=== PATIENT | male | born 1955 | race Caucasian/White ===

== ENCOUNTER 2016-10-29 11:12 | Inpatient (IN) | payer OTHER ==
[2016-10-29] VITALS (13 sets, daily range): BP systolic 104–179; BP diastolic 45–89; PULSE 49–63; RESP 16–25; O2SAT 95–99
[~2016-10-29] VITALS: Ht 172.7 cm; Wt 100.0 kg
--- NOTE | 2016-10-29 11:24 | ED.REPORT ---
HPI-Rash / Abscess Date of Service Oct 29, 2016 ED Provider: Antonio Parks MD 61 year old male with a history of diabetes who is an everyday smoker presents to the ER accompanied by his complaining of right foot pain secondary to a sore on his right great toe that has been present for 3-4 months. He states that symptoms initially presented as "a large callous" on his great toe that ruptured while showering one day. Since then, he has developed worsening pain in his foot that radiates up his calf, with associated redness of the foot and lower leg. Associated symptoms include fever, chills, and diaphoresis. Patient was seen by his primary care provider several days ago at which time he was prescribed a course of clindamycin, started 48 hours ago, and referred to the wound care center. He presents after being seen at the wound clinic just prior to arrival where he had his wound evaluated and dressed. Nursing Notes Stated Complaint: RIGHT FOOT ABSCESS,RIGHT CALF PAIN Chief Complaint: General Complaint Nursing Notes Reviewed: Yes Allergies: Coded Allergies: No Known Allergies (Unverified , 10/29/16) General Time Seen by MD: 11:22 Chief Complaint Sore (Right Great Toe) Hx Obtained From: Patient, Spouse Arrived By: Walk-in Onset Occurred: More than a week ago... (4 months) Symptom Duration: Since onset Location: : Foot (Right) Quality: Painful Severity: Current: Moderate Severity: Maximum: Moderate Associated with: Reports Fever, Reports Shaking chills Recent Healthcare: Recent doctor visit Similar Sx Previous: No Past Medical History Past Medical History Reports: Diabetes mellitus, Denies: COPD, Congestive heart failure, Coronary artery disease Denies: Atrial fibrillation Past Surgical History Open heart surgery Right femoral bypass surgery Carotid endarterectomy Lower extremity stent placement Smoking History Current Every Day Smoker Social History Other Social History: Good social support, Review of Systems Constitutional: Reports: Chills, Fever Respiratory: Denies: Non-productive cough, Shortness of breath Cardiovascular: Denies: Chest pain Musculoskeletal: Reports: Extremity pain (Right Lower, Right Foot), Denies: Back pain, Lumbar pain, Neck pain Skin: Reports Diaphoresis, Reports Rash Complete sys rev & neg: except as marked. Physical Exam Initial Vital Signs Vital Signs (First) Date Time Temp Pulse Resp B/P Pulse Ox O2 Delivery O2 Flow Rate FiO2 10/29/16 11:16 37.8 60 18 126/63 99 Initial VS: Reviewed Head / Eyes: Atraumatic, Normocephalic Neck: Supple, Non-tender, Full range of motion Neurologic: Alert, Oriented, Nonfocal Psychiatric: Mood/affect normal, Behavior normal, Normal thought content General/Constitutional: Awake, Alert, Well developed, Well nourished Skin: Warm, Dry, Intact Respiratory / Chest: Breath sounds NL, Breath sounds = bilat, No respiratory distress, No rales, No rhonchi, No wheezing Cardiovascular: Heart rate NL, Regular rhythm Heart Sounds / Murmur: Positive: Systolic murmur present.. (III/) Lower Extremity / Pelvis / MS: Full range of motion, Neurologic intact, Vascular intact Right Leg / Calf: Positive: Erythema present (extending midway up anterior blas.), Tenderness present... Ankle / Foot: Full range of motion, No deformity, Neurologic intact, Vascular intact Right Foot: Positive: Erythema present, Tenderness present... (Moderate) Right foot wound freshly evaluated and dressed at wound care center just prior to arrival in the department. Interpretation & Diagnostics Lab Results Interpretation Result Diagram: 10/29/16 1143 10/29/16 1130 Test 10/29/16 11:30 10/29/16 11:43 10/29/16 12:26 10/29/16 12:30 Sodium Level 128mEq/L (134-144) Potassium Level 4.2mEq/L (3.5-5.2) Chloride Level 93mEq/L (97-108) Carbon Dioxide Level 20mmol/L (18-29) Blood Urea Nitrogen 31mg/dL (8-27) Creatinine 1.48mg/dL (0.76-1.27) Estimat Glomerular Filtration Rate 51mL/min (>59) Glucose Level 133mg/dL (60-99) Calcium Level 8.9mg/dL (8.5-10.1) Total Bilirubin 0.7mg/dL (0.0-1.2) Aspartate Amino Transf (AST/SGOT) 19U/L (0-50) Alanine Aminotransferase (ALT/SGPT) 9U/L (0-44) Alkaline Phosphatase 76U/L (25-160) Total Protein 7.0g/dL (6.4-8.4) Albumin 3.0g/dL (3.4-5.0) White Blood Count 19.9th/mm3 (3.8-10.1) Red Blood Count 4.11mil/mm3 (4.40-5.80) Hemoglobin 12.8g/dL (13.8-17.2) Hematocrit 36.9% (41.0-50.0) Mean Corpuscular Volume 89.8fL (81-100) Mean Corpuscular Hemoglobin 31.1pg (27.0-35.0) Mean Corpuscular Hemoglobin Concent 34.7% (32.0-37.0) Red Cell Distribution Width 13.0% (12.3-15.4) Platelet Count 326bil/L (150-400) Neutrophils (%) (Auto) 84.6% (40-74) Lymphocytes (%) (Auto) 7.5% (14-46) Monocytes (%) (Auto) 7.3% (4-12) Eosinophils (%) (Auto) 0.1% (0-5) Basophils (%) (Auto) 0.2% (0-3) Lactic Acid Level 1.1mmol/L (0.4-2.0) Urine Color Yellow (YELLOW) Urine Appearance Clear (CLEAR,HAZY) Urine pH 5.5 (5.0-8.0) Urine Specific [place] 1.025 (1.003-1.035) Urine Protein 100mg/dL (NEG,TRACE) Urine Glucose (UA) Negativemg/dL (NEGATIVE) Urine Ketones Negativemg/dL (NEGATIVE) Urine Occult Blood Small (NEGATIVE) Urine Nitrite Negative (NEGATIVE) Urine Bilirubin Negative (NEGATIVE) Urine Urobilinogen Normalmg/dL (NORMAL) Urine Leukocyte Esterase Negative (NEGATIVE) Urine RBC 0-2/hpf (0-2) Urine WBC 0-5/hpf (0-5) Urine Epithelial Cells Occasional/hpf (NONE-MOD) Urine Crystals None seen (NONE SEEN) Urine Bacteria None/hpf (NONE-FEW) Urine Hyaline Casts Occasional/lpf (NONE) Urine Granular Casts None seen (NONE SEEN) Urine Waxy Casts None seen (NONE SEEN) Urine Red Blood Cell Casts None seen (NONE SEEN) Urine White Blood Cell Casts None seen (NONE SEEN) Urine Mucus None seen (None Seen) Urine Trichomonas None seen (NONE SEEN) Urine Yeast None (NONE SEEN) Urinalysis Comment None Urine Culture Reflexed Not indicated ECG Interpretation ECG Interpretation: Sinus rhythm, rate 60 Abnormal T, consider ischemia, lateral leads Time: 12:10 Interpreted by: ED physician Re-Eval/Medical Decision Source of Hx: Old records Re-Evaluation/Progress : Time of Eval: 11:35 Re-Evaluation/Progress Note: Discussed physical examination findings and need for admission. Patient is amenable to the plan. All other questions addressed. Consultation #1: Referral / Consult Name: Beto Jensen DPM Call Returned at: 11:37 Note: Agrees to consult. 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 I, Dr. Parks, personally performed the history, physical exam and medical decision-making; I reviewed and confirmed the accuracy of the information in the transcribed note. Signed by: Roger Patton, 10/29/2016 and 12:32 copies to: Haley Swift PA-C, Kirk H MD Oct 29, 2016 11:24 NICO GUO Oct 29, 2016 11:31 Antonio Parks MD Oct 29, 2016 11:24 NICO GUO Oct 29, 2016 11:31
[2016-10-29] MEDS ORDERED: 0.9% Sodium Chloride 1,000 ML IV ONE (11:43)
[2016-10-29] MEDS ORDERED: Vancomycin Dose per Pharmacist XX ONE (11:45)
[2016-10-29] MEDS ORDERED: Clindamycin Inj 900 MG in IV Premix 1 EACH IV ONE (11:45)
[2016-10-29] MEDS ORDERED: Meropenem Inj 1,000 MG in 0.9% Sodium Chloride 100 ML IV ONE (11:45)
[2016-10-29] MEDS ORDERED: Vancomycin Inj 2,000 MG in 0.9% Sodium Chloride 500 ML IV ONE (12:05)
[2016-10-29] MEDS: HYDROmorphone 1 mg/mL Inj IVPUSH PRN (12:14)
[2016-10-29 12:29] LABS: BASOPHILS % (AUTO) 0.2 % (0-3); EOSINOPHILS % (AUTO) 0.1 % (0-5); MONOCYTES % (AUTO) 7.3 % (4-12); Mean Corpuscular Hemoglobin 31.1 pg (27.0-35.0); Mean Corpuscular Volume 89.8 fL (81-100); NEUTROPHILS % (AUTO) 84.6 % (40-74); Platelet Count 326 bil/L (150-400)
[2016-10-29] MEDS ORDERED: Buprenorphine 2 mg SL Tablet SL ONE (12:30)
--- NOTE | 2016-10-29 12:41 | PCM.CONPHA ---
Subjective Date of Service: Oct 29, 2016 Requesting Provider: Antonio Parks MD Reason for Pharmacy Consult: Vancomycin Dosing Objective Vital Signs Date Time Temp Pulse Resp B/P Pulse Ox O2 Delivery O2 Flow Rate FiO2 10/29/16 11:16 37.8 60 18 126/63 99 Weight (Kilograms): 101.36 Height (Feet): 5 Height (Inches): 8 Test 10/29/16 12:26 Assessment/Plan Assessment/Plan A/P: * Pharmacy asked to dose vancomycin for a 61 y/o diabetic man with cellulitis * He weighs 101 kg per the EMR, estimated vancomycin Vd is 71 liters * No recent serum creatinine lab * Clindamycin and meropenem were also ordered * Giving a one time dose of vancomycin 2000 mg IV (about 20 mg/kg) * Please re-order pharmacy consult if the patient is to be continued on vancomycin Thank you. Shyla Meneses, PharmD Shyla Meneses Oct 29, 2016 12:41
[2016-10-29 12:43] LABS: APPEARANCE,URINE CLEAR (CLEAR,HAZY); COLOR,URINE YELLOW (YELLOW); OCCULT BLOOD,URINE SMALL (NEGATIVE); PH,URINE 5.5 (5.0-8.0); UROBILINOGEN,URINE NORMAL (NORMAL)
[2016-10-29] MEDS ORDERED: Ondansetron 2 mg/mL 2 mL Inj IVPUSH PRN ×3 (13:00→17:15)
[2016-10-29] MEDS ORDERED: Alum-Mag Hydrox-Simeth 30 mL Suspension PO PRN ×2 (13:00→13:05)
[2016-10-29] MEDS ORDERED: Polyethylene Glycol (PEG) 17 Gm Powder PO PRN (13:05)
--- NOTE | 2016-10-29 13:16 | DRSVH ---
PROCEDURE: X-RAY RIGHT FOOT COMPLETE, MINIMUM THREE VIEWS ([id number]) INDICATIONS: poor wound healing TECHNIQUE: 3 views of the foot were acquired. COMPARISON: None. FINDINGS: Bones: No fractures or dislocations. No suspicious bony lesions. Plantar calcaneal enthesophyte. Soft tissues: No tibiotalar joint effusion. Achilles tendon appears normal. There is swelling abou t the level of the first MTP joint along the medial and plantar surface of the soft tissues which con tains internal which may be related to overlying gauze or ointment. IMPRESSION: 1. Although no bony erosions are identified, plain film radiography is relatively insensitive in the acute phases of osteomyelitis and may not demonstrate radiographic changes for 15 days. If acute ost eomyelitis is of clinical concern, nuclear medicine regional bone scan or MRI is recommended. 2. Soft tissue ulceration. Dictated by: Guillermo CUELLAR Interpreted: Bryanna Millan MD on 10/29/2016 at 13:15 Transcribed by: GEORGE on 10/29/2016 at 13:16 Approved by: Bryanna Millan MD, PhD on 10/29/2016 at 16:57
--- NOTE | 2016-10-29 13:21 | NUR ---
ADMIT TO [facility] Patient arrived to RM 1012 on ER [facility]. Was able to stand and transfer to hospital bed in room. Alert and oriented, accompanied by . On RA. 2 IV antibiotics running through 20G AC in R arm. R foot wrapped with kerlix from previous wound care appointment, earlier in the day. Redness and swelling noted to R ankle and blas. Continue to monitor.
[2016-10-29] MEDS ORDERED: FUR20 PO (13:51)
[2016-10-29] MEDS ORDERED: GABA-502 PO (13:51)
[2016-10-29] MEDS ORDERED: HYDR25TA4 PO (13:51)
[2016-10-29] MEDS ORDERED: METF500T4 PO (13:51)
[2016-10-29] MEDS ORDERED: DULO30CA50 PO (13:51)
[2016-10-29] MEDS ORDERED: CLOP75TA28 PO (13:51)
[2016-10-29] MEDS ORDERED: PRAV20TA2 PO (13:51)
[2016-10-29] MEDS ORDERED: INSU100I13 SUBQ (13:51)
--- NOTE | 2016-10-29 15:48 | DRSVH ---
PROCEDURE: MRI FOREFOOT RIGHT WITH AND WITHOUT CONTRAST ([id number]) INDICATIONS: 61-year-old diabetic male with chronic right foot wound. TECHNIQUE: Noncontrast sagittal T1 spin echo and T2 fast spin echo with fat saturation, long-axis T1 spin echo a nd T2 fast spin echo with fat saturation; short-axis T1 spin echo, proton density fast spin echo, and T2 fast spin echo with fat saturation through the forefoot. Post-contrast short axis, long axis, an d sagittal T1 spin echo with fat saturation through the forefoot. COMPARISON: [facility], CR, XR FOOT 3VW RT, 10/29/2016, 12:12. FINDINGS: Skin marker denotes the site skin wound near the first metatarsophalangeal joint. Image quality: Excellent. Bones and joints: No suspicious osseous enhancement or edema. No bone marrow contusions or metatars al stress fractures. The sesamoid bones appear in expected positions, with localized degenerative cadena bchondral marrow edema involving the medial sesamoid. No metatarsophalangeal joint degeneration. Th ere is small first metatarsophalangeal joint degeneration. No intraosseous lesions. Soft tissues: There is confluent dorsal forefoot subcutaneous edema. No suspicious soft tissue enhan cement. On series 11 images 25 and 26, oblong soft tissue sinus tract is noted superficial to the me dial sesamoid, not extending to the osseous surface. The visualized plantar foot muscles demonstrate normal signal and bulk. Visualized flexor and extensor tendons appear intact, without tenosynovitis. No soft tissue ganglion cysts or bursal fluid collections. IMPRESSION: 1. No imaging evidence for osteomyelitis. Soft tissue sinus tract near the medial sesamoid, not exten ding to the bony surface. No soft tissue abscesses. 2. Localized degenerative changes involve the medial sesamoid. Nonspecific first metatarsophalangeal joint effusion. 3. Nonspecific confluent dorsal forefoot subcutaneous edema may reflect congestive heart failure, jacque lulitis, among other possibilities. Dictated by: Quique Mix M.D. on 10/29/2016 at 15:38 Approved by: Quique Mix M.D. on 10/29/2016 at 15:47
--- NOTE | 2016-10-29 16:03 | DRSVH ---
PROCEDURE: US VEINOUS LEG DUPLEX UNILATERAL, RIGHT INDICATIONS: leg swelling TECHNIQUE: Real-time imaging, as well as color and pulse Doppler interrogation, were performed of the lower extr emity deep veins from the inguinal ligament to the popliteal fossa. COMPARISON: None. FINDINGS: The deep veins are normally compressible, and free of intraluminal thrombus. Color and pu lse Doppler demonstrate normal phasic intraluminal flow. There is normal augmentation response to di stal compression maneuver. Edema and multiple groin lymph nodes. IMPRESSION: 1. No deep venous thrombosis identified within the right lower extremity. 2. Edema and multiple nodes visualized largest measuring 1.0 cm. Recommend clinical correlation and management. Dictated by: Guillermo CUELLAR Interpreted: Bryanna Millan MD on 10/29/2016 at 16:02 Transcribed by: GEORGE on 10/29/2016 at 16:03 Approved by: Bryanna Millan MD, PhD on 10/29/2016 at 16:57
[2016-10-29] MEDS ORDERED: CLIN-78 PO (16:24)
[2016-10-29] MEDS ORDERED: LOSA1TAB35 PO (16:24)
--- NOTE | 2016-10-29 16:53 | NUR ---
MED REC Completed with patient information, med list and external pharmacy information. Notified admitting MD.
--- NOTE | 2016-10-29 16:55 | PCM.HPMED ---
Subjective Date of Service Oct 29, 2016 Primary Provider: Admitting Physician: Danitza Mendez DO Primary Care Physician: Haley Swift PA-C Attending Physician: Danitza Mendez DO Chief Complaint: Right foot cellulitis failed outpatient treatment Allergies Coded Allergies: No Known Allergies (Unverified , 10/29/16) PMH Social History Hx Alcohol Use: No Hx Substance Use: No Smoking Status: Current Every Day Smoker Exam Vital Signs Vital Sign - Last Date Time Temp Pulse Resp B/P Pulse Ox O2 Delivery O2 Flow Rate FiO2 10/29/16 11:16 37.8 60 18 126/63 99 Lab and Diagnostics Result Diagram: 10/29/16 1143 10/29/16 1130 Assessment & Plan HPI: 61 yo male presents with the complaint of R foot pain 2/2 cellulits with failed out patient therapy with clindamycin. The patient states that he has been dealing with a blister/callous for the last 4 months and has been having it cared for by the wound care clinic. The patient state that he went to the doctor on Tuesday and was placed on Clindamycin 300mg QID. The patient stated today that he was not able to walk today while at work and had to leave early. The patient went to the doctors who evaluated his foot and stated that he needed to come to the ER for IV antibiotics as his r foot infection started to spread and is now going up the leg. Patient denies any SOB, chest pain, n/v/d. Reports constipation, sweating, chills, right foot pain and headache. 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 Please see HPI for perninent positives, all other systems are negatives. Physical Exam: GEN: Patient was awake, alert, responding appropriately to questions HEENT: PERRLA, EOMI, Neck soft supple, trachea midline, nomocephalic/atraumatic CV: +S1/S2, RRR, no murmurs auscultated Respiratory: CTAB, no wheezes, rales, rhonchi GI: +bowel sounds x4, soft, compressible, non TTP EXT: Right lower extremity redness, edema, right foot currently bandaged dressing is clean dry and intact Neuro: CN II-XII grossly intact Psych: mood and affect were appropriate Assessment and Plan 61-year-old male presents with right lower extremity pain secondary to cellulitis with failed outpatient antibiotics Right lower extremity cellulitis -Continue IV antibiotics -Podiatry consulted and taking patient to surgery this afternoon -Right lower extremity Doppler rule out DVT -MRI of the right foot rule out osteo-myelitis -Cultures of the right foot to be taken by podiatry Hypertension -Blood pressure is currently 104/51 -We will hold all patient's home medications at this time and restart as clinically indicated Vascular insufficiency -Continue Plavix 75 mg daily -Continue gabapentin 600 mg daily at bedtime Diabetes -Hemoglobin A1c pending -Restart Lantus 50 units every morning -Accu-Cheks before meals and at bedtime -Metformin 500 mg twice a day Nicotine dependence -Nicotine patch -Smoking cessation/counseling was given to the patient CODE STATUS patient is full code DVT prophylaxis heparin Disposition: Patient will most likely stay greater than 2 mid nights Time spent One hour Danitza Mendez DO Oct 29, 2016 13:08
--- NOTE | 2016-10-29 17:01 | NUR ---
TRANSFER TO OR Report given to Myriam in OR. Patient's IV was SL, voided and then transferred onto OR gurney. Taken upstairs, accompanied by .
[2016-10-29] MEDS ORDERED: HYDROmorphone 1 mg/mL Inj IVPUSH PRN (17:15)
[2016-10-29] MEDS ORDERED: fentaNYL-PF 50 mCg/mL 2 mL Inj IVPUSH PRN (17:15)
[2016-10-29] MEDS ORDERED: MetoCLOpramide 5 mg/mL 2 mL Inj IVPUSH PRN (17:15)
[2016-10-29] MEDS ORDERED: Phenylephrine 10,000 mCg/mL Inj IVPUSH PRN (17:15)
[2016-10-29] MEDS ORDERED: Lactated Ringer's 500 ML IV PRN (17:15)
[2016-10-29] MEDS ORDERED: Lactated Ringer's 1,000 ML IV SCH (17:15)
[2016-10-29] MEDS ORDERED: EPHEDrine Sulfate 50 mg/mL Inj IVPUSH PRN (17:15)
[2016-10-29] MEDS ORDERED: Dexamethasone 4 mg/mL Inj IVPUSH PRN (17:15)
--- NOTE | 2016-10-29 17:15 | PCM.HPANE ---
Patient Data Surgeon Admitting Provider:Danitza Mendez DO Attending Provider:Danitza Mendez DO Primary Care Physician:Haley Swift PA-C Other Provider: Reason for Visit Cellulitis Ht/WT & BMI Height (Feet): 5 Height (Inches): 8.00 Weight (Kilograms): 100.000 Body Mass Index 33.41 Allergies Coded Allergies: No Known Allergies (Unverified , 10/29/16) Past Anesthesia History Anesthesia History: Denies:: Anesthesia Reactions Diabetes History Hx Diabetes?: Yes Current Bedside Blood Glucose: 79 MRSA MRSA: No Medications Reported Medications Clindamycin 300 Mg [id number] Mg PO QID #40 10/29/16 Losartan/HCTZ 100-12.5 mg 1 Each Tablet1 Tablet PO DAILY Ref 0 10/29/16 Duloxetine 30 Mg Capsule.dr30 Mg PO DAILY #90 10/29/16 Insulin Glargine (Lantus U100 Solostar Insulin Pen)100 Unit/1 Ml Insuln.pen50 Units [id number] DAILY #45 10/29/16 Clopidogrel 75 Mg Fljloz95 Mg PO DAILY #90 10/29/16 Pravastatin 20 Mg Wwlykb96 Mg PO HS #90 10/29/16 Furosemide 20 Mg Tab20 Mg PO DAILY #90 10/29/16 Gabapentin 300 Mg [id number] Mg PO HS #180 10/29/16 Metformin 500 Mg Yjkvyi315 Mg PO BID #90 10/29/16 Discontinued Reported Medications Hydrochlorothiazide 25 Mg Ahgyer64 Mg PO DAILY #90 10/29/16 History History of ENT Problems?: No Hx of Heart Problems?: Yes Cardiovascular History: Positive for:: Cardiac Surgery (previous open heart surgery) Edema (R leg swelling after r femoral surgery) Heart Murmur Denies:: Chest Pain Congestive Heart Failure Hypertension Irregular Heartbeat Pacemaker Thrombophlebitis Hx of Respiratory Problem?: No Respiratory History: Denies:: Tuberculosis Hx Neurologic Problems?: No Neurological History: Denies:: Alzheimer's Disease CVA Dementia Dizziness Headaches Parkinson's Disease Seizures Hx of GI Problems?: No Gastrointestinal History: Denies:: Diverticulitis Gastroesphageal Reflux Gastrointestinal Bleeding Heartburn Hepatitis Hiatal Hernia Rectal Bleeding Hx of Problems?: No Genitourinary History: Denies:: HX of Hemodialysis Kidney Stones Urinary Tract Infection HX of Peritoneal Dialysis: No Male Hx: Denies:: Prostate Problems Scrotal Mass Testicular Surgery Hx Musculoskeletal Problems?: No Musculoskeletal History: Denies:: Joint Replacement Musculoskeletal Trauma Hx of Psycho/Social Problems?: No Psycho Social History: Denies:: Anxiety Bipolar Disorder Hx Depression Suicide Attempt Hx Surgeries?: Yes (r femoral byoass, open heart procedure, L carotid) Hx Any Other Health Problems?: Yes Other History: Denies:: Cancer Hospitalization Thyroid Disease History Blood Transfusions: Positive for:: Accept Blood Products? Denies:: Blood Transfuse Reaction Blood Transfusions Hx Diabetes: YesBedside Blood Glucose: 79 Hx Alcohol Use: NoHx Substance Use: No Smoking Status: Current Every Day Smoker Have You Smoked inLast 12 mo: YesApprox How Many Cigarettes/day: 20 ciagrettes Stop/Bang Treated for Sleep Apnea?: No Do You Have a CPAP Machine?: No S-Snoring: Do You Snore Loudly: Yes T-Tired: feel tired, fatigued: Yes O-Obsered: Observed not breath: No P-Blood Pressure: treated: No B- Body Mass Index > 35 kg/m2: No A- Age over 50: Yes N- Neck Large Circumference: No G- Gender Male: Yes JAGRUTI Total Score: 3 JAGRUTI Risk Assessment: Low Risk, <3 Yes Risk Assessment Category Category 1A: Patient has history of documented sleep apnea, and HAS NOT received any narcotic, sedative or anesthesia administration during this stay. Category 1B: Patient has history of documented sleep apnea, and HAS received any narcotic , sedative or anesthesia administration during this stay Category 2: Patient has SUSPECTED Obstructive Sleep Apnea, and HAS received any narcotic , sedative or anesthesia administration during this stay. Category 3: Patient has SUSPECTED Obstructive Sleep Apnea and HAS NOT received narcotic, sedative or anesthesia administration during this stay. Category 4: Outpatient in Procedural Areas with known sleep apnea or who screen positive for High Risk via the STOP/BANG questionnaire. Exam Exam Vital Signs Vital Signs Date Time Temp Pulse Resp B/P Pulse Ox O2 Delivery O2 Flow Rate FiO2 10/29/16 13:43 36.8 49 16 104/51 95 Room Air 10/29/16 13:06 37.7 60 18 132/89 99 10/29/16 11:16 37.8 60 18 126/63 99 General Appearance: Oriented X3 HEENT/AIRWAY: MP 2 Lungs: Normal Air Movement Heart: Regular Rate/Rhythm Meds/Labs/Diagnostics Admission Meds Current Medications Sodium Chloride (Normal Saline) 1,000 ml @ 0 mls/hr Q0M ONCE IV Last administered on 10/29/16 12:00; Start 10/29/16 at 11:43; Stop 10/29/16 at 11:56 ; Status DC Pharmacy Consult 1 ea 1 ea ONCE ONCE XX Last administered on 10/29/16 12:16; Start 10/29/16 at 11:45; Stop 10/29/16 at 12:00; Status DC Clindamycin Phosphate/ Dextrose 900 mg/ Premix 50 ml @ 100 mls/hr ONCE ONCE IV Last administered on 10/29/16 12:03; Start 10/29/16 at 11:45; Stop at 12:14; Status DC Meropenem/Sodium Chloride (Merrem Inj/ Normal Saline) 100 ml @ 200 mls/hr ONCE ONCE IV Last administered on 10/29/16 12:48; Start 10/29/16 at 11:45; Stop 10/29/16 at 12:14; Status DC Acetaminophen 975 mg 975 mg ONCE ONCE PO Last administered on 10/29/16 12:14 ; Start 10/29/16 at 11:45; Stop 10/29/16 at 11:56; Status DC Vancomycin HCl/ Sodium Chloride (Vancocin Inj/ Normal Saline) 500 ml @ 250 mls/ hr OT ONCE IV Last administered on 10/29/16 12:32; Start 10/29/16 at 12:05; Stop 10/29/16 at 14:04; Status DC Bedside Blood Glucose: 79 Labs Test 10/29/16 11:30 10/29/16 11:43 10/29/16 12:26 10/29/16 12:30 Sodium Level 128mEq/L (134-144) Potassium Level 4.2mEq/L (3.5-5.2) Chloride Level 93mEq/L (97-108) Carbon Dioxide Level 20mmol/L (18-29) Blood Urea Nitrogen 31mg/dL (8-27) Creatinine 1.48mg/dL (0.76-1.27) Estimat Glomerular Filtration Rate 51mL/min (>59) Glucose Level 133mg/dL (60-99) Calcium Level 8.9mg/dL (8.5-10.1) Total Bilirubin 0.7mg/dL (0.0-1.2) Aspartate Amino Transf (AST/SGOT) 19U/L (0-50) Alanine Aminotransferase (ALT/SGPT) 9U/L (0-44) Alkaline Phosphatase 76U/L (25-160) Total Protein 7.0g/dL (6.4-8.4) Albumin 3.0g/dL (3.4-5.0) White Blood Count 19.9th/mm3 (3.8-10.1) Red Blood Count 4.11mil/mm3 (4.40-5.80) Hemoglobin 12.8g/dL (13.8-17.2) Hematocrit 36.9% (41.0-50.0) Mean Corpuscular Volume 89.8fL (81-100) Mean Corpuscular Hemoglobin 31.1pg (27.0-35.0) Mean Corpuscular Hemoglobin Concent 34.7% (32.0-37.0) Red Cell Distribution Width 13.0% (12.3-15.4) Platelet Count 326bil/L (150-400) Neutrophils (%) (Auto) 84.6% (40-74) Lymphocytes (%) (Auto) 7.5% (14-46) Monocytes (%) (Auto) 7.3% (4-12) Eosinophils (%) (Auto) 0.1% (0-5) Basophils (%) (Auto) 0.2% (0-3) Lactic Acid Level 1.1mmol/L (0.4-2.0) Urine Color Yellow (YELLOW) Urine Appearance Clear (CLEAR,HAZY) Urine pH 5.5 (5.0-8.0) Urine Specific [place] 1.025 (1.003-1.035) Urine Protein 100mg/dL (NEG,TRACE) Urine Glucose (UA) Negativemg/dL (NEGATIVE) Urine Ketones Negativemg/dL (NEGATIVE) Urine Occult Blood Small (NEGATIVE) Urine Nitrite Negative (NEGATIVE) Urine Bilirubin Negative (NEGATIVE) Urine Urobilinogen Normalmg/dL (NORMAL) Urine Leukocyte Esterase Negative (NEGATIVE) Urine RBC 0-2/hpf (0-2) Urine WBC 0-5/hpf (0-5) Urine Epithelial Cells Occasional/hpf (NONE-MOD) Urine Crystals None seen (NONE SEEN) Urine Bacteria None/hpf (NONE-FEW) Urine Hyaline Casts Occasional/lpf (NONE) Urine Granular Casts None seen (NONE SEEN) Urine Waxy Casts None seen (NONE SEEN) Urine Red Blood Cell Casts None seen (NONE SEEN) Urine White Blood Cell Casts None seen (NONE SEEN) Urine Mucus None seen (None Seen) Urine Trichomonas None seen (NONE SEEN) Urine Yeast None (NONE SEEN) Urinalysis Comment None Urine Culture Reflexed Not indicated Plan Impression Patient chart reviewed, patient interviewed and anesthestic plan with risks, benefits, and alternatives discussed, and informed consent obtained. ASA Physical Status: ASA4 Life Threatening Anesthetic Plan: MAC Bene/Risks/Altern/Consents: Yes HP Complete Prior to Induction: Yes Aurelio Epstein MD Oct 29, 2016 17:15
[2016-10-29] MEDS ORDERED: Lactated Ringer's 1,000 ML IV ONE (17:30)
--- NOTE | 2016-10-29 17:38 | PCM.CHPPOD ---
Subjective Date of service Oct 29, 2016 History of Present Illness 61-year-old male is admitted through the ED with rapid onset right foot infection swelling and redness in the right leg. Patient is a long-standing diabetic, has had a callus sub-first met head on the right for many months, and has noted drainage at this site for a month or 2. Yesterday he noted increased pain, swelling and developed some chills. He presented to the wound care center , was seen by Dr. Diaz who recommended he present to the ED. Patient denies history of prior foot infections nonhealing wounds or ulcerations. Dr. Diaz felt patient needed urgent incision and drainage and is scheduled this evening for IND. Patient is seen accompanied by his . Past medical history is significant for CAD, PAD with history of CABG and lower extremity bypass on the right. He was last seen by his vascular surgeon in July and told that the graft was patent Allergy Allergies: Coded Allergies: No Known Allergies (Unverified , 10/29/16) Medications Clindamycin (Clindamycin) 300 Mg Capsule 300 MG PO QID Clopidogrel (Clopidogrel) 75 Mg Tablet 75 MG PO DAILY Duloxetine (Duloxetine) 30 Mg Capsule.dr 30 MG PO DAILY Furosemide (Furosemide) 20 Mg Tab 20 MG PO DAILY Gabapentin (Gabapentin) 300 Mg Capsule 600 MG PO HS Insulin Glargine (Lantus U100 Solostar Insulin Pen) 100 Unit/1 Ml Insuln.pen 50 UNITS [id number] DAILY Losartan/HCTZ 100-12.5 mg (Losartan/HCTZ 100-12.5 mg) 1 Each Tablet 1 TABLET PO DAILY Metformin (Metformin) 500 Mg Tablet 500 MG PO BID Pravastatin (Pravastatin) 20 Mg Tablet 20 MG PO HS Past Medical History Surgeries: Yes (r femoral byoass, open heart procedure, L carotid) Medical History: Surgical History: Social History Hx Alcohol Use: No Hx Substance Use: No Smoking Status: Current Every Day Smoker Podiatry Consult Exam Vital Signs Vital Sign - Last Date Time Temp Pulse Resp B/P Pulse Ox O2 Delivery O2 Flow Rate FiO2 10/29/16 13:43 36.8 49 16 104/51 95 Room Air Result Diagram: 10/29/16 1143 10/29/16 1130 Lab Test 10/29/16 11:30 10/29/16 11:43 10/29/16 12:10/29/16 12:30 Sodium Level 128mEq/L (134-144) Potassium Level 4.2mEq/L (3.5-5.2) Chloride Level 93mEq/L (97-108) Carbon Dioxide Level 20mmol/L (18-29) Blood Urea Nitrogen 31mg/dL (8-27) Creatinine 1.48mg/dL (0.76-1.27) Estimat Glomerular Filtration Rate 51mL/min (>59) Glucose Level 133mg/dL (60-99) Calcium Level 8.9mg/dL (8.5-10.1) Total Bilirubin 0.7mg/dL (0.0-1.2) Aspartate Amino Transf (AST/SGOT) 19U/L (0-50) Alanine Aminotransferase (ALT/SGPT) 9U/L (0-44) Alkaline Phosphatase 76U/L (25-160) Total Protein 7.0g/dL (6.4-8.4) Albumin 3.0g/dL (3.4-5.0) White Blood Count 19.9th/mm3 (3.8-10.1) Red Blood Count 4.11mil/mm3 (4.40-5.80) Hemoglobin 12.8g/dL (13.8-17.2) Hematocrit 36.9% (41.0-50.0) Mean Corpuscular Volume 89.8fL (81-100) Mean Corpuscular Hemoglobin 31.1pg (27.0-35.0) Mean Corpuscular Hemoglobin Concent 34.7% (32.0-37.0) Red Cell Distribution Width 13.0% (12.3-15.4) Platelet Count 326bil/L (150-400) Neutrophils (%) (Auto) 84.6% (40-74) Lymphocytes (%) (Auto) 7.5% (14-46) Monocytes (%) (Auto) 7.3% (4-12) Eosinophils (%) (Auto) 0.1% (0-5) Basophils (%) (Auto) 0.2% (0-3) Lactic Acid Level 1.1mmol/L (0.4-2.0) Urine Color Yellow (YELLOW) Urine Appearance Clear (CLEAR,HAZY) Urine pH 5.5 (5.0-8.0) Urine Specific [place] 1.025 (1.003-1.035) Urine Protein 100mg/dL (NEG,TRACE) Urine Glucose (UA) Negativemg/dL (NEGATIVE) Urine Ketones Negativemg/dL (NEGATIVE) Urine Occult Blood Small (NEGATIVE) Urine Nitrite Negative (NEGATIVE) Urine Bilirubin Negative (NEGATIVE) Urine Urobilinogen Normalmg/dL (NORMAL) Urine Leukocyte Esterase Negative (NEGATIVE) Urine RBC 0-2/hpf (0-2) Urine WBC 0-5/hpf (0-5) Urine Epithelial Cells Occasional/hpf (NONE-MOD) Urine Crystals None seen (NONE SEEN) Urine Bacteria None/hpf (NONE-FEW) Urine Hyaline Casts Occasional/lpf (NONE) Urine Granular Casts None seen (NONE SEEN) Urine Waxy Casts None seen (NONE SEEN) Urine Red Blood Cell Casts None seen (NONE SEEN) Urine White Blood Cell Casts None seen (NONE SEEN) Urine Mucus None seen (None Seen) Urine Trichomonas None seen (NONE SEEN) Urine Yeast None (NONE SEEN) Urinalysis Comment None Urine Culture Reflexed Not indicated Diagnostics X-ray shows cavus foot structure, soft tissue swelling sub-first metatarsal head , no osseous lytic or erosive changes suggestive of osteomyelitis. MRI shows a ulceration sub-first met head with sinus tract into the first webspace and dorsal edema without significant abscess or evidence of osteomyelitis Exam Lungs: Normal Air Movement Cardiac: Regular Rate/Rhythm Lower Extremities: Right: Edema Generalized Edema localized Extremity warm Other Lower Extremity Pulses: Absent: Left Dorsalis Pedis Left Posterior Tibal Right Dorsalis Pedis Right Posterior Tibal Additional Information: Patient is a pleasant male in no acute distress. Lower extremity exam shows absent DP and PT pulses. Lower extremities are devoid of hair growth. Right lower family is diffusely edematous with erythema the anteromedial calf and first metatarsal phalangeal joint. There is a hyperkeratotic lesion sub-first metatarsal head which does probe deeply. The dorsal forefoot is nonfluctuant. Epicritic sensations are absent plantarly. Patient has a cavus foot structure with extensor substitution contractures of the digits causing retrograde plantarflexion of the metatarsal heads and subsequent attenuation of the plantar fat pad, contributing to callus development. Assessment & Plan Assessment Neuropathic ulcer sub-first metatarsal head right foot with penetration to the first intermetatarsal space, cellulitis of the right lower extremity PAD, diabetic neuropathy Problems: Plan Findings reviewed with patient and he is consented for incision and drainage sub -first metatarsal head and first intermetatarsal space of the right foot under MAC. I discussed details of the procedure, the uncertain postoperative course, potential for further surgery. I also strongly recommended smoking cessation and regular podiatric care upon discharge. Beto Jensen DPM Oct 29, 2016 17:38
[2016-10-29] MEDS ORDERED: Bupivacaine-MPF 0.5% 30 mL Inj INJ ONE (17:54)
[2016-10-29] MEDS ORDERED: Lidocaine PF 1% 30 mL Inj INJ ONE (17:54)
[2016-10-29] MEDS ORDERED: Gentamicin 40 mg/mL 2 mL Inj IRRIGATION ONE (17:55)
[2016-10-29] MEDS ORDERED: Propofol 10,000 mCg/mL 20 mL Inj ONE (18:04)
[2016-10-29] MEDS ORDERED: MetoCLOpramide 5 mg/mL 2 mL Inj ONE (18:04)
--- NOTE | 2016-10-29 18:42 | PCM.PODPO ---
Podiatry Operative Report Date of Service: Oct 29, 2016 Date of Service Oct 29, 2016 Pre Operative Diagnosis Neuropathic ulceration sub-first metatarsal head right foot, cellulitis right foot, PAD, diabetic neuropathy Post Operative Diagnosis Same Procedure Incision, debridement, irrigation, wound packing with partial closure of ulceration sub-first metatarsal head right foot Surgeon Surgeon: Danitza Mendez DO Assistants: None Indication for Procedure Same Findings Full-thickness ulceration which tracked lateral to the first metatarsal phalangeal joint to the dorsal webspace, scant purulence or omi soft tissue necrosis right foot Details of Procedure Patient was brought to the operating suite and placed on the table in the supine position surgical timeout was observed. Upon initiation of monitored anesthesia care by the anesthesiologist the proximal first metatarsal phalangeal joint was anesthetized utilizing approximately 10 cc 1% lidocaine plain with 0.5% Marcaine plain in a one-to-one mix. Right lower extremity was prepped and draped in the usual aseptic manner. Attention was directed to the plantar sub-first metatarsal head where there was a large ulcerated hyperkeratotic lesion. The hyperkeratotic tissue is tangentially debrided and a 7 x 8 mm circumscribed ulceration, which was excised via 2 converging semi- elliptical incisions and which was noted which extend to the sesamoid and flexor tendon, probing into the first intermetatarsal space lateral to the joint and distally into the lateral hallux was performed.. There was only a scant amount of purulent exudate. A necrotic fibrous plug was debrided from the depths of the wound, and sent for culture and sensitivity. A small stab incision was made on the dorsal lateral aspect of the hallux and through and through probing performed to ensure there were no abscesses or loculations. The sesamoid was visible in the plantar wound, but the periosteum looked intact. The flexor hallucis longus was visualized and after debridement still appeared appeared healthy.. After probing for any additional loculations, the site was copiously irrigated with gentamicin solution. A Betadine soaked Nu Gauze packing was applied from dorsal to plantar, noncompressive gauze bandage was applied and the patient left the operating suite and apparent satisfactory condition, there were no complications. Grafts, Implants: None Complications There were no periprocedural complications identified. Condition Stable Anesthetic Administered: MAC Drains: None Catheters: None Output, Estimated Blood Loss: 10 Blood Admin during surgery: No Surgical Cast or Splint: Other Addtional Information Wound was packed with Betadine soaked Nu Gauze Surgical Specimen Removed: No Specimen sent to Pathology: No Post Operative Plan Patient will remain admitted to assess his progress post debridement, and receive parenteral antibiotics which will be modified appropriately pending results of intraoperative wound culture he will require delayed primary closure once infection has resolved. Beto Jensen DPM Oct 29, 2016 18:42
--- NOTE | 2016-10-29 18:46 | PCM.ANEP2 ---
Post Anesthesia Evaluation ASA/CMS Post Anesthesia VS in Patient's Normal Range?: Yes Resp Stable; Airway Patent?: Yes CV Function & Hydration Stable: Yes Mental Status Recovered?: Yes Pain control Satisfactory?: Yes N/V Control Satisfactory?: Yes Aurelio Epstein MD Oct 29, 2016 18:46
--- NOTE | 2016-10-29 18:46 | PCM.ANEP1 ---
Post Anesthesia Phase 1 PACU Phase 1 Assessment Date of Service: Oct 29, 2016 Vital Signs Vital Signs Date Time Temp Pulse Resp B/P Pulse Ox O2 Delivery O2 Flow Rate FiO2 10/29/16 18:40 58 21 172/57 97 Room Air 10/29/16 18:35 59 22 172/60 96 Room Air 10/29/16 18:30 59 22 140/45 98 Room Air 10/29/16 18:25 36.7 62 20 147/73 98 Simple Mask 6 10/29/16 13:43 36.8 49 16 104/51 95 Room Air 10/29/16 13:06 37.7 60 18 132/89 99 10/29/16 11:16 37.8 60 18 126/63 99 Anesthetic Administered: GA Level of Alertness: Awake, talking Pain: No Pain Scale Score: 8 Nausea or Vomiting: No Oxygen Delivery: Room Air Lungs: Normal Air Movement Aurelio Epstein MD Oct 29, 2016 18:46
[2016-10-30] MEDS: HYDROmorphone 1 mg/mL Inj IVPUSH PRN ×4 (01:00→15:48)
[2016-10-30 01:01] VITALS: BP 139/53; PULSE 60; RESP 18; O2SAT 95
--- NOTE | 2016-10-30 05:15 | NUR ---
Pain Patient states hx of neuropathy limits feeling to left foot. Denies CP, SOB or abdominal discomfort. No noted ASE to procedure, patient resting comfortably through out shift.
[2016-10-30 05:20] VITALS: BP 145/69; PULSE 56; RESP 20; O2SAT 92
[2016-10-30 05:49] LABS: BASOPHILS % (AUTO) 0.3 % (0-3); EOSINOPHILS % (AUTO) 0.1 % (0-5); MONOCYTES % (AUTO) 7.6 % (4-12); Mean Corpuscular Hemoglobin 31.2 pg (27.0-35.0); Mean Corpuscular Volume 91.3 fL (81-100); NEUTROPHILS % (AUTO) 80.9 % (40-74); Platelet Count 279 bil/L (150-400)
[2016-10-30] MEDS: Meropenem Inj 500 MG in 0.9% Sodium Chloride 50 ML IV SCH ×2 (09:15→16:27)
--- NOTE | 2016-10-30 09:22 | NUR ---
Social Work- Brief Note Data: EMR reviewed. Pt is a 61 year old male admitted 10/29/16 for cellulitis per H&P. Pt's insurance is [employer] and PCP is Myriam Swift PA-C. SW met with pt regarding discharge plan, SW role explained. Pt alert and oriented x3. Pt resides in [place] with his where he remains independent with his ADLs. 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 Pt is independent at base. SW spoke with pt regarding DPOA, pt declined DPOA paperwork at this time. Pt to discharge home with to transport via POV. No anticipated discharge needs. SW will continue to follow if needs arise. Assessment: Pt who [place] independent [place] base. Plan: Pt to discharge home with to transport via POV. No anticipated discharge needs. SW will continue to follow. DIAMANTE Harmon
[2016-10-30] MEDS: DULoxetine 30 mg DR Capsule PO SCH (10:15)
[2016-10-30] MEDS: Insulin GLARgine 100 Unit/mL Syringe SUBQ SCH (10:17)
--- NOTE | 2016-10-30 10:26 | PCM.PHAPRO ---
Progress Date of Service: Oct 30, 2016 Requesting Provider: Danitza Mendez DO Right foot cellulitis failed outpatient treatment Vancomycin per pharmacy Dose: 2grams vancomycin 10/29 x1 and 10/30 x1 this am Vanco 1500mg IVq24h starting 10/31 SCr 1.6 trough 10/31 before am dose dose 1500mg iv q24 starting 10/31... vanco trough at 0800 10/31 Pascual Michelle [facility] Oct 30, 2016 10:26
[2016-10-30 10:54] VITALS: BP 159/70; PULSE 48; RESP 20; O2SAT 95
--- NOTE | 2016-10-30 11:12 | NUR ---
Evaluation completed. Please go to "Notes" then click on "Assessments and Notes" (bottom left corner of screen). Then select appropriate discipline tab on top of screen.
--- NOTE | 2016-10-30 13:02 | PCM.PNPOD ---
Subjective Date of Service: Oct 30, 2016 Date of Service: Oct 30, 2016 Visit Information: Reason for Visit Cellulitis Surgery/Surgery Date Post-Op Day # Date of Admission: Oct 29, 2016 at 12:37 Hospital Day # Subjective: 61-year-old male is seen 17 hours status post IND first webspace right foot. He states he has noted less swelling, denies fever chills or malaise currently although did have a transient episode of queasiness and diaphoresis when he stood up earlier this morning. He also complains of minimal appetite. Objective Vital Sign - Last Date Time Temp Pulse Resp B/P Pulse Ox O2 Delivery O2 Flow Rate FiO2 10/30/16 10:54 36.9 48 20 159/70 95 Room Air 10/29/16 18:25 6 Intake and Output 10/29/16 10/29/16 10/30/16 Cumulative From/Thru 15:00 23:00 07:00 10/29/16 11:16 - 10/30/16 03:19 Intake Total 999 ml 787 ml 1786 ml Output Total 10 ml 10 ml Balance 999 ml 777 ml 1776 ml IV Total 999 ml 787 ml 1786 ml Estimated Blood Loss 10 ml 10 ml Result Diagram: 10/30/16 0535 10/30/16 0535 Lab Test 10/29/16 11:43 10/29/16 12:30 10/30/16 05:35 Hemoglobin A1c 9.8% (4.8-5.6) Urine Color Yellow (YELLOW) Urine Appearance Clear (CLEAR,HAZY) Urine pH 5.5 (5.0-8.0) Urine Specific [place] 1.025 (1.003-1.035) Urine Protein 100mg/dL (NEG,TRACE) Urine Glucose (UA) Negativemg/dL (NEGATIVE) Urine Ketones Negativemg/dL (NEGATIVE) Urine Occult Blood Small (NEGATIVE) Urine Nitrite Negative (NEGATIVE) Urine Bilirubin Negative (NEGATIVE) Urine Urobilinogen Normalmg/dL (NORMAL) Urine Leukocyte Esterase Negative (NEGATIVE) Urine RBC 0-2/hpf (0-2) Urine WBC 0-5/hpf (0-5) Urine Epithelial Cells Occasional/hpf (NONE-MOD) Urine Crystals None seen (NONE SEEN) Urine Bacteria None/hpf (NONE-FEW) Urine Hyaline Casts Occasional/lpf (NONE) Urine Granular Casts None seen (NONE SEEN) Urine Waxy Casts None seen (NONE SEEN) Urine Red Blood Cell Casts None seen (NONE SEEN) Urine White Blood Cell Casts None seen (NONE SEEN) Urine Mucus None seen (None Seen) Urine Trichomonas None seen (NONE SEEN) Urine Yeast None (NONE SEEN) Urinalysis Comment None Urine Culture Reflexed Not indicated White Blood Count 17.1th/mm3 (3.8-10.1) Red Blood Count 3.56mil/mm3 (4.40-5.80) Hemoglobin 11.1g/dL (13.8-17.2) Hematocrit 32.5% (41.0-50.0) Mean Corpuscular Volume 91.3fL (81-100) Mean Corpuscular Hemoglobin 31.2pg (27.0-35.0) Mean Corpuscular Hemoglobin Concent 34.2% (32.0-37.0) Red Cell Distribution Width 13.0% (12.3-15.4) Platelet Count 279bil/L (150-400) Neutrophils (%) (Auto) 80.9% (40-74) Lymphocytes (%) (Auto) 10.9% (14-46) Monocytes (%) (Auto) 7.6% (4-12) Eosinophils (%) (Auto) 0.1% (0-5) Basophils (%) (Auto) 0.3% (0-3) Sodium Level 134mEq/L (134-144) Potassium Level 4.4mEq/L (3.5-5.2) Chloride Level 101mEq/L (97-108) Carbon Dioxide Level 20mmol/L (18-29) Blood Urea Nitrogen 31mg/dL (8-27) Creatinine 1.59mg/dL (0.76-1.27) Estimat Glomerular Filtration Rate 47mL/min (>59) Glucose Level 178mg/dL (60-99) Lactic Acid Level 0.7mmol/L (0.4-2.0) Calcium Level 7.8mg/dL (8.5-10.1) Total Bilirubin 0.3mg/dL (0.0-1.2) Aspartate Amino Transf (AST/SGOT) 15U/L (0-50) Alanine Aminotransferase (ALT/SGPT) 8U/L (0-44) Alkaline Phosphatase 72U/L (25-160) Total Protein 4.9g/dL (6.4-8.4) Albumin 2.3g/dL (3.4-5.0) Procalcitonin 0.29ng/mL (0.00-0.08) Exam Physical Exam Reexam shows patient to be resting comfortably in bed, right foot elevated on a pillow, dressing with scant amount of sanguinous drainage and apparently it has been changed 1 since it slipped off this morning. There is noted to be reduced edema and erythema of the distal calf and forefoot, the small incisional closure sites appear to be healing primarily. There is no purulence malodor fluctuance or evidence of residual abscess or deep space infection. Lungs: Normal Air Movement Lower Extremities: Right: Edema Generalized Edema localized Extremity warm Other Lower Extremity Pulses: Absent: Left Dorsalis Pedis Left Posterior Tibal Right Dorsalis Pedis Right Posterior Tibal Surgical Cast or Splint: Other Assessment & Plan Impression Right foot improved clinically, leukocytosis modestly improved, mild renal insufficiency. Problems: Plan At this visit the wound packing is changed and foot redressed. I discussed patient's condition with the hospitalist Dr. Mendez who is monitoring his renal function and will consider discontinuance of vancomycin pending intraoperative tissue culture which show sensitivities mixture gram positive cocci and gram- negative rods with sensitivities pending and which should be available later today or in the morning. I did discuss with patient the importance of working toward improvement of hemoglobin A1c and smoking discontinuance in the long- term. Beto Jensen DPM Oct 30, 2016 13:02
[2016-10-30] MEDS ORDERED: Glucose 40% Oral Gel 15 Gm Tube PO PRN (13:35)
[2016-10-30] MEDS: 0.9% Sodium Chloride 1,000 ML IV SCH (13:35)
--- NOTE | 2016-10-30 13:43 | PCM.PNMED ---
Subjective Date of Service Oct 30, 2016 Subjective Patient was seen and examined at bedside today. Patient denies any chest pain, shortness of breath, nausea, vomiting, diarrhea. Patient only complains of right lower extremity pain at this time. Exam Vital Signs Vital Sign - Last Date Time Temp Pulse Resp B/P Pulse Ox O2 Delivery O2 Flow Rate FiO2 10/30/16 10:54 36.9 48 20 159/70 95 Room Air 10/29/16 18:25 6 Intake and Output 10/29/16 10/29/16 10/30/16 Cumulative From/Thru 15:00 23:00 07:00 10/29/16 11:16 - 10/30/16 03:19 Intake Total 999 ml 787 ml 1786 ml Output Total 10 ml 10 ml Balance 999 ml 777 ml 1776 ml IV Total 999 ml 787 ml 1786 ml Estimated Blood Loss 10 ml 10 ml Exam Physical Exam: GEN: Patient was awake, alert, responding appropriately to questions HEENT: PERRLA, EOMI, Neck soft supple, trachea midline, nomocephalic/atraumatic CV: +S1/S2, RRR, systolic murmur auscultated Respiratory: CTAB, no wheezes, rales, rhonchi GI: +bowel sounds x4, soft, compressible, non TTP EXT: Right lower extremity erythema receding, dressing over the surgical area was blood-tinged with serosanguineous fluid Neuro: CN II-XII grossly intact Psych: mood and affect were appropriate IVs and Medications Medications Reviewed: Medications were reviewed in detail Lab and Diagnostics Result Diagram: 10/30/16 0535 10/30/16 0535 Assessment & Plan 61-year-old male presents with right lower extremity pain secondary to cellulitis with failed outpatient antibiotics Right lower extremity cellulitis (status post I&D in the OR on 10/29/2016) -Continue IV antibiotics vancomycin and meropenem -White blood cell count mildly improved 19.9 yesterday today 17.1 -Podiatry following -Right lower extremity Doppler negative for DVT on 10/29/2016 -MRI of the right foot negative for osteomyelitis -Cultures of the right foot done intraoperatively shows positive for gram negative rods and gram-positive cocci and sensitivities pending Hypertension -Blood pressure is currently 159/70 -We will hold patient's home medications of losartan and hydrochlorothiazide as the patient does have some acute kidney injury -Start metoprolol 25 mg twice a day Acute kidney injury -Creatinine 1.48 on admission today 1.59 -Continue IV fluids -Renally dosed vancomycin Hyponatremia (resolving) -Sodium on admission 128 currently 134 -Continue IV fluids -We will continue to monitor Vascular insufficiency -Continue Plavix 75 mg daily -Continue gabapentin 600 mg daily at bedtime Diabetes -Hemoglobin A1c 9.8 -Restart Lantus 50 units every morning -Insulin sliding scale -Accu-Cheks before meals and at bedtime -Metformin 500 mg twice a day Obesity -BMI 33.5 -Diabetic and heart healthy diet Nicotine dependence -Nicotine patch -Smoking cessation/counseling was given to the patient CODE STATUS patient is full code DVT prophylaxis heparin Disposition: The patient does seem to be progressing at this time we will continue to adjust the patient's diabetic medication to help with improved blood glucose control and healing. I discussed the case today with the patient' s pig sticker Dr. Jensen and he agrees that we should continue to monitor patient' s kidney function and renally dose his medications. Culture are currently positive and sensitivities are pending. Will adjust medications as sensitivities are reported. VTE Mechanical Devices: Intermittant Pneumatic CD Time spent Greater than 35 minutes Danitza Mendez DO Oct 30, 2016 13:43
[2016-10-30 14:24] VITALS: BP 161/68; PULSE 46; RESP 20; O2SAT 96
[2016-10-30] MEDS: Insulin LISPRO 300 Unit/3 mL Inj SUBQ SCH ×2 (17:46→21:33)
[2016-10-30 17:49] VITALS: BP 128/44; PULSE 42; RESP 20; O2SAT 92
--- NOTE | 2016-10-30 18:24 | NUR ---
Pain/dressing Patient medicated for foot pain with Dilaudid ivp pain varies from 5-7/10. Patient very tired today has been sleeping off and on. Patient eating poorly today . blood sugars > 200 today. Patient given sliding scale lispro at dinner.
[2016-10-30 21:35] VITALS: BP 144/73; PULSE 52; RESP 20; O2SAT 96
[2016-10-31] MEDS: Meropenem Inj 500 MG in 0.9% Sodium Chloride 50 ML IV SCH ×3 (00:18→17:17)
[2016-10-31] MEDS: HYDROmorphone 1 mg/mL Inj IVPUSH PRN ×5 (00:22→22:49)
[2016-10-31] MEDS: 0.9% Sodium Chloride 1,000 ML IV SCH ×2 (02:55→13:23)
[2016-10-31 05:55] VITALS: BP 130/70; PULSE 52; RESP 20; O2SAT 99
--- NOTE | 2016-10-31 06:09 | NUR ---
Pain Pt reports pain increasing in R foot, PRN dilauded for management. Pt reports that he dislikes being stuck in bed, does not want to ambulate due to pain, and wants to go home [facility]. Pt informed of WBC count and need for IV abx. Further cultures pending. CS 164 at HS and no coverage needed. IV running NS at 75 this shift, pt reports reduced appetite. Care continues
[2016-10-31] MEDS: Insulin LISPRO 300 Unit/3 mL Inj SUBQ SCH ×4 (08:00→22:00)
[2016-10-31] MEDS ORDERED: Vancomycin Serum Trough XX ONE (08:00)
[2016-10-31 08:12] LABS: Mean Corpuscular Hemoglobin 30.6 pg (27.0-35.0); Mean Corpuscular Volume 90.5 fL (81-100)
[2016-10-31] MEDS: DULoxetine 30 mg DR Capsule PO SCH (08:22)
[2016-10-31] MEDS: Insulin GLARgine 100 Unit/mL Syringe SUBQ SCH (08:23)
[2016-10-31] MEDS: Vancomycin Dose per Pharmacist XX SCH (08:30)
[2016-10-31 10:30] VITALS: BP 145/70; PULSE 61; RESP 16; O2SAT 96
--- NOTE | 2016-10-31 11:27 | PCM.PNPOD ---
Subjective Date of Service: Oct 31, 2016 Date of Service: Oct 31, 2016 Visit Information: Reason for Visit Cellulitis Surgery/Surgery Date Post-Op Day # Date of Admission: Oct 29, 2016 at 12:37 Hospital Day # Subjective: Pt seen for f/u right foot cellulitis and I and D on10/29. Pt notes persistent right foot edema, ,mild/mod pain Denies chills,malaise, SOB. Objective Vital Sign - Last Date Time Temp Pulse Resp B/P Pulse Ox O2 Delivery O2 Flow Rate FiO2 10/31/16 05:55 36.4 52 20 130/70 99 Room Air 10/29/16 18:25 6 Intake and Output 10/30/16 10/30/16 10/31/16 Cumulative From/Thru 14:59 22:59 06:59 10/29/16 11:16 - 10/31/16 00:25 Intake Total 800 ml 200 ml 2786 ml Output Total 625 ml 425 ml 1060 ml Balance 175 ml -225 ml 1726 ml Intake Oral 800 ml 200 ml 1000 ml IV Total 1786 ml Output Urine Total 625 ml 425 ml 1050 ml Estimated Blood Loss 10 ml # Bowel Movements 0 0 0 Result Diagram: 10/31/16 0800 10/31/16 0800 Lab Test 10/29/16 11:43 10/29/16 12:30 10/30/16 05:35 10/31/16 08:00 Hemoglobin A1c 9.8% (4.8-5.6) Urine Color Yellow (YELLOW) Urine Appearance Clear (CLEAR,HAZY) Urine pH 5.5 (5.0-8.0) Urine Specific [place] 1.025 (1.003-1.035) Urine Protein 100mg/dL (NEG,TRACE) Urine Glucose (UA) Negativemg/dL (NEGATIVE) Urine Ketones Negativemg/dL (NEGATIVE) Urine Occult Blood Small (NEGATIVE) Urine Nitrite Negative (NEGATIVE) Urine Bilirubin Negative (NEGATIVE) Urine Urobilinogen Normalmg/dL (NORMAL) Urine Leukocyte Esterase Negative (NEGATIVE) Urine RBC 0-2/hpf (0-2) Urine WBC 0-5/hpf (0-5) Urine Epithelial Cells Occasional/hpf (NONE-MOD) Urine Crystals None seen (NONE SEEN) Urine Bacteria None/hpf (NONE-FEW) Urine Hyaline Casts Occasional/lpf (NONE) Urine Granular Casts None seen (NONE SEEN) Urine Waxy Casts None seen (NONE SEEN) Urine Red Blood Cell Casts None seen (NONE SEEN) Urine White Blood Cell Casts None seen (NONE SEEN) Urine Mucus None seen (None Seen) Urine Trichomonas None seen (NONE SEEN) Urine Yeast None (NONE SEEN) Urinalysis Comment None Urine Culture Reflexed Not indicated Neutrophils (%) (Auto) 80.9% (40-74) Lymphocytes (%) (Auto) 10.9% (14-46) Monocytes (%) (Auto) 7.6% (4-12) Eosinophils (%) (Auto) 0.1% (0-5) Basophils (%) (Auto) 0.3% (0-3) Lactic Acid Level 0.7mmol/L (0.4-2.0) Procalcitonin 0.29ng/mL (0.00-0.08) White Blood Count 16.5th/mm3 (3.8-10.1) Red Blood Count 3.69mil/mm3 (4.40-5.80) Hemoglobin 11.3g/dL (13.8-17.2) Hematocrit 33.4% (41.0-50.0) Mean Corpuscular Volume 90.5fL (81-100) Mean Corpuscular Hemoglobin 30.6pg (27.0-35.0) Mean Corpuscular Hemoglobin Concent 33.8% (32.0-37.0) Red Cell Distribution Width 12.9% (12.3-15.4) Platelet Count 302bil/L (150-400) Sodium Level 133mEq/L (134-144) Potassium Level 4.3mEq/L (3.5-5.2) Chloride Level 99mEq/L (97-108) Carbon Dioxide Level 18mmol/L (18-29) Blood Urea Nitrogen 33mg/dL (8-27) Creatinine 1.42mg/dL (0.76-1.27) Estimat Glomerular Filtration Rate 54mL/min (>59) Glucose Level 137mg/dL (60-99) Calcium Level 7.8mg/dL (8.5-10.1) Total Bilirubin 0.3mg/dL (0.0-1.2) Aspartate Amino Transf (AST/SGOT) 14U/L (0-50) Alanine Aminotransferase (ALT/SGPT) 8U/L (0-44) Alkaline Phosphatase 77U/L (25-160) Total Protein 5.3g/dL (6.4-8.4) Albumin 2.6g/dL (3.4-5.0) Vancomycin Level Trough 13.6mcg/mL Diagnostics WBC 16.5, Intra-op sensitivities still pending Exam Physical Exam Pt resting comfortably in chair. Scant serosanguinous drainage. RLE w little change clinically in past 24 hrs., still erythematous,edematous and warm. No fluctuance or apparent residual deep space infection/abscess. Lungs: Normal Air Movement Lower Extremities: Right: Edema Generalized Edema localized Extremity warm Other Lower Extremity Pulses: Absent: Left Dorsalis Pedis Left Posterior Tibal Right Dorsalis Pedis Right Posterior Tibal Surgical Cast or Splint: Other Assessment & Plan Impression Persistent cellulitis of RLE, responding more slowly than anticipated. Problems: Plan Wound repacked today. ID consult w Dr Watters requested. Arterial Ultrasound of RLE ESR w am labs Beto Jensen DPM Oct 31, 2016 11:27
--- NOTE | 2016-10-31 12:27 | PCM.PNMED ---
Subjective Date of Service Oct 31, 2016 Subjective Patient was seen and examined at bedside today. Patient denies any chest pain, shortness of breath, nausea, vomiting, diarrhea. Patient states that his right foot pain has improved. Exam Vital Signs Vital Sign - Last Date Time Temp Pulse Resp B/P Pulse Ox O2 Delivery O2 Flow Rate FiO2 10/31/16 05:55 36.4 52 20 130/70 99 Room Air 10/29/16 18:25 6 Intake and Output 10/30/16 10/30/16 10/31/16 Cumulative From/Thru 15:00 23:00 07:00 10/29/16 11:16 - 10/31/16 00:25 Intake Total 800 ml 200 ml 2786 ml Output Total 625 ml 425 ml 1060 ml Balance 175 ml -225 ml 1726 ml Intake Oral 800 ml 200 ml 1000 ml IV Total 1786 ml Output Urine Total 625 ml 425 ml 1050 ml Estimated Blood Loss 10 ml # Bowel Movements 0 0 0 Exam Physical Exam: GEN: Patient was awake, alert, responding appropriately to questions HEENT: PERRLA, EOMI, Neck soft supple, trachea midline, nomocephalic/atraumatic CV: +S1/S2, RRR, systolic murmur auscultated Respiratory: CTAB, no wheezes, rales, rhonchi GI: +bowel sounds x4, soft, compressible, non TTP EXT: no c/c, right foot cellulitis erythema receding from current markings, dressing in place clean dry and intact Neuro: CN II-XII grossly intact Psych: mood and affect were appropriate IVs and Medications Medications Reviewed: Medications were reviewed in detail Lab and Diagnostics Result Diagram: 10/31/16 0800 10/31/16 0800 Assessment & Plan 61-year-old male presents with right lower extremity pain secondary to cellulitis with failed outpatient antibiotics Right lower extremity cellulitis (status post I&D in the OR on 10/29/2016) -Continue IV antibiotics vancomycin and meropenem -White blood cell count mildly improved 19.9 yesterday today 16.5 -Podiatry following -Right lower extremity Doppler negative for DVT on 10/29/2016 -MRI of the right foot negative for osteomyelitis -Cultures of the right foot done intraoperatively shows positive for gram negative rods and gram-positive cocci consistent with Staphylococcus aureus and sensitivities pending Hypertension -Blood pressure is currently 159/70 -We will hold patient's home medications of losartan and hydrochlorothiazide as the patient does have some acute kidney injury -Start metoprolol 25 mg twice a day Acute kidney injury -Creatinine 1.48 on admission on10/30/16: 1.59, today creatinine is trending down creatinine is 1.4 to -Continue IV fluids -Renally dosed vancomycin may be able to discontinue this if MRSA does not come back positive Hyponatremia (resolving) -Sodium on admission 128 yesterday 134 -Continue IV fluids -We will continue to monitor Vascular insufficiency -Continue Plavix 75 mg daily -Continue gabapentin 600 mg daily at bedtime Diabetes -Hemoglobin A1c 9.8 -Continue Lantus 50 units every morning blood glucose has been well controlled -Insulin sliding scale -Accu-Cheks before meals and at bedtime -Metformin 500 mg twice a day Obesity -BMI 33.5 -Diabetic and heart healthy diet Nicotine dependence -Nicotine patch -Smoking cessation/counseling was given to the patient CODE STATUS patient is full code DVT prophylaxis heparin Disposition: The patient is currently progressing well and his white blood cell count is trending down. The patient's acute kidney injury is also resolving. Once cultures and sensitivities come back the patient can be switched to possibly oral medications. We will continue to monitor the patient and medically manage as necessary. VTE Mechanical Devices: Intermittant Pneumatic CD Time spent Greater than 35 minutes Danitza Mendez DO Oct 31, 2016 12:27
--- NOTE | 2016-10-31 13:16 | NUR ---
Pt has now met his PT goals and is discharged to [facility] for ambulation
[2016-10-31] MEDS: Vancomycin Inj 1,500 MG in 0.9% Sodium Chloride 500 ML IV SCH (13:23)
--- NOTE | 2016-10-31 13:26 | DRSVH ---
PROCEDURE: US DUPLEX DOPPLER UNILATERAL LEG ARTERIES, RIGHT INDICATIONS: KNOWN PAD, BIPASS GRAFT, INFECTION TECHNIQUE: Color and pulse Doppler interrogation was performed of the right lower extremity arterial system, wit h image documentation. COMPARISON: None. FINDINGS: Vascular Ultrasound Procedure Report Findings(Artery of Lower Extremity)(Right) Common Femoral Artery(Distal) Velocity: 85.10 cm/s Profunda Femoris Artery(Proximal) Velocity: Not visualized Superficial Femoral Artery bypass graft (Proximal) Velocity: 134.70 cm/s Superficial Femoral Artery bypass graft (Mid-longitudinal) Velocity: 102.80 cm/s Superficial Femoral Artery bypass graft (Distal) Velocity: 104.80 cm/s, 77.80 cm/s Popliteal Artery(Mid-longitudinal) Velocity: 162 cm/s, 140.70 cm/s, 127.70 cm/s Posterior Tibial Artery(Distal) Velocity: 143 cm/s Dorsalis Pedis Artery(Distal) Velocity: Not visualized Greyscale findings: There is a superficial femoral artery bypass graft which appears patent with mono phasic waveform. Monophasic waveform throughout the right lower extremity arteries. There is a 9.3 mm right inguinal lymph node. IMPRESSION: 1. Patent superficial femoral artery bypass graft with monophasic waveform. 2. Prominent left inguinal lymph node, most likely reactive. 3. Profunda femoral artery and anterior tibial artery not visualized. * Dictated by: Joe Clemens M.D. on 10/31/2016 at 13:18 Approved by: Joe Clemens M.D. on 10/31/2016 at 13:24
[2016-10-31 17:59] VITALS: BP 171/72; PULSE 47; RESP 18; O2SAT 97
--- NOTE | 2016-10-31 19:37 | NUR ---
Activity Pt able to dangle at bedside and sit in chair today. Mood improved and understands that he needs to be here for more IV antibiotics before he can go home. Pain well controlled with IV pain meds PRN, tried to give close to q4 hours, time written on board for pt. Pt still having decreased appetite, but able to eat dinner. Declined nicotine patch.
[2016-10-31 20:23] VITALS: BP 162/71; PULSE 50; RESP 18; O2SAT 94
[2016-11-01] MEDS: Meropenem Inj 500 MG in 0.9% Sodium Chloride 50 ML IV SCH ×2 (00:31→11:18)
[2016-11-01] MEDS: HYDROmorphone 1 mg/mL Inj IVPUSH PRN ×2 (04:43→11:19)
--- NOTE | 2016-11-01 04:57 | NUR ---
Pain Pt dangles at bedside, this does increase pain and he is given dilauded IV prn. Iv infusing NS at 75 ml/h, w/ ABX. No cough or chest pain. Monitor BP and WBC. Wound culture complete, insignificant organism findings. Care continues
--- NOTE | 2016-11-01 05:27 | PCM.PNMED ---
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 On Vanc and meropenem awaiting culture results. Exam Vital Signs Vital Sign - Last Date Time Temp Pulse Resp B/P Pulse Ox O2 Delivery O2 Flow Rate FiO2 10/31/16 20:23 36.9 50 18 162/71 94 Room Air 10/29/16 18:25 6 Intake and Output 10/31/16 10/31/16 11/01/16 Cumulative From/Thru 15:00 23:00 07:00 10/29/16 11:16 - 11/01/16 03:10 Intake Total 2718 ml 1685 ml 7189 ml Output Total 400 ml 700 ml 2160 ml Balance 2318 ml 985 ml 5029 ml Intake Oral 1000 ml 340 ml 2340 ml IV Total 1718 ml 1345 ml 4849 ml Output Urine Total 400 ml 700 ml 2150 ml Estimated Blood Loss 10 ml # Voids 1 1 2 # Bowel Movements 0 0 0 Exam Eyes: [place] conjunctivae. No ptosis, PERRL NEck: No masses, trachea midline. No thyromegaly Neck: No masses, trachea midline, no thyromegaly Lungs: CTA with normal respiratory effort CV: RRR, no murmurs/rubs/gallops, normal PMI GI: Soft, non-tender with no hepatosplenomegaly MSK: Normal gait and station, no digital cyanosis Skin: Warm and dry. No rash, lesions or ulcers Psych: A&O X3, with approprate affect Lab and Diagnostics Result Diagram: 10/31/16 0800 10/31/16 0800 Assessment & Plan 61-year-old male presents with right lower extremity pain secondary to cellulitis with failed outpatient antibiotics Right lower extremity cellulitis (status post I&D in the OR on 10/29/2016) -Continue IV antibiotics vancomycin and meropenem -White blood cell count mildly improved 19.9 yesterday today 16.5 -Podiatry following -Right lower extremity Doppler negative for DVT on 10/29/2016 -MRI of the right foot negative for osteomyelitis -Cultures of the right foot done intraoperatively shows positive for gram negative rods and gram-positive cocci consistent with Staphylococcus aureus and sensitivities pending Hypertension -Blood pressure is currently 159/70 -We will hold patient's home medications of losartan and hydrochlorothiazide as the patient does have some acute kidney injury -Start metoprolol 25 mg twice a day Acute kidney injury -Creatinine 1.48 on admission on10/30/16: 1.59, today creatinine is trending down creatinine is 1.4 to -Continue IV fluids -Renally dosed vancomycin may be able to discontinue this if MRSA does not come back positive Hyponatremia (resolving) -Sodium on admission 128 yesterday 134 [id number] -Continue IV fluids -We will continue to monitor Vascular insufficiency -Continue Plavix 75 mg daily -Continue gabapentin 600 mg daily at bedtime Diabetes -Hemoglobin A1c 9.8 -Continue Lantus 50 units every morning blood glucose has been well controlled -Insulin sliding scale -Accu-Cheks before meals and at bedtime -Metformin 500 mg twice a day Obesity -BMI 33.5 -Diabetic and heart healthy diet Nicotine dependence -Nicotine patch -Smoking cessation/counseling was given to the patient CODE STATUS patient is full code DVT prophylaxis heparin Disposition: The patient is currently progressing well and his white blood cell count is trending down. The patient's acute kidney injury is also resolving. Once cultures and sensitivities come back the patient can be switched to possibly oral medications. We will continue to monitor the patient and medically manage as necessary. VTE Mechanical Devices: Intermittant Pneumatic CD Belle Baig DO Nov 01, 2016 05:27
[2016-11-01 05:46] LABS: Mean Corpuscular Hemoglobin 30.2 pg (27.0-35.0); Mean Corpuscular Volume 90.3 fL (81-100); Platelet Count 309 bil/L (150-400)
[2016-11-01 05:51] VITALS: BP 152/72; PULSE 50; RESP 16; O2SAT 94
[2016-11-01 06:01] LABS: ERYTHROCYTE SEDIMENTATION RATE > 140 mm/hr (0-30)
[2016-11-01] MEDS: 0.9% Sodium Chloride 1,000 ML IV SCH (07:57)
[2016-11-01] MEDS: DULoxetine 30 mg DR Capsule PO SCH (07:58)
[2016-11-01] MEDS: Insulin LISPRO 300 Unit/3 mL Inj SUBQ SCH ×3 (07:58→17:30)
[2016-11-01] MEDS ORDERED: Vancomycin Serum Trough XX ONE (08:00)
[2016-11-01] MEDS: Vancomycin Dose per Pharmacist XX SCH (08:00)
[2016-11-01] MEDS: Insulin GLARgine 100 Unit/mL Syringe SUBQ SCH (08:01)
[2016-11-01] MEDS: Vancomycin Inj 1,500 MG in 0.9% Sodium Chloride 500 ML IV SCH (08:07)
--- NOTE | 2016-11-01 10:51 | PCM.PHAPRO ---
Progress Date of Service: Nov 01, 2016 Right foot cellulitis failed outpatient treatment Vancomycin dose per pharmacy Indication: right foot cellulitis -- osteomyelitis has been ruled out. Goal trough: 10-15 Labs SCr: 1.28 (trending down). WBC: 12.7 (trending down). Random trough: 15.4 MRSA + (susceptible to vancomycin) Trough appears to have not been ordered for today so reordered for tomorrow. However, a random level result returned that was apparently drawn at 0545 with a note "found in rack". Called lab to confirm it was drawn at 0545. As osteomyelitis is noted to have been ruled out, random level appears appropriate. Vanco dose was given late yesterday and lab was drawn early, will keep the reordered trough level scheduled for tomorrow. Continue vancomcyin 1500 mg IV Q24H and recheck trough 11/02/16 @0800. Pharmacy to continue to monitor and dose vancomycin. Thank you, Kody Tillman Nov 01, 2016 10:51
--- NOTE | 2016-11-01 12:09 | PCM.PNPOD ---
Subjective Date of Service: Nov 01, 2016 Date of Service: Nov 01, 2016 Visit Information: Reason for Visit Cellulitis Surgery/Surgery Date Post-Op Day # Date of Admission: Oct 29, 2016 at 12:37 Hospital Day # Subjective: 61-year-old male is seen in the company of his for follow-up of diabetic foot infection on the right. Patient denies somatic complaint however is concerned about his job and anxious for discharge. Objective Vital Sign - Last Date Time Temp Pulse Resp B/P Pulse Ox O2 Delivery O2 Flow Rate FiO2 11/01/16 05:51 36.6 50 16 152/72 94 Room Air 10/29/16 18:25 6 Intake and Output 10/31/16 10/31/16 11/01/16 Cumulative From/Thru 14:59 22:59 06:59 10/29/16 11:16 - 11/01/16 03:10 Intake Total 2718 ml 1685 ml 7189 ml Output Total 400 ml 700 ml 2160 ml Balance 2318 ml 985 ml 5029 ml Intake Oral 1000 ml 340 ml 2340 ml IV Total 1718 ml 1345 ml 4849 ml Output Urine Total 400 ml 700 ml 2150 ml Estimated Blood Loss 10 ml # Voids 1 1 2 # Bowel Movements 0 0 0 Result Diagram: 11/01/16 0535 11/01/16 0535 Lab Test 10/29/16 11:43 10/29/16 12:30 10/30/16 05:35 10/31/16 08:00 Hemoglobin A1c 9.8% (4.8-5.6) Urine Color Yellow (YELLOW) Urine Appearance Clear (CLEAR,HAZY) Urine pH 5.5 (5.0-8.0) Urine Specific [place] 1.025 (1.003-1.035) Urine Protein 100mg/dL (NEG,TRACE) Urine Glucose (UA) Negativemg/dL (NEGATIVE) Urine Ketones Negativemg/dL (NEGATIVE) Urine Occult Blood Small (NEGATIVE) Urine Nitrite Negative (NEGATIVE) Urine Bilirubin Negative (NEGATIVE) Urine Urobilinogen Normalmg/dL (NORMAL) Urine Leukocyte Esterase Negative (NEGATIVE) Urine RBC 0-2/hpf (0-2) Urine WBC 0-5/hpf (0-5) Urine Epithelial Cells Occasional/hpf (NONE-MOD) Urine Crystals None seen (NONE SEEN) Urine Bacteria None/hpf (NONE-FEW) Urine Hyaline Casts Occasional/lpf (NONE) Urine Granular Casts None seen (NONE SEEN) Urine Waxy Casts None seen (NONE SEEN) Urine Red Blood Cell Casts None seen (NONE SEEN) Urine White Blood Cell Casts None seen (NONE SEEN) Urine Mucus None seen (None Seen) Urine Trichomonas None seen (NONE SEEN) Urine Yeast None (NONE SEEN) Urinalysis Comment None Urine Culture Reflexed Not indicated Neutrophils (%) (Auto) 80.9% (40-74) Lymphocytes (%) (Auto) 10.9% (14-46) Monocytes (%) (Auto) 7.6% (4-12) Eosinophils (%) (Auto) 0.1% (0-5) Basophils (%) (Auto) 0.3% (0-3) Lactic Acid Level 0.7mmol/L (0.4-2.0) Vancomycin Level Trough 13.6mcg/mL Test 11/01/16 05:35 White Blood Count 12.7th/mm3 (3.8-10.1) Red Blood Count 3.31mil/mm3 (4.40-5.80) Hemoglobin 10.0g/dL (13.8-17.2) Hematocrit 29.9% (41.0-50.0) Mean Corpuscular Volume 90.3fL (81-100) Mean Corpuscular Hemoglobin 30.2pg (27.0-35.0) Mean Corpuscular Hemoglobin Concent 33.4% (32.0-37.0) Red Cell Distribution Width 12.6% (12.3-15.4) Platelet Count 309bil/L (150-400) Erythrocyte Sedimentation Rate > 140mm/hr (0-30) Sodium Level 132mEq/L (134-144) Potassium Level 4.8mEq/L (3.5-5.2) Chloride Level 101mEq/L (97-108) Carbon Dioxide Level 16mmol/L (18-29) Blood Urea Nitrogen 30mg/dL (8-27) Creatinine 1.28mg/dL (0.76-1.27) Estimat Glomerular Filtration Rate 61mL/min (>59) Glucose Level 79mg/dL (60-99) Calcium Level 7.4mg/dL (8.5-10.1) Total Bilirubin 0.2mg/dL (0.0-1.2) Aspartate Amino Transf (AST/SGOT) 28U/L (0-50) Alanine Aminotransferase (ALT/SGPT) 8U/L (0-44) Alkaline Phosphatase 73U/L (25-160) Total Protein 4.9g/dL (6.4-8.4) Albumin 2.1g/dL (3.4-5.0) Procalcitonin 0.17ng/mL (0.00-0.08) Random Vancomycin Level 15.4ug/mL Rx Diagnostics Arterial Doppler shows monophasic flow of graft with absent profundus and superficial femoral arterial signal, white count down to 12.7, sedimentation rate 140. Patient's MRI is reviewed for any subtle evidence of sesamoidal osteomyelitis, none of which is noted. Exam Lungs: Normal Air Movement Lower Extremities: Right: Edema Generalized Edema localized Extremity warm Other Lower Extremity Pulses: Absent: Left Dorsalis Pedis Left Posterior Tibal Right Dorsalis Pedis Right Posterior Tibal Surgical Cast or Splint: Other Additional Information: Right foot shows reduced edema and progressing cellulitis of the mid calf and distal dorsal forefoot. Scant drainage on the Nu Gauze dressing. No fluctuance or clinical evidence of abscess. Assessment & Plan Impression Improving cellulitis right foot. Problems: Plan Wounds are repacked today, I have spoken with Dr. Watters who will see the patient later today regarding narrowing antibiotic spectrum and outpatient antibiotic therapy. Patient is anxious for discharge and from a wound care standpoint he could be followed as an outpatient. Podiatry will continue to follow and patient may follow with with me in the clinic upon discharge. Beto Jensen DPM Nov 01, 2016 12:09
[2016-11-01] MEDS: Heparin 5,000 Unit/mL Inj SUBQ SCH ×2 (12:57→16:30)
[2016-11-01 13:07] VITALS: BP 148/74; PULSE 48; RESP 18; O2SAT 93
[2016-11-01] MEDS ORDERED: Dalbavancin Inj 1,500 MG in Dextrose 5% 500 ML IV ONE (15:00)
--- NOTE | 2016-11-01 15:00 | NUR ---
PAIN/R FOOT Patient's R foot dressing was changed by Dr. Jensen today in room. Redness and swelling is decreased from days previous. Still very painful for patient, complaining of burning, numbness and tingling. Some of which is baseline due to neuropathy. Medicated with dilaudid 1mg IV. Patient states effective but wears off quickly. Asked Med for change to possibly oral medications for longer acting and in preparation for discharge. Care continues.
[2016-11-01] MEDS ORDERED: HYDROcodone-APAP 7.5-325 mg Tablet PO PRN (16:05)
--- NOTE | 2016-11-01 16:33 | PCM.DIMED ---
Discharge Instructions Date of Service Nov 01, 2016 Dates of Hospitalization Oct 29, 2016 at 12:37 Discharge Diagnosis Discharge Diagnosis R LE Cellulitis, Vascular insufficiency, DM II, HTN Diet Heart Healthy, Diabetic Activity Limited until seen by PCP, Other (Use axillary crutches for ambulation) Call your provider Fever or Chills, Shortness of breath, Chest pain, Vomitting, Excessive diarrhea , Weakness (unilateral), Other Patient Instructions Follow-up plan Please see Dr. Watters on 11/10/16 in his office for a follow up. Please f/u with your network development coordinator Dr. Jensen and wound care in one week. Belle Baig DO Nov 01, 2016 16:33
[2016-11-01] MEDS ORDERED: Hydrocodone/Acetaminophen PO (16:41)
--- NOTE | 2016-11-01 16:42 | PCM.DC.MED ---
Discharge Summary Date of Service Nov 01, 2016 Dates of Hospitalization Date of Hospital Admission Oct 29, 2016 at 12:37 Date of Discharge: Nov 01, 2016 Providers: Admitting Physician: Danitza Mendez DO Primary Care Physician: Haley Swift PA-C Attending Physician: Danitza Mendez DO Diagnosis at Time of Discharge Diagnosis at Time of Discharge R LE Cellulitis, Vascular insufficiency, DM II, HTN Consultations ID, Podiatry Procedures XRay, CTs & MRIs [facility] Diagnostic [place] [address] Patient Name: NIKOLAY ROYAL MR#: [id number] [place] [facility] [place] Phys: Nikolay Jensen [facility] Date of Service: 10/31/16 1101 PROCEDURE: US DUPLEX DOPPLER UNILATERAL LEG ARTERIES, RIGHT INDICATIONS: KNOWN PAD, BIPASS GRAFT, INFECTION TECHNIQUE: Color and pulse Doppler interrogation was performed of the right lower extremity arterial system, with image documentation. COMPARISON: None. FINDINGS: Vascular Ultrasound Procedure Report Findings(Artery of Lower Extremity)(Right) Common Femoral Artery(Distal) Velocity: 85.10 cm/s Profunda Femoris Artery(Proximal) Velocity: Not visualized Superficial Femoral Artery bypass graft (Proximal) Velocity: 134.70 cm/s Superficial Femoral Artery bypass graft (Mid-longitudinal) Velocity: 102.80 cm/s Superficial Femoral Artery bypass graft (Distal) Velocity: 104.80 cm/s, 77.80 cm/s Popliteal Artery(Mid-longitudinal) Velocity: 162 cm/s, 140.70 cm/s, 127.70 cm/s Posterior Tibial Artery(Distal) Velocity: 143 cm/s Dorsalis Pedis Artery(Distal) Velocity: Not visualized Greyscale findings: There is a superficial femoral artery bypass graft which appears patent with monophasic waveform. Monophasic waveform throughout the right lower extremity arteries. There is a 9.3 mm right inguinal lymph node. IMPRESSION: 1. Patent superficial femoral artery bypass graft with monophasic waveform. 2. Prominent left inguinal lymph node, most likely reactive. 3. Profunda femoral artery and anterior tibial artery not visualized. * Dictated by: Joe Clemens M.D. on 10/31/2016 at 13:18 Approved by: Joe Clemens M.D. on 10/31/2016 at 13:24 [facility] Diagnostic Imaging Department [place], [place] [id number] Patient Name: NIKOLAY ROYAL MR#: [id number] Location: [facility] Ordering Phys: Danitza Mendez DO Date of Service: 10/29/16 1336 PROCEDURE: US VEINOUS LEG DUPLEX UNILATERAL, RIGHT INDICATIONS: leg swelling TECHNIQUE: Real-time imaging, as well as color and pulse Doppler interrogation, were performed of the lower extremity deep veins from the inguinal ligament to the popliteal fossa. COMPARISON: None. FINDINGS: The deep veins are normally compressible, and free of intraluminal thrombus. Color and pulse Doppler demonstrate normal phasic intraluminal flow. There is normal augmentation response to distal compression maneuver. Edema and multiple groin lymph nodes. IMPRESSION: 1. No deep venous thrombosis identified within the right lower extremity. 2. Edema and multiple nodes visualized largest measuring 1.0 cm. Recommend clinical correlation and management. Dictated by: Guillermo Finnegan [facility] Interpreted: Bryanna Millan MD on 10/29/2016 at 16:02 Transcribed by: GEORGE on 10/29/2016 at 16:03 Approved by: Bryanna Millan MD, PhD on 10/29/2016 at 16:57 [facility] Diagnostic Imaging Department [place], [place] [id number] Patient Name: NIKOLAY ROYAL MR#: [id number] Location: [facility] Ordering Phys: Antonio Parks MD Date of Service: 10/29/16 1143 PROCEDURE: MRI FOREFOOT RIGHT WITH AND WITHOUT CONTRAST ([id number]) INDICATIONS: 61-year-old diabetic male with chronic right foot wound. TECHNIQUE: Noncontrast sagittal T1 spin echo and T2 fast spin echo with fat saturation, long-axis T1 spin echo and T2 fast spin echo with fat saturation; short-axis T1 spin echo, proton density fast spin echo, and T2 fast spin echo with fat saturation through the forefoot. Post-contrast short axis, long axis, and sagittal T1 spin echo with fat saturation through the forefoot. COMPARISON: [facility], CR, XR FOOT 3VW RT, 10/29/2016, 12:12. FINDINGS: Skin marker denotes the site skin wound near the first metatarsophalangeal joint. Image quality: Excellent. Bones and joints: No suspicious osseous enhancement or edema. No bone marrow contusions or metatarsal stress fractures. The sesamoid bones appear in expected positions, with localized degenerative subchondral marrow edema involving the medial sesamoid. No metatarsophalangeal joint degeneration. There is small first metatarsophalangeal joint degeneration. No intraosseous lesions. Soft tissues: There is confluent dorsal forefoot subcutaneous edema. No suspicious soft tissue enhancement. On series 11 images 25 and 26, oblong soft tissue sinus tract is noted superficial to the medial sesamoid, not extending to the osseous surface. The visualized plantar foot muscles demonstrate normal signal and bulk. Visualized flexor and extensor tendons appear intact, without tenosynovitis. No soft tissue ganglion cysts or bursal fluid collections. IMPRESSION: 1. No imaging evidence for osteomyelitis. Soft tissue sinus tract near the medial sesamoid, not extending to the bony surface. No soft tissue abscesses. 2. Localized degenerative changes involve the medial sesamoid. Nonspecific first metatarsophalangeal joint effusion. 3. Nonspecific confluent dorsal forefoot subcutaneous edema may reflect congestive heart failure, cellulitis, among other possibilities. Dictated by: Quique Mix M.D. on 10/29/2016 at 15:38 Approved by: Quique Mix M.D. on 10/29/2016 at 15:47 [facility] Diagnostic [place] [address] Patient Name: NIKOLAY ROYAL MR#: [id number] [place] [facility] [place]ing Phys: Antonio Parks MD Date of Service: 10/29/16 1143 PROCEDURE: X-RAY RIGHT FOOT COMPLETE, MINIMUM THREE VIEWS ([id number]) INDICATIONS: poor wound healing TECHNIQUE: 3 views of the foot were acquired. COMPARISON: None. FINDINGS: Bones: No fractures or dislocations. No suspicious bony lesions. Plantar calcaneal enthesophyte. Soft tissues: No tibiotalar joint effusion. Achilles tendon appears normal. There is swelling about the level of the first MTP joint along the medial and plantar surface of the soft tissues which contains internal which may be related to overlying gauze or ointment. IMPRESSION: 1. Although no bony erosions are identified, plain film radiography is relatively insensitive in the acute phases of osteomyelitis and may not demonstrate radiographic changes for 15 days. If acute osteomyelitis is of clinical concern, nuclear medicine regional bone scan or MRI is recommended. 2. Soft tissue ulceration. Dictated by: Guillermo Finnegan [facility] Interpreted: Bryanna Millan MD on 10/29/2016 at 13:15 Transcribed by: GEORGE on 10/29/2016 at 13:16 Approved by: Bryanna Millan MD, PhD on 10/29/2016 at 16:57 Invasive Procedures 10/29/16 I&D of R foot first sub metatarsal head Hospital Course 61-year-old male presents with right lower extremity pain secondary to cellulitis with failed outpatient antibiotics Right lower extremity cellulitis (status post I&D in the OR on 10/29/2016) -IV antibiotics vancomycin and meropenem then was switched to dalbivancin IV one time dose prior to d/c -White blood cell count is improving -Podiatry was following -Right lower extremity Doppler negative for DVT on 10/29/2016 -MRI of the right foot negative for osteomyelitis -Cultures of the right foot done intraoperatively shows positive for gram negative rods and gram-positive cocci consistent with Staphylococcus aureus and sensitivities pending: He is given one dose of dalbivancin prior to d/c and was asked to follow up with ID in a week. Hypertension -Blood pressure is currently 159/70 -Patient's home medications of losartan and hydrochlorothiazide were held during this hospitalization as the patient had some acute kidney injury -Gave metoprolol 25 mg twice a day in stead. He may start home meds upon d/c as his kidney function is back to baseline Acute kidney injury -Creatinine 1.48 on admission on10/30/16: 1.59, today creatinine is trending down creatinine is 1.4 to -Continue IV fluids -Given Vanc initially but then switched to dalbivancin by ID Hyponatremia (resolving) -Continue IV fluids -We will continue to monitor Vascular insufficiency -Continue Plavix 75 mg daily -Continue gabapentin 600 mg daily at bedtime Diabetes -Hemoglobin A1c 9.8 -Continue Lantus 50 units every morning blood glucose has been well controlled -Insulin sliding scale -Accu-Cheks before meals and at bedtime -Metformin 500 mg twice a day Obesity -BMI 33.5 -Diabetic and heart healthy diet Nicotine dependence -Nicotine patch -Smoking cessation/counseling was given to the patient Exam Vital Signs (Last) Date Time Temp Pulse Resp B/P Pulse Ox O2 Delivery O2 Flow Rate FiO2 3/20/17 13:07 36.7 48 18 148/74 93 Room Air 10/29/16 18:25 6 Exam Heart: A grade 1+ systolic ejection murmur. Regular rate and rhythm. Abdomen soft, nontender. No organomegaly. D Ext: R foot is wrapped in a large dressing that was applied by Podiatry earlier this morning. clean-appearing dressings over sutured wound over the 1st metatarsal head. Vasc: feet is diminished pulses MSK: Patient's motor functions are intact. Neuro: No focal deficits Test 10/29/16 11:43 10/29/16 12:30 10/30/16 05:35 10/31/16 08:00 Hemoglobin A1c 9.8% (4.8-5.6) Urine Color Yellow (YELLOW) Urine Appearance Clear (CLEAR,HAZY) Urine pH 5.5 (5.0-8.0) Urine Specific [place] 1.025 (1.003-1.035) Urine Protein 100mg/dL (NEG,TRACE) Urine Glucose (UA) Negativemg/dL (NEGATIVE) Urine Ketones Negativemg/dL (NEGATIVE) Urine Occult Blood Small (NEGATIVE) Urine Nitrite Negative (NEGATIVE) Urine Bilirubin Negative (NEGATIVE) Urine Urobilinogen Normalmg/dL (NORMAL) Urine Leukocyte Esterase Negative (NEGATIVE) Urine RBC 0-2/hpf (0-2) Urine WBC 0-5/hpf (0-5) Urine Epithelial Cells Occasional/hpf (NONE-MOD) Urine Crystals None seen (NONE SEEN) Urine Bacteria None/hpf (NONE-FEW) Urine Hyaline Casts Occasional/lpf (NONE) Urine Granular Casts None seen (NONE SEEN) Urine Waxy Casts None seen (NONE SEEN) Urine Red Blood Cell Casts None seen (NONE SEEN) Urine White Blood Cell Casts None seen (NONE SEEN) Urine Mucus None seen (None Seen) Urine Trichomonas None seen (NONE SEEN) Urine Yeast None (NONE SEEN) Urinalysis Comment None Urine Culture Reflexed Not indicated Neutrophils (%) (Auto) 80.9% (40-74) Lymphocytes (%) (Auto) 10.9% (14-46) Monocytes (%) (Auto) 7.6% (4-12) Eosinophils (%) (Auto) 0.1% (0-5) Basophils (%) (Auto) 0.3% (0-3) Lactic Acid Level 0.7mmol/L (0.4-2.0) Vancomycin Level Trough 13.6mcg/mL Test 11/01/16 05:35 White Blood Count 12.7th/mm3 (3.8-10.1) Red Blood Count 3.31mil/mm3 (4.40-5.80) Hemoglobin 10.0g/dL (13.8-17.2) Hematocrit 29.9% (41.0-50.0) Mean Corpuscular Volume 90.3fL (81-100) Mean Corpuscular Hemoglobin 30.2pg (27.0-35.0) Mean Corpuscular Hemoglobin Concent 33.4% (32.0-37.0) Red Cell Distribution Width 12.6% (12.3-15.4) Platelet Count 309bil/L (150-400) Erythrocyte Sedimentation Rate > 140mm/hr (0-30) Sodium Level 132mEq/L (134-144) Potassium Level 4.8mEq/L (3.5-5.2) Chloride Level 101mEq/L (97-108) Carbon Dioxide Level 16mmol/L (18-29) Blood Urea Nitrogen 30mg/dL (8-27) Creatinine 1.28mg/dL (0.76-1.27) Estimat Glomerular Filtration Rate 61mL/min (>59) Glucose Level 79mg/dL (60-99) Calcium Level 7.4mg/dL (8.5-10.1) Total Bilirubin 0.2mg/dL (0.0-1.2) Aspartate Amino Transf (AST/SGOT) 28U/L (0-50) Alanine Aminotransferase (ALT/SGPT) 8U/L (0-44) Alkaline Phosphatase 73U/L (25-160) C-Reactive Protein 17.9mg/dL (0.0-0.5) Total Protein 4.9g/dL (6.4-8.4) Albumin 2.1g/dL (3.4-5.0) Procalcitonin 0.17ng/mL (0.00-0.08) Random Vancomycin Level 15.4ug/mL Rx Discharge Medications Discharge Medications Clopidogrel (Clopidogrel) 75 Mg Tablet 75 MG PO DAILY (Reported) Duloxetine (Duloxetine) 30 Mg Capsule.dr 30 MG PO DAILY (Reported) Furosemide (Furosemide) 20 Mg Tab 20 MG PO DAILY (Reported) Gabapentin (Gabapentin) 300 Mg Capsule 600 MG PO HS (Reported) Insulin Glargine (Lantus U100 Solostar Insulin Pen) 100 Unit/1 Ml Insuln.pen 50 UNITS [id number] DAILY (Reported) Losartan/HCTZ 100-12.5 mg (Losartan/HCTZ 100-12.5 mg) 1 Each Tablet 1 TABLET PO DAILY (Reported) Metformin (Metformin) 500 Mg Tablet 500 MG PO BID (Reported) Pravastatin (Pravastatin) 20 Mg Tablet 20 MG PO HS (Reported) As needed ([Hydrocodone/Acetaminophen]) 1 TABLET TABLET 1 TABLET PO Q4H PRN PRN For Moderate Pain Prescribed by: BLELE RUVALCABA DO Followup Plan Follow-up plan Please see Dr. Watters on 11/10/16 in his office for a follow up. Please f/u with your encoding machine operator Dr. Jensen and wound care in one week. Discharge Diet: Heart Healthy, Diabetic Discharge Activity: Limited until seen by PCP, Other (Use axillary crutches for ambulation) Belle Ruvalcaba DO Nov 01, 2016 16:42
--- NOTE | 2016-11-01 18:00 | NUR ---
DISCHARGE Patient's dalbavancin finished infusing. Patient's IV was taken out with catheter intact. Reviewed all discharge paperwork, including following up with Dr. Watters and Dr. Jensen and at wound care clinic for dressing changes. Patient and verbalized understanding. Hard copy Rx was given for pain medications. Patient was instructed to remain NWB on R foot and to use crutches for ambulation. Patient stated he has a pair of crutches in the care. Patient got dressed with help of . Transferred into wheelchair and was taken outside to personal vehicle with all of personal belongings.
--- NOTE | 2016-11-01 20:27 | CONS ---
[address] [address] CONSULTATION REPORT PATIENT: NIKOLAY ROYAL : 1955 MR#: [id number] ADMIT: 10/29/2016 JOB ID: [id number] DATE OF SERVICE: 11/01/2016 REASON FOR CONSULTATION: Right diabetic foot infection with cellulitis and deep space infection, but no evidence of osteo. HISTORY OF PRESENT ILLNESS: The patient is a 61-year-old gentleman with at least 20 years of underlying diabetes as well as heavy and continuing cigarette smoking. He has known peripheral vascular disease and has already undergone one extensive right femoral artery revascularization procedure, which was done two years ago. He has had previous soft tissue infections. The current history of present illness begins about four months ago when he developed a callus on the underside of his right great toe. This would periodically worsen and drain some purulent material and then improve. This situation continued until October 27, when he started to develop actual pain. Note this was quite significant as he has some underlying diabetic neuropathy. Subsequent to the development of the pain on October, he began to develop other symptoms including fevers, chills, sweats, headache, and generalized malaise which forced him to, among other things, stop work and seek medical evaluation. He was subsequently admitted to this facility on October 29. Note that before his admission he had received some oral clindamycin, which he started about the October 27 and took for a couple days prior to his arrival and admission on October 29, but his foot continued to worsen with pain underneath and around the right great toe and he had erythema which was actually starting to spread up his right lower extremity. Despite these ominous symptoms involving his right foot, he did not have significant pulmonary or gastrointestinal complaints and had no chest pain. He continued to smoke cigarettes, however, right up until the time of admission. Since admission, the patient has undergone an MRI scan which did not show evidence of osteo, and surgery by Dr. Jensen. I discussed the surgery with Dr. Jensen today and reviewed his op note. There was no clearcut evidence of osteomyelitis at the time of the surgical debridement. The patient reports he has improved considerably after debridement and the institution of antibiotics, including vancomycin and meropenem. He is now very anxious to go home as he does not like the hospital environment and would really like to convalesce at home. PAST MEDICAL HISTORY: 1. Diabetes mellitus with severe neuropathy. 2. Peripheral vascular disease. 3. Hyperlipidemia. 4. Hypertension. 5. 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 Details unknown. 6. Status post carotid endarterectomy. SOCIAL HISTORY: The patient works in the [employer] industry. He has been smoking a pack a day or more for the past almost half century. He is a nonalcohol user, nondrug user. FAMILY HISTORY: Positive for diabetes and coronary disease. There is no family history in first-degree relatives of tuberculosis. ALLERGIES: The patient himself has no known allergies, but it is worth noting that his 4-year-old daughter in 1979 of Jesus-Marty syndrome after she received Septra suspension for a respiratory infection. REVIEW OF SYSTEMS: Was done. The patient has no significant headache. No visual complaint, no sore throat. No cough, shortness of breath, chest pain. No nausea, vomiting, or diarrhea. He has numbness in both feet but can appreciate some pain, and in fact, had pain in his right great toe area prior to this admission. The remainder of the review of systems is negative. PHYSICAL EXAMINATION: Reveals an afebrile gentleman. Note that he was febrile to 37.8 when he came in, which would be a borderline fever. He is now down to 37.6, pulse 50, respiratory rate 18, blood pressure 148/74, saturating well on room air. Examination of the mental status reveals it to be normal. His head is without trauma. His eyes without conjunctivitis or scleral icterus. Oral cavity without thrush or hairy leukoplakia. Neck is supple without adenopathy or JVD. Lungs clear. Cardiac tones: A 2/6 systolic ejection murmur. Regular rate and rhythm. Abdomen soft, nontender. No organomegaly. Does not have a Murillo catheter. He does have a considerable scar in his right groin where he had a long wound VAC after he developed an infection following his arterial surgery back in 2013. Patient's lower extremities are notable for the fact the right foot is wrapped in a large dressing that was applied by Podiatry earlier this morning. By manipulating this, we were able to see that he has a clean-appearing sutured wound over the 1st metatarsal head. There is a smaller wound at the medial base of the right first toe. Both of these wounds appear clean. Notable on both feet is diminished pulses, slow capillary refill, and clear-cut evidence of neuropathy. Patient's motor functions are intact. He has no evidence of synovitis. Remainder of the physical is normal. LABORATORY DATA: Include white count 20,000 when he came in, now 12,700. Sed rate greater than 140. CRP was ordered by our team and is pending. Creatinine was 1.5 when he came in. It is now 1.28. LFTs are normal. Albumin 2.1. Procalcitonin 0.17. Urinalysis negative. Vancomycin levels have been good at about 15. Blood cultures negative. Wound culture grew only MRSA and that MRSA is clindamycin resistant ,which explains why the clindamycin did not help him. It is susceptible to linezolid but it is worth noting the patient is on Cymbalta, so we cannot use that. He is also susceptible to tetracycline, rifampin, Bactrim and vancomycin. The MRI scan of the patient's foot showed no evidence of osteo, though there is some soft tissue inflammation around the medial sesamoid. The venous Doppler showed no DVT in the right lower extremity, and the plain x-ray of the foot showed no bony erosions. 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 He now presents with a slowly worsening aiyv-nmdtb-zso lesion near his right great toe which is much worse in the three or four days prior to admission with more drainage, fevers, chills, and sweats. He had failed outpatient clindamycin because the organism is methicillin-resistant Staphylococcus aureus, resistant to clindamycin and we are now treating with vancomycin and meropenem. I see no indication for the meropenem at this point, and there is good data, including a classic article by Goyo Thompson, which shows that when the Staph aureus is the only pathogen found in a diabetic foot ulcer, that that is really the only pathogen that must be addressed with the antibiotics. Treating this patient as an outpatient might prove to be a little difficult as he and his are resistant to the idea of IV antibiotics, which could include ceftaroline or vancomycin. They are also understandably nervous about the prospect of a long course of high-dose Bactrim as their daughter from a reaction to that antibiotic. Given these options, I think the simplest and safest way to go would be with dalbavancin. I recognize this is expensive but it will spare the patient the expense and potential risk of a peripherally-inserted central catheter line and will also provide supertherapy for the methicillin-resistant Staphylococcus aureus, which has been isolated. RECOMMENDATIONS: 1. Dalbavancin 1.5 g x1. 2. Will go ahead and check a CRP today. 3. The patient should follow up with me in clinic on November 10. 4. These findings communicated to the hospitalist and the appropriate orders have been written.
[2016-11-02] MEDS ORDERED: Vancomycin Serum Trough XX ONE (08:00)
[2016-11-10] MEDS ORDERED: OXYC-388 PO (18:35)
[2016-11-10] MEDS ORDERED: HYDR25TA4 PO (18:35)
[2016-11-10] MEDS ORDERED: POTA20TA16 PO (18:35)
[2016-11-17] MEDS ORDERED: CLIN-78 PO (13:22)
[2016-11-17] MEDS ORDERED: PRAV20TA2 PO (13:22)
== END 2016-11-01 18:05 | disposition home or self-care (01) | DRG 603 ==
LOC: SED 11:12 → OSC 12:37
PROVIDERS: ADMIT Neuromusculoskeletal Medicine & OMM; ATTEND Neuromusculoskeletal Medicine & OMM
PROC: 0JBQ0ZX Excision of Right Foot Subcutaneous Tissue and Fascia, Open Approach, Diagnostic (ICD-10-PCS; principal; 2016-10-29 17:00)
DX: L03.115 Cellulitis of right lower limb (principal); N17.9 Acute kidney failure, unspecified; E87.1 Hypo-osmolality and hyponatremia; F17.210 Nicotine dependence, cigarettes, uncomplicated; Z79.4 Long term (current) use of insulin; Z79.84 Long term (current) use of oral hypoglycemic drugs; Z79.02 Long term (current) use of antithrombotics/antiplatelets; I99.8 Other disorder of circulatory system; E11.9 Type 2 diabetes mellitus without complications; I10 Essential (primary) hypertension; B95.62 Methicillin resistant Staphylococcus aureus infection as the cause of diseases classified elsewhere

== ENCOUNTER 2016-12-10 16:41 | Inpatient (IN) | payer OTHER ==
[~2016-12-10] VITALS: Ht 172.7 cm; Wt 95.2 kg
[~2016-12-10 16:41] MED LIST: CLIN-78 PO; CLOP75TA28 PO; DULO30CA50 PO; FUR20 PO; GABA-502 PO; INSU100I13 SUBQ; LOSA1TAB35 PO; METF500T4 PO; OXYC-388 PO; POTA20TA16 PO; PRAV20TA2 PO
[2016-12-10 16:46] VITALS: BP 107/64; PULSE 60; RESP 16; O2SAT 99
--- NOTE | 2016-12-10 18:45 | ED.REPORT ---
HPI-Rash / Abscess Date of Service Dec 10, 2016 ED Provider: Dean Mcdaniel DO The patient is a 61 year old male w/ a hx of DM, right femoral bypass surgery, HTN, LE stent placement, and who presents to the ED sent [facility] due to an elevated WBC count and potential right foot infection. The pt's right blas and calf is red, warm, and inflamed. 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 He was seen in the hospital on or about November 01 and at that time, was treated for a MRSA foot infection which was resistant to outpatient clindamycin. He was put on two more weeks of oral antibiotics, linezolid 600 mg p.o. b.i.d. and Augmentin 875 p.o. b.i.d. Pt is cold in the room. His right leg is pink, swollen, and warm. Nursing Notes Stated Complaint: HIGH WHITE BLOOD COUNT Chief Complaint: Skin Rash/Abscess Nursing Notes Reviewed: Yes Allergies: Coded Allergies: duloxetine (Verified Adverse Reaction, Severe, NAUSEA,DIZZINESS, 12/10/16) lisinopril (Verified Adverse Reaction, Severe, COUGH, 12/10/16) simvastatin (Verified Adverse Reaction, Severe, MYALGIAS, 12/10/16) Scheduled Amlodipine (Amlodipine) 10 Mg Tablet 10 MG PO QAM Clopidogrel (Clopidogrel) 75 Mg Tablet 75 MG PO QAM Duloxetine (Duloxetine) 30 Mg Capsule.dr 30 MG PO QAM Furosemide (Furosemide) 20 Mg Tab 20 MG PO QAM Gabapentin (Gabapentin) 300 Mg Capsule 600 MG PO HS Hydrochlorothiazide (Hydrochlorothiazide) 25 Mg Tablet 25 MG PO QAM Insulin Glargine (Lantus U100 Solostar Insulin Pen) 100 Unit/1 Ml Insuln.pen 50 UNITS SUBQ QAM Linezolid (Linezolid) 600 Mg Tablet 600 MG PO BID Losartan Potassium (Losartan Potassium) 100 Mg Tablet 100 MG PO QAM Metformin (Metformin) 500 Mg Tablet 500 MG PO BIDWM Pravastatin (Pravastatin) 20 Mg Tablet 20 MG PO QAM Scheduled PRN oxyCODONE-Aspirin 5-325 mg (oxyCODONE-Aspirin 5-325 mg) 1 Each Tablet 1 TABLET PO Q6H PRN PRN For Pain General Time Seen by MD: 18:11 Chief Complaint Tender/swollen area (right lower leg) Hx Obtained From: Patient Arrived By: Walk-in Onset Occurred: 2 days ago Symptom Duration: Since onset Location: : Lower extremity Associated with: Reports Leg swelling Recent Healthcare: Recent doctor visit, Recent hospitalization Similar Sx Previous: Yes Past Medical History Past Medical History Reports: Diabetes mellitus Past Surgical History Open heart surgery Right femoral bypass surgery Carotid endarterectomy Lower extremity stent placement Smoking History Current Every Day Smoker Social History Other Social History: Good social support, Review of Systems Musculoskeletal: Reports: Extremity swelling (right blas and calf ), Joint swelling (right ankle) Skin: Reports Swelling Complete sys rev & neg: except as marked. Physical Exam Initial Vital Signs Vital Signs (First) Date Time Temp Pulse Resp B/P Pulse Ox O2 Delivery O2 Flow Rate FiO2 12/10/16 16:46 36.6 60 16 107/64 99 Room Air Initial VS: Reviewed Head / Eyes: Atraumatic, Normocephalic, PERRL ENT: Mucous membranes moist Respiratory: Breath sounds normal, Clear to auscultation, No respiratory distress Cardiovascular: Regular rate & rhythm, Heart sounds normal, Intact distal pulses Abdomen / GI: Soft, Non-tender Neurologic: Alert, Oriented Psychiatric: Mood/affect normal, Behavior normal General/Constitutional: Awake, Alert, Cooperative Color / Condition: Positive: Erythema localized (right blas and calf ) Right Leg / Calf: Positive: Erythema present, R calf > L calf, Swelling present..., Tenderness present..., Warmth present hot, pink, warm, right blas and calf good pulses Interpretation & Diagnostics Interpretation & Diagnostics: VENOUS DUPLEX IMPRESSION: 1. No deep venous thrombosis identified within the right lower extremity. 2. Several enlarged right groin lymph nodes present largest measuring up 1.0 cm redemonstrated similar to prior examination. Underlying neoplastic process cannot be excluded and decision to biopsy should be based on clinical assessment. Dictated by: Guillermo REYNAGAA Interpreted: Bryanna Millan MD on 12/10/2016 at 16:42 Transcribed by: GEORGE on 12/10/2016 at 16:45 Approved by: Bryanna Millan MD, PhD on 12/10/2016 at 16:53 Lab Results Interpretation Result Diagram: 12/10/16 1900 12/10/16 1900 Test 12/10/16 19:00 White Blood Count 21.2th/mm3 (3.8-10.1) Red Blood Count 3.71mil/mm3 (4.40-5.80) Hemoglobin 11.2g/dL (13.8-17.2) Hematocrit 33.1% (41.0-50.0) Mean Corpuscular Volume 89.2fL (81-100) Mean Corpuscular Hemoglobin 30.2pg (27.0-35.0) Mean Corpuscular Hemoglobin Concent 33.8% (32.0-37.0) Red Cell Distribution Width 14.5% (12.3-15.4) Platelet Count 197bil/L (150-400) Neutrophils (%) (Auto) 87.9% (40-74) Lymphocytes (%) (Auto) 5.5% (14-46) Monocytes (%) (Auto) 6.1% (4-12) Eosinophils (%) (Auto) 0% (0-5) Basophils (%) (Auto) 0.1% (0-3) Sodium Level 130mEq/L (134-144) Potassium Level 4.1mEq/L (3.5-5.2) Chloride Level 94mEq/L (97-108) Carbon Dioxide Level 21mmol/L (18-29) Blood Urea Nitrogen 40mg/dL (8-27) Creatinine 1.88mg/dL (0.76-1.27) Estimat Glomerular Filtration Rate 39mL/min (>59) Glucose Level 182mg/dL (60-99) Lactic Acid Level 1.6mmol/L (0.4-2.0) Calcium Level 9.3mg/dL (8.5-10.1) Total Bilirubin 0.3mg/dL (0.0-1.2) Aspartate Amino Transf (AST/SGOT) 13U/L (0-50) Alanine Aminotransferase (ALT/SGPT) 9U/L (0-44) Alkaline Phosphatase 59U/L (25-160) Total Protein 7.3g/dL (6.4-8.4) Albumin 3.0g/dL (3.4-5.0) Re-Eval/Medical Decision Med Decision/Clinical Course Mr. Manrique has the cardinal signs of infection. He has a leukocytosis, chills erythema, warmth and tenderness. The wound care center thought the wound looked worse and infected and I concur. He has been on various antibiotics. I tried to reach Dr. Wattres was unavailable. We will treat him with Zosyn and vancomycin for skin and soft tissue infection coverage. Blood cultures have been drawn. X-ray was reassuring. I would consider an MRI as an next step because he seems to be failing appropriate antibiotics and be concerned about osteo or a deep space abscess. Either way hospital admission and podiatry and infectious disease consultation recommended. Re-Evaluation/Progress : Time of Eval: 07:05 Re-Evaluation/Progress Note: Pt rechecked. Leg is red and swollen. Informed pt of need for antibiotics and admission. Pt understands and agrees with plan. Consultation : Referral / Consult Name: Chen Fortune DO Consulted With: Hospitalist Call Returned at: 19:23 Floor [place]er: Agrees with eval, Agrees with plan Note: Case discussed. Dr. Fortune agrees with admit. Counseled Regarding: Diagnosis, Lab results, Need for admission Discharge & Departure Impression: Primary Impression: Cellulitis Site of cellulitis: extremity Site of cellulitis of extremity: lower extremity Laterality: right Qualified Code: L03.115 - Cellulitis of right lower limb Additional Impression: Diabetic foot infection Disposition: ADMITTED TO HOSPITAL Discharge Condition All VS Reviewed: Yes Condition: Stable Referrals: Haley Swift PA-C (PCP) copies to: Haley Swift PA-C, Todd P DO Dec 10, 2016 18:45 F[place] Mast Dec 10, 2016 18:53
[2016-12-10] MEDS ORDERED: Vancomycin Inj 2,000 MG in 0.9% Sodium Chloride 500 ML IV ONE (18:57)
[2016-12-10 19:07] LABS: BASOPHILS % (AUTO) 0.1 % (0-3); EOSINOPHILS % (AUTO) 0 % (0-5); MONOCYTES % (AUTO) 6.1 % (4-12); Mean Corpuscular Hemoglobin 30.2 pg (27.0-35.0); Mean Corpuscular Volume 89.2 fL (81-100); NEUTROPHILS % (AUTO) 87.9 % (40-74); Platelet Count 197 bil/L (150-400)
--- NOTE | 2016-12-10 19:47 | DRSVH ---
PROCEDURE: X-RAY RIGHT FOOT COMPLETE, MINIMUM THREE VIEWS ([id number]) INDICATIONS: foot infection TECHNIQUE: 3 views of the foot were acquired. COMPARISON: [facility], CR, XR FOOT 3VW RT, 11/15/2016, 12:09. FINDINGS: Bones: No fractures or dislocations. No suspicious bony lesions. Metatarsus primas varus is present . Periarticular osteophyte formation at the first metatarsophalangeal joint is present. Soft tissues: No tibiotalar joint effusion. Achilles tendon appears normal. IMPRESSION: No acute fracture. No osseous lesion. If clinical suspicion and/or symptoms persist, fur ther assessment with repeat plainfilms, or advanced imaging (e.g., MRI, or bone scan) may be helpful for further assessment. Dictated by: Rosa Gustafson M.D. on 12/10/2016 at 19:45 Approved by: Rosa Gustafson M.D. on 12/10/2016 at 19:46
[2016-12-10] MEDS ORDERED: oxyCODONE-Acetamin 5-325 mg Tablet PO ONE (20:00)
[2016-12-10] MEDS ORDERED: LINE600T7 PO (20:08)
[2016-12-10] MEDS ORDERED: LOSA100T29 PO (20:09)
[2016-12-10] MEDS ORDERED: HYDR25TA4 PO (20:09)
[2016-12-10] MEDS ORDERED: AMLO10TA3 PO (20:12)
--- NOTE | 2016-12-10 20:39 | NUR ---
Admit Pt arrived on floor at 2034. Ambulatory, transferred self to bed. Report received from Erma Mackay in ED. Continuing care.
[2016-12-10 20:52] VITALS: BP 128/72; PULSE 61; RESP 20; O2SAT 98
[2016-12-10] MEDS ORDERED: Alum-Mag Hydrox-Simeth 30 mL Suspension PO PRN (22:25)
[2016-12-10] MEDS ORDERED: Polyethylene Glycol (PEG) 17 Gm Powder PO PRN (22:25)
--- NOTE | 2016-12-10 23:00 | NUR ---
Assumed care Admit RN pulled assumed care , pt c/o nausea text paged MD orders entered had crackers w/relief IVF hung and abx
[2016-12-10] MEDS ORDERED: oxyCODONE-Acetamin 5-325 mg Tablet PO PRN (23:10)
[2016-12-10] MEDS ORDERED: Piperacillin-Tazo 3.375 Gm Inj 3.375 GM in Dextrose 5% Minibag Plus 50 ML IV ONE (23:20)
[2016-12-10] MEDS: 0.9% Sodium Chloride 1,000 ML IV SCH (23:26)
--- NOTE | 2016-12-10 23:55 | PCM.HPMED ---
Subjective Date of Service Dec 10, 2016 Primary Provider: Admitting Physician: Chen Fortune DO Primary Care Physician: Haley Swift PA-C Attending Physician: Chen Fortune DO Admit Status: From the Emergency Department Chief Complaint: Leukocytosis History of Present Illness: Very pleasant 61yo diabetic male with history of a diabetic foot wound first noticed 4 months ago and tried to treat at home, but developed cellulitis and despite treatment from Podiatry, Wound Care, Dr Watters, and two hospitalizations it is worse again and now is accompanied by a white count of 21.2. This white count was discovered at wound care today and he was sent to the ER. The parade of antibiotics starting October 27: clindamycin, Vanco and Meropenem, Dalbivancin outpatient, Ertapenem, Daptomycin, and most recently Linezolid and Augmentin PO outpatient. He stopped the Augmentin on 12/[address] Watters's approval because of GI side effects and finished the Linezolid today. The wound was perceived to be improving. On 12/06 Dr Jensen removed sutures, there was wound dehiscence and serous drainage. On 12/08 his foot began to hurt and he developed nausea both of which he decided to try to ignore, but earlier today he went to wound care and with his pain they did labs and found the leukocytosis. He has not eaten much and has had decreased fluid intake for two days. Review of Systems: Patient has bilateral numbness and tingling in his toes. Complete ROS is otherwise negative except as noted above in the HPI>. Allergies Coded Allergies: duloxetine (Verified Adverse Reaction, Severe, NAUSEA,DIZZINESS, 12/10/16) lisinopril (Verified Adverse Reaction, Severe, COUGH, 12/10/16) simvastatin (Verified Adverse Reaction, Severe, MYALGIAS, 12/10/16) Home Medications Amlodipine (Amlodipine) 10 Mg Tablet 10 MG PO QAM Clopidogrel (Clopidogrel) 75 Mg Tablet 75 MG PO QAM Duloxetine (Duloxetine) 30 Mg Capsule.dr 30 MG PO QAM Furosemide (Furosemide) 20 Mg Tab 20 MG PO QAM Gabapentin (Gabapentin) 300 Mg Capsule 600 MG PO HS Hydrochlorothiazide (Hydrochlorothiazide) 25 Mg Tablet 25 MG PO QAM Insulin Glargine (Lantus U100 Solostar Insulin Pen) 100 Unit/1 Ml Insuln.pen 50 UNITS SUBQ QAM Linezolid (Linezolid) 600 Mg Tablet 600 MG PO BID Losartan Potassium (Losartan Potassium) 100 Mg Tablet 100 MG PO QAM Metformin (Metformin) 500 Mg Tablet 500 MG PO BIDWM Pravastatin (Pravastatin) 20 Mg Tablet 20 MG PO QAM PMH DM2 CAD HLD PAD HTN Surgical History Open heart surgery Right femoral bypass surgery Carotid endarterectomy Lower extremity stent placement Family History Father at age 86, health history unknown to patient Mother at age 76 from complications of diabetes Brother at age 62 from complications of diabetes Social History Occupation: [employer] Hx Alcohol Use: No Hx Substance Use: No Hx Tobacco Use: Yes Smoking Status: Current Every Day Smoker Living Arrangement: with Family Exam Vital Signs Vital Sign - Last Date Time Temp Pulse Resp B/P Pulse Ox O2 Delivery O2 Flow Rate FiO2 12/10/16 20:52 36.7 61 20 128/72 98 Room Air Exam General: Alert, Oriented X3, Cooperative, No Acute Distress Head: Normocephalic, atraumatic. External ears normal. Eyes: PERRLA, EOMI. Anicteric sclerae. Mouth: Mouth Normal, Mucous Membranes Moist/Silo Neck: Neck supple with full range of motion. Chest & Lungs: Clear to auscultation bilaterally with no crackles, wheezes, or rhonchi. Cardiovascular: Regular Rate/Rhythm, Normal S1, Normal S2, No Murmurs/Rubs/ Gallops Abdomen: Non-tender, Non-distended, No masses, Normoactive bowel tones, Soft Musculoskeletal: Normal Range of Motion Extremities: Right lower leg has 2+ edema tapering to the knee, open wound at the base of the right great toe best described as a crack between the 1st and 2nd toe extending into the ball of the 1st MTP, bilateral brawny skin changes, no edema in the left leg or foot Neurological: Grossly Neurologically Intact, Cranial Nerves 2-12 Intact, Normal Speech, Strength Normal 11/16 ext Lab and Diagnostics Labs Laboratory Tests Test 12/10/16 19:00 White Blood Count 21.2th/mm3 (3.8-10.1) Red Blood Count 3.71mil/mm3 (4.40-5.80) Hemoglobin 11.2g/dL (13.8-17.2) Hematocrit 33.1% (41.0-50.0) Mean Corpuscular Volume 89.2fL (81-100) Mean Corpuscular Hemoglobin 30.2pg (27.0-35.0) Mean Corpuscular Hemoglobin Concent 33.8% (32.0-37.0) Red Cell Distribution Width 14.5% (12.3-15.4) Platelet Count 197bil/L (150-400) Neutrophils (%) (Auto) 87.9% (40-74) Lymphocytes (%) (Auto) 5.5% (14-46) Monocytes (%) (Auto) 6.1% (4-12) Eosinophils (%) (Auto) 0% (0-5) Basophils (%) (Auto) 0.1% (0-3) Sodium Level 130mEq/L (134-144) Potassium Level 4.1mEq/L (3.5-5.2) Chloride Level 94mEq/L (97-108) Carbon Dioxide Level 21mmol/L (18-29) Blood Urea Nitrogen 40mg/dL (8-27) Creatinine 1.88mg/dL (0.76-1.27) Estimat Glomerular Filtration Rate 39mL/min (>59) Glucose Level 182mg/dL (60-99) Lactic Acid Level 1.6mmol/L (0.4-2.0) Calcium Level 9.3mg/dL (8.5-10.1) Total Bilirubin 0.3mg/dL (0.0-1.2) Aspartate Amino Transf (AST/SGOT) 13U/L (0-50) Alanine Aminotransferase (ALT/SGPT) 9U/L (0-44) Alkaline Phosphatase 59U/L (25-160) Total Protein 7.3g/dL (6.4-8.4) Albumin 3.0g/dL (3.4-5.0) Procalcitonin 3.32ng/mL (0.00-0.08) Microbiology 12/10/16 Blood Culture, Received Pending Result Diagram: 12/10/16189912/10/16 190 Microbiology Blood Cx x2 pending X-Rays, CTs and MRIs Xray right foot, 3 views: IMPRESSION: No acute fracture. No osseous lesion. If clinical suspicion and/or symptoms persist, further assessment with repeat plainfilms, or advanced imaging (e.g., MRI, or bone scan) may be helpful for further assessment. Assessment & Plan 55yo male with uncontrolled DM2 with HA1c on 10/29/16 of 9.8 presents with leukocytosis and non-healing foot wound despite close follow up with Podiatry, Wound Care, ID, two hospitalizations, and repeated courses of antibiotics: clindamycin, Vanco and Meropenem, Dalbivancin outpatient, Ertapenem, Daptomycin , and most recently Linezolid and Augmentin PO outpatient. He stopped the Augmentin on 12/[address] Watters's approval because of GI side effects and finished the Linezolid today. The wound was perceived to be improving. On 12/06 Dr Jensen removed sutures, there was wound dehiscence and serous drainage. On his foot began to hurt and he developed nausea both of which he decided to try to ignore, but earlier today he went to wound care and with his pain they did labs and found the leukocytosis. He has not eaten much and has had decreased fluid intake for two days. 1. Non-healing foot wound with cellulitis, possible osteomyelitis, POA, worsening. No fracture or osseus lesion on foot xray today. -Diagnosis of osteomyelitis is not established, will likely need advanced imaging and bone biopsy to rule out or in. -Consult Podiatry -Linezolid and Zosyn IV started 2. ZACH, POA, worsened from previous hospitalizations this spring, Cr 1.88 now, around 1.5 before. Likely pre-renal with BUN/Cr > 20, secondary to dehydration from recent persistent nausea vs possible renal injury from antibiotics. -NS 100mls/hr IV -stop home Furosemide 3. DM2 uncontrolled, POA. HA1c last month was 9.8. -Cut Lantus by 50% to 25units qhs -medium dose correctional scale insulin 4. CAD, PAD, POA. Hx of HLD -Continue Pravastatin 20mg PO qhs 5. HTN, POA -Continue amlodipine 10mg daily, hold Losartan 100mg daily d/t ZACH, HCTZ 25mg daily 6. Hyponatremia, POA, secondary most likely to poor volume status -hydration as above 7. Diabetic Neuropathy, POA. -continue Gabapentin 600mg qhs PRN medications available for nausea, heartburn, constipation: Ondansetron, Maalox, Senna, Miralax Patient is admitted under inpatient status with expected length of stay greater than 2 midnights due to severity of presenting symptoms, risk of adverse event, and complexity of treatment plan. Pain Evaluation: Adequate Pain Control VTE Prophylaxis: Sub-Q Heparin (Unfractionated) Resuscitation Status: CPR: Attempt Resuscitation Attending Statement The patient was seen and examined together with house staff on 12/10/2016 and I agree with the history, exam and plan as outlined in the note above. Agustin Silver DO Dec 10, 2016 23:55 Chen Fortune DO Dec 11, 2016 04:24
[2016-12-10] MEDS: Linezolid Inj 600 MG in IV Premix 1 EACH IV SCH (23:56)
[2016-12-11] MEDS ORDERED: Piperacillin-Tazo 3.375 Gm Inj 3.375 GM in Dextrose 5% Minibag Plus 50 ML IV SCH (00:30)
[2016-12-11] MEDS: Heparin 5,000 Unit/mL Inj SUBQ SCH ×3 (01:08→16:50)
[2016-12-11 06:08] VITALS: BP 145/76; PULSE 44; RESP 16; O2SAT 96
[2016-12-11 06:49] LABS: BASOPHILS % (AUTO) 0.2 % (0-3); EOSINOPHILS % (AUTO) 0.7 % (0-5); MONOCYTES % (AUTO) 6.6 % (4-12); Mean Corpuscular Hemoglobin 30.6 pg (27.0-35.0); Mean Corpuscular Volume 90.5 fL (81-100); Platelet Count 167 bil/L (150-400)
[2016-12-11] MEDS ORDERED: DULoxetine 30 mg DR Capsule PO SCH (08:30)
[2016-12-11 08:36] VITALS: BP 120/54; PULSE 57; RESP 16; O2SAT 96
[2016-12-11 08:39] LABS: ERYTHROCYTE SEDIMENTATION RATE 131 mm/hr (0-30)
[2016-12-11] MEDS: Linezolid Inj 600 MG in IV Premix 1 EACH IV SCH ×2 (08:44→21:06)
--- NOTE | 2016-12-11 09:47 | NUR ---
SW - Brief Note Data: EMR reviewed. Pt is a 61 y/o male admitted on 12/10/16 for cellulitis, diabetic foot ulcer infection per H&P. Pt has [employer] insurance coverage and sees Haley Swift for primary care. Pt lives in [facility] with family and is independent at baseline. SW met with pt at bedside to discuss discharge planning. Pt has not completed DPOA/Advanced Care directive paperwork and is not interested in doing so. No discharge needs identified at this time. SW to continue to follow if any needs arise. Assessment: Pt who is independent at baseline. Plan: Anticipated discharge home via POV when medically ready. No discharge needs identified at this time. SW to continue to follow if any needs arise.
[2016-12-11] MEDS: 0.9% Sodium Chloride 1,000 ML IV SCH (10:28)
[2016-12-11] MEDS: Piperacillin-Tazo 3.375 Gm Inj 3.375 GM in Dextrose 5% Minibag Plus 50 ML IV SCH ×2 (10:29→16:49)
[2016-12-11] MEDS: oxyCODONE-Acetamin 5-325 mg Tablet PO PRN (13:51)
[2016-12-11 13:52] VITALS: BP 146/68; PULSE 55; O2SAT 95
--- NOTE | 2016-12-11 14:55 | NUR ---
Pain Pt c/o continual right calf pain. Pt says that the pain decreased with Percocet, however pt was rating pain at 7/10 four hours after Percocet was given. Hospitalist notified and frequency of Percocet increased. Will continue to monitor.
[2016-12-11] MEDS ORDERED: oxyCODONE-Acetamin 5-325 mg Tablet PO PRN (16:30)
[2016-12-11] MEDS: Ondansetron 2 mg/mL 2 mL Inj IVPUSH PRN (16:46)
--- NOTE | 2016-12-11 17:50 | PCM.PNMED ---
Subjective Date of Service Dec 11, 2016 Subjective Still with some right foot and lower leg pain, doesn't feel the swelling in the lower leg has changed Exam Vital Signs Vital Sign - Last Date Time Temp Pulse Resp B/P Pulse Ox O2 Delivery O2 Flow Rate FiO2 12/11/16 13:52 36.4 55 146/68 95 Room Air 12/11/16 08:36 16 Intake and Output 12/10/16 12/10/16 12/11/16 Cumulative From/Thru 15:00 23:00 07:00 12/10/16 16:46 - 12/11/16 06:09 Intake Total 1505 ml 1505 ml Output Total 350 ml 350 ml Balance 1155 ml 1155 ml Intake Oral 120 ml 120 ml IV Total 1385 ml 1385 ml Output Urine Total 350 ml 350 ml Exam Gen: alert and oriented Heart: Reg Lungs: Clear Abd: Soft, NT Right LE: deep skin crack between 1st and 2nd toe, mild erythema (along with bronzing)of foot and lower leg, nearly to knee, also tr-1+ pitting ed IVs and Medications Medications Reviewed: Medications were reviewed in detail Lab and Diagnostics Result Diagram: 12/11/16 0635 12/11/16 0635 Microbiology Blood Cx x2 pending X-Rays, CTs and MRIs Xray right foot, 3 views: IMPRESSION: No acute fracture. No osseous lesion. If clinical suspicion and/or symptoms persist, further assessment with repeat plainfilms, or advanced imaging (e.g., MRI, or bone scan) may be helpful for further assessment. Assessment & Plan 55yo male with uncontrolled DM2 with HA1c on 10/29/16 of 9.8 presents with leukocytosis and non-healing foot wound despite close follow up with Podiatry, Wound Care, ID, two hospitalizations, and repeated courses of antibiotics: clindamycin, Vanco and Meropenem, Dalbivancin outpatient, Ertapenem, Daptomycin , and most recently Linezolid and Augmentin PO outpatient. He stopped the Augmentin on 12/[address] Watters's approval because of GI side effects and finished the Linezolid today. The wound was perceived to be improving. On 12/06 Dr Jensen removed sutures, there was wound dehiscence and serous drainage. On his foot began to hurt and he developed nausea both of which he decided to try to ignore, but earlier today he went to wound care and with his pain they did labs and found the leukocytosis. He has not eaten much and has had decreased fluid intake for two days. 1. Non-healing foot wound with cellulitis, possible osteomyelitis, POA, worsening. No fracture or osseus lesion on foot xray today. -Diagnosis of osteomyelitis is not established, per admit doc "will likely need advanced imaging and bone biopsy to rule out or in", discussed with Dr Albrecht who doesn't want further imaging prior to seeing the patient -Consult Podiatry, placed order this evening. Discussed with Dr Albrecht who will see patient in the morning. -Linezolid and Zosyn IV started - Venous u/s of right leg neg for DVT (just prior to admit) but did have right groin nodes 2. ZACH, POA, worsened from previous hospitalizations this spring, Cr 1.88 at admit, 1.6 today, around 1.5 before. Likely pre-renal with BUN/Cr > 20, secondary to dehydration from recent persistent nausea vs possible renal injury from antibiotics. -NS 100mls/hr IV -stop home Furosemide, Losartan held -recheck lab in am 3. DM2 uncontrolled, POA. HA1c last month was 9.8. -Cut Lantus by 50% to 25units qhs -medium dose correctional scale insulin - glu mostly 100's so far here 4. CAD, PAD, POA. Hx of HLD -Continue Pravastatin 20mg PO qhs 5. HTN, POA -Continue amlodipine 10mg daily, hold Losartan 100mg daily and HCTZ 25mg daily d /t ZACH 6. Hyponatremia, POA, secondary most likely to poor volume status, HCTZ could also be contributing -hydration as above -improved to 135 today 7. Diabetic Neuropathy, POA. -continue Gabapentin 600mg qhs PRN medications available for nausea, heartburn, constipation: Ondansetron, Maalox, Senna, Miralax Patient is admitted under inpatient status with expected length of stay greater than 2 midnights due to severity of presenting symptoms, risk of adverse event, and complexity of treatment plan. VTE Prophylaxis: Sub-Q Heparin (Unfractionated) Resuscitation Status: CPR: Attempt Resuscitation Kandice Ramirez MD Dec 11, 2016 17:50
[2016-12-11 18:03] VITALS: BP 118/50; PULSE 53; RESP 16; O2SAT 97
--- NOTE | 2016-12-11 19:30 | PCM.CHPPOD ---
Subjective Date of service Dec 11, 2016 History of Present Illness 61 year old male known to Dr. Beto Jensen with recent treatment of abscess of the right 1st webspace. patient was evaluated tuesday by Dr. Jerry at the wound care center and underwent suture removal. patient states that he began having severe pain in his right distal leg and calf yesterday and was directed to the ED. A venous duplex study was preformed and was found to be negative for DVT, xrays were taken which are also negative for acute OM. Patient denies any noted mal odor from his wound or drainage on his dressing. Allergy Allergies: Coded Allergies: duloxetine (Verified Adverse Reaction, Severe, NAUSEA,DIZZINESS, 12/10/16) lisinopril (Verified Adverse Reaction, Severe, COUGH, 12/10/16) simvastatin (Verified Adverse Reaction, Severe, MYALGIAS, 12/10/16) Medications Amlodipine (Amlodipine) 10 Mg Tablet 10 MG PO QAM Clopidogrel (Clopidogrel) 75 Mg Tablet 75 MG PO QAM Duloxetine (Duloxetine) 30 Mg Capsule.dr 30 MG PO QAM Furosemide (Furosemide) 20 Mg Tab 20 MG PO QAM Gabapentin (Gabapentin) 300 Mg Capsule 600 MG PO HS Hydrochlorothiazide (Hydrochlorothiazide) 25 Mg Tablet 25 MG PO QAM Insulin Glargine (Lantus U100 Solostar Insulin Pen) 100 Unit/1 Ml Insuln.pen 50 UNITS SUBQ QAM Linezolid (Linezolid) 600 Mg Tablet 600 MG PO BID Losartan Potassium (Losartan Potassium) 100 Mg Tablet 100 MG PO QAM Metformin (Metformin) 500 Mg Tablet 500 MG PO BIDWM Pravastatin (Pravastatin) 20 Mg Tablet 20 MG PO QAM oxyCODONE-Aspirin 5-325 mg (oxyCODONE-Aspirin 5-325 mg) 1 Each Tablet 1 TABLET PO Q6H PRN PRN For Pain Past Medical History Surgeries: Yes (LT CAROTID,MULT LE STENTS,HEART CATH/STENT,CABG,PILONIDAL CYST, GANGLION CYS) Medical History: Surgical History: Social History Occupation: [employer] Hx Alcohol Use: No Hx Substance Use: No Hx Tobacco Use: Yes Smoking Status: Current Every Day Smoker Podiatry Consult Exam Vital Signs Vital Sign - Last Date Time Temp Pulse Resp B/P Pulse Ox O2 Delivery O2 Flow Rate FiO2 12/11/16 18:03 36.3 53 16 118/50 97 Room Air Intake and Output 12/10/16 12/10/16 12/11/16 Cumulative From/Thru 15:00 23:00 07:00 12/10/16 16:46 - 12/11/16 06:09 Intake Total 1505 ml 1505 ml Output Total 350 ml 350 ml Balance 1155 ml 1155 ml Intake Oral 120 ml 120 ml IV Total 1385 ml 1385 ml Output Urine Total 350 ml 350 ml Result Diagram: 12/11/16 0635 12/11/16 0635 Lab Test 12/10/16 19:00 12/11/16 06:35 Lactic Acid Level 1.6mmol/L (0.4-2.0) White Blood Count 18.0th/mm3 (3.8-10.1) Red Blood Count 3.04mil/mm3 (4.40-5.80) Hemoglobin 9.3g/dL (13.8-17.2) Hematocrit 27.5% (41.0-50.0) Mean Corpuscular Volume 90.5fL (81-100) Mean Corpuscular Hemoglobin 30.6pg (27.0-35.0) Mean Corpuscular Hemoglobin Concent 33.8% (32.0-37.0) Red Cell Distribution Width 14.4% (12.3-15.4) Platelet Count 167bil/L (150-400) Neutrophils (%) (Auto) 83.0% (40-74) Lymphocytes (%) (Auto) 9.2% (14-46) Monocytes (%) (Auto) 6.6% (4-12) Eosinophils (%) (Auto) 0.7% (0-5) Basophils (%) (Auto) 0.2% (0-3) Erythrocyte Sedimentation Rate 131mm/hr (0-30) Sodium Level 135mEq/L (134-144) Potassium Level 3.7mEq/L (3.5-5.2) Chloride Level 101mEq/L (97-108) Carbon Dioxide Level 20mmol/L (18-29) Blood Urea Nitrogen 38mg/dL (8-27) Creatinine 1.62mg/dL (0.76-1.27) Estimat Glomerular Filtration Rate 46mL/min (>59) Glucose Level 139mg/dL (60-99) Calcium Level 8.1mg/dL (8.5-10.1) Total Bilirubin 0.3mg/dL (0.0-1.2) Aspartate Amino Transf (AST/SGOT) 11U/L (0-50) Alanine Aminotransferase (ALT/SGPT) 6U/L (0-44) Alkaline Phosphatase 52U/L (25-160) C-Reactive Protein 30.1mg/dL (0.0-0.5) Total Protein 5.1g/dL (6.4-8.4) Albumin 2.2g/dL (3.4-5.0) Procalcitonin 2.56ng/mL (0.00-0.08) Exam General: Alert, Oriented X3, Cooperative, No Acute Distress Lower Extremities: Right: Edema Generalized Extremity warm Lower Extremity Pulses: Doppler: Right Dorsalis Pedis Right Posterior Tibal Podiatry WOUND : Wound Location/Description curvilinear ulceration of the right 1st webspace full thickness to subcutaeous tissue without exposed bone or tendon. there is no local surrounding erythema. no mal odor. no noted drainage. the wound bed appears 80% granular with 10% fibrotic slough. this wound does not probe to bone or tendon. There is no clinical evidence of infection or abscess. no pain to palpation of the forefoot plantar left hallux ulceration 2mm x 2mm x 1mm without exposed bone or tendon. no mal odor. no signs of infection. no local erythema, minimal serous drainage. moderate edema of the distal right leg with severe pain to palpation of the calf , Skin is shiny in nature without open wound. No appreciable erythema Dressing & Drainage Status: Changed Additional Information: wound dressed with moist to dry sterile gauze and kerlix. Assessment & Plan Assessment Acute edema and pain of the right distal leg without associated abscess, ulcer of the right great toe and 1st webspace without clinical evidence of infection. Problems: (1) Lower extremity cellulitis Plan: Following clinical evaluation today it is highly unlikely that this patients leukocytosis is associated with his right foot diabetic ulceration. the 1st webspace ulcer and great toe ulcer show no signs of surrounding erythema , no fluctuance or signs of abscess formation. There is no exposed bone within these wounds therefore without clinical evidence of abscess or acute infection it is highly unlikely that any underlying acute osteomyelitis is present. A moist to dry sterile dressing was applied today which can be changed every 24- 48hrs. No further imaging of the right foot is needed at this time. This patient has severe Edema of his right distal leg with severe pain to palpation of his right calf. There is no appreciable significant erythema today which would point to obvious acute cellulitis of the leg however the patient has been on Antibiotics which may be clouding the clinical picture. It appears that this patient elevated WBC is most likely related to the cellulitis of his leg. I recommend continuing his current Antibiotic regiment. Ultrasound preformed on admission is negative for DVT however this patients clinical exam is highly suggestive of possible DVT, recommend further workup if the patient does not continue to improve on his Antibiotics. podiatry will continue to follow every 24-48hrs. Status: Acute ICD Code: L03.119 VTE Prophylaxis: Sub-Q Heparin (Unfractionated) Porfirio Albrecht DPM Dec 11, 2016 19:30
[2016-12-11 21:12] VITALS: BP 131/45; PULSE 45; RESP 20; O2SAT 97
[2016-12-12] MEDS: Piperacillin-Tazo 3.375 Gm Inj 3.375 GM in Dextrose 5% Minibag Plus 50 ML IV SCH ×3 (01:01→17:25)
[2016-12-12] MEDS: Heparin 5,000 Unit/mL Inj SUBQ SCH ×4 (01:01→23:40)
[2016-12-12 06:13] VITALS: BP 122/65; PULSE 52; RESP 20; O2SAT 92
[2016-12-12 07:10] LABS: BASOPHILS % (AUTO) 0.4 % (0-3); EOSINOPHILS % (AUTO) 1.2 % (0-5); MONOCYTES % (AUTO) 6.9 % (4-12); Mean Corpuscular Hemoglobin 30.2 pg (27.0-35.0); Mean Corpuscular Volume 87.8 fL (81-100); NEUTROPHILS % (AUTO) 77.4 % (40-74); Platelet Count 181 bil/L (150-400)
[2016-12-12 08:12] VITALS: BP 146/66; PULSE 57; RESP 16; O2SAT 96
[2016-12-12] MEDS: 0.9% Sodium Chloride 1,000 ML IV SCH ×2 (08:15→22:19)
[2016-12-12] MEDS: Linezolid Inj 600 MG in IV Premix 1 EACH IV SCH ×2 (08:15→22:20)
--- NOTE | 2016-12-12 10:46 | NUR ---
Blood sugar Blood sugar before breakfast 165. Dr. Mendez aware.
[2016-12-12 12:37] VITALS: BP 124/56; PULSE 58; O2SAT 96
--- NOTE | 2016-12-12 12:51 | NUR ---
Blood sugar Blood sugar before lunch 180. Ramana paged Hospitalist and called back. no new orders. patient refused to eat this morning and states," my will bring [employer] for lunch." will continue to monitor blood sugars and vital signs.
--- NOTE | 2016-12-12 14:02 | PCM.PNMED ---
Subjective Date of Service Dec 12, 2016 Subjective Patient was seen and examined at bedside today. Patient denies any chest pain, shortness of breath, nausea, vomiting, diarrhea. Patient stated that his right lower extremity is still extremely sensitive to touch and he is unable to walk on it. Overnight events: None Exam Vital Signs Vital Sign - Last Date Time Temp Pulse Resp B/P Pulse Ox O2 Delivery O2 Flow Rate FiO2 12/12/16 12:37 37.1 58 124/56 96 Room Air 12/12/16 08:12 16 Intake and Output 12/11/16 12/11/16 12/12/16 Cumulative From/Thru 15:00 23:00 07:00 12/10/16 16:46 - 12/12/16 06:13 Intake Total 1340 ml 1684 ml 4529 ml Output Total 800 ml 1150 ml Balance 540 ml 1684 ml 3379 ml Intake Oral 480 ml 480 ml 1080 ml IV Total 860 ml 1204 ml 3449 ml Output Urine Total 800 ml 1150 ml Exam Physical Exam: GEN: Patient was awake, alert, responding appropriately to questions HEENT: Pupils equal round and reactive to light, extraocular eye muscles intact , Neck soft supple, trachea midline, nomocephalic/atraumatic CV: +S1/S2, regular irregular rate and rhythm, no murmurs auscultated Respiratory: CTAB, no wheezes, rales, rhonchi GI: +bowel sounds x4, soft, compressible, nontender to palpation EXT: no clubbing, cyanosis, edema of the left lower extremity, right lower extremity tenderness to palpation with no erythema and positive +1 nonpitting edema Neuro: Cranial nerves II-XII grossly intact Psych: mood and affect were appropriate IVs and Medications Medications Reviewed: Medications were reviewed in detail Lab and Diagnostics Result Diagram: 12/12/1662212/12/16 06 Microbiology Blood Cx x2 pending X-Rays, CTs and MRIs Xray right foot, 3 views: IMPRESSION: No acute fracture. No osseous lesion. If clinical suspicion and/or symptoms persist, further assessment with repeat plainfilms, or advanced imaging (e.g., MRI, or bone scan) may be helpful for further assessment. Assessment & Plan 55yo male with uncontrolled DM2 with HA1c on 10/29/16 of 9.8 presents with leukocytosis and non-healing foot wound despite close follow up with Podiatry, Wound Care, ID, two hospitalizations, and repeated courses of antibiotics: clindamycin, Vanco and Meropenem, Dalbivancin outpatient, Ertapenem, Daptomycin , and most recently Linezolid and Augmentin PO outpatient. He stopped the Augmentin on 12/[address] Watters's approval because of GI side effects and finished the Linezolid today. The wound was perceived to be improving. On 12/06 Dr Jensen removed sutures, there was wound dehiscence and serous drainage. Leukocytosis secondary to non-healing foot wound with cellulitis, POA, worsening. -No fracture or osseus lesion on foot xray. At this point podiatry does not want any further imaging and does not suspect osteomyelitis -Continue IV Linezolid and Zosyn -Podiatry following - Venous u/s of right leg neg for DVT (just prior to admit) but did have right groin nodes -Consult infectious disease (Dr. Watters) ZACH, POA, worsened from previous hospitalizations this spring, Cr 1.88 at admit , baseline is 1.5 before. Likely pre-renal with BUN/Cr > 20, secondary to dehydration from recent persistent nausea vs possible renal injury from antibiotics. -Continue NS 100mls/hr IV -Stop home Furosemide, Losartan held -Follow up labs in the morning DM2 uncontrolled, POA. HA1c last month was 9.8. -Restart Lantus 50 units daily at bedtime -Restart metformin 500 mg twice a day -We will continue to monitor and add sliding scale if necessary CAD, PAD, POA. Hx of HLD -Continue Pravastatin 20mg PO qhs HTN, POA -Continue amlodipine 10mg daily -Hold Losartan 100mg daily and HCTZ 25mg daily d/t ZACH -Continue to monitor Hyponatremia, POA, secondary most likely to poor volume status -Sodium currently 133 -Continue IV hydration -Bolus 1 L normal saline -Continue to monitor Diabetic Neuropathy, POA. -Continue Gabapentin 600mg qhs PRN medications available for nausea, heartburn, constipation: Ondansetron, Maalox, Senna, Miralax Disposition: Patient's leukocytosis is improving. Dr. Watters has been consulted as he has been following this patient in the outpatient sector and he needs close antibiotic follow-up. We will continue to manage the patient's DKA and hyponatremia. VTE Prophylaxis: Sub-Q Heparin (Unfractionated) Resuscitation Status: CPR: Attempt Resuscitation Danitza Mendez DO Dec 12, 2016 14:02
[2016-12-12] MEDS ORDERED: 0.9% Sodium Chloride 1,000 ML IV ONE (14:10)
[2016-12-12] MEDS ORDERED: Glucose 40% Oral Gel 15 Gm Tube PO PRN (14:30)
[2016-12-12 15:49] VITALS: BP 129/55; PULSE 50; RESP 16; O2SAT 94
[2016-12-12] MEDS: oxyCODONE-Acetamin 5-325 mg Tablet PO PRN ×2 (15:53→23:40)
[2016-12-12] MEDS: Insulin LISPRO 300 Unit/3 mL Inj SUBQ SCH ×2 (17:26→23:45)
--- NOTE | 2016-12-12 17:52 | NUR ---
Blood sugar Before dinner BG 324. Insulin given as ordered. el paged hospitalist and orders to give 7 units per sliding scale plus 3 units for total of 10 units. 7 units given per sliding scale and will give another 3 units of insulin per hospitalist verbal orders. patient aware.
[2016-12-12] MEDS ORDERED: Insulin LISPRO 300 Unit/3 mL Inj SUBQ ONE (18:31)
[2016-12-12 21:00] VITALS: BP 148/71; PULSE 51; RESP 18; O2SAT 96
[2016-12-12] MEDS ORDERED: Insulin GLARgine 100 Unit/mL Syringe SUBQ SCH (21:00)
[2016-12-13 00:36] VITALS: BP 129/56; PULSE 55; RESP 18; O2SAT 93
[2016-12-13] MEDS: Piperacillin-Tazo 3.375 Gm Inj 3.375 GM in Dextrose 5% Minibag Plus 50 ML IV SCH ×3 (00:51→21:43)
[2016-12-13] MEDS: 0.9% Sodium Chloride 1,000 ML IV SCH ×4 (01:20→21:20)
[2016-12-13 05:48] VITALS: BP 135/56; PULSE 89; RESP 17; O2SAT 91
--- NOTE | 2016-12-13 05:49 | NUR ---
Shift Note Assumed pt 1900, pt a/o able to make needs known, HS BG checked, 209 at 2230, received scheduled lantus,rechecked 1hr after at293, pt refused Lispro coverage, no signs of hypo/hyperglycemia throughout night, Rfoot dressing c/d/i, pt continues with IV ABO, call light in reach, qhrly checks done throughout night.
[2016-12-13 06:32] LABS: Mean Corpuscular Hemoglobin 30.7 pg (27.0-35.0); Mean Corpuscular Volume 90.3 fL (81-100)
[2016-12-13] MEDS: Heparin 5,000 Unit/mL Inj SUBQ SCH ×2 (09:27→17:22)
[2016-12-13] MEDS: Insulin LISPRO 300 Unit/3 mL Inj SUBQ SCH ×4 (09:27→21:41)
[2016-12-13 09:35] VITALS: BP 163/70; PULSE 60; RESP 18; O2SAT 90
[2016-12-13] MEDS: Linezolid Inj 600 MG in IV Premix 1 EACH IV SCH ×2 (10:27→20:00)
[2016-12-13] MEDS ORDERED: 0.9% Sodium Chloride 1,000 ML IV ONE (11:30)
[2016-12-13] MEDS: oxyCODONE-Acetamin 5-325 mg Tablet PO PRN ×2 (12:12→21:48)
--- NOTE | 2016-12-13 14:04 | DRSVH ---
PROCEDURE: MRI TIBIA FIBULA RIGHT WITH AND WITHOUT CONTRAST ([id number]) INDICATIONS: possible severe R lower calf or hindfoot infection TECHNIQUE: Noncontrast coronal T1 spin echo and STIR, sagittal T1 spin echo with fat saturation and STIR, axial T1 spin echo and T2 fast spin echo with fat saturation. After the administration of contrast, axial/ sagittal/coronal T1 spin echo with fat saturation through the calf regions bilaterally, with sagittal and axial imaging optimize for unilateral right calf visualization. COMPARISON: [facility], CR, XR FOOT 3VW RT, 12/10/2016, 18:48. FINDINGS: Image quality: Excellent. Bones: The visualized bone marrow demonstrates normal signal on all sequences. The overlying cortex appears intact. No abnormal intraosseous enhancement. Soft tissues: No soft tissue masses are visualized. The scanned muscles demonstrate normal overall bulk and internal signal. Subcutaneous tissues appear abnormal with asymmetric right calf subcutaneo us edema, circumferential, without rim-enhancing fluid collection that would indicate presence of abs cess formation. No osteomyelitis is found. Cellulitis is the likely cause. No abnormal soft tissue enhancement. IMPRESSION: Right calf soft tissue edema and associated subcutaneous fat enhancement without abscess formation or evidence of underlying osteomyelitis. Overall, cellulitis appears to be the most likely cause for this constellation of findings. Dictated by: Luis Miguel Ochoa M.D. on 12/13/2016 at 13:59 Approved by: Luis Miguel Ochoa M.D. on 12/13/2016 at 14:02
--- NOTE | 2016-12-13 15:37 | PCM.PNMED ---
Subjective Date of Service December 13, 2016 Subjective Patient was seen and examined at bedside today. Patient denies any chest pain, shortness of breath, nausea, vomiting, diarrhea. Patient is currently anxious to go home however at this time his infection is still too critical for him to be discharged especially given his recent failed outpatient therapy. Overnight events: None Exam Vital Signs Vital Sign - Last Date Time Temp Pulse Resp B/P Pulse Ox O2 Delivery O2 Flow Rate FiO2 12/13/16 09:35 37.2 60 18 163/70 90 Room Air Intake and Output 12/12/16 12/12/16 12/13/16 Cumulative From/Thru 15:00 23:00 07:00 12/10/16 16:46 - 12/13/16 05:48 Intake Total 1200 ml 1510 ml 7239 ml Output Total 800 ml 750 ml 2700 ml Balance 400 ml 760 ml 4539 ml Intake Oral 850 ml 350 ml 2280 ml IV Total 350 ml 1160 ml 4959 ml Output Urine Total 800 ml 750 ml 2700 ml Exam Physical Exam: GEN: Patient was awake, alert, responding appropriately to questions HEENT: Pupils equal round and reactive to light, extraocular eye muscles intact , Neck soft supple, trachea midline, nomocephalic/atraumatic CV: +S1/S2, regular irregular rate and rhythm, no murmurs auscultated Respiratory: CTAB, no wheezes, rales, rhonchi GI: +bowel sounds x4, soft, compressible, nontender to palpation EXT: no clubbing, cyanosis, edema of the left lower extremity. Positive edema, tenderness to palpation, mild erythema, dressing in place clean dry and intact of the right lower extremity Neuro: Cranial nerves II-XII grossly intact Psych: mood and affect were appropriate IVs and Medications Medications Reviewed: Medications were reviewed in detail Lab and Diagnostics Result Diagram: 12/13/16 0553 12/13/16 0553 Microbiology Blood Cx x2 pending X-Rays, CTs and MRIs Xray right foot, 3 views: IMPRESSION: No acute fracture. No osseous lesion. If clinical suspicion and/or symptoms persist, further assessment with repeat plainfilms, or advanced imaging (e.g., MRI, or bone scan) may be helpful for further assessment. Assessment & Plan 55yo male with uncontrolled DM2 with HA1c on 10/29/16 of 9.8 presents with leukocytosis and non-healing foot wound despite close follow up with Podiatry, Wound Care, ID, two hospitalizations, and repeated courses of antibiotics: clindamycin, Vanco and Meropenem, Dalbivancin outpatient, Ertapenem, Daptomycin , and most recently Linezolid and Augmentin PO outpatient. He stopped the Augmentin on 12/[address] Watters's approval because of GI side effects and finished the Linezolid today. The wound was perceived to be improving. On 12/06 Dr Jensen removed sutures, there was wound dehiscence and serous drainage. Leukocytosis secondary to non-healing foot wound with cellulitis, POA, worsening. -White blood cell count 11.3 trending down -No fracture or osseus lesion on foot xray. -Continue IV Linezolid and Zosyn -Podiatry following -Follow-up ASO titer - Venous u/s of right leg neg for DVT (just prior to admit) but did have right groin nodes -Consult infectious disease (Dr. Watters) -Consult PT ZACH, POA, -Continue NS 100mls/hr IV -We will recalculate patient's Zosyn to every 12 to help account for possible nephrotoxicity secondary to Zosyn. -Stop home Furosemide, Losartan held -Follow up labs in the morning DM2 uncontrolled, POA. HA1c last month was 9.8. -Increase Lantus to 60 units daily at bedtime -Hold metformin 500 mg twice a day as patient's creatinine is increasing -Start 2 units of insulin lispro at mealtimes -We will continue to monitor and add sliding scale if necessary Hypocalcemia -Start calcium carbonate chews 3 times a day with meals -Continue to monitor CAD, PAD, POA. Hx of HLD -Continue Pravastatin 20mg PO qhs HTN, POA -Continue amlodipine 10mg daily -Hold Losartan 100mg daily and HCTZ 25mg daily d/t ZACH -Continue to monitor Hyponatremia, POA, secondary most likely to poor volume status (resolving) -Sodium currently 136 -Continue IV hydration -Continue to monitor Diabetic Neuropathy, POA. -Continue Gabapentin 600mg qhs PRN medications available for nausea, heartburn, constipation: Ondansetron, Maalox, Senna, Miralax Disposition: Patient's leukocytosis is improving. Dr. Watters has been consulted and is following the patient. At this time Dr. Watters is considering ordering an MRI for this patient for his right lower extremity. Will continue to medically manage the patient's diabetes as it is still uncontrolled. And also will continue to monitor the patient's hypocalcemia and hyponatremia. At this time the patient's infection is still pretty significant and is not clinically ready to be discharged. VTE Prophylaxis: Sub-Q Heparin (Unfractionated) Resuscitation Status: CPR: Attempt Resuscitation Danitza Mendez DO December 13, 2016 15:37
--- NOTE | 2016-12-13 16:12 | PCM.PNPOD ---
Subjective Date of Service: December 13, 2016 Date of Service: December 13, 2016 Visit Information: Reason for Visit Cellulitis, Diabetic Foot Ulcer Infection Surgery/Surgery Date Post-Op Day # Date of Admission: Dec 10, 2016 at 19:45 Hospital Day # Subjective: 61-year-old male evaluated resting comfortably in bed. Patient states that his leg is still significantly tender however he continues to state that he has no pain associated with his right foot. Patient denies any new issues or complaints he states that he was recently evaluated by Dr. Watters today and also that he just had an MRI completed on his leg. Results of the patient's MRI reveal no abscess formation and symptoms consistent with cellulitis of the right lower extremity. Postop General: No Complaints Gastrointestinal: Good Appetite Pain Management: PO Objective Vital Sign - Last Date Time Temp Pulse Resp B/P Pulse Ox O2 Delivery O2 Flow Rate FiO2 12/13/16 09:35 37.2 60 18 163/70 90 Room Air Intake and Output 12/12/16 12/12/16 12/13/16 Cumulative From/Thru 15:00 23:00 07:00 12/10/16 16:46 - 12/13/16 05:48 Intake Total 1200 ml 1510 ml 7239 ml Output Total 800 ml 750 ml 2700 ml Balance 400 ml 760 ml 4539 ml Intake Oral 850 ml 350 ml 2280 ml IV Total 350 ml 1160 ml 4959 ml Output Urine Total 800 ml 750 ml 2700 ml Result Diagram: 12/13/16 0553 12/13/16 0553 Lab Test 12/11/16 06:35 12/12/16 06:23 12/13/16 05:53 12/13/16 05:55 Erythrocyte Sedimentation Rate 131mm/hr (0-30) C-Reactive Protein 30.1mg/dL (0.0-0.5) Neutrophils (%) (Auto) 77.4% (40-74) Lymphocytes (%) (Auto) 13.6% (14-46) Monocytes (%) (Auto) 6.9% (4-12) Eosinophils (%) (Auto) 1.2% (0-5) Basophils (%) (Auto) 0.4% (0-3) White Blood Count 11.3th/mm3 (3.8-10.1) Red Blood Count 2.90mil/mm3 (4.40-5.80) Hemoglobin 8.9g/dL (13.8-17.2) Hematocrit 26.2% (41.0-50.0) Mean Corpuscular Volume 90.3fL (81-100) Mean Corpuscular Hemoglobin 30.7pg (27.0-35.0) Mean Corpuscular Hemoglobin Concent 34.0% (32.0-37.0) Red Cell Distribution Width 14.3% (12.3-15.4) Platelet Count 202bil/L (150-400) Sodium Level 136mEq/L (134-144) Potassium Level 4.0mEq/L (3.5-5.2) Chloride Level 101mEq/L (97-108) Carbon Dioxide Level 18mmol/L (18-29) Blood Urea Nitrogen 36mg/dL (8-27) Creatinine 1.83mg/dL (0.76-1.27) Estimat Glomerular Filtration Rate 40mL/min (>59) Glucose Level 264mg/dL (60-99) Lactic Acid Level 1.5mmol/L (0.4-2.0) Calcium Level 7.3mg/dL (8.5-10.1) Total Bilirubin < 0.2mg/dL (0.0-1.2) Aspartate Amino Transf (AST/SGOT) 9U/L (0-50) Alanine Aminotransferase (ALT/SGPT) 9U/L (0-44) Alkaline Phosphatase 78U/L (25-160) Total Protein 5.1g/dL (6.4-8.4) Albumin 2.4g/dL (3.4-5.0) Procalcitonin 0.88ng/mL (0.00-0.08) Exam General: Alert, Oriented X3, Cooperative, No Acute Distress Lower Extremities: Right: Edema Generalized Extremity warm Lower Extremity Pulses: Doppler: Right Dorsalis Pedis Right Posterior Tibal Postop Sensory Motor: Distal Motor Intact, Motor 5/5, Movement in Toes, Decreased Sensation Podiatry WOUND : Wound Location/Description Right first webspace ulceration full-thickness to subcutaneous tissue. No surrounding erythema. No exposed bone or tendon no malodor no signs of acute infection. Continued edema of the right lower extremity with local erythema which is of minimal intensity to the right lateral distal leg no fluctuance noted no signs of abscess formation. Severe pain to palpation of the right distal lateral leg and calf Dressing & Drainage Status: Changed Assessment & Plan Impression Stable right foot ulceration without signs of infection, cellulitis of the right leg Problems: (1) Lower extremity cellulitis Plan: Patient appears to be improving as his leukocytosis has continued to decrease. Follow-up Dr. Watters recommendations regarding long-term antibiotic therapy. The patient's right foot ulceration appears stable and from a podiatric standpoint this patient is stable for discharge with regards to his ulcer. He is to follow up with either myself or Dr. Jerry within 5 days of discharge. Dressing change today a Betadine moist to dry sterile gauze dressing was applied to the right foot. This dressing can be changed every 48-72 hours. This dressing will be left intact upon discharge until the time of his follow- up visit in the wound care center. This patient does not have any erythema of his right foot and there is also no notable edema of the right foot. It appears at this time that the cellulitis of his right distal leg is not directly related to his open ulceration of his right foot. MRI reviewed in detail and appears consistent with cellulitis of the right leg without deep abscess formation Podiatry will continue to follow her every 48-72 hours while admitted. Discussed smoking cessation with the patient today and how it relates directly to the likelihood of wound healing Status: Acute ICD Code: L03.119 VTE Prophylaxis: Sub-Q Heparin (Unfractionated) Porfirio Albrecht DPM December 13, 2016 16:12
--- NOTE | 2016-12-13 16:31 | CONS ---
[address] [address] CONSULTATION REPORT PATIENT: NIKOLAY ROYAL : 1955 MR#: [id number] ADMIT: 12/10/2016 JOB ID: [id number] DATE OF SERVICE: 12/13/2016 REASON FOR CONSULTATION: Severe right lower extremity pain and swelling in a patient with underlying peripheral vascular disease and diabetes. I thank Dr. Danitza Mendez for this timely consult. HISTORY OF THE PRESENT ILLNESS: The patient is a 61-year-old gentleman, well known to me from a series of issues that have occurred over the past six weeks or so. The patient has underlying diabetes, as well as cigarette smoking and peripheral vascular disease, and has had a variety of procedures to alleviate his severe peripheral vascular disease. He also has had a number of soft tissue infections. Back in late 2015, the patient developed a callus on the underside of his right great toe, which would occasionally drained some purulent material. This situation stayed stable until about October 27, when he developed a great deal of significant pain in that area despite his underlying neuropathy. He also developed, in October of this year, fevers, chills, sweats and malaise, which forced him to stop work. He was admitted in mid October, and at that time, after failing a trial of oral clindamycin for what appeared to be a complex infection around the base of the right great toe. He was admitted on October 29 because there was worsening erythema, pain and drainage from around the right great toe and there were concerns that it was starting to spread up his leg. I was asked to see the patient in consult and I saw him November 01. At that time, we had an MRI scan in hand which showed no evidence of osteo, but there was quite a bit of soft tissue inflammation. His culture eventually yielded only MRSA, and so we decided to treat him with dalbavancin, as the patient did not want to get long-term IV antibiotics and did not want to receive oral Bactrim, as he and his had a child who of Jesus-Marty syndrome due to Bactrim. Accordingly, we made a plan to send him after the dalbavancin with close followup in my clinic. Subsequently, the patient returned to clinic on November 10 with some worsening of his foot infection. Additional review showed that after his discharge, additional cultures in the foot had yielded Haemophilus parainfluenzae, as well as Prevotella. At that point, his antibiotics were switched to daptomycin and ertapenem, both [place] a once a day [place] [facility] [place]. By October 23, his foot had improved dramatically and there was still no evidence of osteo, so we transitioned the patient to oral Zyvox and Augmentin to be taken until December 07. This plan proceeded smoothly and there was good healing of the foot. Just after finishing his Zyvox and Augmentin, he went to the wound clinic where Podiatry removed the remaining sutures in his right foot and found that the wound seemed to be healing well and was very clean. Oddly, the very next day, on December 08, his foot began to become painful, but this was more around the hindfoot than the actual area where the sutures had been removed and his original ulcer had been present at the medial base of his right first toe. He also noted there was severe pain beginning in the calf at about the same time and he developed severe chills at home. All this led him back to the [facility] and then to readmission on the . Since his readmission now three days ago, Podiatry has seen the patient in the hospital and carefully examined the site of his prior debridement. They are of the firm conclusion that there is no significant infection in his forefoot and especially not around of the now healing debrided area at the base of the right great toe. They are unequivocal in their belief that there is no underlying osteo or additional infection. Attention was rightly directed towards the calf with concerns that he might have a DVT, but an ultrasound has not shown any clot. The patient was noted to have leukocytosis and a high procalcitonin at the time of his readmission on the , and so he has been started on broad-spectrum antibiotics, which now include linezolid and Zosyn. The patient reports there has been a bit of improvement in the pain in his right calf and right hindfoot but is still so severe he cannot stand up or get around. ID consultation is requested regarding this bizarre sequence. This morning, the patient tells me he feels reasonably well except for his right lower leg below the knee and the right hindfoot area. He has no problems with the right forefoot area where surgery and prior infection were noted. He states he has no fevers or chills today, and if anything, is getting a bit better but he still has a great deal of pain when ever he dangles his right lower extremity or even tries to stand. This pain is concentrated in the calf, as well as in the hindfoot. There is no associated cough, shortness of breath, chest pain, nausea, vomiting, diarrhea, or symptoms. PAST MEDICAL HISTORY: 1. Diabetes mellitus with severe neuropathy. 2. Peripheral vascular disease, status post revascularization surgery, right lower extremity. 3. Hyperlipidemia. 4. Hypertension. 5. 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 6. Status post carotid endarterectomy. SOCIAL HISTORY: The patient works in [employer]. He has been smoking a pack per day or more for over 50 years. He does not drink alcohol or use illicit drugs. FAMILY HISTORY: Positive for diabetes and coronary disease. No TB in first-degree relatives. ALLERGIES: The patient has no allergies, but his 4-year-old daughter of Jesus-Marty syndrome after Septra suspension and the patient has an understandable aversion to that drug. REVIEW OF SYSTEMS: Was done. The patient has no headache or mental status changes. No confusion, no change in vision. No sore throat or stiff neck. No cough, chest pain, or shortness of breath. No nausea, vomiting, diarrhea, dysuria, urgency, or frequency. He has no problems in his left leg at this point, and all his issues in the right leg are described in the HPI. Remainder of the review of systems is negative. PHYSICAL EXAMINATION: Reveals an afebrile gentleman, temp 37.2, pulse 60, respiratory rate 18, blood pressure 163/70. He is saturating 90% on room air. He is in no acute distress. Head without trauma. Eyes without conjunctivitis. Oral cavity without thrush or hairy leukoplakia. The neck is supple. Neck without any adenopathy. Lungs are reasonably clear. Cardiac tones: Regular rate and rhythm without notable murmur. Abdomen is soft and nontender without organomegaly or ascites. He does not have a Murillo catheter. He does not have suprapubic fullness. He does not have adenopathy in either the right or the left groin. His left lower extremity has reasonable capillary refill though poor distal pulses. There is no skin breakdown or injury there. The right foot was unbandaged and carefully examined. There is about a 5 cm long, 1 cm wide, and a 0.5 cm deep wound present between the 1st and 2nd toes. This wound has healed remarkably since I last saw it, and there is excellent granulation tissue with absolutely no evidence of infection. The patient's right forefoot is entirely nontender, though of course he has decreased sensation in both feet. The right hindfoot is mildly tender with palpation, especially around the heel, but the real tenderness is present in the right lower extremity below about the level of the mid calf. This area is warm, somewhat tender, and exquisitely painful with any kind of palpation. No purulence is noted and there are no bullae. Neurologically: As noted, the patient has good strength throughout but significant sensory neuropathy in his feet. No evidence of synovitis. No evidence of thyromegaly. LABORATORIES: Include white count 24,000 on readmission, now down to 11,000. Platelet count normal. His creatinine is 1.83. Liver function tests are normal. Procalcitonin was 3.3 when he came back in. It is now 0.88. Urinalysis without white cells. Blood cultures on December 10 are negative. IMAGING: From this admission, includes a negative x-ray of the right foot. There is no evidence of osteo. Venous ultrasound of the right lower extremity on December 10 also negative. No clot. IMPRESSION: This is a bizarre case. This gentleman has diabetes and severe peripheral vascular disease in the face of ongoing cigarette smoking. He was originally evaluated in October for a nonhealing ulcer around the base of the right great toe which had developed into quite a severe infection and was debrided on at least two occasions by Podiatry. Cultures yielded a mixture of organisms including methicillin-resistant Staphylococcus aureus, Haemophilus parainfluenzae and Prevotella. He was treated initially with dalbavancin and subsequently daptomycin/ertapenem for two weeks. That was followed by Zyvox and Augmentin for two weeks. All this was done despite the lack of any evidence he had osteo, so this was a very aggressive antibiotic regimen. He subsequently finished all antibiotics and had an uneventful removal of the sutures from the foot on December 06 or , only to suffer the almost immediate onset of severe right lower extremity pain which led to his readmission on December 10. The nature of this inflammatory condition is unclear, though it is worth noting that the patient did develop chills as well as an elevated procalcitonin at about the same time that he got worse on December 09 and . It seems more likely that the patient has cellulitis of his distal calf and hindfoot than any new process involving the previously debrided area at the base of the right great toe. It is odd though that the patient would develop a bacterial cellulitis of his right lower extremity almost immediately after stopping broad-spectrum antibiotics but perhaps it is due to the removal of his sutures and the exposure of the open wound, which could conceivably have led to bacterial infection, but it is odd that it skips the forefoot near the actual wound and only involves structures more proximally. The other possibility here is that he could have had a compartment syndrome, I suppose, due to overly tight dressing on his leg, which is what the patient thinks actually happened RECOMMENDATIONS: 1. An ASO titer will be ordered today. 2. Will continue with the current antibiotic, which include linezolid and Zosyn, though I hope we will be able to narrow those shortly. 3. MRSA screen should be done on this patient as he recently has had a very significant MRSA infection of his foot, and I would think it is likely he is continuing to be colonized. 4. An MRI scan of the right lower extremity will be ordered. This will be with and without contrast, in an effort to establish what is going on with the patient's distal right lower extremity. 5. I will continue to follow this complex patient with you.
--- NOTE | 2016-12-13 17:28 | NUR ---
NUTRITION ASSESSMENT: ASSESS: 61YO M with nonhealing ulcer on great toe with infection, seen by ID, on antibiotics. PMHX: DM,PVD,HTN DIET: Diabetic. PO 0-100%. Fair LABS: Alb 2.4, Glu 264, Cr 1.83, BUN 63 MEDS: Reviewed GI:No BM SKIN: WEIGHT:95.2kg, BMI 31.0=Obese EST.NEEDS: Obesity, skin (22-25kcal/kg;1.5-1.8g/kg IBW) Kcal: 5543-0424 Pro 103-123g NUTRITION DIAGNOSIS: (1) Increased energy/protein needs related to increased demand for nutrients as evidenced by skin concerns. INTERVENTION: (1) Glucerna diabetic supplement added BID. MONITOR/EVALUATE: Diet tolerance, po intake, labs, skin concerns. Follow-up per moderate risk.
[2016-12-13 18:27] VITALS: BP 139/86; PULSE 60; RESP 18; O2SAT 94
--- NOTE | 2016-12-13 18:50 | NUR ---
Pain Pain level of 9/10 this morning, patient given 2 tabs of Percocet, effective but made him so sleepy, requested to have only 1 tab later if needed. Able to stand up and ambulate to the bathroom with 1 person SBA for safety. Will continue to monitor.
[2016-12-13] MEDS ORDERED: Piperacillin-Tazo 3.375 Gm Inj 3.375 GM in Dextrose 5% Minibag Plus 50 ML IV SCH (20:30)
[2016-12-13 21:50] VITALS: BP 180/71; PULSE 61; RESP 17
[2016-12-13] MEDS: Insulin GLARgine 100 Unit/mL Syringe SUBQ SCH (22:23)
[2016-12-13 22:42] VITALS: BP 121/66; PULSE 63; RESP 16; O2SAT 97
[2016-12-14] MEDS: Heparin 5,000 Unit/mL Inj SUBQ SCH ×3 (01:17→16:06)
[2016-12-14 03:42] VITALS: BP 136/55; PULSE 50; RESP 16; O2SAT 91
[2016-12-14 06:45] LABS: Mean Corpuscular Hemoglobin 29.4 pg (27.0-35.0); Mean Corpuscular Volume 90.3 fL (81-100)
[2016-12-14 07:03] LABS: Magnesium 2.3 mg/dL (1.6-2.6)
[2016-12-14] MEDS: Linezolid Inj 600 MG in IV Premix 1 EACH IV SCH ×2 (07:34→20:38)
[2016-12-14] MEDS: oxyCODONE-Acetamin 5-325 mg Tablet PO PRN ×3 (07:46→22:01)
[2016-12-14] MEDS: Insulin LISPRO 300 Unit/3 mL Inj SUBQ SCH ×4 (07:47→22:00)
[2016-12-14 07:48] VITALS: BP 156/50; PULSE 56; RESP 15; O2SAT 94
[2016-12-14] MEDS: Piperacillin-Tazo 3.375 Gm Inj 3.375 GM in Dextrose 5% Minibag Plus 50 ML IV SCH ×2 (08:58→23:31)
[2016-12-14 12:31] VITALS: BP 163/73; PULSE 50; RESP 16; O2SAT 94
[2016-12-14] MEDS: 0.9% Sodium Chloride 1,000 ML IV SCH (13:42)
--- NOTE | 2016-12-14 16:11 | NUR ---
Social Work- Readiness for Discharge Data: EMR reviewed. Pt is on day 4 of hospitalization for cellulitis, diabetic foot ulcer infection per H&P. Pt is not medically stable for discharge, anticipate 1-2 more days. ID is following pt. PT is recommending D/C home with knee scooter and outpt PT. SW met with pt at bedside regarding discharge plan, SW role explained. SW spoke with pt regarding potential outpt wound care follow up and outpt PT recommendation. Pt identifies no barriers to obtaining necessary outpt follow up. Per pt report, pt's is familiar with wound care and is able to drive him to and from appointment. He states that he is very mobile with his knee scooter. Pt to discharge home with to transport via POV. No anticipated discharge needs, SW will continue to follow if needs arise. Assessment: Pt who is independent [place] base Plan: Pt to obtain necessary outpt follow up, to transport. Pt to discharge home with to transport via POV. No anticipated discharge needs, SW will continue to follow if needs arise. Conchita Madrid MSW
--- NOTE | 2016-12-14 16:42 | PROG NOTE ---
[address] [address] PROGRESS NOTE PATIENT: NIKOLAY ROYAL : 1955 MR#: [id number] ADMIT: 12/10/2016 JOB ID: [id number] DATE: 12/14/2016 INFECTIOUS DISEASE FOLLOW UP NOTE: REASON FOR FOLLOWUP: Severe right lower extremity pain following a prolonged course of intravenous and oral antibiotics for a right foot infection. INTERVAL HISTORY: Recall this is a bizarre case of a 61-year-old gentleman just finished a long course of broad-spectrum antibiotics for a polymicrobial wound infection at the base of his right great toe. Following successful completion of his antibiotics, the patient almost immediately developed severe right calf and ankle pain unrelated apparently to his prior foot infection. He was subsequently admitted and is now back on broad-spectrum antibiotics but without clear evidence of ongoing infection. Today, he tells me he has had no fevers, chills, sweats. No cough, shortness of breath, nausea, vomiting, diarrhea or dysuria. He continues to have extremely severe right lower extremity pain mainly in the lower calf area and the ankle. This pain is so bad he cannot stand or walk. PHYSICAL EXAMINATION: Reveals an afebrile gentleman, temperature 37 degrees, pulse 50, respiratory rate 16, blood pressure 163/73, saturating quite well on room air. Examination of the mental status reveals it to be clear. Lungs are clear. Abdomen soft and nontender. His right lower extremity is exquisitely tender and slightly warm from about the mid calf on down to and involving the ankle. His foot wound was carefully unpacked and examined yesterday during rounds and there is no purulence whatsoever in the very nicely healing wound we were originally treating around the base of the right great toe. LABORATORIES: Include a white count which is slowly dropping from the 28th now down to 12,000. Platelet count 244. Sed rate 131. Creatinine 1.68. LFTs normal. Procalcitonin is coming down. It was 3.32 on readmission. It is now down to 0.88, which is probably a significant drop. Streptozyme is negative. MRSA smear of the nares is negative and blood cultures negative. IMAGING: Includes a MRI we ordered yesterday of the lower leg which shows right calf soft tissue edema and subcutaneous fat enhancement consistent with cellulitis. No osteo is seen. IMPRESSION: This is a strange case of a gentleman with a right foot infection which is improved after several weeks of very aggressive antibiotics aimed at the isolated MRSA, Prevotella and Haemophilus species. Even as he finished up therapy and his right foot seemed to be quiet, he almost immediately developed what appears to be a severe cellulitis of the right lower extremity. This occurred literally within two or three days of stopping broad-spectrum antibiotics which included, at that point, oral Zyvox and Augmentin. It would seem that he does have cellulitis of his right lower extremity which may not be related to his nearby right foot infection, but I am also concerned about the remote possibilities of compartment syndrome or arterial ischemia. RECOMMENDATIONS: 1. Will continue with our current antibiotics which include IV Zyvox and Zosyn. 2. We await our final cultures. 3. I have requested an ultrasound duplex Doppler to again look at the vasculature of the right lower extremity. 4. I think it would also be reasonable to have Orthopedics come by and make sure they have nothing to add to the possibility of a compartment syndrome here. 5. If all of these evaluations could be done by tomorrow, perhaps we can discharge the patient with another long course of intravenous oral antibiotics aimed at cellulitis.
[2016-12-14 17:15] VITALS: BP 151/77; PULSE 48; O2SAT 93
--- NOTE | 2016-12-14 17:40 | PCM.PNMED ---
Subjective Date of Service December 14, 2016 Subjective Patient was seen and examined at bedside today. Patient denies any chest pain, shortness of breath, nausea, vomiting, diarrhea. Patient does state that he still has significant right lower extremity pain. Overnight events: None Exam Vital Signs Vital Sign - Last Date Time Temp Pulse Resp B/P Pulse Ox O2 Delivery O2 Flow Rate FiO2 12/14/16 17:15 36.8 48 151/77 93 Room Air 12/14/16 12:31 16 Intake and Output 12/13/16 12/13/16 12/14/16 Cumulative From/Thru 15:00 23:00 07:00 12/10/16 16:46 - 12/14/16 06:41 Intake Total 2525 ml 1449 ml 74000 ml Output Total 850 ml 500 ml 4050 ml Balance 1675 ml 949 ml 7163 ml Intake Oral 1500 ml 400 ml 4180 ml IV Total 1025 ml 1049 ml 7033 ml Output Urine Total 850 ml 500 ml 4050 ml Exam Physical Exam: GEN: Patient was awake, alert, responding appropriately to questions HEENT: Pupils equal round and reactive to light, extraocular eye muscles intact , Neck soft supple, trachea midline, nomocephalic/atraumatic CV: +S1/S2, regular rate and rhythm, no murmurs auscultated Respiratory: CTAB, no wheezes, rales, rhonchi GI: +bowel sounds x4, soft, compressible, nontender to palpation EXT: no clubbing, cyanosis, edema of the left lower extremity, right lower extremity significantly tender to palpation, positive erythema and significant edema Neuro: Cranial nerves II-XII grossly intact Psych: mood and affect were appropriate IVs and Medications Medications Reviewed: Medications were reviewed in detail Lab and Diagnostics Result Diagram: 12/14/16 0600 12/14/16 0600 Microbiology Blood Cx x2 pending X-Rays, CTs and MRIs Xray right foot, 3 views: IMPRESSION: No acute fracture. No osseous lesion. If clinical suspicion and/or symptoms persist, further assessment with repeat plainfilms, or advanced imaging (e.g., MRI, or bone scan) may be helpful for further assessment. PROCEDURE: MRI TIBIA FIBULA RIGHT WITH AND WITHOUT CONTRAST ([id number]) IMPRESSION: Right calf soft tissue edema and associated subcutaneous fat enhancement without abscess formation or evidence of underlying osteomyelitis. Overall, cellulitis appears to be the most likely cause for this constellation of findings. Dictated by: Luis Miguel Ochoa M.D. on 12/13/2016 at 13:59 Approved by: Luis Miguel Ochoa M.D. on 12/13/2016 at 14:02 Assessment & Plan 55yo male with uncontrolled DM2 with HA1c on 10/29/16 of 9.8 presents with leukocytosis and non-healing foot wound despite close follow up with Podiatry, Wound Care, ID, two hospitalizations, and repeated courses of antibiotics: clindamycin, Vanco and Meropenem, Dalbivancin outpatient, Ertapenem, Daptomycin , and most recently Linezolid and Augmentin PO outpatient. He stopped the Augmentin on 12/[address] Watters's approval because of GI side effects and finished the Linezolid. The wound was perceived to be improving. On 12/06 Dr Jensen removed sutures, there was wound dehiscence and serous drainage. Leukocytosis secondary to non-healing foot wound with cellulitis, POA, worsening. -White blood cell count trending up -No fracture or osseus lesion on foot xray. -Continue IV Linezolid and Zosyn -Podiatry following -Follow-up ASO titer - Venous u/s of right leg neg for DVT (just prior to admit) but did have right groin nodes -Infectious disease following (Dr. Watters) -Procalcitonin trending down -Consult PT Possible compartment syndrome -Orthopedics consulted (Dr. Villatoro case was discussed with him today) ZACH, POA, -Improving creatinine trending down -Continue NS 100mls/hr IV -We will recalculate patient's Zosyn to every 12 to help account for possible nephrotoxicity secondary to Zosyn. -Stop home Furosemide, Losartan held -Follow up labs in the morning DM2 uncontrolled, POA. HA1c last month was 9.8. -Continue Lantus to 60 units daily at bedtime -Hold metformin 500 mg twice a day as patient's creatinine is increasing -Continue 2 units of insulin lispro at mealtimes -We will continue to monitor and add sliding scale if necessary Hypocalcemia -Continue calcium carbonate chews 3 times a day with meals -Continue to monitor CAD, PAD, POA. Hx of HLD -Continue Pravastatin 20mg PO qhs HTN, POA -Continue amlodipine 10mg daily -Hold Losartan 100mg daily and HCTZ 25mg daily d/t ZACH -Continue to monitor Hyponatremia, POA, secondary most likely to poor volume status (resolving) -Sodium currently 136 -Continue IV hydration -Continue to monitor Diabetic Neuropathy, POA. -Continue Gabapentin 600mg qhs PRN medications available for nausea, heartburn, constipation: Ondansetron, Maalox, Senna, Miralax Disposition: The patient still remains to be a case. At this time we are ruling out possible compartment syndrome in orthopedics has been consulted in the case discussed with him. The patient's MRI shows no evidence for osteomyelitis. Once the patient is seen by orthopedics in a compartment syndrome is ruled out the patient may be able to be discharged home and resume daily IV infusions in the [facility] as an outpatient. We will follow-up with patient in the morning. VTE Prophylaxis: Sub-Q Heparin (Unfractionated) Resuscitation Status: CPR: Attempt Resuscitation Danitza Mendez DO December 14, 2016 17:40
--- NOTE | 2016-12-14 18:59 | NUR ---
Pain/mentation Patient is alert and oriented X3. Able to make needs known. C/o pain to right foot, PRN percocet given as ordered with effective results. Stable mood, calm and cooperative with all cares. Call light with in reach for safety. Uses call light appropriately. Physical therapy at bed side before lunch and recommending out patient PT. Patient refused lunch and breakfast this shift per preference and had snacks brought by family. Continue to monitor.
[2016-12-14 21:00] VITALS: BP 157/76; PULSE 89; RESP 19; O2SAT 92
[2016-12-14] MEDS: Insulin GLARgine 100 Unit/mL Syringe SUBQ SCH (21:00)
--- NOTE | 2016-12-14 22:45 | NUR ---
Glucose HS reading 100 declined HS Lantus Addendum: 12/15/16 at 0547 by YEE RESTREPO RN Medicated w/2 Percocet for pain became very diaphoretic around PA, claims this is his usual reaction too 2 was effective in pain relief and sweating resolved
--- NOTE | 2016-12-14 23:06 | CONS ---
[address] [address] CONSULTATION REPORT PATIENT: NIKOLAY ROYAL : 1955 MR#: [id number] ADMIT: 12/10/2016 JOB ID: [id number] DATE OF SERVICE: 12/14/2016 CHIEF COMPLAINT: Right leg pain. HISTORY OF PRESENT ILLNESS: This is a 61-year-old male that was admitted several days ago following undergoing an irrigation and debridement for a right diabetic foot wound. The patient states that he has had this wound to his right foot for about five months, but did not seek any treatment until he saw Dr. Jensen a month ago. After he underwent treatment, he had two weeks of IV antibiotics, followed by two weeks of oral antibiotics. Following this, his symptoms appeared to be improving, but he started to have increasing pain to his right calf and lower leg. He presented to the hospital to rule out a DVT. Doppler at that time demonstrated that there were new DVTs present. He continued to have pain to the calf, was admitted and placed on further antibiotics. The patient has had some improvement during his hospitalization with the antibiotics, but continued to have pain to the calf. MRI has also been obtained during the hospitalization and only demonstrates signs of cellulitis without any underlying abscess formation. Due to the continuing pain to the calf, Orthopedics was consulted to rule out an underlying compartment syndrome, as the patient has been having continued pain and difficulty with ambulating with the weight of his body on the right lower extremity. The patient complains of mainly lower calf pain. He denies any abnormal paresthesias aside from his typical diabetic peripheral neuropathy. He denies any other associated symptoms or injuries. PAST MEDICAL HISTORY: Diabetes with peripheral neuropathy, coronary artery disease, hypertension, hyperlipidemia. PAST SURGICAL HISTORY: Coronary artery bypass surgery, carotid endarterectomy, lower extremity stent placement, and irrigation and debridement of the right foot as stated in history of present illness, which was done recently. FAMILY HISTORY: Noncontributory. SOCIAL HISTORY: The patient admits to daily utilization of cigarettes. Denies any alcohol or illicit drug use. MEDICATIONS: Please see electronic medical record for full list of the patient's medications. ALLERGIES: 1. LISINOPRIL. 2. SIMVASTATIN. REVIEW OF SYSTEMS: The patient denies any current fevers, sweats, chills, chest pain, shortness of breath, nausea, vomiting, diarrhea. Complains of mainly right lower calf pain as described in history of present illness. PHYSICAL EXAMINATION: General: The patient is alert, no apparent distress. HEENT: Normocephalic, atraumatic. Extraocular movements intact. Nares patent. Lungs: No audible wheezes or signs of respiratory distress. Neuro: Cranial nerves 2-12 are intact. Extremities: On gross observation of the patient's right leg and foot, the foot has a bandage that is clean, dry and intact. The lower half of the calf and lower leg demonstrates some mild erythema. There is edema of the lower leg. The compartments are compressible, including to the anterior, lateral and posterior compartments of the lower leg. The patient has pain with palpation posterolaterally to the inferior aspect of the leg overlying the area of cellulitis. Proximally, there is no pain elicited with compression through the various compartments. With active dorsiflexion of the ankle, this produces pain, but passively with dorsiflexion and plantar flexion of the ankle and toes, the patient has no pain elicited. DIAGNOSTIC STUDIES: On admission, the patient had an elevated white count of 21.2, which has decreased significantly to a current level of 12.1. There was elevated CRP at admission of 30.1. IMPRESSION: Right lower leg cellulitis, without evidence of underlying compartment syndrome. PLAN: Discussed with Dr. Watters my examination and findings. The patient's compartments are compressible, specifically overlying the superior aspect of the lower leg. He has tenderness mainly overlying the cellulitic area, specifically to the posterolateral lower leg. Passively with stretching of the muscles in the various compartments with mobilization of the ankle and toes, there is no pain elicited and again no clinical signs for compartment syndrome. Recommendation would be to treat this patient's current cellulitis with antibiotics per recommendations by Dr. Watters. [facility] HOSPITALArleen
[2016-12-15] MEDS: Heparin 5,000 Unit/mL Inj SUBQ SCH ×2 (01:15→08:49)
[2016-12-15 02:01] VITALS: BP 160/64; PULSE 46; RESP 18; O2SAT 96
[2016-12-15] MEDS: 0.9% Sodium Chloride 1,000 ML IV SCH ×2 (03:07→03:08)
[2016-12-15 06:04] VITALS: BP 170/76; PULSE 48; RESP 18; O2SAT 93
[2016-12-15 06:04] LABS: Mean Corpuscular Hemoglobin 29.6 pg (27.0-35.0); Mean Corpuscular Volume 90.8 fL (81-100)
[2016-12-15] MEDS ORDERED: Calcium GLUCO 10% (mEq) Inj 4.65 MEQ in Dextrose 5% 50 ML IV ONE (07:35)
[2016-12-15 08:00] VITALS: BP 170/60; PULSE 45; RESP 18; O2SAT 96
[2016-12-15] MEDS: Insulin LISPRO 300 Unit/3 mL Inj SUBQ SCH ×2 (08:00→12:01)
[2016-12-15] MEDS: Linezolid Inj 600 MG in IV Premix 1 EACH IV SCH (09:48)
--- NOTE | 2016-12-15 11:00 | PROG NOTE ---
[address] [address] PROGRESS NOTE PATIENT: NIKOLAY ROYAL : 1955 MR#: [id number] ADMIT: 12/10/2016 JOB ID: [id number] DATE: 12/15/2016 REASON FOR FOLLOWUP: Severe right lower extremity cellulitis. INTERVAL HISTORY: Overnight, the patient states he has had no fevers, chills, or sweats. No sore throat, cough, shortness of breath, nausea, vomiting, or diarrhea. He notes that the pain in his right lower extremity below the knee is much improved. His foot continues to be painless. PHYSICAL EXAMINATION: Reveals an afebrile gentleman, temperature 36.6, pulse 48, respiratory rate 18, blood pressure 170/76. He is saturating 93%. In no acute distress. He is awake and alert. Oral cavity unremarkable. Lungs clear. Cardiac tones regular rate and rhythm without murmur. Abdomen is soft and nontender. The right lower extremity tenderness below the knee as the right lower extremity approaches the ankle that was so severe when he came in has largely resolved. There is no longer erythema, tenderness, or warmth present. The right foot continues to be bandaged, but recall that we looked at this wound carefully a day or two ago and it is completely benign and appears to be well on its way to healing. DIAGNOSTIC STUDIES: Laboratories include a white count of 11,000 with basically normal diff. Creatinine 1.58 which is actually a bit improved since admission. Procalcitonin today is down to 0.3 from 3.32 when he was admitted now 5 days ago. The streptozyme is negative, MRSA swab of the nares negative, and blood cultures negative. The CT scan of the leg that we obtained on the showed evidence basically of cellulitis. Yesterday, Dr. Villatoro of orthopedics saw the patient and felt was no evidence for compartment syndrome. A Doppler arterial evaluation was done, but the results are not available yet. IMPRESSION: This is a totally bizarre case of a gentleman with a severe polymicrobial diabetic foot infection involving the forefoot of his right foot after weeks of successful treatment all the antibiotics were discontinued. Only a couple days later the patient developed what appeared to be a cellulitis of his right lower extremity between the ankle and about the mid calf. This did not involve the foot at all and the foot continued to look great. My initial concern was that he had somehow developed a beta-hemolytic type streptococcal cellulitis perhaps related to the slowly closing wound in his right forefoot, but this seems like an odd explanation as the forefoot itself looks benign. We have essentially nothing to culture and our blood cultures, MRSA screen, and other studies are so far negative. The MRI scan showed no abscess or osteomyelitis and the orthopedic surgeons did not feel this could in any way be a compartment syndrome. Given the patient's dramatic improvement on Zosyn and IV Zyvox I think it is reasonable to switch to a combination of oral Cytoxan and Augmentin to finish a 2 week course. This is contingent on the arterial Doppler studies being normal. RECOMMENDATIONS: 1. Okay to discharge today if the arterial Dopplers do not show a new acute clot or thrombus, which I doubt. 2. I would send the patient out on Zyvox 600 p.o. b.i.d. as well as Augmentin 875 p.o. b.i.d., with a plan to continue those through December 23. 3. I will see the patient in my clinic on December 22. 4. This case discussed in person with Dr. Danitza Mendez.
[2016-12-15] MEDS: Piperacillin-Tazo 3.375 Gm Inj 3.375 GM in Dextrose 5% Minibag Plus 50 ML IV SCH (11:31)
[2016-12-15] MEDS: Ondansetron 2 mg/mL 2 mL Inj IVPUSH PRN (11:52)
--- NOTE | 2016-12-15 12:41 | NUR ---
Nausea Pt had sudden wave of nausea after return to the room from PT. Zofran given per request. Effective relief, no nausea after 3 minutes.
[2016-12-15] MEDS ORDERED: AMOX-366 PO (12:48)
[2016-12-15] MEDS ORDERED: POLY17PO6 PO (12:48)
[2016-12-15] MEDS ORDERED: INSLIS SUBQ (12:48)
[2016-12-15] MEDS ORDERED: LINE600T7 PO (12:48)
[2016-12-15] MEDS ORDERED: OXYC-388 PO (12:48)
[2016-12-15] MEDS ORDERED: INSU100I13 SUBQ (12:48)
--- NOTE | 2016-12-15 12:55 | PCM.DIMED ---
Discharge Instructions Date of Service December 15, 2016 Dates of Hospitalization Dec 10, 2016 at 19:45 Discharge Diagnosis Discharge Diagnosis Leukocytosis secondary to a nonhealing foot wound with cellulitis Acute kidney injury Diabetes type II (currently now controlled with no medications) Hypocalcemia (resolved) Coronary artery disease Peripheral arterial disease Hyperlipidemia Hypertension Hyponatremia Diabetic neuropathy Medication Instructions Please do not continue taking Lasix, metformin, losartan as these medications are adding to your current acute kidney injury. Your kidney injury is resolving however it has not gone back down to baseline and these medications can cause kidney injury. Please follow-up with your primary care physician within one week so that your blood pressure can be monitored and properly controlled. Please take all of your antibiotics as prescribed and follow up with Dr. Watters Your diabetes medication has been changed you will stop taking metformin. You will take your Lantus 60 units at bedtime. And with the regular insulin you will follow the sliding scale as prescribed. Please do not restart smoking as smoking decreases the healing process. Diet Diabetic Activity No restrictions (gradually return to her normal daily activities. Encouraged to do range of motion with the right foot and encouraged to try to start ambulating on this leg.) Call your provider Fever or Chills, Shortness of breath, Weakness (unilateral), Other (increased redness and pain in the right lower extremity) Patient Instructions Follow-up plan 1) follow-up with Dr. Watters on December 22 2) no smoking 3) please take your diabetes medications as prescribed and adhere to a diabetic low-carb diet. Follow-up Provider: Darien Watters MD Follow-up with PCP in: 2 weeks (please follow-up with Dr. Darien Watters ( infectious disease) in his clinic on December 22) Provider: Haley Swift PA-C Follow-up in: 1 week (if an appointment has not been made please call us to schedule an appointment. It is very important that he follow up with your primary care provider as many of her medications have been changed) Danitza Mendez DO December 15, 2016 12:55
[2016-12-15 14:50] VITALS: BP 136/69; PULSE 60; RESP 20; O2SAT 96
--- NOTE | 2016-12-15 14:57 | DRSVH ---
PROCEDURE: US DUPLEX DOPPLER UNILATERAL LEG ARTERIES, RIGHT INDICATIONS: ? RLE arterial ischemia TECHNIQUE: Color and pulse Doppler interrogation was performed of the right lower extremity arterial system, wit h image documentation. COMPARISON: [facility], [place], US ARTERY LEG DPLX UNI RT, 10/31/2016, 10:29. FINDINGS: Vascular Ultrasound Procedure Report Findings(Artery of Lower Extremity)(Right) Common Femoral Artery(Distal) Velocity: 98.90 cm/s Profunda Femoris Artery(Proximal) Velocity: 114.50 cm/s Superficial Femoral Artery(Proximal) Velocity: 148.20 cm/s Superficial Femoral Artery(Mid-longitudinal) Velocity: 107 cm/s Superficial Femoral Artery(Distal) Velocity: 101.80 cm/s Popliteal Artery(Mid-longitudinal) Velocity: 103.50 cm/s Posterior Tibial Artery(Distal) Velocity: 78.70 cm/s Dorsalis Pedis Artery(Distal) Velocity: 14.30 cm/s Greyscale findings: A stent graft present within the proximal right superficial femoral artery. Mild scattered multilevel plaque. 9 mm right groin lymph node demonstrating normal morena morphology. IMPRESSION: 1. Moderate multilevel scattered plaque and no hemodynamically significant right lower extremity per ipheral arterial stenosis. 2. No femoral-popliteal bypass graft visualized sonographically. 3. Prominent right groin lymph node measuring 9 mm. Recommend clinical correlation and management. Dictated by: Guillermo Finnegan [facility] Interpreted: Luis Miguel Ochoa MD on 12/15/2016 at 8:29 Transcribed by: LYNDA on 12/15/2016 at 14:56 Approved by: Luis Miguel Ochoa M.D. on 12/15/2016 at 17:17
--- NOTE | 2016-12-15 15:56 | NUR ---
Social Work: Discharge Data: Pt is on day 5 of hospitalization, EMR reviewed. D/C orders are in. No d/c planning needs identified at this time. IVABX set up at [facility], pt will go to wound care outpt. [employer] will continue to follow if needs arise. Assessment: Pt who is independent at baseline. Plan: Pt will d/c home via POV today. No d/c planning needs identified at this time. IVABX set up at [facility], pt will go to wound care outpt. [employer] will continue to follow if needs arise. DIAMANTE Sherman
--- NOTE | 2016-12-15 16:09 | PCM.DC.MED ---
Discharge Summary Date of Service December 15, 2016 Dates of Hospitalization Date of Hospital Admission Dec 10, 2016 at 19:45 Date of Discharge: December 15, 2016 Providers: Admitting Physician: Chen Fortune DO Primary Care Physician: Haley Swift PA-C Attending Physician: Chen Fortune DO Diagnosis at Time of Discharge Diagnosis at Time of Discharge Leukocytosis secondary to a nonhealing foot wound with cellulitis Acute kidney injury Diabetes type II (currently now controlled with no medications) Hypocalcemia (resolved) Coronary artery disease Peripheral arterial disease Hyperlipidemia Hypertension Hyponatremia Diabetic neuropathy Procedures XRay, CTs & MRIs Xray right foot, 3 views: IMPRESSION: No acute fracture. No osseous lesion. If clinical suspicion and/or symptoms persist, further assessment with repeat plainfilms, or advanced imaging (e.g., MRI, or bone scan) may be helpful for further assessment. PROCEDURE: MRI TIBIA FIBULA RIGHT WITH AND WITHOUT CONTRAST (69251) IMPRESSION: Right calf soft tissue edema and associated subcutaneous fat enhancement without abscess formation or evidence of underlying osteomyelitis. Overall, cellulitis appears to be the most likely cause for this constellation of findings. Dictated by: Luis Miguel Ochoa M.D. on 12/13/2016 at 13:59 Approved by: Luis Miguel Ochoa M.D. on 12/13/2016 at 14:02 Brief History Very pleasant 61yo diabetic male with history of a diabetic foot wound first noticed 4 months ago and tried to treat at home, but developed cellulitis and despite treatment from Podiatry, Wound Care, Dr Watters, and two hospitalizations it is worse again and now is accompanied by a white count of 21.2. This white count was discovered at wound care today and he was sent to the ER. The parade of antibiotics starting October 27: clindamycin, Vanco and Meropenem, Dalbivancin outpatient, Ertapenem, Daptomycin, and most recently Linezolid and Augmentin PO outpatient. He stopped the Augmentin on 12/[address] Watters's approval because of GI side effects and finished the Linezolid today. The wound was perceived to be improving. On 12/06 Dr Jensen removed sutures, there was wound dehiscence and serous drainage. On 12/08 his foot began to hurt and he developed nausea both of which he decided to try to ignore, but earlier today he went to wound care and with his pain they did labs and found the leukocytosis. He has not eaten much and has had decreased fluid intake for two days. Hospital Course 55yo male with uncontrolled DM2 with HA1c on 10/29/16 of 9.8 presents with leukocytosis and non-healing foot wound despite close follow up with Podiatry, Wound Care, ID, two hospitalizations, and repeated courses of antibiotics: clindamycin, Vanco and Meropenem, Dalbivancin outpatient, Ertapenem, Daptomycin , and most recently Linezolid and Augmentin PO outpatient. He stopped the Augmentin on 12/[address] Watters's approval because of GI side effects and finished the Linezolid. The wound was perceived to be improving. On 12/06 Dr Jensen removed sutures, there was wound dehiscence and serous drainage. Patient was admitted for cellulitis of the right lower extremity and a nonhealing foot wound. The wound was provided once again. The patient is responding to IV antibiotics as the patient was placed on IV linezolid and Zosyn. Infectious disease was consulted in her continue to follow the patient. There was some concern that the patient might have compartment syndrome and Dr. Villatoro was consulted and agrees that the patient does not have compartment syndrome. The patient's leukocytosis is trending down and he has been afebrile. The patient will continue taking linezolid 600 mg by mouth twice a day and Augmentin 875 mg by mouth twice a day until December 23. The patient will follow-up with Dr. Watters on December 22. The patient has been instructed that he should not restart smoking since he has not been smoking for the last 5 days. This patient has been counseled on the poor effects on wound healing secondary to cigarette smoking. The patient has also been instructed to take all of his diabetes medications as prescribed in order to control his blood glucose. The patient states that he understands and will adhere to his diabetes medications. The patient has been discontinued from metformin, losartan, hydrochlorothiazide as patient still has some acute kidney injury. The patient's creatinine is trending down and has been instructed to follow-up with his PCP for further management of his blood pressure medications as well as his acute kidney injury. The patient will continue to take amlodipine 10 mg daily. Patient is being discharged home in stable condition. Please see below for full hospital course: Leukocytosis secondary to non-healing foot wound with cellulitis, POA, worsening. -White blood cell count trending up -No fracture or osseus lesion on foot xray. -Continue IV Linezolid and Zosyn -Podiatry following -Follow-up ASO titer - Venous u/s of right leg neg for DVT (just prior to admit) but did have right groin nodes -Infectious disease following (Dr. Watters) -Procalcitonin trending down -Consult PT Possible compartment syndrome -Orthopedics consulted (Dr. Villatoro case was discussed with him today) ZACH, POA, -Improving creatinine trending down -Continue NS 100mls/hr IV -We will recalculate patient's Zosyn to every 12 to help account for possible nephrotoxicity secondary to Zosyn. -Stop home Furosemide, Losartan held -Follow up labs in the morning DM2 uncontrolled, POA. HA1c last month was 9.8. -Continue Lantus to 60 units daily at bedtime -Hold metformin 500 mg twice a day as patient's creatinine is increasing -Continue 2 units of insulin lispro at mealtimes -We will continue to monitor and add sliding scale if necessary Hypocalcemia -Continue calcium carbonate chews 3 times a day with meals -Continue to monitor CAD, PAD, POA. Hx of HLD -Continue Pravastatin 20mg PO qhs HTN, POA -Continue amlodipine 10mg daily -Hold Losartan 100mg daily and HCTZ 25mg daily d/t ZACH -Continue to monitor Hyponatremia, POA, secondary most likely to poor volume status (resolving) -Sodium currently 136 -Continue IV hydration -Continue to monitor Diabetic Neuropathy, POA. -Continue Gabapentin 600mg qhs PRN medications available for nausea, heartburn, constipation: Ondansetron, Maalox, Senna, Miralax Disposition: The patient still remains to be a case. At this time we are ruling out possible compartment syndrome in orthopedics has been consulted in the case discussed with him. The patient's MRI shows no evidence for osteomyelitis. Once the patient is seen by orthopedics in a compartment syndrome is ruled out the patient may be able to be discharged home and resume daily IV infusions in the [facility] as an outpatient. We will follow-up with patient in the morning. Exam Vital Signs (Last) Date Time Temp Pulse Resp B/P Pulse Ox O2 Delivery O2 Flow Rate FiO2 5/3/17 14:50 36.7 60 20 136/69 96 Room Air Exam Physical Exam: GEN: Patient was awake, alert, responding appropriately to questions HEENT: Pupils equal round and reactive to light, extraocular eye muscles intact , Neck soft supple, trachea midline, nomocephalic/atraumatic CV: +S1/S2, regular rate and rhythm, murmurs auscultated Respiratory: CTAB, no wheezes, rales, rhonchi GI: +bowel sounds x4, soft, compressible, nontender to palpation EXT: no clubbing, cyanosis, edema of the left lower extremity, right lower extremity +1 pitting edema, soft, compressible, mild tenderness to palpation improved from yesterday decreased erythema Neuro: Cranial nerves II-XII grossly intact Psych: mood and affect were appropriate Test 12/11/16 06:35 12/12/16 06:23 12/13/16 05:53 12/13/16 05:55 Erythrocyte Sedimentation Rate 131mm/hr (0-30) C-Reactive Protein 30.1mg/dL (0.0-0.5) Neutrophils (%) (Auto) 77.4% (40-74) Lymphocytes (%) (Auto) 13.6% (14-46) Monocytes (%) (Auto) 6.9% (4-12) Eosinophils (%) (Auto) 1.2% (0-5) Basophils (%) (Auto) 0.4% (0-3) Lactic Acid Level 1.5mmol/L (0.4-2.0) Streptozyme 67.3IU/mL (0.0-200.0) Test 12/14/16 06:00 12/15/16 05:20 Magnesium Level 2.3mg/dL (1.6-2.6) White Blood Count 11.3th/mm3 (3.8-10.1) Red Blood Count 2.84mil/mm3 (4.40-5.80) Hemoglobin 8.4g/dL (13.8-17.2) Hematocrit 25.8% (41.0-50.0) Mean Corpuscular Volume 90.8fL (81-100) Mean Corpuscular Hemoglobin 29.6pg (27.0-35.0) Mean Corpuscular Hemoglobin Concent 32.6% (32.0-37.0) Red Cell Distribution Width 14.7% (12.3-15.4) Platelet Count 268bil/L (150-400) Sodium Level 136mEq/L (134-144) Potassium Level 4.1mEq/L (3.5-5.2) Chloride Level 103mEq/L (97-108) Carbon Dioxide Level 19mmol/L (18-29) Blood Urea Nitrogen 23mg/dL (8-27) Creatinine 1.58mg/dL (0.76-1.27) Estimat Glomerular Filtration Rate 48mL/min (>59) Glucose Level 100mg/dL (60-99) Calcium Level 8.0mg/dL (8.5-10.1) Total Bilirubin 0.3mg/dL (0.0-1.2) Aspartate Amino Transf (AST/SGOT) 12U/L (0-50) Alanine Aminotransferase (ALT/SGPT) 9U/L (0-44) Alkaline Phosphatase 68U/L (25-160) Total Protein 5.3g/dL (6.4-8.4) Albumin 2.4g/dL (3.4-5.0) Procalcitonin 0.31ng/mL (0.00-0.08) Microbiology Results Blood Cx x2 pending Discharge Medications Discharge Medications Amlodipine (Amlodipine) 10 Mg Tablet 10 MG PO QAM (Reported) Amoxicillin/Clav K 875-125 mg (Augmentin 875-125 mg) 1 Each Tablet 1 TABLET PO BID Prescribed by: MARTHA AMBROCIO DO Clopidogrel (Clopidogrel) 75 Mg Tablet 75 MG PO QAM (Reported) Duloxetine (Duloxetine) 30 Mg Capsule.dr 30 MG PO QAM (Reported) Gabapentin (Gabapentin) 300 Mg Capsule 600 MG PO HS (Reported) Insulin Glargine (Lantus U100 Solostar Insulin Pen) 100 Unit/1 Ml Insuln.pen 60 UNITS SUBQ HS Prescribed by: MARTHA AMBROCIO DO Insulin Human Lispro (HumaLOG U100 Insulin Vial) 100 Unit/Ml Unit 0 UNIT SUBQ WMHS Check blood sugars before meals and at bedtime. Use correction factor only before meals. Blood Sugar Lispro Correction: <151, 0 units; 151-175, 1 unit; 176-200, 2 units; 201-225, 3 units; 226-250, 4 units; 251-275, 5 units; 276-300 , 6 units; 301-325, 7 units; 326-350, 8 units; 351-375, 9 units; 376-400, 10 units; >400, 12 units. Prescribed by: MARTHA AMBROCIO DO Linezolid (Linezolid) 600 Mg Tablet 600 MG PO BID Prescribed by: MARTHA AMBROCIO DO Polyethylene Glycol 3350 (Miralax) 17 Gm Powd.pack 17 GM PO DAILY Prescribed by: MARTHA AMBROCIO DO Pravastatin (Pravastatin) 20 Mg Tablet 20 MG PO QAM (Reported) As needed oxyCODONE-Aspirin 5-325 mg (oxyCODONE-Aspirin 5-325 mg) 1 Each Tablet 1 TABLET PO Q6H PRN PRN For Pain Prescribed by: MARTHA AMBROCIO DO Additional med instructions Please do not continue taking Lasix, metformin, losartan as these medications are adding to your current acute kidney injury. Your kidney injury is resolving however it has not gone back down to baseline and these medications can cause kidney injury. Please follow-up with your primary care physician within one week so that your blood pressure can be monitored and properly controlled. Please take all of your antibiotics as prescribed and follow up with Dr. Watters Your diabetes medication has been changed you will stop taking metformin. You will take your Lantus 60 units at bedtime. And with the regular insulin you will follow the sliding scale as prescribed. Please do not restart smoking as smoking decreases the healing process. Followup Plan Follow-up plan 1) follow-up with Dr. Watters on December 22 2) no smoking 3) please take your diabetes medications as prescribed and adhere to a diabetic low-carb diet. Discharge Diet: Diabetic Discharge Activity: No restrictions (gradually return to her normal daily activities. Encouraged to do range of motion with the right foot and encouraged to try to start ambulating on this leg.) Follow-up Provider: Darien Watters MD Follow-up with PCP in: 2 weeks (please follow-up with Dr. Darien Watters ( infectious disease) in his clinic on December 22) Provider: Haley Swift PA-C Follow-up in: 1 week (if an appointment has not been made please call us to schedule an appointment. It is very important that he follow up with your primary care provider as many of her medications have been changed) Time spent Greater than 35 minutes copies to: Haley Swift PA-C, Precious L DO December 15, 2016 16:09
[2016-12-15] MEDS: oxyCODONE-Acetamin 5-325 mg Tablet PO PRN (16:25)
--- NOTE | 2016-12-15 17:04 | NUR ---
Discharge Reviewed DC instructions with patient and . Answered all questions, stated understanding. Hard scripts sent in packet for new medication. Pt used knee scooter to private vehicle to home with . All belongings taken.
[2016-12-15] MEDS ORDERED: OXYC1TAB24 PO (18:40)
== END 2016-12-15 16:55 | disposition home or self-care (01) | DRG 603 ==
LOC: SED 16:41 → MOC 19:45
PROVIDERS: ADMIT Internal Medicine; ATTEND Internal Medicine
DX: L03.115 Cellulitis of right lower limb (principal); E87.1 Hypo-osmolality and hyponatremia; N17.9 Acute kidney failure, unspecified; E11.621 Type 2 diabetes mellitus with foot ulcer; I10 Essential (primary) hypertension; E78.5 Hyperlipidemia, unspecified; E11.65 Type 2 diabetes mellitus with hyperglycemia; I25.10 Atherosclerotic heart disease of native coronary artery without angina pectoris; F17.210 Nicotine dependence, cigarettes, uncomplicated; Z79.4 Long term (current) use of insulin; E11.40 Type 2 diabetes mellitus with diabetic neuropathy, unspecified

== ENCOUNTER 2017-01-02 02:11 | Inpatient (IN) | payer OTHER ==
[~2017-01-02] VITALS: Ht 175.3 cm; Wt 103.5 kg
[2017-01-02] VITALS (20 sets, daily range): BP systolic 99–209; BP diastolic 40–98; PULSE 42–92; RESP 10–24; O2SAT 92–99
[~2017-01-02 02:11] MED LIST changes: +AMLO10TA3 PO; +AMOX-366 PO; -CLIN-78 PO; -FUR20 PO; +INSLIS SUBQ; +LINE600T7 PO; -LOSA1TAB35 PO; -METF500T4 PO; -OXYC-388 PO; +OXYC1TAB24 PO; +POLY17PO6 PO; -POTA20TA16 PO
[2017-01-02] MEDS ORDERED: Nitroglycerin 50,000 mcg/250 mL D5W Premix IV ONE ×2 (02:27→02:42)
[2017-01-02] MEDS ORDERED: Heparin 5,000 Unit/mL Inj ONE (02:28)
--- NOTE | 2017-01-02 02:31 | ED.REPORT ---
HPI-Cardiac Arrest Date of Service January 02, 2017 ED Provider: Víctor Moore MD Pt is a 61 year old male with a history of CAD who presents to the ED via EMS sp cardiac arrest. He was at the [facility] when he collapsed. EMS were contacted and chest compressions were administrated. He was shocked once in route, and presents fully conscious and at his baseline. He has minimal recollection of the event. Pt reports that he had a bypass, and multiple stent placements about 10 years ago. He reports current 7/10 chest pain and shortness of breath. Nursing Notes Stated Complaint: POST CPR Chief Complaint: Cardiac Arrest Nursing Notes Reviewed: Yes Allergies: Coded Allergies: lisinopril (Verified Adverse Reaction, Severe, COUGH, 12/10/16) simvastatin (Verified Adverse Reaction, Severe, MYALGIAS, 12/10/16) Scheduled Amlodipine (Amlodipine) 10 Mg Tablet 10 MG PO QAM Amoxicillin/Clav K 875-125 mg (Augmentin 875-125 mg) 1 Each Tablet 1 TABLET PO BID Clopidogrel (Clopidogrel) 75 Mg Tablet 75 MG PO QAM Duloxetine (Duloxetine) 30 Mg Capsule.dr 30 MG PO QAM Gabapentin (Gabapentin) 300 Mg Capsule 600 MG PO HS Insulin Glargine (Lantus U100 Solostar Insulin Pen) 100 Unit/1 Ml Insuln.pen 60 UNITS SUBQ HS Insulin Human Lispro (HumaLOG U100 Insulin Vial) 100 Unit/Ml Unit 0 UNIT SUBQ WMHS Check blood sugars before meals and at bedtime. Use correction factor only before meals. Blood Sugar Lispro Correction: <151, 0 units; 151-175, 1 unit; 176-200, 2 units; 201-225, 3 units; 226-250, 4 units; 251-275, 5 units; 276-300 , 6 units; 301-325, 7 units; 326-350, 8 units; 351-375, 9 units; 376-400, 10 units; >400, 12 units. Linezolid (Linezolid) 600 Mg Tablet 600 MG PO BID Polyethylene Glycol 3350 (Miralax) 17 Gm Powd.pack 17 GM PO DAILY Pravastatin (Pravastatin) 20 Mg Tablet 20 MG PO QAM Scheduled PRN oxyCODONE-Acetaminophen 5-325 mg (oxyCODONE-Acetaminophen 5-325 mg) 1 Each Tablet 1 TAB PO Q6H PRN PRN For Pain General Time Seen by Provider: 02:23 Chief Complaint Cardiac arrest, found dwn Down Time Prior to EMS: Unknown Total Time Arrest to Arrival: 1 - 20 min Context: Resuscitation: Defibrillation X 1 Hx Obtained From: Patient, Spouse, EMS Arrived By: Ambulance Onset Occurred: Just prior to arrival Location: : Chest left Quality: Painful Severity: Current: Moderate Severity: Maximum: Moderate Similar Sx Previous: Yes Past Medical History Past Medical History CAD Reports: Diabetes mellitus Past Surgical History Open heart surgery Right femoral bypass surgery Carotid endarterectomy Lower extremity stent placement Smoking History Current Every Day Smoker Social History Other Social History: Good social support, Ambulatory Status Independent Review of Systems Constitutional: Reports: Weakness - generalized, Denies: Chills, Fever, Malaise Respiratory: Reports: Shortness of breath, Denies: Non-productive cough, Wheezing Cardiovascular: Reports: Chest pain, Denies: Syncope GI: Denies: Abdominal pain, Constipation, Diarrhea, Nausea, Vomiting Skin: Reports Diaphoresis, Denies Rash Neurologic: Denies: Abnormal movement, Dizziness, Headache, Syncope, Weakness Complete sys rev & neg: except as marked. Physical Exam Initial Vital Signs See paper chart Initial VS: Reviewed General/Constitutional: Awake Alertness: Positive: Confused Appearance / Presentation: Positive: Obese, Uncomfortable Respiratory / Chest: Atraumatic, Breath sounds NL, Breath sounds = bilat, No respiratory distress Abdomen: Atraumatic, Soft, Non-tender Interpretation & Diagnostics Lab Results Interpretation Result Diagram: 01/02/17 0240 01/02/17 0240 Test 01/02/17 02:40 White Blood Count 15.9th/mm3 (3.8-10.1) Red Blood Count 2.79mil/mm3 (4.40-5.80) Hemoglobin 8.2g/dL (13.8-17.2) Hematocrit 25.4% (41.0-50.0) Mean Corpuscular Volume 91.0fL (81-100) Mean Corpuscular Hemoglobin 29.4pg (27.0-35.0) Mean Corpuscular Hemoglobin Concent 32.3% (32.0-37.0) Red Cell Distribution Width 15.2% (12.3-15.4) Platelet Count 336bil/L (150-400) Neutrophils (%) (Auto) 70% (40-74) Lymphocytes (%) (Auto) 12% (14-46) Monocytes (%) (Auto) 7% (4-12) Eosinophils (%) (Auto) 2% (0-5) Basophils (%) (Auto) 0% (0-3) Band Neutrophils % 6% (1-5) Metamyelocytes % 3% (0-0) Sodium Level 139mEq/L (134-144) Potassium Level 3.5mEq/L (3.5-5.2) Chloride Level 102mEq/L (97-108) Carbon Dioxide Level 20mmol/L (18-29) Blood Urea Nitrogen 22mg/dL (8-27) Creatinine 1.63mg/dL (0.76-1.27) Estimat Glomerular Filtration Rate 46mL/min (>59) Glucose Level 201mg/dL (60-99) Calcium Level 8.1mg/dL (8.5-10.1) Total Bilirubin 0.2mg/dL (0.0-1.2) Aspartate Amino Transf (AST/SGOT) 42U/L (0-50) Alanine Aminotransferase (ALT/SGPT) 29U/L (0-44) Alkaline Phosphatase 82U/L (25-160) Total Protein 6.1g/dL (6.4-8.4) Albumin 2.7g/dL (3.4-5.0) Hold Briceno Top Tube Received (Received) Re-Eval/Medical Decision Med Decision/Clinical Course 61-year-old man with prior coronary disease CABG and subsequent stenting, presents post cardiac arrest, having been shocked back into consciousness in a V. fib arrest. EKG en route shows ST elevation in aVR, with saline inversions in anterior V leads suggestive of posterior wall ND. Cath team summoned and Dr. Sandra here to evaluate. He is transported to the catheterization lab in critical condition. Source of Hx: Old records, EMS Re-Evaluation/Progress : Time of Eval: 02:50 Re-Evaluation/Progress Note: Pt is informed of the consultation with Cardiology and the plan to send him to the equipment operator/laborer. They understand and agree, all questions are addressed. Consultation : Referral / Consult Name: Shirley Mcdaniel MD Consulted With: Cardiology Call Returned at: 02:20 Dental Technician: Will see patient, Agrees with plan, Accepts admit Counseled Regarding: Diagnosis, Lab results, Need for admission Discharge & Departure Shift Change Sign-Out Response to Therapy: Improved Impression: Primary Impression: STEMI (ST elevation myocardial infarction) Involved coronary artery: unspecified coronary artery Qualified Code: I21.3 - ST elevation (STEMI) myocardial infarction of unspecified site Additional Impression: Cardiac arrest Disposition: ADMITTED TO HOSPITAL All VS Reviewed: Yes Condition: Critical Referrals: Haley Swift PA-C (PCP) Crit Care Except Billable Proc Time Spent: 30-74 minutes Services Performed: Patient management by me, Time spent at bedside, Reviewing test results, Reviewing imaging, Discussing patient care, Documentation in record, Time with fam/surrogate, Other Scribe Attestation Portions of this note were transcribed by Kellen Wilson. I, Dr. Moore personally performed the history, physical exam and medical decision-making; I reviewed and confirmed the accuracy of the information in the transcribed note. Signed by: Roger Desir, 01/01/2017 [Time]. copies to: Haley Swift PA-C, Christopher W MD January 02, 2017 02:31 JOSE WILSON January 02, 2017 02:36
[2017-01-02] MEDS ORDERED: Heparin 1,000 Units/500 mL NS Premix IV ONE (02:42)
[2017-01-02] MEDS ORDERED: Heparin 1,000 Unit/mL 10 mL Inj ONE (02:42)
[2017-01-02] MEDS ORDERED: Heparin 10,000 Unit/1,000 mL NS Premix IV ONE (02:43)
[2017-01-02] MEDS ORDERED: Ondansetron 2 mg/mL 2 mL Inj ONE (03:10)
[2017-01-02] MEDS ORDERED: fentaNYL-PF 50 mCg/mL 2 mL Inj ONE (03:12)
[2017-01-02] MEDS ORDERED: Atropine 1 mg/10 mL (Code) Syringe ONE (03:27)
[2017-01-02 03:37] LABS: BASOPHILS % (AUTO) 0 % (0-3); EOSINOPHILS % (AUTO) 2 % (0-5); MONOCYTES % (AUTO) 7 % (4-12); Magnesium 2.1 mg/dL (1.6-2.6); Mean Corpuscular Hemoglobin 29.4 pg (27.0-35.0); NEUTROPHILS % (AUTO) 70 % (40-74); Platelet Count 336 bil/L (150-400)
[2017-01-02 03:38] LABS: TROPONIN T 0.092 ug/L (0.0-0.011)
--- NOTE | 2017-01-02 04:05 | HP ---
[address] [address] HISTORY AND PHYSICAL PATIENT: NIKOLAY ROYAL : 1955 MR#: [id number] ADMIT: 01/02/2017 JOB ID: [id number] DATE OF SERVICE: 01/02/2017 CHIEF COMPLAINT: Status post cardiac arrest. HISTORY: The patient is a 61-year-old male, with history of diabetes, hypertension, hypercholesterolemia, and lifelong smoker. The patient has single-vessel coronary artery bypass surgery in 2001 in [place]. He was in his usual state of health until tonight around 2 a.m., [place], he suddenly collapsed. He received CPR and defibrillation in the field. EKG in the field at 2:01 a.m. showed sinus rhythm, rate [address] depression. Repeat EKG after he arrived in the emergency department at 2:[address] depression compatible with posterior infarct. STEMI protocol was activated. PAST MEDICAL HISTORY: 1. Cardiac history as outlined above. 2. Hypertension. 3. Hypercholesterolemia. 4. Diabetes mellitus. 5. Peripheral artery disease, status post stent to the mid right superficial femoral artery in [place]. PAST SURGICAL HISTORY: 1. Coronary artery bypass surgery x1 in 2001. 2. Status post right fem-pop bypass surgery. CURRENT MEDICATIONS: 1. Amlodipine 10 mg daily. 2. Amoxicillin/clavulanic acid, one tablet b.i.d. 3. Clopidogrel 75 mg daily. 4. Duloxetine 30 mg daily. 5. Gabapentin 600 mg h.s. 6. Lantus insulin 60 units subcu h.s. 7. Humalog. 8. Linezolid 600 mg b.i.d. 9. Polyethylene glycol, one pack daily. 10. Pravastatin 20 mg q.a.m. ALLERGIES: No known allergies. SOCIAL HISTORY: The patient started smoking when he was in the [place]. He smokes about 1 to 1-1/2 pack per day. He quit drinking a long time ago. FAMILY HISTORY: His mother had coronary artery bypass surgery. REVIEW OF SYSTEMS: Unobtainable due to urgency of clinical situation. PHYSICAL EXAMINATION: Reveals an obese male appearing in mild distress. Temperature is 36.5. Blood pressure is 170/76. Pulse 63. Skin is warm and dry. Head and face have normal configuration. Anicteric sclerae. Moist mucosa. Neck supple. No jugular venous distention or carotid bruits. Chest: Normal expansion. Lungs are clear to auscultation. Heart: The first and second heart sounds are normal. No gallop or murmur. Abdomen: Obese, nontender, and without hepatosplenomegaly. Back: No CVA tenderness. Extremities: Wound on his right foot. Surgical scar in the right groin. Midline sternotomy scar. Neurologic: Grossly intact. IMPRESSION: 1. Acute posterior myocardial infarction. 2. Status post coronary artery bypass surgery x1 in 2001. 3. Diabetic foot ulcer of the right foot. 4. Status post right fem-pop surgery. 5. Diabetes mellitus. 6. Hypertension. 7. Hypercholesterolemia. 8. Lifelong smoker. 9. Obesity. PLAN: The patient will undergo emergent coronary angiogram and possible percutaneous coronary intervention. The risks and benefits of procedure have been explained to the patient and his . They understand and agree to proceed with the procedure. MARTIN
[2017-01-02] MEDS ORDERED: Protamine Sulfate 10 mg/mL 5 mL Inj ONE (04:27)
[2017-01-02] MEDS ORDERED: 0.9% Sodium Chloride 1,000 ML IV PRN (05:22)
[2017-01-02] MEDS ORDERED: 0.9% Sodium Chloride 250 ML IV PRN (05:22)
[2017-01-02] MEDS ORDERED: Atropine 1 mg/10 mL (Code) Syringe IVPUSH PRN (05:25)
[2017-01-02] MEDS ORDERED: Ondansetron 2 mg/mL 2 mL Inj IVPUSH PRN (05:25)
--- NOTE | 2017-01-02 05:35 | CS94 ---
[address] [address] DIAGNOSTIC CARDIAC CATHETERIZATION PATIENT: NIKOLAY ROYAL : 1955 MR#: [id number] ADMIT: 01/02/2017 JOB ID: [id number] SERVICE DATE: 01/02/2017 PATIENT PROFILE: The patient is a 61-year-old male with history of coronary artery bypass surgery x1 in 2001. He presented with [id number] cardiac arrest. PROCEDURE: 1. Retrograde left heart catheterization. 2. Selective coronary angiography. 3. Left internal mammary angiography. 4. Left ventricular angiogram. VASCULAR CLOSURE DEVICE: None. COMPLICATIONS: None. METHOD: It was somewhat difficult to obtain vascular access due to significant peripheral artery disease. Arterial access was obtained from the right groin but could not advance the wire into the common iliac artery and the femoral sheath could not be inserted. Vascular access was then obtained from the left groin under ultrasound guidance by using micropuncture needle, micro sheath, and then exchanged over an Amplatz wire to a 6-Filipino sheath. Selective coronary angiogram was performed in multiple projections, including cranial and caudal angulations with hand injected contrast via a CLS 3.5 guide and 3DRC guide. A JL4 and JL5 guide could not engage the left coronary ostium. An IM catheter was initially used but could not get into the subclavian artery. A 4-Filipino JB1 was then used. There was some difficulty advancing a glidewire into the subclavian artery. After the JB1 was placed in the left subclavian, it was then exchanged over an exchange length wire into an IM catheter. Left internal mammary angiogram was then performed in the AP view. A 6-Filipino angulated pigtail catheter was advanced to the left ventricle and left ventricular angiogram was performed in the 30-degree LAROSE view by injecting contrast at the rate of 12 cc/second for 3 seconds. This catheter was withdrawn. Left femoral angiogram was performed. Following sheath removal, hemostasis was achieved by manual compression. The patient tolerated the procedure well. He was transferred to [facility] in stable condition. TOTAL CONTRAST USED: 125 cc. FLUOROSCOPY TIME: 7.3 minutes. TOTAL RADIATION DOSE: 477 mGy. RESULTS: 1. Selective coronary angiogram: a. Left main coronary artery is short and has 20-30% stenosis at its origin. There is pressure damping with a guide catheter engagement. b. The left anterior descending artery is transapical and has focal 70% stenosis in the mid portion. The diagonal branch has minor irregularity. c. The circumflex artery has 50% stenosis distal to the takeoff of the first obtuse marginal branch. The first obtuse marginal branch has 50% stenosis at its origin. d. The right coronary artery is chronically occluded in the proximal portion. 2. The left internal mammary artery is normal. It supplied the chest wall. It was not used for bypass. 3. Left ventricular angiogram demonstrates mildly depressed left ventricular systolic function (visually estimated ejection fraction 40%). The inferior wall is moderately hypokinetic. The remaining segments contract normally. 4. There is no gradient across the aortic valve on catheter withdrawal. 5. Left ventricular pressure is 140/14 mmHg. Aortic pressure is 143/62 mmHg. 6. Left ventricular end-diastolic is 35 mmHg. 7. There is 5 mm pressure gradient across the proximal left subclavian artery lesion. 8. Bilateral external iliac arteries are calcified. There is moderate to severe stenosis of the left common femoral artery. There are stents present in bilateral superficial femoral arteries. CONCLUSION: 1. A 70% mid left anterior descending artery stenosis. 2. Chronic occlusion of the right coronary artery. 3. LVEF 40%. 4. LVEDP is 35 mmHg. 5. Significant peripheral artery disease. MTDD
[2017-01-02] MEDS ORDERED: KCl 40 mEq/500 mL D5W(K 3 - 3.7 & Creat < 2) IV ONE (06:05)
[2017-01-02 06:46] LABS: Magnesium 2.3 mg/dL (1.6-2.6)
--- NOTE | 2017-01-02 06:49 | NUR ---
P) Admit Pt. 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 groin sites, R site has a small amount of bloody ooze, pedal pulses are not palpable but are audible faintly with doppler, sites marked. Pt. c/o severe chest pain, pressure, currently has no short term memory, repeats questions ad infinitem. and family in attendance. I) Monitor closely and meds per 's orders. E) Resting and joking with family and nurses.
[2017-01-02 06:55] LABS: TROPONIN T 0.267 ug/L (0.0-0.011)
--- NOTE | 2017-01-02 09:15 | DRSVH ---
PROCEDURE: X-RAY CHEST ONE VIEW, PORTABLE ([id number]) INDICATIONS: syncope/post CPR TECHNIQUE: One view of the chest was acquired. COMPARISON: [facility], CR, CHEST 2VW, 10/13/2015, 7:43. FINDINGS: Surgical changes and devices: Status post CABG procedure Lungs and pleura: No pneumothorax. Trace right-sided pleural fluid collection noted. Cephalization o f the pulmonary vasculature and perihilar opacities compatible with CHF. Mediastinum: Mediastinal contours appear normal. Heart size is normal. Bones and chest wall: No suspicious bony lesions. Overlying soft tissues appear unremarkable. IMPRESSION: CHF. Dictated by: Bryanna Millan MD, PhD on 01/02/2017 at 9:13 Approved by: Bryanna Millan MD, PhD on 01/02/2017 at 9:14
[2017-01-02] MEDS ORDERED: LOSA100T29 (09:51)
[2017-01-02] MEDS ORDERED: HYDR25TA4 (09:51)
[2017-01-02] MEDS ORDERED: FUR20 PO (09:51)
--- NOTE | 2017-01-02 11:46 | PCM.PNCARD ---
Subjective Date of service January 02, 2017 Chief Complaint Syncope/cardiac arrest History of Present Illness This is a pleasant 61-year-old gentleman who presents to [facility] with cardiac arrest. [facility] . He was playing the slot machines. His noticed that he suddenly became very stiff for a few seconds and then fell to the floor. She immediately called for help. She states that CPR was started immediately and then soon thereafter the AED was placed upon him and he was given at least one shock. CPR was continued and she believes that he might have received another shock but she is not terribly sure. When medics arrived the patient was started to make mumbling sounds. When he was transferred to the ambulance vehicle, he was started to make a few words but he was still not coherent. She drove the truck behind the ambulance and according to the ER notes he was given another shock en route. The patient was somewhat awake but not terribly coherent. EKG showed sinus rhythm with ST depressions but no evidence of significant ST elevations concerning for STEMI. However it was called a STEMI so he was taken to the catheterization laboratory and had an emergent coronary angiogram. Please see the cath report for more details but briefly it did show a chronic occluded nondominant RCA, mid LAD stenosis estimated 70%, circumflex artery with a 50% proximal stenosis and the first obtuse marginal with a 50% ostial stenosis. The internal mammary artery is normal and appear not to use for bypass surgery. Patient apparently has had a prior bypass surgery but the anatomy was not known prior to the emergent coronary angina. Left ventricular end-diastolic pressure was 35 mmHg and the aortic pressure was 143/62 mmHg. There is no significant gradient across the proximal portion of the left subclavian artery. There is extensive bilateral iliofemoral disease with moderate to severe stenosis of the left common femoral artery and their stents present in the bilateral superficial femoral arteries. The patient was not intubated and not placed on hypothermia protocol since he was throughout the entire procedure. He was transferred to CCU where he has been hemodynamically stable. He has had runs of market sinus bradycardia which apparently we have just found out that this is chronic for him. His blood work shows elevated white count with significant anemia with a hemoglobin of 8.2 and a platelet count of 336. BMP shows a current of 1.63, glucose 201, calcium 8.1 and the rest is normal. LFTs are also within normal limits. His troponins are elevated at 0.092 and 0.267. TSH is within normal limits. Echocardiogram is pending. I was able to obtain some notes from his current mortarman at [facility]. The patient has an extensive cardiovascular history and I will quickly summarize his past history. The patient has severe peripheral arterial disease as mentioned on his coronary angiogram. 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 Apparently he had a GAYATHRI to his left circumflex artery. He also has a totally occluded nondominant RCA. In regards with this carotid disease he has history of left carotid endarterectomy but still has significant atherosclerosis within the right internal carotid artery and within the inferior portion of the left common carotid artery. Details of his carotid Dopplers are in his chart. He also has extensive diagnostic studies of this lower extremities with multiple Dopplers, which are in his chart. Apparently he has history of market sinus bradycardia and there has been discussion in the past about a possible need for a pacemaker but he has been predominantly asymptomatic. Unfortunately he continues to use tobacco daily in the form of smoking. He has history of chronic hypertension, diabetes mellitus, and hyperlipidemia and there has been history of not compliancy with the statins because of GI side effects. He has had a previous myocardial perfusion scan back in June 2010 which showed a normal EF at 74% with a very small, mild intensity fully reversible anterior wall defect consistent with small amount of LAD territory ischemia. There is no evidence of infarction. His last echocardiogram that we have available was back in August 2012 which showed a normal EF with mildly sclerotic aortic leaflets without stenosis. There is evidence of grade [address] diastolic dysfunction. Patient's last CT scan with angiogram of the head and neck was in November 2014 which showed moderate stenosis of the bilateral cavernous portions of the ICAs, no definite flow within the middle third left vertebral artery via collaterals. 14 mm segment of high-grade stenosis at the origin of the right internal carotid artery. Focal high-grade stenosis of the right external carotid artery also within the inferior left common carotid artery. His as his diabetes and takes or hypoglycemic medications and is on insulin. Constitutional: Denies: Chills, Fever, Sweats ENT: Denies: Dysphagia, Ear Discharge, Ear Pain, Throat Pain Eyes: Denies: Blurred Vision, Double Vision, Vision Changes Cardiovascular: Reports: Chest Pain (secondary to CPR), Edema, Irregular Heart Rate, Denies: SOB on Exertion, SOB while laying flat Respiratory: Denies: Cough, Shortness of Breath, Wake up Gasping for Breath, Wake up SOB Gastrointestinal: Denies: Abdominal Pain, Heartburn, Vomiting Genitourinary: Denies: Hematuria, Hemodialysis, No burning or pain with urination Musculoskeletal: Reports: Swelling, Denies: Back Pain, Shoulder Pain Skin: Reports: Other (status post right first toe surgery for infection), Denies: Bruising, Dry or Flakiness Neurological: Reports: Change in LOC, Denies: Confusion, Drooping Mouth, Localized Weakness Endocrine: Reports: Blood Glucose Review, Weight Gain (20 pounds), Denies: Intolerant to Cold, Intolerant to Heat Exam Vital Signs Vital Sign - Last Date Time Temp Pulse Resp B/P Pulse Ox O2 Delivery O2 Flow Rate FiO2 01/02/17 11:00 45 15 126/40 01/02/17 08:26 Supplement Oxygen 01/02/17 08:24 36.2 99 4.00 General: Pleasant Cooperative Moderately obese Skin: Warm & dry to touch Head: Normocephalic Eye: EOMS intact No arcus or xanthelasma Ears, Nose & Throat: Ears no gross abnormalities Nose no gross abnormalities Neck: Nuchal obesity:JVP assess difficult Carotid bruit present No thyromegaly Chest: Clear auscultation w/o rales/wheeze Cardiac: Normal non-displaced apical impulse Regular rhythm Occasional premature beats Systolic murmur (2/6 at the base) Pulses: Pulses below femoral art diminished Abdomen: Soft, non-distended, non-tender Obese Genitalia: Scrotum & testicles normal Extremities: Warm w/o deformities,erythema noted Edema Neurological: Alert & oriented No gross motor or sensory deficits Psychological: Affect & interaction appropriate Reduced short term memory Lab and Diagnostics Labs CBC Test 01/02/17 02:40 White Blood Count 15.9th/mm3 (3.8-10.1) Red Blood Count 2.79mil/mm3 (4.40-5.80) Hemoglobin 8.2g/dL (13.8-17.2) Hematocrit 25.4% (41.0-50.0) Mean Corpuscular Volume 91.0fL (81-100) Mean Corpuscular Hemoglobin 29.4pg (27.0-35.0) Mean Corpuscular Hemoglobin Concent 32.3% (32.0-37.0) Red Cell Distribution Width 15.2% (12.3-15.4) Platelet Count 336bil/L (150-400) Neutrophils (%) (Auto) 70% (40-74) Lymphocytes (%) (Auto) 12% (14-46) Monocytes (%) (Auto) 7% (4-12) Eosinophils (%) (Auto) 2% (0-5) Basophils (%) (Auto) 0% (0-3) Band Neutrophils % 6% (1-5) Metamyelocytes % 3% (0-0) CMP Test 01/02/17 02:40 01/02/17 05:30 01/02/17 11:05 Sodium Level 139mEq/L Potassium Level 3.5mEq/L Chloride Level 102mEq/L Carbon Dioxide Level 20mmol/L Blood Urea Nitrogen 22mg/dL Creatinine 1.63mg/dL Estimat Glomerular Filtration Rate 46mL/min Glucose Level 201mg/dL Calcium Level 8.1mg/dL Total Bilirubin 0.2mg/dL Aspartate Amino Transf (AST/SGOT) 42U/L Alanine Aminotransferase (ALT/SGPT) 29U/L Alkaline Phosphatase 82U/L Total Protein 6.1g/dL Albumin 2.7g/dL Hold Briceno Top Tube Received Magnesium Level 2.3mg/dL Thyroid Stimulating Hormone (TSH) 3.910uIU/mL Result Diagram: 01/02/17 0240 01/02/17 0240 X-Rays, CTs and MRIs Date of Service: 01/02/17217 PROCEDURE: X-RAY CHEST ONE VIEW, PORTABLE ([id number]) INDICATIONS: syncope/post CPR TECHNIQUE: One view of the chest was acquired. COMPARISON: [facility], CR, CHEST 2VW, 10/13/2015, 7:43. FINDINGS: Surgical changes and devices: Status post CABG procedure Lungs and pleura: No pneumothorax. Trace right-sided pleural fluid collection noted. Cephalization of the pulmonary vasculature and perihilar opacities compatible with CHF. Mediastinum: Mediastinal contours appear normal. Heart size is normal. Bones and chest wall: No suspicious bony lesions. Overlying soft tissues appear unremarkable. IMPRESSION: CHF. 12-lead ECG EKG when he presented to [facility] shows sinus rhythm with a rate of 49 bpm with frequent atrial premature complexes and repolarization abnormalities that might suggest ischemia in multiple leads but no evidence of ST elevation consistent with acute CA. EKG on 08/12/16 shows sinus rhythm with a rate of [address]-T changes. There is no evidence of any depression. Assessment & Plan Problems: (1) Cardiac arrest Plan: These EKG nor does his coronary and recurrent show any evidence for ST elevation myocardial infraction or acute coronary syndrome hence the patient did not have an emergent percutaneous intervention. His LVEF on his ventricular angiogram is approximately around 50-55%. There is some subtle inferior wall hypokinesis. The patient is currently has no complaints of angina but does have chest soreness secondary to CPR. He denies any acute symptoms prior to his cardiac arrest. The patient most likely developed spontaneous V. fib arrest which was successfully treated with CPR and defibrillator shocks. He has not had any significant runs of ventricular tachycardia or ventricular fibrillation since he has been transferred to CCU. He does have marked sinus bradycardia hence for now we will hold his beta blockers. Plus he has a little bit hypotensive. Given that there is no obvious reversible culprit for his cardiac arrest, the patient and his were explained about proceeding with AICD. At first the patient was quite resistant to the idea of having a defibrillator implant, but after a long discussion about the pros and cons of having a defibrillator implant, the patient has decided to go ahead and proceed with AICD implant. I have discussed the case with her on-call EP mortarman who will see the patient tomorrow morning. I have recommended to the patient that he should have this prior to being discharge. At that time we can increase his beta lauri therapy at a higher dosage which will hopefully decrease incidence of his ventricular arrhythmias. Status: Resolved ICD Code: I46.9 (2) CAD (coronary artery disease) Qualifiers: Coronary Disease-Associated Artery/Lesion type: [place] artery [place] vs. transplanted heart: [place] heart Associated angina: without angina Qualified Code: I25.10 - Atherosclerotic heart disease of [place] coronary artery without angina pectoris Plan: Based on his prior cardiology notes, I think the findings on his coronary angiogram are chronic. Unfortunately we did not visualize the right internal mammary artery since the chronograph operator interventionalist did not have any details of his bypass surgery. We will proceed with an echo today and make further changes depending on the findings. Patient should continue with aspirin , clopidogrel, statins, and would recommend holding off any other potential nephrotoxic agents since his creatinine is elevated and he has no prior history of significant chronic kidney disease. Status: Chronic ICD Code: I25.10 (3) S/P CABG x 1 Plan: Patient apparently had a GAYATHRI to his left circumflex artery back in 2001. 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 Status: Chronic ICD Code: Z95.1 (4) HTN (hypertension) Qualifiers: Hypertension type: essential hypertension Qualified Code: I10 - Essential (primary) hypertension Plan: Patient's axilla little bit hypotensive. We will hold his home blood pressure medications for now Status: Chronic ICD Code: I10 (5) Hyperlipidemia Qualifiers: Hyperlipidemia type: mixed hyperlipidemia Qualified Code: E78.2 - Mixed hyperlipidemia Status: Chronic ICD Code: E78.5 (6) PAD (peripheral artery disease) Plan: Patient has extensive peripheral arterial disease and has had significant workup for this in the past. Currently he denies any symptoms that would be concerning for critical limb ischemia. Status: Chronic ICD Code: I73.9 (7) DM (diabetes mellitus) Status: Acute ICD Code: E11.9 VTE Mechanical Devices: Intermittant Pneumatic CD Time spent 2 hours which included talking to patient about AICD and why he had a cardiac arrest, discussing with other provider, and reviewing images and prior notes from outside facility. Paulino Mccall MD January 02, 2017 11:46
[2017-01-02 12:32] LABS: TROPONIN T 0.403 ug/L (0.0-0.011)
[2017-01-02] MEDS ORDERED: Glucose 40% Oral Gel 15 Gm Tube PO PRN (14:05)
[2017-01-02] MEDS ORDERED: oxyCODONE-Acetamin 10-325 mg Tablet PO PRN (14:05)
[2017-01-02] MEDS ORDERED: Dextrose 10% 250 ML in IV Bag 1 EACH IV PRN (14:05)
--- NOTE | 2017-01-02 16:02 | PCM.CHPMED ---
Subjective Date of Service: January 02, 2017 Provider requesting consult: Paulino Mccall MD Primary Physician: Admitting Physician: Shirley Mcdaniel MD Primary Care Physician: Haley Swift PA-C Attending Physician: Shirley Mcdaniel MD Chief Complaint: Chief Complaint: STEMI History of Present Illness: Beto Manrique is a 61 year old man with past medical history significant for coronary artery disease status post CABG, peripheral artery disease, hyperlipidemia, diabetes mellitus insulin-dependent and presented to the [facility] ER due to a cardiac arrest in the field. The hospitalist service is consulted for management of his noncardiac issues. [place] and EMS was contacted. Chest compressions were initiated and he had return of spontaneous circulation. The patient was somewhat awake at this time and was mumbling words. EKG showed a sinus rhythm with ST depressions but this was called a STEMI and so he was subsequently taken to the [facility] for emergent angiography. Angiography report shows a chronically occluded nondominant RCA, 70% stenosis of mid LAD, 50% stenosis of proximal circumflex, 50% stenosis of obtuse marginal artery. Patient was coherent and alert so hypothermia protocol was not initiated. The patient was noted to have sinus bradycardia which apparently is chronic for him. The patient is now status post cardiac catheterization and feeling tired but well. He complains of chest pain where CPR was performed. Review of Systems: A comprehensive review of systems was conducted with the patient and found to be negative except as above in the History of Present Illness. PMH Past Medical History Coronary artery disease Peripheral artery disease Diabetes mellitus, insulin-dependent Hyperlipidemia Nicotine dependence Surgical History CABG 10 years ago Carotid endarterectomy Allergies: Coded Allergies: lisinopril (Verified Adverse Reaction, Severe, COUGH, 12/10/16) simvastatin (Verified Adverse Reaction, Severe, MYALGIAS, 12/10/16) Family History Family History Mother had CABG. Social History Hx Alcohol Use: NoHx Substance Use: NoHx Tobacco Use: Yes Smoking Status: Current Every Day Smoker Exam Vital Signs Vital Sign - Last Date Time Temp Pulse Resp B/P Pulse Ox O2 Delivery O2 Flow Rate FiO2 01/02/17 11:00 45 15 126/40 01/02/17 08:26 Supplement Oxygen 01/02/17 08:24 36.2 99 4.00 General: Alert, Oriented X3, Cooperative, No Acute Distress Head: Normal Eyes: PERRLA, EOMI, Scleral Anicteric Mouth: Mucous Membr Moist/Gough Neck: No Thyromegaly Chest & Lungs: Clear to auscultation & percussion, No adventitious breath sounds Cardiovascular: Normal S1, Normal S2, Other (bradycardic) Abdomen: Non-tender, Non-distended, No hepatosplenomegaly, Normoactive bowel tones, Soft, Obese Musculoskeletal: Other (Right leg more edematous than the right, this is chronic) Extremities: No cyanosis/clubbing/edma bilat Neurological: Grossly Neurologically Intact, Cranial Nerves 2-12 Intact, Normal Speech Lab and Diagnostics Result Diagram: 01/02/17 0240 01/02/17 1220 X-Rays, CTs and MRIs X-RAY CHEST ONE VIEW, PORTABLE IMPRESSION: CHF Dictated by: Bryanna Millan MD, PhD on 01/02/2017 at 9:13 Assessment & Plan Assessment Beto Manrique is a 61 year old man with past medical history significant for coronary artery disease status post CABG, peripheral artery disease, hyperlipidemia, diabetes mellitus insulin-dependent and presented to the [facility] ER due to a cardiac arrest in the field. Cardiac arrest -Management per cardiology -Likely patient will need an AICD. Dr. Mccall has contacted intern brand. -We will hold beta blockers Sinus bradycardia, chronic -Continue to monitor on telemetry. -Avoid beta lauri Diabetes mellitus, insulin-dependent, uncontrolled -A1c from 11/01/2016 was 9.8 -Medium dose lispro correctional. We will hold off on Lantus for now, we will likely restart tomorrow -Diabetic diet Chronic kidney disease, likely secondary to poorly controlled diabetes -Patient's creatinine appears to be very close to his baseline -We will continue to monitor Coronary artery disease status post CABG -Continue aspirin, clopidogrel, statin -Repeat echo Hypertension -Hold off on BP medications at this time Hyperlipidemia -Continue statin Nicotine dependence -Counseled on smoking cessation -Offered nicotine patch Problems: VTE Prophylaxis: Sub-Q Heparin (Unfractionated) VTE Mechanical Devices: Intermittant Pneumatic CD Resuscitation Status: CPR: Attempt Resuscitation Time spent 45 minutes Attending Statement I have seen and evaluated patient at bedside in addition to directly supervising care provided by resident physician. I agree with above documentation. Heather Rangel DO January 02, 2017 15:13 Goyo Covarrubias DO January 02, 2017 17:37
--- NOTE | 2017-01-02 16:19 | DRSVH ---
[facility] [address] [place] [address] Echocardiogram Report Name: NIKOLAY ROYAL PStudy Farhat e: 01/02/2017 Height: 69 in Hospital Exam Location: [facility] Weight: 226 lb Gender: Male BSA: 2.2 m2 : 1955 Age: 61 yrs BP: 115/44 mm Hg Reason For Study: POST STEMI History: CABG Ordering Physician: Performed By: Lorri Gomez Referring Physician: DEEP Swift Interpretation Summary Left ventricular wall thickness is mildly increased. Left ventricular systolic function is normal. The ejection fraction is estimated to be 60-65%. There is basal inferoseptal wall hypokinesis. There is basal inferior wall hypokinesis. The right ventricle grossly appears normal in size with probable normal systolic function. The right ventricular systolic pressure is estimated at 62 mmHg assuming a right atrial pressure of 15 mm Hg. The left atrium is moderately dilated. The right atrium is moderately dilated. There is mild mitral regurgitation. There is mild aortic regurgitation. There is moderate tricuspid regurgitation. The aortic root is normal size. The IVC is dilated (diameter is greater than 2.1 cm) and it collapses less than 50% with a sniff. This suggests a high right atrial pressure of 15 mm Hg. Procedure: A two-dimensional transthoracic echocardiogram with color flow and Doppler was performed. The apical views were difficult to obtain and are suboptimal in quality. A contrast injection of Definity was performed to improve assessment of LV function. Contrast was injected into an intravenous site in the right arm. A total of 5 cc of contrast was given. There is no prior echocardiogram noted for this patient. The patient was in sinus during the exam. Left Ventricle: The left ventricle is normal in size. Left ventricular wall thickness is mildly increased. Left ventricular systolic function is normal. The ejection fraction is estimated to be 60-65%. There is basal inferoseptal wall hypokinesis. There is basal inferior wall hypokinesis. Right Ventricle: The right ventricle grossly appears normal in size with probable normal systolic function. Atria: The left atrium is moderately dilated. The right atrium is moderately dilated. There is no Doppler evidence for an atrial septal defect. Mitral Valve: The mitral valve leaflets appear mildly thickened, but open well. There is mild mitral annular calcification. There is mild mitral regurgitation. Aortic Valve: The aortic valve is not well visualized. The aortic valve opens well. There is mild aortic regurgitation. Tricuspid Valve: The tricuspid valve is not well visualized, but is grossly normal. There is moderate tricuspid regurgitation. The right ventricular systolic pressure is estimated at 62 mmHg assuming a right atrial pressure of 15 mm Hg. Pulmonic Valve: The pulmonic valve is not well visualized. Great Vessels: The aortic root is normal size. The dimensions of the ascending aorta are normal. The aortic arch is at the upper limits of normal in size. The pulmonary artery is normal size. The IVC is dilated (diameter is greater than 2.1 cm) and it collapses less than 50% with a sniff. This suggests a high right atrial pressure of 15 mm Hg. Pericardium/ Pleura There is no pericardial effusion. There is no pleural effusion. MMode/2D Measurements & Calculations LVIDd: 5.0 cm LA dimension: 4.4 cm RA long axis LVOT diam: 2.1 cm LVIDs: 4.3 cm AoV Opening FS: 14.4 % LA A2 area: 26.2 cm RA area IVSd: 1.3 cm LA A4 area: 26.2 cm Ao root diam LVPWd: 1.2 cm LA length (vol) : 28.9 cm RA vol asc Aorta Diam LA vol: 90.9 ml : 116.ml LA vol index RA Ao Arch Diam (Prox : 53.6 mm2 Trans): 3.4 cm IVC diam: 2.1 cm LV bee. diameter/BSA LV sys. diameter/BSA (cm/m^2): 2.3 (cm/m^2): 2.0 Doppler Measurements & Calculations Ao V2 max MV E max henry MV E/A: 2.1 TR max henry : 169.6 cm/sec : 136.2 cm/sec Med Peak E' Henry : 344.3 cm/sec Ao max PG MV A max henry TR max PG : 11.5 mmHg : 64.4 cm/sec E/E' med: 23.6 : 47.4 mmHg Ao mean PG MV P1/2t: 47.5 msec Lat Peak E' Henry PA V2 max : 91.6 cm/sec LVOT Max Henry MVA(VTI): 2.9 cm2 E/E' lat: 18.3 PA mean PG : 120.6 cm/sec E/e' average: 20.9 Pulm A Revs Dur PA Accel Time PATRICK(I,D): 2.6 cm : 0.10 sec sev ratio MV A dur: 0.13 sec AI P1/2t : 802.6 msec AI dec slope : 131.7 cm/s2c MV V2 mean MV P1/2t max henry Ao V2 mean LV V1 max PG : 67.0 cm/sec : 109.5 cm/sec MV mean PG MVA(P1/2t): 4.6 cm2 Ao V2 VTI: 34.0 cm LV V1 VTI PATRICK(V,D): 2.5 cm2 : 25.0 cm MV V2 VTI: 30.7 cm MV dec time : 0.16 sec PA V2 mean PATRICK indexed to BSA Pulm A Revs Dur - MV : 65.0 cm/sec (cm^2/m^2): 1.2 A Dur: -0.02 msec Reading Physician:SWETA
[2017-01-02] MEDS: Insulin LISPRO 300 Unit/3 mL Inj SUBQ SCH ×2 (17:29→21:58)
[2017-01-02] MEDS: Heparin 5,000 Unit/mL Inj SUBQ SCH ×2 (17:30→23:57)
[2017-01-02 17:38] LABS: TROPONIN T 0.474 ug/L (0.0-0.011)
--- NOTE | 2017-01-02 17:58 | NUR ---
Transfer to PCC Patient transferred to PCC room 2030 from CCU. Report received from Jesusita Dumont RN. Patient A&Ox3. Asymptomatic bradycardia in the 40s. All other VSS. Patient c/o leg and chest pain 03/24. Prn Percocet given with mild relief. FAmily at bedside, patient call light within reach.
--- NOTE | 2017-01-02 20:24 | NUR ---
Symptomatic Bradycardia Checking tele with telemetry monitor and observed patient titi down to 38 on the monitor. Received call from aide at the same time reporting patient looking poor "almost code blue." Assessed patient at bedside; patient speaking and responding, diaphoretic. Vital signs SBP 209, HR 52, SpO2 93% on 2L by nasal cannula. Patient states no new pain, just continuing chest soreness from compressions received prior to admit, rated 10/10. Patient also states that this happens at home sometimes. Charge nurse made aware and phone page to wastewater manager. Addendum: 01/02/17 at 2106 by SANDRA CARLOS RN Discussed patient with Dr. Mccall. Agreed to transfer patient back to CCU. Pacer pads placed on patient's chest and atropine at bedside. Report given to Sharon MARTINS in CCU. Patient transferred with at bedside.
[2017-01-02] MEDS: oxyCODONE-Acetamin 5-325 mg Tablet PO PRN (20:33)
[2017-01-03] VITALS (14 sets, daily range): BP systolic 125–168; BP diastolic 49–76; PULSE 39–64; RESP 15–20; O2SAT 92–99
[2017-01-03] MEDS: oxyCODONE-Acetamin 5-325 mg Tablet PO PRN (00:33)
[2017-01-03 02:58] LABS: BASOPHILS % (AUTO) 0.3 % (0-3); EOSINOPHILS % (AUTO) 0.3 % (0-5); MONOCYTES % (AUTO) 9.4 % (4-12); Mean Corpuscular Hemoglobin 29.4 pg (27.0-35.0); Mean Corpuscular Volume 92.6 fL (81-100); NEUTROPHILS % (AUTO) 72.9 % (40-74); Platelet Count 316 bil/L (150-400)
--- NOTE | 2017-01-03 04:09 | NUR ---
CCU Transfer in Note Received patient transferred from [facility] 2030 @ 2100 for symptomatic bradycardia. Pt drowsy, easily arousable and oriented x 3, forgetful at times, placed pacer pads on pt, pt c/o chest pain (muscular) 8/10, non-radiating, given prn percocet, pain down to 5/10 comfortable level per pt, made NPO after midnight. Around 0120 pt desats to as low as 34% with good pleth, RN in pt room, observed pt's apneic episode for about 30 seconds HR 40's sinus bradycardia dropping into the 30's, pt briefly loss consciousness and eyes rolled back, shaken patient for response and immediately gained consciousness, at bedside witnessed the event. Called Dr. Mccall(on-call software client architect), notified of event, MD ordered to place pt on cpap/bipap. RT placed patient on bipap w/ fio2 0.35, I/E 14/6, sp02 maintained in the 90's. BP stable.
[2017-01-03] MEDS ORDERED: fentaNYL-PF 50 mCg/mL 2 mL Inj ONE (07:26)
[2017-01-03] MEDS ORDERED: Propofol 10,000 mCg/mL 20 mL Inj ONE (07:26)
[2017-01-03] MEDS ORDERED: Rocuronium 10 mg/mL 5 mL Inj ONE (07:26)
[2017-01-03] MEDS ORDERED: Succinylcholine Chloride 20 mg/mL 5 mL Inj ONE (07:26)
[2017-01-03] MEDS ORDERED: EPHEDrine/NS 5 mg/mL 5 mL Syringe ONE (07:26)
[2017-01-03] MEDS: Insulin LISPRO 300 Unit/3 mL Inj SUBQ SCH ×4 (07:47→22:10)
[2017-01-03] MEDS ORDERED: Acetaminophen IV 1,000 MG in IV Premix 1 EACH IV PRN (08:05)
[2017-01-03] MEDS: DULoxetine 30 mg DR Capsule PO SCH (08:30)
[2017-01-03] MEDS: Heparin 5,000 Unit/mL Inj SUBQ SCH ×3 (08:50→23:46)
--- NOTE | 2017-01-03 10:37 | NUR ---
Pt advised he was currently on antibiotics for his foot wound Pt stated he was just prescribed an additional week of antibiotics for his foot wound as an outpatient. I advised Dr. Rangel , at this point no need for ongoing antibiotics. Wound care was ordered for assessment and evaluation of wound.
--- NOTE | 2017-01-03 10:39 | NUR ---
NUTRITION ASSESSMENT Assess: 61 YO M admitted to CCU with STEMI. Plan for AICD placement. Pt with good PO intake X 1 meal. Pt requiring BiPAP. PMHX: Type 2 DM, HTN, hypercholesterolemia, tobacco use, PAD, CAD, CABG. DIET: Heart healthy/Consistent carb. PO intake 100% X 1 meal. LABS: Cr 2.13, Glu 177, Ca 8.2, TG 173, Chol 200, (01/02): Alb 2.7 MEDICATIONS: Reviewed. Insulin. GI: No BM noted. SKIN: No issues noted. ANTHROPOMETRICS: Wt: 105.6 kg, BMI 34.4 kg/m2, Admit wt: 105.6 kg, IBW: 72.7 kg. ESTIMATED NEEDS: BMI Calories: 3971-8415 kcal/day (20-22 kcal/kg BW) Protein: 87-109 g/day (1.2-1.5 g/kg IBW) NUTRITION DIAGNOSIS: 1) No diagnosis at this time. INTERVENTION: 1) No intervention at this time. MONITOR/EVALUATE: PO intake, diet tolerance, labs, GI/nutrition status. Follow per moderate nutrition risk guidelines.
--- NOTE | 2017-01-03 11:20 | NUR ---
Wound Note Wound evaluation order received, patient seen at bedside. Patient has been seen at wound center in the past for treatment of right foot diabetic ulcerations, apparently patient was admitted to [facility] after CPR at the [facility] this past weekend. Patient presents with a right plantar great toe ulcer that is 0.5 cm L x 0.2 cm W x 1 cm D. In the web space between the great toe and second toe there is a 1.5 cm L x 0.3 cm W x 0.5 cm D ulcer. Both wounds are cleaned with saline, there is no erythema or odor to these wounds. Wounds redressed with aquacell AG moist with gauze and covered with dry 2 x [address] this dressing can be changed by nursing on a 48 hour basis, next dressing change due 01/05.
--- NOTE | 2017-01-03 12:11 | PCM.PNMED ---
Subjective Date of Service January 03, 2017 Subjective 61-year-old man with coronary artery disease, type II diabetes mellitus, COPD presents after episode of sudden cardiac at [facility] prior to admission. Continued acute respiratory failure with hypoxia, desaturation even with CPAP at FiO2 35%. Complains of musculoskeletal chest pains following CPR. Otherwise no complaints this morning. He subsequently developed acute unresponsiveness, V. fib on monitor, pulseless on exam. CODE BLUE was called. CPR was initiated but he spontaneously converted to sinus rhythm. He was verbally responsive immediately. Bradycardic. Received atropine but no defibrillation. Exam Vital Signs Vital Sign - Last Date Time Temp Pulse Resp B/P Pulse Ox O2 Delivery O2 Flow Rate FiO2 01/03/17 07:41 41 20 164/53 99 35 01/03/17 07:34 CPAP/BIPAP 01/03/17 07:34 36.7 01/03/17 01:51 3.00 Intake and Output 01/02/17 01/02/17 01/03/17 Cumulative From/Thru 15:00 23:00 07:00 01/02/17 05:15 - 01/03/17 06:21 Intake Total 677 ml 160 ml 837 ml Output Total 325 ml 200 ml 525 ml Balance 352 ml -40 ml 312 ml Intake Oral 200 ml 100 ml 300 ml IV Total 477 ml 60 ml 537 ml Output Urine Total 325 ml 200 ml 525 ml # Voids 1 1 # Bowel Movements 0 0 Exam General: Obese slightly disheveled complaining of chest pain HEENT: sclerae anicteric, oral mucosa moist Neck: Difficult to assess JVD Chest: clear to auscultation Cardiac: Regular, S1S2, no murmur Abdomen: Protuberant, BS normal, non-tender Extremities: No peripheral edema; right first toe in bandage Neuro: A&O, cranial nerves symmetric, motor strength 5/5, coordination normal IVs and Medications Medications Reviewed: Medications were reviewed in detail Lab and Diagnostics Troponin series: 0.09, 0.7, 0.40, 0.47 TSH is normal Serum creatinine: 1.63, 2.13 Result Diagram: 01/03/1724401/03/17244 X-Rays, CTs and MRIs PROCEDURE: X-RAY CHEST ONE VIEW, PORTABLE ([id number]) FINDINGS: Lungs and pleura: No pneumothorax. Trace right-sided pleural fluid collection noted. Cephalization of the pulmonary vasculature and perihilar opacities compatible with CHF. Mediastinum: Mediastinal contours appear normal. Heart size is normal. IMPRESSION: CHF. Dictated by: Bryanna Millan MD, PhD on 01/02/2017 at 9:13 . 12-lead ECG On admission 01/02/2017 Bradycardia rate 50, Lateral T-wave inversion, downsloping ST depression V3-V6 . Cardiac Echo Impressions Interpretation Summary Left ventricular wall thickness is mildly increased. Left ventricular systolic function is normal. The ejection fraction is estimated to be 60-65%. There is basal inferoseptal wall hypokinesis. There is basal inferior wall hypokinesis. The right ventricle grossly appears normal in size with probable normal systolic function. The right ventricular systolic pressure is estimated at 62 mmHg assuming a right atrial pressure of 15 mm Hg. The left atrium is moderately dilated. The right atrium is moderately dilated. There is mild mitral regurgitation. There is mild aortic regurgitation. There is moderate tricuspid regurgitation. The aortic root is normal size. The IVC is dilated (diameter is greater than 2.1 cm) and it collapses less than 50% with a sniff. This suggests a high right atrial pressure of 15 mm Hg. . Additional Diagnostics Coronary angiogram 01/02/17 RESULTS: 1. Selective angiogram: a. Left main coronary artery is short and has 20-30% stenosis at its origin. There is pressure damping with a guide catheter engagement. b. The left anterior descending artery is transapical and has focal 70% stenosis in the midportion. The diagonal branch has minor irregularity. c. The circumflex artery has 50% stenosis distal to the takeoff of the first obtuse marginal branch. The first obtuse marginal branch has 50% stenosis at its origin. d. The dominant right coronary artery is chronically occluded in the proximal portion. 2. The left internal mammary artery is normal. It supplied the chest wall. This is not used for bypass. 3. Left ventricular angiogram demonstrates mildly depressed left ventricular systolic function (visually estimated ejection fraction 40%). The inferior wall is moderately hypokinetic. The remaining segments contract normally. 4. There is no gradient across the aortic valve on catheter withdrawal. 5. Left ventricular pressure is 140/14 mmHg. Aortic pressure is 143/62 mmHg. 6. Left ventricular end-diastolic is 35 mmHg. 7. There is 5 mm pressure gradient across the proximal portion of the left subclavian artery. 8. Bilateral external iliac arteries are calcified. There is moderate to severe stenosis of the left common femoral artery. There are stents present in bilateral superficial femoral arteries. CONCLUSION: 1. A 70% mid left anterior descending artery stenosis. 2. Chronic occlusion of the right coronary artery. 3. LVEF 40%. 4. LVEDP is 35 mmHg. 5. Significant peripheral artery disease. Shirley Mcdaniel MD 01/02/17 0437 Assessment & Plan Beto Manrique is a 61 year old man with past medical history significant for coronary artery disease status post CABG, peripheral artery disease, hyperlipidemia, diabetes mellitus insulin-dependent and presented to the [facility] ER due to a cardiac arrest in the field. Cardiac arrest, acute prior to admission. Due to acute ischemic disease with inferior TX. Repeat cardiac arrest on 01/03/17 was brief. - Scheduled for AICD placement cardiology -Probably requiring intubation for procedure and subsequent respiratory failure management Sinus bradycardia, chronic. Maintain pacer pads until AICD pacemaker is in place -Continue to monitor on telemetry. -Avoid beta lauri Acute respiratory failure with hypoxia, acute and chronic. Observed to desaturate on FiO2 0.35 with CPAP. Probable acute restrictive disease due to his chest pain and underlying JAGRUTI. - Monitor O2 sat - Ventilator and/or CPAP management following cardiac procedure Acute ischemic congestive heart failure, present on admission. - Diuresis Acute NSTEMI, with chronic Coronary artery disease status post CABG. catheterization on 01/02. - Continue aspirin, clopidogrel, statin - Further management per cardiology service Pain control, acute, present on admission. Patient is moderately symptomatic from chest compressions. He is also hypoventilatory and high risk for opioid induced respiratory failure - Intravenous acetaminophen - Opioid analgesics only with careful respiratory monitoring Leukocytosis, acute, present on admission. No evidence for focal infection. Likely stress response. - Continue to monitor clinically for any signs of infection. Diabetes mellitus, insulin-dependent, uncontrolled -A1c from 11/01/2016 was 9.8 -Medium dose lispro correctional. - Initiate basal insulin - Resume Diabetic diet after completed procedure, unless he requires prolonged ventilation Acute kidney injury, not present on admission. Creatinine now rising after episodes of arrhythmia, ventricular fibrillation and CPR. Possibly acute tubular necrosis related to cardiac arrest. Underlying Chronic kidney disease, likely secondary to poorly controlled diabetes - Monitor urine output Hypertension -Hold off on BP medications at this time Hyperlipidemia -Continue statin Nicotine dependence -Counseled on smoking cessation at time of admission -Offered nicotine patch Pain Evaluation: Pain not Controlled VTE Prophylaxis: Sub-Q Heparin (Unfractionated) VTE Mechanical Devices: Intermittant Pneumatic CD Resuscitation Status: CPR: Attempt Resuscitation Time spent 55 minutes critical care time Sumanth Aviles MD January 03, 2017 12:11
--- NOTE | 2017-01-03 12:22 | PCM.HPANE ---
Patient Data Surgeon Admitting Provider:Shirley Mcdaniel MD Attending Provider:Shirley Mcdaniel MD Primary Care Physician:Haley Swift PA-C Other Provider: Reason for Visit STEMI Ht/WT & BMI Height (Feet): 5 Height (Inches): 9.00 Weight (Kilograms): 105.600 Body Mass Index 34.48 Allergies Coded Allergies: lisinopril (Verified Adverse Reaction, Severe, COUGH, 12/10/16) simvastatin (Verified Adverse Reaction, Severe, MYALGIAS, 12/10/16) Past Anesthesia History Anesthesia History: Denies:: Abnormal Airway, Anesthesia Reactions, Difficult Intubation, Fam Anesthesia Reaction, Fam Malignant Hypertherm, Malignant Hyperthermia Diabetes History Hx Diabetes?: Yes Type of Diabetes: Type II Glycemic Control: Insulin & Oral Medication Current Bedside Blood Glucose: 171 MRSA MRSA: Yes (in leg after surgury) Medications Blood Thinner: Plavix Hypertension Medication: No Home Meds Incl Beta Dwight: No Active Scripts oxyCODONE-Acetaminophen 5-325 mg 1 Each Tablet1 Tab PO Q6H PRN For Pain #20 TABLET Ref 0 Prov:Danitza Mendez L DO 12/15/16 Amoxicillin/Clav K 875-125 mg (Augmentin 875-125 mg)1 Each Tablet1 Tablet PO BID #16 TABLET Ref 0 Prov:Danitza Mendez L DO 12/15/16 Polyethylene Glycol 3350 (Miralax)17 Gm Powd.pack17 Gm PO DAILY #20 Prov:Danitza Mendez L DO 12/15/16 Insulin Human Lispro (HumaLOG U100 Insulin Vial)100 Unit/Ml Unit Subq Wmhs #2 Vial Check blood sugars before meals and at bedtime. Use correction factor only before meals. Blood Sugar Lispro Correction: <151, 0 units; 151-175, 1 unit; 176-200, 2 units; 201-225, 3 units; 226-250, 4 units; 251-275, 5 units; 276-300, 6 units; 301-325, 7 units; 326-350, 8 units; 351-375, 9 units; 376-400, 10 units; >400, 12 units. Prov:Danitza Mendez L DO 12/15/16 Linezolid 600 Mg Bzjneg035 Mg PO BID #16 TABLET Prov:Danitza Mendez L DO 12/15/16 Insulin Glargine (Lantus U100 Solostar Insulin Pen)100 Unit/1 Ml Insuln.pen60 Units SUBQ HS #30 PENINJ Prov:Danitza Mendez DO 12/15/16 Reported Medications Losartan Potassium 100 Mg Tablet #90 01/02/17 Furosemide 20 Mg Tab40 Mg PO DAILY #90 01/02/17 Hydrochlorothiazide 25 Mg Tablet #90 01/02/17 Amlodipine 10 Mg Wuigdr11 Mg PO QAM Ref 0 12/10/16 Pravastatin 20 Mg Jfmwrt85 Mg PO QAM Ref 0 11/17/16 Duloxetine 30 Mg Capsule.dr30 Mg PO QAM #90 10/29/16 Clopidogrel 75 Mg Liqjwc03 Mg PO QAM #90 10/29/16 Gabapentin 300 Mg Gnylejq912 Mg PO HS #180 10/29/16 History History of ENT Problems?: No HEENT History: Denies:: Abnormal Airway Cataracts Difficult Intubation Dysphagia Glaucoma Hearing Problem Sinus Problem TMJ Denture Type: None Teeth Condition: Within Normal Limits Hx of Heart Problems?: Yes Cardiovascular History: Positive for:: Cardiac Surgery Chest Pain Edema Heart Murmur Hypertension Irregular Heartbeat Denies:: Congestive Heart Failure Pacemaker Thrombophlebitis Other Cardiac History: Admitted for cardiac arrest, [place] Cardiac arrest 15 minutes prior to scheduled pacemaker/AICD. Hx of Respiratory Problem?: Yes Respiratory History: Positive for:: COPD Denies:: Tuberculosis Use of C-PAP Machine (SNORES) Other Resp Pertinent History: Obstructing with minimal sedation overnight. Hx Neurologic Problems?: Yes Neurological History: Positive for:: Dizziness Headaches Denies:: Alzheimer's Disease CVA Dementia Parkinson's Disease Seizures Hx of GI Problems?: No Hx of Problems?: No Genitourinary History: Denies:: HX of Hemodialysis Kidney Stones Urinary Tract Infection HX of Peritoneal Dialysis: No Male Hx: Denies:: Prostate Problems Scrotal Mass Testicular Surgery Skin History: Positive for:: Pressure Ulcers (RT FOOT WOUND INFECTION=CURRENT PROBLEM) Denies:: History Skin Disorders? Hx Musculoskeletal Problems?: Yes Musculoskeletal History: Denies:: Back Injury Joint Replacement Musculoskeletal Trauma Hx of Psycho/Social Problems?: No Psycho Social History: Denies:: Anxiety Bipolar Disorder Hx Depression Suicide Attempt Hx Surgeries?: Yes (multiple) Hx Any Other Health Problems?: Yes Other History: Positive for:: Hospitalization (multiple) Denies:: Cancer Endocrine Disease Thyroid Disease History Blood Transfusions: Positive for:: Accept Blood Products? Denies:: Blood Transfuse Reaction Blood Transfusions Hx Diabetes: YesBedside Blood Glucose: 171 Hx Alcohol Use: NoHx Substance Use: No Smoking Status: Current Every Day Smoker Have You Smoked inLast 12 mo: YesApprox How Many Cigarettes/day: 30 Stop/Bang Treated for Sleep Apnea?: No Do You Have a CPAP Machine?: No S-Snoring: Do You Snore Loudly: Yes T-Tired: feel tired, fatigued: Yes O-Obsered: Observed not breath: Yes P-Blood Pressure: treated: Yes B- Body Mass Index > 35 kg/m2: No A- Age over 50: Yes N- Neck Large Circumference: Yes G- Gender Male: Yes JAGRUTI Total Score: 6 JAGRUTI Risk Assessment: High Risk, =/>3 Yes JAGRUTI Category 2: Yes Risk Assessment Category Category 1A: Patient has history of documented sleep apnea, and HAS NOT received any narcotic, sedative or anesthesia administration during this stay. Category 1B: Patient has history of documented sleep apnea, and HAS received any narcotic , sedative or anesthesia administration during this stay Category 2: Patient has SUSPECTED Obstructive Sleep Apnea, and HAS received any narcotic , sedative or anesthesia administration during this stay. Category 3: Patient has SUSPECTED Obstructive Sleep Apnea and HAS NOT received narcotic, sedative or anesthesia administration during this stay. Category 4: Outpatient in Procedural Areas with known sleep apnea or who screen positive for High Risk via the STOP/BANG questionnaire. Exam Exam Vital Signs Vital Signs Date Time Temp Pulse Resp B/P Pulse Ox O2 Delivery O2 Flow Rate FiO2 01/03/17 07:41 41 20 164/53 99 35 01/03/17 07:34 CPAP/BIPAP 01/03/17 07:34 36.7 40 16 164/53 97 BiPAP 35 01/03/17 04:00 36.2 39 19 134/49 98 BiPAP 35 01/03/17 03:58 39 01/03/17 03:58 CPAP/BIPAP General Appearance: Alert, Oriented X3, Moderate Distress (agitated) HEENT/AIRWAY: MP 3 Lungs: Clear to Auscultation, Normal Air Movement Heart: Exam Unremarkable, Regular Rate/Rhythm, No Murmurs/Rubs/Gallops Meds/Labs/Diagnostics Admission Meds Current Medications Atorvastatin Calcium (Lipitor) 40 mg HS PO Last administered on 01/02/17 20:32 ; Start 01/02/17 at 21:00 Aspirin (Aspirin Chewable) 81 mg DAILY PO Last administered on 01/03/17 08:49 ; Start 01/03/17 at 08:30 Clopidogrel Bisulfate (Plavix) 75 mg DAILY PO Last administered on 01/03/17 08 :49; Start 01/03/17 at 08:30 Insulin Human Lispro (HumaLOG Insulin Inj) Nutritional Dose to be given pr... [facility] SUBQ Last administered on 01/03/17 07:47; Start 01/02/17 at 17:30 Heparin Sodium (Porcine) (Heparin Inj) 5,000 unit Q8 SUBQ Last administered on 01/03/17 08:50; Start 01/02/17 at 16:30 Gabapentin (Neurontin) 600 mg HS PO Last administered on 01/02/17 20:32; Start 01/02/17 at 21:00 Bedside Blood Glucose: 171 Labs Test 01/02/17 02:40 01/02/17 05:30 01/02/17 16:44 01/03/17 02:45 Band Neutrophils % 6% (1-5) Metamyelocytes % 3% (0-0) Total Bilirubin 0.2mg/dL (0.0-1.2) Aspartate Amino Transf (AST/SGOT) 42U/L (0-50) Alanine Aminotransferase (ALT/SGPT) 29U/L (0-44) Alkaline Phosphatase 82U/L (25-160) Total Protein 6.1g/dL (6.4-8.4) Albumin 2.7g/dL (3.4-5.0) Magnesium Level 2.3mg/dL (1.6-2.6) Thyroid Stimulating Hormone (TSH) 3.910uIU/mL (0.450-4.500) Total Creatine Kinase 471U/L (21-232) Creatine Kinase MB 24.8ng/mL (0.0-10.4) Creatine Kinase MB % 5.3% (0.0-5.0) Troponin T 0.474ug/L (0.0-0.011) White Blood Count 10.7th/mm3 (3.8-10.1) Red Blood Count 2.72mil/mm3 (4.40-5.80) Hemoglobin 8.0g/dL (13.8-17.2) Hematocrit 25.2% (41.0-50.0) Mean Corpuscular Volume 92.6fL (81-100) Mean Corpuscular Hemoglobin 29.4pg (27.0-35.0) Mean Corpuscular Hemoglobin Concent 31.7% (32.0-37.0) Red Cell Distribution Width 16.2% (12.3-15.4) Platelet Count 316bil/L (150-400) Neutrophils (%) (Auto) 72.9% (40-74) Lymphocytes (%) (Auto) 16.5% (14-46) Monocytes (%) (Auto) 9.4% (4-12) Eosinophils (%) (Auto) 0.3% (0-5) Basophils (%) (Auto) 0.3% (0-3) Sodium Level 134mEq/L (134-144) Potassium Level 5.1mEq/L (3.5-5.2) Chloride Level 100mEq/L (97-108) Carbon Dioxide Level 20mmol/L (18-29) Blood Urea Nitrogen 27mg/dL (8-27) Creatinine 2.13mg/dL (0.76-1.27) Estimat Glomerular Filtration Rate 34mL/min (>59) Glucose Level 177mg/dL (60-99) Calcium Level 8.2mg/dL (8.5-10.1) Triglycerides Level 173mg/dL (0-149) Cholesterol Level 200mg/dL (100-199) LDL Cholesterol, Calculated 128.400mg/dL (0-99) VLDL Cholesterol 34.600mg/dL HDL Cholesterol 37mg/dL (>39) Cholesterol/HDL Ratio 5.41 (0.0-4.4) Hold Briceno Top Tube Received (Received) Plan Impression Patient chart reviewed, patient interviewed and anesthestic plan with risks, benefits, and alternatives discussed, and informed consent obtained. NPO per Anesth. Guidelines: Yes ASA Physical Status: ASA4 Plus Emergency Anesthetic Support Modalities: Halsey Scope, Arterial Line Anesthetic Plan: GA (given unable to protect airway with minimal sedation) Bene/Risks/Altern/Consents: Yes HP Complete Prior to Induction: Yes Christiano Bundy MD January 03, 2017 11:39
[2017-01-03] MEDS ORDERED: Bupivacaine-MPF 0.5% 30 mL Inj ONE (12:31)
[2017-01-03] MEDS ORDERED: Heparin 10,000 Unit/1,000 mL NS Premix IV ONE (12:31)
[2017-01-03] MEDS ORDERED: Vancomycin 1,000 mg Inj ONE (12:32)
[2017-01-03] MEDS ORDERED: Water for Injection 50 ML IV ONE (12:32)
[2017-01-03] MEDS ORDERED: 0.9% Sodium Chloride 250 ML ONE (12:32)
--- NOTE | 2017-01-03 12:39 | NUR ---
Pt went into v-fib/torsades at 1143hrs. grinding and polishing laborer at 1240hrs. Code was called and team responded to pt room. See code sheet for details. Pt was given CPR and 1mg Atropine and he had ROSC from titi rhythm up to 90's. He was manually bagged until he maintained his own airway and then was on oxy mask at 15l for sats 99-100%. Pt woke up and was complaining of pain across his chest after the CPR. Pt was drowsy but responding to his family. He was already going to pathology laboratory technologist for his AICD at around this time and the gyro mechanic came up to see pt prior to his going to the lab. Pt left CCU for the pathology laboratory technologist at 1240hrs. Pt was stable at time to transfer to pathology laboratory technologist.
[2017-01-03] MEDS ORDERED: Vancomycin 1,000mg/200 mL NS IV ONE ×2 (12:45→12:55)
[2017-01-03] MEDS ORDERED: Vancomycin Inj 1,000 MG in IV Premix 1 EACH IV ONE (12:55)
[2017-01-03] MEDS ORDERED: Amiodarone 360 mg/200 mL D5W 360 MG, Filter, Taxol 14256-28 1 EACH in IV Premix 1 EACH IV SCH (15:25)
[2017-01-03] MEDS ORDERED: Amiodarone 150 mg/100 mL D5W 150 MG in IV Premix 1 EACH IV ONE (15:25)
--- NOTE | 2017-01-03 15:27 | PCM.ANEP1 ---
Post Anesthesia PACU Phase 1 Assessment Vital Signs Vital Signs Date Time Temp Pulse Resp B/P Pulse Ox O2 Delivery O2 Flow Rate FiO2 01/03/17 07:41 41 20 164/53 99 35 01/03/17 07:34 CPAP/BIPAP 01/03/17 07:34 36.7 40 16 164/53 97 BiPAP 35 Anesthetic Administered: GA Level of Alertness: Drowsy, not talking GE's with Equal Strength: Yes Pain: No Nausea or Vomiting: No CV Function and Hydration: Yes Airway Device: Endotrachial Tube Oxygen Delivery: Mechanical Ventilator Lungs: Clear to Auscultation, Normal Air Movement Summary VSS, see RN notes in CCU for vital signs PACU Phase 2 Assessment Complications: No Follow up Care: N/A Patient Instructions Provided: N/A Christiano Bundy MD January 03, 2017 15:27
[2017-01-03] MEDS ORDERED: IV Premix 1 EACH IV ONE ×2 (15:41→23:07)
[2017-01-03] MEDS ORDERED: Amiodarone 360 mg/200 mL D5W Premix IV ONE ×2 (15:41→23:07)
--- NOTE | 2017-01-03 15:47 | NUR ---
spiritual care: staff/code supportive care to family in room during code response and following as pt went to medical lab director, underwent procedure. Family hopeful and eager for reports from medical team.
--- NOTE | 2017-01-03 16:10 | DRSVH ---
PROCEDURE: X-RAY CHEST ONE VIEW, PORTABLE ([id number]) INDICATIONS: For new leads placed and ET tube placement TECHNIQUE: One view of the chest was acquired. COMPARISON: [facility], CR, XR CHEST 1VW (PORTABLE), 01/02/2017, 2:25. FINDINGS: Surgical changes and devices: Interval pacemaker is noted. Sternal wires are present consistent with previous bypass procedure. ETT is present 3.1 cm above the kemi. Lungs and pleura: No pneumothorax. Left base is partially obscured by overlying pacer. Trace right pl eural effusion is unchanged. Overall appearance of increased pulmonary vascularity is noted, although less prominent when compared to 01/02/17. Mediastinum: Mediastinal contours appear normal. Heart size is normal. Bones and chest wall: No suspicious bony lesions. Overlying soft tissues appear unremarkable. IMPRESSION: Interval pacemaker as above. Dictated by: Montserrat Francois M.D. on 01/03/2017 at 16:07 Approved by: Montserrat Francois M.D. on 01/03/2017 at 16:08
[2017-01-03] MEDS: Propofol Inj 1,000,000 MCG in IV Premix 1 EACH IV SCH ×2 (16:32→19:57)
[2017-01-03] MEDS: fentaNYL 2,500 mCg/250 mL 2,500 MCG in IV Premix 1 EACH IV SCH (16:34)
[2017-01-03] MEDS: 0.9% Sodium Chloride 1,000 ML IV SCH ×2 (16:34→19:56)
--- NOTE | 2017-01-03 16:44 | ABG ---
DateTimeAnalyzed 16:39:00 -_ pH ____7.376 - 7.350 7.450 pCO2 ___38.6__ -mmHg 35.0 45.0 pO2 ___75.2__ -mmHg 69.0 116 HCO3- ___22.1__ -mmol/L 22.0 26.0 ABE ___-2.3__ -mmol/L -2.0 2.0 tHb ____7.3__ -g/dL O2Hb ___93.4__ -% COHb ____1.3__ -% MetHb ____1.2__ -% sO2 ___95.8__ -% 25.0 FIO2 ___60.0__ -% PRVC 18 - PEEP ____5.0__ -cmH2O Vt __500.0__ -L Drawn By gj - Date/Time Notified____ 16:44:00 -_ Spontaneous_RR ___18.0__ -b/min Oxygen Device 1 VENTILATOR - Notified By gj - Notified Whom ___DR. KENDREGAN - B 759 -mmHg tO2 ____9.7__ -Vol% Roshan test N/A -
--- NOTE | 2017-01-03 16:45 | NUR ---
Pt returned from quality assurance qa lab technician at approx 1515hrs Pt arrived from quality assurance qa lab technician intubated and was placed on the vent in pt's room. He is atrially paced approx 90% of the time rates in the 60's. BP 140's sys. I have restrained the pt per protocol to protect tubes and lines. Pt was started on Amiodarone IV per cardiology. He was also started on propofol and fentanyl per sedation protocol. Murillo was placed for adequate I&O's. OG was placed to decompress stomach. sputum was sent by RT. Pt's family is at the bedside and has been updated by cardiology and pulmonology.
--- NOTE | 2017-01-03 16:55 | PROG NOTE ---
[address] [address] PROGRESS NOTE PATIENT: NIKOLAY ROYAL : 1955 MR#: [id number] ADMIT: 01/02/2017 JOB ID: [id number] DATE: 01/03/2017 IDENTIFICATION: The patient is a pleasant 61-year-old man with known ischemic heart disease, status post bypass grafting, preserved LV function, known sick sinus syndrome with previous recommendation for pacemaker implant who presents to the hospital with esw-al-zlbjdhsd VF arrest. He did not have ST elevations on arrival, and did require defibrillator shocks externally in the field. He has remained hemodynamically stable during his hospitalization. He underwent angiography that revealed coronary artery disease with a 70% LAD lesion but no acute culprit lesion for his arrest, no intervention was performed. He has remained bradycardic and on one occasion earlier this afternoon had another bout of self-terminating VF not requiring shock but due to an RLT phenomenon with consequent torsade. He received chest compressions and had spontaneous resumption of profound sinus bradycardia. IMPRESSION AND RECOMMENDATION: The patient is a pleasant 61-year-old man with ischemic heart disease, bypass grafting, preserved LV function, sick sinus syndrome and now recurrent VF arrest without an acute coronary syndrome. He had troponin elevation due to his cardiac arrest and reperfusion, but did not have any acute changes on his ECG. Perhaps his bradycardia is contributing to his ventricular dysrhythmia. Regardless, given his VF arrest and no reversible lesion identified, I recommended dual-chamber ICD implantation both for secondary prevention of sudden cardiac arrest and to treat his sick sinus syndrome. I described the implant to him and his in detail including risks and benefits and ultimately they wished to proceed. RECOMMENDATION: Dual-chamber ICD implantation. Thank you very much for allowing me to participate in the care of this patient. Please call with any questions. I spent one hour with the patient coordinating his care and greater than 50% of the time was spent in counseling.
--- NOTE | 2017-01-03 19:21 | NUR ---
P: Resp, Hemodynamics, Social I,E: Pt is on the vent, sats 97-99%. Pt is sedated on propofol and fentanyl for pain. Pt is paced approx 90% of the time BP130's to 140's sys. UOP approx 350cc today with incontinent X one. Amiodarone infusing at 1mg/hr for 6 hrs and then will decrease to .5mg. Family in the room, they have been updated by 'bradford.
--- NOTE | 2017-01-03 20:25 | CONS ---
[address] [address] CONSULTATION REPORT PATIENT: NIKOLAY ROYAL : 1955 MR#: [id number] ADMIT: 01/02/2017 JOB ID: [id number] DATE OF SERVICE: MECHANICAL VENTILATION INITIAL SETUP CONSULTATION: REQUESTING PHYSICIAN: Sumanth Aviles MD. REASON FOR CONSULTATION: Initiation of mechanical ventilation. HISTORY OF PRESENT ILLNESS: The patient is a 61-year-old, male, looking much older than his stated age, who apparently had a cardiac arrest at the local [facility]. He was given CPR and defibrillation in the field. EKG soon after the arrest showed sinus rhythm with diffuse ST depression. Upon arrival in the emergency department, 21 minutes later, there was an anterior ST depression compatible with a posterior infarct. The patient has coronary artery disease having undergone a single-vessel coronary artery bypass graft in 2001 in [place]. He also suffers from diabetes mellitus, hypercholesterolemia, and peripheral vascular disease, being status post stenting of the mid right superficial femoral artery. MEDICATIONS ON ADMISSION: Include: 1. Amlodipine. 2. Augmentin. 3. Clopidogrel. 4. Duloxetine. 5. Gabapentin. 6. Lantus. 7. Humalog. 8. Linezolid. 9. Polyethylene. 10. Pravastatin. PAST MEDICAL HISTORY: The patient had an infection on his right great toe. Apparently required a surgical intervention. Has been receiving IV antibiotics once a day. Also was reported to have a MRSA infection at the site of a venous graft donor site in his right thigh. SMOKING HISTORY: The patient has smoked 1-1/2 packs a day for many years. Continues to smoke. According to his of 38 years, she cannot recall when he did not snore. On a number of occasions, she has shaken him awake because of apnea. Apparently, he has been encouraged by various physicians to get a sleep study. Patient demurred. ALLERGIES: 1. LISINOPRIL. 2. SIMVASTATIN. OBJECTIVE: Sedated on ventilator. Was on BiPAP after his arrival from the [facility]. Would have episodes of significant desaturation and bradycardia. Had a significant bradycardia in the cardiac catheterization laboratory. Was given atropine with resumption of a reasonable cardiac rate. Did not require CPR. Apparently did have CPR two, maybe three times, once at the [facility], once on transport, and once in the ICU. Eyes: Conjunctivae are pink. Pupils pinpoint. Nose and throat could not be examined. Chest: Fairly good breath sounds bilaterally. Lung harris are clear. No use of accessory muscles. Heart: Regular rhythm. Seems it is paced rhythm, maybe 50% to 75% of the time. Abdomen soft. Nondistended. No apparent tenderness. Extremities: 1+ pretibial edema. Stasis changes in the pretibial area. LABORATORY DATA: Shows a white count of 10,700 with a normal differential. Hemoglobin stable at 8. Platelet count stable at 316,000. Sodium 134, potassium 5.1, chloride 100, CO2 is 20, BUN 27. Creatinine 2, being 1.6 on admission 24 hours previously. Calcium 8.2 with an albumin of 2.7. CK has been 458 to 527, with troponin T of 0.4 on serial occasions. EKG suggests an acute posterior NC. Chest x-ray: After current event in the cardiac catheterization laboratory, shows a trace right pleural effusion, some increased pulmonary vascularity. With a tidal volume of 500, PEEP of 5, rate of 18, peak inspiratory pressure 26, plateau maybe 22. PEEP set at 5, measured at five. ASSESSMENT: 1. Coronary artery disease. Apparent posterior myocardial infarction. 2. Apparent sleep apnea. Will see how he does now that he is ventilated. Question is as to whether he would get hypopneic or apneic only when asleep or would that also happen when he was awake as there may be other issues that need to be dealt with. Will see how he does. Will at the least require a noninvasive positive pressure ventilator to deal with his situation when he is asleep. 3. Family indicates he has never been told he had lung disease. Has never really had problems with shortness of breath. Will see about possibly getting spirometry once the current problems have abated. Do not see any need for bronchodilators at this point in time as there is no evidence of airway obstruction. PLAN: 1. Continue current ventilator setup. 2. Decrease FiO2 until O2 sats reading about 97% at which time, obtain ABGs. 3. Obtain phosphate with tomorrow's blood work. Thank you so much, Dr. Aviles, for asking Pulmonary Service to see this most unfortunate individual. Will follow his ventilatory status closely along with you.
--- NOTE | 2017-01-03 22:16 | OP ---
[address] [address] OPERATIVE REPORT PATIENT: NIKOLAY ROYAL : 1955 MR#: [id number] ADMIT: 01/02/2017 JOB ID: [id number] DATE OF SURGERY: 01/03/2017 PREOPERATIVE DIAGNOSIS(ES): 1. Ventricular fibrillation arrest. 2. Sick sinus syndrome. 3. Coronary artery disease, status post bypass grafting. POSTOPERATIVE DIAGNOSIS(ES): 1. Ventricular fibrillation arrest. 2. Sick sinus syndrome. 3. Coronary artery disease, status post bypass grafting. PROCEDURES PERFORMED: 1. Dual-chamber implantable cardioverter-defibrillator ICD implantation. 2. Fluoroscopy. SURGEON: Jose Tai MD, supercalender operator helper. TEMPORARY STAFF ACCOUNTANT: Brett Rapp. IMPLANTED DEVICES: 1. [employer] pulse generator, model CD 2411, 36Q, serial #[id number]. 2. RA lead [employer] 2088TC 52 cm, serial #[id number]. 3. RV lead VF four single coil, [employer] 7122Q, 58 cm, serial #[id number]. ANESTHESIA: General endotracheal anesthesia was undertaken for this case. INDICATION: The patient is a pleasant 61-year-old man with coronary artery disease, bypass grafting, preserved LV function, VF arrest and sick sinus syndrome. After discussion of risks and benefits of dual-chamber ICD implantation, he opted to proceed. PROCEDURAL DESCRIPTION: Following informed signed consent, the patient was taken to the EP laboratory in a fasting nonsedated state, where he was prepped in the usual sterile fashion. The left infraclavicular region was infiltrated with 40 cc of a 50/50 mixture bupivacaine and lidocaine. Once adequate sedation had been achieved, a 4 cm transverse incision was performed 2 cm below the left clavicle. Dissection was carried down to the pectoralis fascia and a pocket was then fashioned using a combination of electrocautery and blunt dissection. Once had been achieved, access was gotten to the left axillary vein over the first rib twice with a micropuncture needle to deploy two 0.035, 3 mm J guidewires. Over the first of these, a 7-Danish tear-away sheath was advanced was removed. Active fixation RV ICD lead was advanced to the RV outflow tract and ultimately the RV apex. The lead was affixed in position using associated active fixation screw. It was connected to the external analyzer and demonstrated appropriately sensed R waves, impedance and capture threshold was checked to 10 V and there was no evidence of diaphragmatic stimulation. Attention was now paid to the right atrial lead. Over the other previously deployed J guidewire, a 6-Danish tear-away sheath was advanced. Once the guidewire was removed, an active fixation lead was advanced to the right atrial appendage. Extensive mapping for an extended period of time was undertaken to find an area of adequate sensing in the atrium. Ultimately, a lateral position was chosen as the only position with adequately sensed P waves. The lead was affixed in position using associated active fixation screw. The screw was connected to the external analyzer and demonstrated appropriately sensed P waves, impedance capture was checked to 10 V and there was no evidence of diaphragmatic stimulation. Once the position and redundancy of both leads had been confirmed in multiple fluoroscopic views, the leads were anchored to the prepectoralis fascia using their associated anchoring sleeves and two Ethibond sutures. The pocket was then copiously irrigated with antibiotic solution. The leads were connected to a generator. The generator was placed in the pocket and affixed to the floor of the pocket using one 0 Ti-Cron suture. The incision was then closed with running layers of absorbable suture. The wound was dressed with skin adhesive and a small dressing. At the end the procedure, the needle, sponge, and instrument counts were all correct. I specifically did not perform defibrillation threshold testing in this case due to the fact the patient does have an LAD lesion that ought to be addressed percutaneously. He should be brought back for DFT testing once that is accomplished. COMPLICATIONS: None. ESTIMATED BLOOD LOSS: Negligible. DEVICE MEASURED DATA: 1. Right atrial lead greater than 5 mV, 390 ohms, 1 V at 0.5 msec. 2. RV lead 11.7 mV, 580 ohms, 0.5 V at 0.5 msec. FINAL PROGRAM PARAMETERS: 1. DDDR 60-130 beats per minute with VIP on. 2. VF zone at 187 beats per minute. ATP during charge max output shocks thereafter. 3. VT zone at 171 beats per minute with six rounds of ATP followed by shocks. 4. VT monitor zone 150 beats per minute. IMPRESSION: Successful dual-chamber implantable cardioverter-defibrillator pacemaker implantation. PLAN: 1. Stat portable chest x-ray. 2. PA and lateral chest x-ray in the morning. 3. IV vancomycin through tomorrow. 4. Doxycycline 100 mg p.o. daily x7 days starting tomorrow. 5. Wound check in one week. 6. The patient should be brought back for defibrillation threshold testing at a later date. ATTENDING STATEMENT: Jose Tai MD, electrophysiology attending, was present for and supervised/performed all aspects of this procedure.
[2017-01-03] MEDS ORDERED: Atropine 1 mg/10 mL (Code) Syringe ONE (22:47)
[2017-01-04] VITALS (16 sets, daily range): BP systolic 95–148; BP diastolic 53–89; PULSE 60–61; RESP 15–18; O2SAT 95–99
[2017-01-04] MEDS: Propofol Inj 1,000,000 MCG in IV Premix 1 EACH IV SCH ×7 (01:02→23:41)
[2017-01-04] MEDS ORDERED: Vancomycin Inj 1,000 MG in IV Premix 1 EACH IV ONE (02:50)
[2017-01-04 05:17] LABS: BASOPHILS % (AUTO) 0.2 % (0-3); EOSINOPHILS % (AUTO) 1.4 % (0-5); MONOCYTES % (AUTO) 8.7 % (4-12); Mean Corpuscular Hemoglobin 29.4 pg (27.0-35.0); Mean Corpuscular Volume 93.5 fL (81-100); NEUTROPHILS % (AUTO) 74.1 % (40-74); Platelet Count 269 bil/L (150-400)
--- NOTE | 2017-01-04 06:04 | NUR ---
Respiratory & cardiac P: on vent support, sp02 > 95% (fio2 0.60), on propofol and fentanyl gtt sedation, RASS +2 a few times. ABHISHEK chest pacer insertion site with CDI, amio gtt infusing. I: Titrated up sedation. E: vital signs stable, mostly paced beats rate 60, lam drained with 725 cc uo. S: bilateral soft wrist restraints on, no bleeding from pacer site.
[2017-01-04] MEDS: 0.9% Sodium Chloride 1,000 ML IV SCH (07:25)
[2017-01-04 07:43] LABS: Magnesium 2.2 mg/dL (1.6-2.6); Phosphorus 4.2 mg/dL (2.5-4.9)
[2017-01-04] MEDS: Insulin LISPRO 300 Unit/3 mL Inj SUBQ SCH ×2 (08:00→13:38)
--- NOTE | 2017-01-04 08:20 | DRSVH ---
PROCEDURE: X-RAY CHEST ONE VIEW, PORTABLE ([id number]) INDICATIONS: For new lead placement TECHNIQUE: One view of the chest was acquired. COMPARISON: [facility], CR, XR CHEST 1VW (PORTABLE), 01/03/2017, 15:31. FINDINGS: Surgical changes and devices: ETT tip projected 4.8 cm above the kemi. Nasogastric tube tip rosaura ses the GE junction. Stable positioning of left chest AICD. Prior median sternotomy. Lungs and pleura: No pneumothorax. Small bibasilar pleural effusions present and there are mid and b ibasilar patchy air space opacities suspicious for pulmonary edema although pneumonia cannot be exclu ded. Mediastinum: Mediastinal contours appear normal. Heart size is enlarged. Bones and chest wall: No suspicious bony lesions. Overlying soft tissues appear unremarkable. IMPRESSION: 1. Stable positioning of left chest AICD. 2. Mid and basilar pulmonary opacities present suspicious for pulmonary edema and/or pneumonia. 3. Small pleural effusions. Dictated by: Guillermo CUELLAR Interpreted: Montserrat Francois MD on 01/04/2017 at 8:16 Transcribed by: VICKY on 01/04/2017 at 8:19 Approved by: Montserrat Francois M.D. on 01/04/2017 at 10:30
[2017-01-04] MEDS: DULoxetine 30 mg DR Capsule PO SCH (08:30)
[2017-01-04] MEDS: Heparin 5,000 Unit/mL Inj SUBQ SCH ×2 (09:28→17:09)
--- NOTE | 2017-01-04 09:47 | ABG ---
DateTimeAnalyzed 09:42:00 -_ pH ____7.400 - 7.350 7.450 pCO2 ___35.5__ -mmHg 35.0 45.0 pO2 ___85.5__ -mmHg 69.0 116 HCO3- ___21.5__ -mmol/L 22.0 26.0 ABE ___-2.4__ -mmol/L -2.0 2.0 tHb ____7.0__ -g/dL O2Hb ___94.3__ -% COHb ____1.4__ -% MetHb ____1.4__ -% sO2 ___97.0__ -% 25.0 FIO2 ___60.0__ -% PRVC 500 - PEEP ____5.0__ -cmH2O Set_RR ___18.0__ -b/min Vt __500.0__ -L Drawn By NB - Date/Time Notified____ 09:47:00 -_ Oxygen Device 1 VENTILATOR - Notified By NB - Notified Whom DR Peralta/ DR. Kendregan - B 758 -mmHg tO2 ____9.4__ -Vol% Roshan test N/A -
[2017-01-04] MEDS: 0.9% Sodium Chloride 250 ML IV SCH (10:10)
--- NOTE | 2017-01-04 10:22 | NUR ---
NUTRITION FOLLOW-UP: Assess: 61 YO M admitted to CCU with STEMI. Pt is s/p AICD placement. Currently vented after procedure. Received verbal to start TF this am. PMHX: Type 2 DM, HTN, hypercholesterolemia, tobacco use, PAD, CAD, CABG. DIET:NPO LABS: Bun 28, Manager Ed 2.01, Glu 140, Ca 7.7, Alb 2.7 MEDICATIONS: Reviewed. Insulin, propofol currently running at 22ml/hr providing 580kcal/day GI: No BM noted. SKIN: No issues noted. ANTHROPOMETRICS: Wt: 108.4 kg, BMI 35.3 kg/m2, Admit wt: 105.6 kg, IBW: 72.7 kg. ESTIMATED NEEDS: BMI/ VENT Calories: 7985-7308 kcal/day (20-22 kcal/kg BW) Protein: 110-130 g/day (1.5-1.8 g/kg IBW) NUTRITION DIAGNOSIS: 1) Inadequate oral intake related to decreased ability to consume sufficient energy as evidenced by current NPO status INTERVENTION: 1) Received order to start TF. Recommend Glucerna 1.5 @ 10ml/hr. If tolerated, advance by 10ml q 6 hrs until reach goal rate of 52ml/hr to provide 1716kcal (2296kcal w/propofol) and 94g pro (100% kcal and 85% protein needs) 2) Once TF at goal rate recommend 1 packet prosource added/day to better meet protein needs. 3) Adjust goal rate based on daily propofol MONITOR/EVALUATE: NPO/vent, TF start/lewis, labs, GI/nutrition status. Follow per high nutrition risk guidelines.
[2017-01-04] MEDS ORDERED: Furosemide 10 mg/mL 4 mL Inj IVPUSH ONE (10:45)
[2017-01-04] MEDS ORDERED: Amiodarone 360 mg/200 mL D5W Premix IV ONE (10:54)
[2017-01-04] MEDS ORDERED: IV Premix 1 EACH IV ONE (10:54)
--- NOTE | 2017-01-04 11:03 | PROG NOTE ---
[address] [address] PROGRESS NOTE PATIENT: NIKOLAY ROYAL : 1955 MR#: [id number] ADMIT: 01/02/2017 JOB ID: [id number] DATE: 01/04/2017 VENTILATOR MANAGEMENT FOLLOWUP NOTE: PROBLEM: 1. Bradyarrhythmia, status post pacemaker placement. 2. Ventilatory failure requiring intubation. SUBJECTIVE: None. OBJECTIVE: Temperature 36.5, pulse 60, respiratory rate 18 with ventilator set at 18, blood pressure 110/53, O2 sat on FiO2 of 55% and PEEP of 5 is 96%. I and O shows 1.1 liters in, 0.6 liters out. General appearance: Sedated on the ventilator. Currently receiving infusion of fentanyl at 75 mcg/kg/minute, as well as fentanyl 35 mcg/kg/minute. Chest: Fairly good breath sounds bilaterally. Scattered inspiratory crackles throughout both lung harris. Few expiratory adventitial sounds, somewhat low pitched and discontinuous. Heart: Regular rhythm. Heart tones seem normal. Abdomen is soft. It is slightly firm, not really soft. Quiet. Extremities: Warm, 1 to 2+ edema of the thigh, as well as of the hands and lower arms. LABORATORY DATA: Shows a white count of 8700 with a normal differential. Hemoglobin 7.3 slowly decreasing. Was 8.2 two days ago. Platelet count 269,000 and decreasing. Lytes are normal. BUN stable at 28. Creatinine slightly improved at 2.0. Calcium 7.7. Phosphorus normal at 4.2, magnesium normal at 2.2. Chest x-ray reported to show mid and basilar patchy airspace opacities. Vent settings show a peak inspiratory pressure of about 30 with a plateau of 26 on a tidal volume of 500, respiratory rate of 18, PEEP set at 5. PEEP was measured at 9 to 10. Arterial blood gases on those settings showed a pO2 of 85, pCO2 of 35 and pH of 7.40. Vent changes were made with respiratory rate of 15, inspiratory flow of 0.75 seconds resulted in a measured PEEP of 6, maybe occasionally 7. FiO2 was dropped to 0.55. ASSESSMENT: 1. Ventilatory failure. Likely some measure of sleep apnea. Not sure if merely positioning in the supine position along with sleep resulted in obstruction of the airways, resulting in hypoxemia and contributing to his bradyarrhythmia. In any case, he is now intubated. Quite heavily sedated, and we can decrease his propofol. Will need to evaluate him for airway obstruction, as he has a cardiac catheterization scheduled for tomorrow and if sleep apnea is a significant component of his disease, may not do well in the supine position. 2. Auto PEEP. Probably represents obstructive airways disease. Long-time smoker. Even though not taking medications, he has some inspiratory rhonchi. No real wheezes. Expiratory flow seems reasonable, though he does have some auto PEEP suggesting some obstruction of the airways. Will start bronchodilators as well. 3. Anemia. Hemoglobin slowly dropping. Given his probable coronary artery disease, the question of transfusion arises. Not having any particular symptoms right now though he is heavily sedated. On numerous blood thinners. May want to evaluate the right thigh and retroperitoneal area for bleeding. PLAN: 1. Vent change to FiO2 of 0.55, respiratory rate of 15, inspiratory time of 0.75 seconds. 2. Consider blood transfusion. 3. DuoNeb q.4 h. 4. Respiratory therapist indicates she is having difficulty passing the endotracheal tube. Will look at the endotracheal tube with bronchoscopy.
[2017-01-04] MEDS: Albuterol-Ipratropium 3 mL Inhalation Solution NEB SCH ×3 (12:30→19:33)
--- NOTE | 2017-01-04 12:31 | DRSVH ---
PROCEDURE: US ABDOMEN, LIMITED ([id number]) INDICATIONS: evl for retroperitoneal bleed TECHNIQUE: Real-time focused scanning was performed of the abdomen with attention to the appendix, with image do cumentation. COMPARISON: [facility], US, US ARTERY LEG DPLX UNI RT, 12/14/2016, 17:57. FINDINGS: No ultra evidence of pseudoaneurysm or hematoma. The right common and superficial femoral arteries an d right common femoral vein are patent. Minimal right lower quadrant free fluid. IMPRESSION: Normal right groin ultrasound with no evidence of pseudoaneurysm or hematoma. Right commo n and superficial femoral arteries and right common femoral vein are patent. Dictated by: Esdras Paris M.D. on 01/04/2017 at 12:22 Approved by: Esdras Paris M.D. on 01/04/2017 at 12:24
--- NOTE | 2017-01-04 13:35 | ENDO ---
[address] [address] ENDOSCOPY PROCEDURE PATIENT: NIKOLAY ROYAL : 1955 MR#: [id number] ADMIT: 01/02/2017 JOB ID: [id number] DATE OF SERVICE: 01/04/2017 PROCEDURE: Flexible fiberoptic bronchoscopy. PREOPERATIVE DIAGNOSIS: Obstruction of endotracheal tube. POSTOPERATIVE DIAGNOSIS: No obstruction of endotracheal tube. SURGEON: Alf Carver M.D. TEAMCENTER SOLUTION ARCHITECT: None. ANESTHESIA: The patient already intubated for ventilatory failure receiving IV fentanyl and propofol. DESCRIPTION OF PROCEDURE: The respiratory therapist was unable to pass a suction catheter. The patient was able to be ventilated rather easily on the ventilator but concerned about obstruction or malposition of the endotracheal tube was entertained. Informed consent was obtained from the patient's over the phone. Risks discussed. Benefits of knowing whether endotracheal tube was now positioned or malfunctioning were discussed. The patient was left on the mechanical ventilator. He was given additional 20 mcg of fentanyl IV push. The bronchoscope was passed through the endotracheal tube. There were no kinks or obstruction of the endotracheal tube. Bronchoscope passed easily. No herniation of the cuff across the opening of the endotracheal tube nor was the endotracheal tube up against the trachea mucosa. Tube was in good position. There were some thin secretions in both the right upper lobe and left upper lobe at its takeoff. They were easily removed. Distally the airways were patent. Moderate degree of mucosal erythema and some edema. There was some dynamic airway compression with exhalation. The patient tolerated her procedure well. No arrhythmias or hypoxemic episodes were noted throughout the procedure. SPECIMENS OBTAINED: None. End of dictation of a bronchoscopic report evaluating the patency of the endotracheal tube.
[2017-01-04] MEDS: fentaNYL 2,500 mCg/250 mL 2,500 MCG in IV Premix 1 EACH IV SCH (13:36)
--- NOTE | 2017-01-04 14:20 | NUR ---
PICC/BLOOD: P: 2 Units of PRBC ordered for H/H 7.3/23.2. IV access limited to 2 PIV. I: No obvious signs of bleeding. BP stable. notified of need for additional IV access. Krystyna rec'd for PICC placement. IV therapy contacted and notified of order. Consents rec'd for both blood and PICC placement. E: IV therapy assessing patient for PICC placement now. Will transfuse ordered PRBC when line is placed. Will continue to monitor patient, vitals and for signs of bleeding. Addendum: 01/04/17 at 1927 by COLLEEN COUCH RN First unit of PRBC has been transfused and Lasix 40mg IVP was administered. Report given to ZAIRE tobin RN to transfuse second unit of blood and recheck H/H after second transfusion is complete.
--- NOTE | 2017-01-04 15:21 | PCM.PNMED ---
Subjective Date of Service January 04, 2017 Subjective 61-year-old man with coronary artery disease, type II diabetes mellitus, COPD presents after episode of sudden cardiac at [facility] prior to admission, probable acute ischemic CAD, with recurrent inpatient cardiac arrest on 01/03, now intubated and status post AICD defibrillator placement. Patient is sedated on ventilator and unable to give history today. Exam Vital Signs Vital Sign - Last Date Time Temp Pulse Resp B/P Pulse Ox O2 Delivery O2 Flow Rate FiO2 01/04/17 13:02 Ventilator 01/04/17 13:02 36.7 60 15 118/60 95 01/04/17 12:30 55 01/03/17 01:51 3.00 Intake and Output 01/03/17 01/03/17 01/04/17 Cumulative From/Thru 15:00 23:00 07:00 01/02/17 05:15 - 01/04/17 06:00 Intake Total 1010 ml 1796 ml 3643 ml Output Total 400 ml 825 ml 1750 ml Balance 610 ml 971 ml 1893 ml Intake Oral 10 ml 310 ml IV Total 1000 ml 1796 ml 3333 ml Tube Irrigant 0 ml 0 ml Output Urine Total 350 ml 725 ml 1600 ml Gastric Drainage Total 50 ml 100 ml 150 ml # Voids 1 # Bowel Movements 0 Exam General: Obese man sedated on ventilator HEENT: sclerae anicteric, oral mucosa moist Neck: Difficult to assess JVD Chest: Large airway sibilant ronchi; pacemaker site with minimal swelling and erythema. Cardiac: Regular, S1S2, no murmur Abdomen: Protuberant, BS normal, non-tender Extremities: No peripheral edema; right first toe in bandage Neuro: A&O, cranial nerves symmetric, motor strength 5/5, coordination normal IVs and Medications Medications Reviewed: Medications were reviewed in detail Lab and Diagnostics Result Diagram: 01/04/17 0500 01/04/17 0500 X-Rays, CTs and MRIs PROCEDURE: X-RAY CHEST ONE VIEW, PORTABLE ([id number]) FINDINGS: Lungs and pleura: No pneumothorax. Trace right-sided pleural fluid collection noted. Cephalization of the pulmonary vasculature and perihilar opacities compatible with CHF. Mediastinum: Mediastinal contours appear normal. Heart size is normal. IMPRESSION: CHF. Dictated by: Bryanna Millan MD, PhD on 01/02/2017 at 9:13 . 12-lead ECG On admission 01/02/2017 Bradycardia rate 50, Lateral T-wave inversion, downsloping ST depression V3-V6 . Cardiac Echo Impressions Interpretation Summary Left ventricular wall thickness is mildly increased. Left ventricular systolic function is normal. The ejection fraction is estimated to be 60-65%. There is basal inferoseptal wall hypokinesis. There is basal inferior wall hypokinesis. The right ventricle grossly appears normal in size with probable normal systolic function. The right ventricular systolic pressure is estimated at 62 mmHg assuming a right atrial pressure of 15 mm Hg. The left atrium is moderately dilated. The right atrium is moderately dilated. There is mild mitral regurgitation. There is mild aortic regurgitation. There is moderate tricuspid regurgitation. The aortic root is normal size. The IVC is dilated (diameter is greater than 2.1 cm) and it collapses less than 50% with a sniff. This suggests a high right atrial pressure of 15 mm Hg. . Additional Diagnostics Coronary angiogram 01/02/17 RESULTS: 1. Selective angiogram: a. Left main coronary artery is short and has 20-30% stenosis at its origin. There is pressure damping with a guide catheter engagement. b. The left anterior descending artery is transapical and has focal 70% stenosis in the midportion. The diagonal branch has minor irregularity. c. The circumflex artery has 50% stenosis distal to the takeoff of the first obtuse marginal branch. The first obtuse marginal branch has 50% stenosis at its origin. d. The dominant right coronary artery is chronically occluded in the proximal portion. 2. The left internal mammary artery is normal. It supplied the chest wall. This is not used for bypass. 3. Left ventricular angiogram demonstrates mildly depressed left ventricular systolic function (visually estimated ejection fraction 40%). The inferior wall is moderately hypokinetic. The remaining segments contract normally. 4. There is no gradient across the aortic valve on catheter withdrawal. 5. Left ventricular pressure is 140/14 mmHg. Aortic pressure is 143/62 mmHg. 6. Left ventricular end-diastolic is 35 mmHg. 7. There is 5 mm pressure gradient across the proximal portion of the left subclavian artery. 8. Bilateral external iliac arteries are calcified. There is moderate to severe stenosis of the left common femoral artery. There are stents present in bilateral superficial femoral arteries. CONCLUSION: 1. A 70% mid left anterior descending artery stenosis. 2. Chronic occlusion of the right coronary artery. 3. LVEF 40%. 4. LVEDP is 35 mmHg. 5. Significant peripheral artery disease. Shirley Mcdaniel MD 01/02/17 0433 Assessment & Plan Beto Manrique is a 61 year old man with past medical history significant for coronary artery disease status post CABG, peripheral artery disease, hyperlipidemia, diabetes mellitus insulin-dependent and presented to the [facility] ER due to a cardiac arrest in the field. # Cardiac arrest, acute prior to admission. Due to acute ischemic disease with inferior SC. Repeat cardiac arrest on 01/03/17 was brief. S/p AICD pacemaker placement 01/03 - Continue the amiodarone load # Acute respiratory failure with hypoxia, intubated during his second cardiac arrest. Remains intubated through perioperative period of pacemaker placement. Likely difficult to wean due to underlying undiagnosed JAGRUTI with chest wall trauma. - Pulmonology service consult at, will perform bronchoscopy to assess tube placement on 01/04 - Expect to perform SBT on 01/05 - Likely to require CPAP after weaning - Fentanyl and propofol analgesia - ICU ventilator bundle ordered # Sinus bradycardia, chronic. AICD pacemaker is in place -Continue to monitor on telemetry. -Avoid beta lauri # Acute congestive heart failure, ischemic cardiomyopathy, present on admission. Initially received Lasix diuresis. - Carvedilol per G-tube # Acute NSTEMI, with chronic Coronary artery disease status post CABG. catheterization on 01/02. - Continue aspirin, clopidogrel, statin - RBC transfusion due to acute anemia in setting of ischemic coronary disease - Further management per cardiology service # Pain control, acute, present on admission. Patient is moderately symptomatic from chest compressions. Likely to be complicating factor with breathing trials. - Fentanyl and propofol analgesia on ventilator # Leukocytosis, acute, present on admission. No evidence for focal infection. Likely stress response. - Continue to monitor clinically for any signs of infection. # Diabetes mellitus, insulin-dependent, uncontrolled. A1c from 11/01/2016 was 9.8. Inpatient glycemia is at target <180 with the dose every 6 hours correctional lispro, due to limited by mouth intake - Medium dose lispro correctional change to regular insulin while NPO. - plan to adjust with initiation of tube feeding - likely on 01/04 if no progress to extubate # Acute kidney injury, not present on admission. Initial Cr 1.63 now increased 2.13. Creatinine rising after episodes of arrhythmia, ventricular fibrillation and CPR. Possibly acute tubular necrosis related to cardiac arrest. Underlying Chronic kidney disease, likely secondary to poorly controlled diabetes - Monitor urine output - daily BMP # Hypertension -Hold off on BP medications at this time # Hyperlipidemia -Continue statin # Nicotine dependence -Counseled on smoking cessation at time of admission -Offered nicotine patch # DVT prophylaxis - heparin VTE Prophylaxis: Sub-Q Heparin (Unfractionated) VTE Mechanical Devices: Intermittant Pneumatic CD Resuscitation Status: CPR: Attempt Resuscitation Time spent 40 min Sumanth Aviles MD January 04, 2017 15:21
--- NOTE | 2017-01-04 15:32 | NUR ---
spiritual care: follow up conversational visit with family members in room and in conference room as they shared updates, coping and medical plan. Relief, hopefulness and patience expressed as family reviewing medical events and plan.
[2017-01-04] MEDS ORDERED: Dextrose 10% 250 ML IV PRN (15:40)
--- NOTE | 2017-01-04 16:23 | NUR ---
Social Work Note: Screen Note Data& Assessment: EMR reviewed. Beto Manrique is a 61 year old male admitted on 01/02/2017 for STEMI. Pt had coded and a pacemaker was placed. Pt currently on the vent. Pt has [employer] insurance coverage and sees Haley VEGA for primary care. Pt lives in [place] with his (Sharon Manrique [phone]). SW to continue to follow for pt medical progression and MD orders. SW to continue to follow in case any needs arise. Plan: Pt currently on the vent. SW to continue to follow for pt medical progression and MD orders. SW to continue to follow in case any needs arise. DIAMANTE Thomas
--- NOTE | 2017-01-04 16:50 | DRSVH ---
PROCEDURE: X-RAY PICC LINE PLACEMENT BY NURSE ([id number]) INDICATIONS: better IV access needed - two peripherals COMPARISON: None. FINDINGS: PICC was placed by the intravenous therapy team from the right side. Fluoroscopic spot fi lm demonstrates tip projected over the lower SVC. IMPRESSION: Tip of PICC projected over the lower SVC . Dictated by: Guillermo REYNAGAA Interpreted: Joe Clemens MD on 01/04/2017 at 16:49 Transcribed by: NIDA on 01/04/2017 at 16:49 Approved by: Joe Clemens M.D. on 01/04/2017 at 17:15
[2017-01-04] MEDS: Sodium Chloride LOK Flush 10 mL Syringe IVFLUSH SCH (17:09)
[2017-01-04] MEDS: Insulin Human REGular 300 Unit/3 mL Inj SUBQ SCH (20:30)
[2017-01-04] MEDS: Chlorhexidine 0.12% 15 mL Oral Solution MT SCH (20:44)
[2017-01-05] VITALS (24 sets, daily range): BP systolic 98–159; BP diastolic 55–78; PULSE 60–63; RESP 15–24; O2SAT 96–99
[2017-01-05] MEDS: Heparin 5,000 Unit/mL Inj SUBQ SCH ×3 (00:26→17:16)
[2017-01-05] MEDS: Sodium Chloride LOK Flush 10 mL Syringe IVFLUSH SCH ×4 (00:27→23:53)
[2017-01-05] MEDS: Chlorhexidine 0.12% 15 mL Oral Solution MT SCH ×6 (00:27→20:22)
[2017-01-05] MEDS: Albuterol-Ipratropium 3 mL Inhalation Solution NEB SCH ×8 (00:29→22:39)
[2017-01-05] MEDS: Insulin Human REGular 300 Unit/3 mL Inj SUBQ SCH ×4 (02:30→20:42)
--- NOTE | 2017-01-05 05:38 | ABG ---
DateTimeAnalyzed 05:33:00 -_ pH ____7.328 - 7.350 7.450 pCO2 ___42.2__ -mmHg 35.0 45.0 pO2 ___77.6__ -mmHg 69.0 116 HCO3- ___21.5__ -mmol/L 22.0 26.0 ABE ___-3.6__ -mmol/L -2.0 2.0 tHb ____8.7__ -g/dL O2Hb ___93.2__ -% COHb ____1.2__ -% MetHb ____1.1__ -% sO2 ___95.4__ -% 25.0 FIO2 ___55.0__ -% PRVC 15 - PEEP ____5.0__ -cmH2O Set_RR ___15.0__ -b/min Vt __500.0__ -L Drawn By MM - Date/Time Notified____ 05:37:00 -_ Spontaneous_RR ___15.0__ -b/min Oxygen Device 1 VENTILATOR - Notified By MM - Notified Whom GUERDA, P. RN - B 758 -mmHg tO2 ___11.5__ -Vol% Roshan test N/A -
[2017-01-05 05:43] LABS: BASOPHILS % (AUTO) 0.2 % (0-3); EOSINOPHILS % (AUTO) 1.1 % (0-5); MONOCYTES % (AUTO) 10.6 % (4-12); Mean Corpuscular Hemoglobin 29.9 pg (27.0-35.0); Mean Corpuscular Volume 92.4 fL (81-100); NEUTROPHILS % (AUTO) 77.5 % (40-74); Platelet Count 273 bil/L (150-400)
--- NOTE | 2017-01-05 05:56 | NUR ---
P) Fever/Respiratory Pt.'s lungs with coarse breath sounds, expiratory rales, requiring frequent suctioning of thin, white phlegm from ET tube. Febrile last night , t-max 38.2c orally. Tolerating tube feeding, decreased bowel tones. Cardiac rhythm A-paced with IVCD. I) Passive cooling, meds per 's orders, vital cultured. Turning q2h and floating heels. ) Resting mostly quietly between turning and care.
[2017-01-05] MEDS ORDERED: 0.9% Sodium Chloride 1,000 ML IV ONE (06:00)
[2017-01-05] MEDS ORDERED: Albumin 25% 50 GM in IV Premix 1 EACH IV ONE (08:05)
[2017-01-05 08:26] LABS: Magnesium 2.2 mg/dL (1.6-2.6); Phosphorus 5.7 mg/dL (2.5-4.9)
--- NOTE | 2017-01-05 09:01 | PROG NOTE ---
[address] [address] PROGRESS NOTE PATIENT: NIKOLAY ROYAL : 1955 MR#: [id number] ADMIT: 01/02/2017 JOB ID: [id number] DATE: 01/05/2017 PROBLEMS: 1. Status post AICD placement for ventricular fibrillation arrest. 2. Sinus bradycardia. 3. History of coronary artery disease. 4. Obstructive sleep apnea requiring intubation for AICD placement and cardiac catheterization. 5. Diabetes mellitus. 6. History of hypertension. 7. Peripheral arterial disease, with a stent to the mid right superficial femoral artery. SUBJECTIVE: None. OBJECTIVE: Temperature 37.2 with T-max being 38.2. Pulse 60, 100% paced. Respiratory rate 15 with ventilator set at 15. Blood pressure 120/64, O2 sat on FiO2 of 60%, PEEP of 5, is 98%. I and O shows 3.7 L in, 1.3 L out. General appearance: Sedated on ventilator. Chest: Fairly good breath sounds bilaterally. There are some scattered crackles throughout both lung harris, more in the dependent lung harris. Diffuse mid to end expiratory wheezes. Active use of the abdominal accessory muscles during a complete cycle of exhalation. Heart: Regular rhythm. Heart tones normal. Abdomen is soft. Some bowel tones present. Extremities: 1-2+ pretibial edema. Also some edema of the upper extremities. LABORATORY DATA: Shows a white count of 8300, 77 polymorphonuclears, 10 lymphocytes, 10 monocytes, 1 eosinophil. Hemoglobin 8.6, up from 7.3 yesterday after 2 unit packed cell transfusion. Platelet count stable at 273,000. Sodium 137, potassium 4.3, chloride 103, CO2 is 21, BUN 27, creatinine 1.7, down from 2.01. Glucose 112. Calcium is 7.8, with albumin yesterday of 1.9. Pre-albumin 16. Arterial blood gases on FiO2 of 60%, PEEP of 5, tidal volume of 500, rate of 15, shows a pO2 of 77, pCO2 of 42, pH 7.32. ASSESSMENT: 1. Coronary artery disease. The patient is planned for a cardiac catheterization today. Saline has been ordered by Cardiology, presumably to mitigate any dye effect on the kidneys. He is a bit fluid overloaded. I think we can give him some Lasix after the cardiac catheterization to take some fluid off. May also benefit from albumin which would help with the efficacy of Lasix, and also assist in mobilizing some of the interstitial fluid. 2. Obstructive sleep apnea. The patient was intubated in the cardiac catheterization laboratory during a pacemaker placement because when he assumed the supine position, there was respiratory difficulty. He has remained intubated as he will be catheterized again today for his coronary artery disease. There was some trouble passing the suction catheter transiently yesterday. He underwent bronchoscopy at that time. He does have some significant airway edema and moderate dynamic compression of the airways. Suspect there is a bit more airway disease than as advertised. gives a good history for sleep apnea for many years with both wheezing and apneic episodes. 3. Diabetes. Sugar under reasonable control. Running 140-112 over the last 24 hours. PLAN: 1. RT to check ventilator. He is having some patient ventilator dyssynchrony. I think he needs more tidal volume. Will have to watch the development of auto PEEP with that. 2. Continue inhaled bronchodilators. May need to add steroids. Will see how we do once we finish cardiac evaluation and work on getting him extubated. 3. Albumin 50 g in order to help with diuresis as well as mobilization of interstitial fluid. 4. Check magnesium as well as phosphorus, the former for arrhythmias, the latter for weaning. TIME: Time spent so far in critical care is 30 minutes.
--- NOTE | 2017-01-05 09:15 | NUR ---
NUTRITION FOLLOW-UP: Assess: 61 YO M admitted to CCU with STEMI. Pt is s/p AICD placement. Currently vented after procedure. TF were started 01/04 and tolerated well at 30ml/hr. They are currently off for cardiac catheterization today. Pt has not had a BMx3 days PMHX: Type 2 DM, HTN, hypercholesterolemia, tobacco use, PAD, CAD, CABG. DIET:NPO LABS: Feeder Tender 1.72, Glu 112, Ca 7.8, Alb 1.9 MEDICATIONS: Reviewed. Insulin, propofol currently running at 25ml/hr providing 660kcal/day GI: No BM noted. SKIN: No issues noted. ANTHROPOMETRICS: Wt: 111.4 kg, BMI 36.3 kg/m2, Admit wt: 105.6 kg, IBW: 72.7 kg. ESTIMATED NEEDS: BMI/ VENT Calories: 5394-6076 kcal/day (20-22 kcal/kg BW) Protein: 110-130 g/day (1.5-1.8 g/kg IBW) Fluids: ~2650ml/day (25ml/kg) NUTRITION DIAGNOSIS: 1) Inadequate oral intake related to decreased ability to consume sufficient energy as evidenced by current NPO status--PERSISTS INTERVENTION: 1) Recommend re-start TF of Glucerna 1.5 @ 10ml/hr post-op. If tolerated, advance by 10ml q 6 hrs until reach goal rate of 52ml/hr to provide 1716kcal (2376kcal w/propofol) and 94g pro (100% kcal and 85% protein needs) 2) Once TF at goal rate recommend 1 packet prosource added/day to better meet protein needs. 3) Adjust goal rate based on daily propofol 4) Recommend addition of scheduled bowel meds MONITOR/EVALUATE: NPO/vent, TF re-start/lewis, labs, GI/nutrition status. Follow per high nutrition risk guidelines.
[2017-01-05] MEDS ORDERED: Heparin 1,000 Units/500 mL NS Premix IV ONE (09:29)
[2017-01-05] MEDS ORDERED: Nitroglycerin 50,000 mcg/250 mL D5W Premix IV ONE (09:29)
[2017-01-05] MEDS ORDERED: Heparin 1,000 Unit/mL 10 mL Inj ONE ×3 (09:29→11:41)
[2017-01-05] MEDS ORDERED: Heparin 10,000 Unit/1,000 mL NS Premix IV ONE (09:30)
[2017-01-05] MEDS: fentaNYL 2,500 mCg/250 mL 2,500 MCG in IV Premix 1 EACH IV SCH (09:31)
[2017-01-05] MEDS: Propofol Inj 1,000,000 MCG in IV Premix 1 EACH IV SCH ×4 (09:32→23:23)
[2017-01-05] MEDS ORDERED: 0.9% Sodium Chloride 1,000 ML ONE (09:34)
--- NOTE | 2017-01-05 12:39 | DI95 ---
[address] [address] INTERVENTIONAL CARDIAC CATHETERIZATION PATIENT: NIKOLAY ROYAL : 1955 MR#: [id number] ADMIT: 01/02/2017 JOB ID: [id number] DATE OF PROCEDURE; 01/05/2017 PATIENT PROFILE: The patient is a 61-year-old male who underwent coronary artery bypass surgery x1 in 2001. He presented with [id number] cardiac arrest. PROCEDURE: 1. Arterial access from the right radial artery under ultrasound guidance. 2. Selective ipsilateral right axillary angiogram. 3. Nonselective right internal mammary angiogram. 4. Balloon angioplasty and stenting to the mid left anterior descending. COMPLICATIONS: None. DETAILS OF PROCEDURE: Arterial access was obtained from the right radial artery under ultrasound guidance by using a 5-Mauritian slender sheath. This was performed by Dr. Julian. An attempt to advance a 5-Mauritian IM catheter into the ascending aorta was unsuccessful due to stenosis in the right axillary artery. Selective ipsilateral right axillary angiogram was performed in the AP view via the IM catheter. Heparin 100 units/kg were given. The IM catheter was then exchanged to a 6-Mauritian MP-1 guide. A Runthrough wire was used to cross the severe stenosis of the right axillary artery. This lesion was pre-dilated with a 4.0 x 20 mm balloon. After this balloon inflation, there was a proximal dissection. An Impact Admiral 4 x 40 mm balloon was then inflated up to 8 atmospheres for 3 minutes. Final angiogram was obtained. The MP-1 Guide was then changed to an IM catheter. Nonselective right internal mammary angiogram was performed in the 30 degree LAROSE view. It demonstrated nonfunctioning graft. The IM catheter was then exchanged to a 6-Mauritian CLS 3.5 guide. This guide was used to engage the left coronary ostium. There is pressure damping with catheter engagement. A Runthrough wire was placed inside the left anterior descending artery. The mid left anterior descending artery lesion was pre-dilated with a 2.5 x 15 mm balloon. A Xience 3.0 x 23 mm stent was placed inside this lesion and deployed at 10 atmospheres for 30 seconds. Final angiogram was obtained. Following sheath removal, hemostasis was achieved by using a TR band. The patient tolerated the procedure well. He was transferred to intensive care unit in stable condition. TOTAL CONTRAST USED: 110 cc TOTAL RADIATION DOSE: 1033 milligrey. RESULTS: 1. Severe 95% stenosis of the right axillary artery. 2. This was successfully treated with drug coated balloon angioplasty. 3. 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 4. Successful balloon angioplasty and stenting to the severe mid left anterior descending artery lesion by deploying one drug eluting stent (3.0 x 23 mm) to achieve an excellent angiographic result with OLGA-3 flow distally. MTDD
[2017-01-05] MEDS: DULoxetine 30 mg DR Capsule PO SCH (13:23)
[2017-01-05] MEDS ORDERED: LORazepam 100 mg/100 mL NS 100 MG in IV Premix 100 EACH IV SCH (13:25)
[2017-01-05] MEDS ORDERED: Propofol Inj 1,000,000 MCG in IV Premix 1 EACH IV SCH (13:29)
--- NOTE | 2017-01-05 14:11 | DRSVH ---
PROCEDURE: X-RAY CHEST ONE VIEW, PORTABLE ([id number]) INDICATIONS: dyspnea TECHNIQUE: One view of the chest was acquired. COMPARISON: [facility], CR, XR CHEST 1VW (PORTABLE), 01/04/2017, 4:01. FINDINGS: Surgical changes and devices: Stable positioning of ETT with tip projected 3.2 cm above the kemi. Median sternotomy wires. Nasogastric tube traverses the GE junction. Right PICC with tip projected o heber the mid to lower SVC. Lungs and pleura: Diffuse, widespread bilateral pulmonary interstitial and air space opacities are p resent which have increased from prior examination. Small pleural effusions. Mediastinum: Mediastinal contours appear normal. Heart size is normal. Bones and chest wall: No suspicious bony lesions. Overlying soft tissues appear unremarkable. IMPRESSION: Increasing pulmonary edema and/or diffuse bilateral pneumonia and small pleural effusions persist. Dictated by: Guillermo Finnegan RRA Interpreted: Bryanna Millan MD on 01/05/2017 at 14:08 Transcribed by: GEORGE on 01/05/2017 at 14:10 Approved by: Bryanna Millan MD, PhD on 01/05/2017 at 14:52
[2017-01-05] MEDS: 0.9% Sodium Chloride 250 ML IV SCH (14:19)
[2017-01-05] MEDS: MethylprednisoLONE Sodium Succinate 40 mg/mL Inj IVPUSH SCH ×2 (14:20→20:23)
--- NOTE | 2017-01-05 14:24 | PCM.PNMED ---
Subjective Date of Service January 05, 2017 Subjective 61-year-old man with coronary artery disease, type II diabetes mellitus, COPD presents after episode of sudden cardiac at [facility] prior to admission, probable acute ischemic CAD, with recurrent inpatient cardiac arrest on 01/03, status post AICD defibrillator placement, requiring high level sedation to tolerate ventilator. Continues sedated on ventilator and unable to give history. Exam Vital Signs Vital Sign - Last Date Time Temp Pulse Resp B/P Pulse Ox O2 Delivery O2 Flow Rate FiO2 01/05/17 13:45 60 145/68 98 55 01/05/17 13:45 20 01/05/17 13:00 36.7 Mechanical Ventilator 01/03/17 01:51 3.00 Intake and Output 01/04/17 01/04/17 01/05/17 Cumulative From/Thru 15:00 23:00 07:00 01/02/17 05:15 - 01/05/17 06:43 Intake Total 1934 ml 1308 ml 6885 ml Output Total 550 ml 600 ml 2900 ml Balance 1384 ml 708 ml 3985 ml Intake Oral 310 ml IV Total 1524 ml 780 ml 5637 ml Tube Feeding 50 ml 328 ml 378 ml Packed Cells 320 ml 320 ml Tube Irrigant 40 ml 200 ml 240 ml Output Urine Total 400 ml 600 ml 2600 ml Gastric Drainage Total 150 ml 300 ml # Voids 1 # Bowel Movements 0 0 Exam General: Obese man sedated on ventilator HEENT: sclerae anicteric, Neck: Difficult to assess JVD Chest: Coarse BS, vent sounds, no rales, no wheeze; pacemaker site OK. Cardiac: Regular, S1S2, no murmur Abdomen: Protuberant, BS normal, non-tender; lam Extremities: Non pitting edema; right first toe in bandage Neuro: A&O, cranial nerves symmetric, motor tone symmetric IVs and Medications Medications Reviewed: Medications were reviewed in detail Lab and Diagnostics Result Diagram: 01/05/1752901/05/17529 X-Rays, CTs and MRIs PROCEDURE: X-RAY CHEST ONE VIEW, PORTABLE ([id number]) FINDINGS: Lungs and pleura: No pneumothorax. Trace right-sided pleural fluid collection noted. Cephalization of the pulmonary vasculature and perihilar opacities compatible with CHF. Mediastinum: Mediastinal contours appear normal. Heart size is normal. IMPRESSION: CHF. Dictated by: Bryanna Millan MD, PhD on 01/02/2017 at 9:13 . 12-lead ECG On admission 01/02/2017 Bradycardia rate 50, Lateral T-wave inversion, downsloping ST depression V3-V6 . Cardiac Echo Impressions Interpretation Summary Left ventricular wall thickness is mildly increased. Left ventricular systolic function is normal. The ejection fraction is estimated to be 60-65%. There is basal inferoseptal wall hypokinesis. There is basal inferior wall hypokinesis. The right ventricle grossly appears normal in size with probable normal systolic function. The right ventricular systolic pressure is estimated at 62 mmHg assuming a right atrial pressure of 15 mm Hg. The left atrium is moderately dilated. The right atrium is moderately dilated. There is mild mitral regurgitation. There is mild aortic regurgitation. There is moderate tricuspid regurgitation. The aortic root is normal size. The IVC is dilated (diameter is greater than 2.1 cm) and it collapses less than 50% with a sniff. This suggests a high right atrial pressure of 15 mm Hg. . Additional Diagnostics Coronary angiogram 01/02/17 RESULTS: 1. Selective angiogram: a. Left main coronary artery is short and has 20-30% stenosis at its origin. There is pressure damping with a guide catheter engagement. b. The left anterior descending artery is transapical and has focal 70% stenosis in the midportion. The diagonal branch has minor irregularity. c. The circumflex artery has 50% stenosis distal to the takeoff of the first obtuse marginal branch. The first obtuse marginal branch has 50% stenosis at its origin. d. The dominant right coronary artery is chronically occluded in the proximal portion. 2. The left internal mammary artery is normal. It supplied the chest wall. This is not used for bypass. 3. Left ventricular angiogram demonstrates mildly depressed left ventricular systolic function (visually estimated ejection fraction 40%). The inferior wall is moderately hypokinetic. The remaining segments contract normally. 4. There is no gradient across the aortic valve on catheter withdrawal. 5. Left ventricular pressure is 140/14 mmHg. Aortic pressure is 143/62 mmHg. 6. Left ventricular end-diastolic is 35 mmHg. 7. There is 5 mm pressure gradient across the proximal portion of the left subclavian artery. 8. Bilateral external iliac arteries are calcified. There is moderate to severe stenosis of the left common femoral artery. There are stents present in bilateral superficial femoral arteries. CONCLUSION: 1. A 70% mid left anterior descending artery stenosis. 2. Chronic occlusion of the right coronary artery. 3. LVEF 40%. 4. LVEDP is 35 mmHg. 5. Significant peripheral artery disease. Shirley Mcdaniel MD 01/02/17 [id number] INTERVENTIONAL CARDIAC CATHETERIZATION PROCEDURE: 1. Arterial access from the right radial artery under ultrasound guidance. 2. Selective ipsilateral right axillary angiogram. 3. Nonselective right internal mammary angiogram. 4. Balloon angioplasty and stenting to the mid left anterior descending. 5. Vascular closure device. RESULTS: 1. Severe 95% stenosis of the right axillary artery. 2. This was successfully treated with drug coated balloon angioplasty. 3. 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 4. Successful balloon angioplasty and stenting to the severe mid left anterior descending artery lesion by deploying one occluding stent (3.0 x 23 mm) to achieve an excellent angiographic result with OLGA-3 flow distally. Shirley Mcdaniel MD 01/05/17 1209 . Assessment & Plan Beto Manrique is a 61 year old man with past medical history significant for coronary artery disease status post CABG, peripheral artery disease, hyperlipidemia, diabetes mellitus insulin-dependent and presented to the [facility] ER due to a cardiac arrest in the field. Acute problems: # Cardiac arrest, acute prior to admission. Due to acute ischemic disease with inferior PA. Repeat cardiac arrest on 01/03/17 was brief. S/p AICD pacemaker placement 01/03 - Amiodarone d/c'd after AICD- CAD ischemia work up. # Acute NSTEMI, with chronic Coronary artery disease status post CABG. catheterization on 01/02. PCI with LAD graft stent on 01/05. - Continue aspirin, clopidogrel, statin - Further management per cardiology service # Acute respiratory failure with hypoxia, intubated during his second cardiac arrest. Remains intubated through perioperative period of pacemaker placement. Likely difficult to wean due to underlying undiagnosed JAGRUTI with chest wall trauma. Bronchoscopy on 01/04 confirms intrathoracic variable obstruction pattern. - Pulmonology service consult at, will perform b - ICU ventilator bundle ordered # Acute kidney injury, not present on admission. Initial Cr 1.63, bina to 2.13, now 1.72. Creatinine rising after episodes of arrhythmia, ventricular fibrillation and CPR. Possibly acute tubular necrosis related to cardiac arrest. Underlying Chronic kidney disease, likely secondary to poorly controlled diabetes. Currently seems oliguric after second coronary intervention procedure. - Monitor urine output - Avoid nephrotoxins - daily BMP # Pain control, acute, present on admission. Patient is moderately symptomatic from chest compressions. Likely to be complicating factor with breathing trials. - Fentanyl analgesia on ventilator # Leukocytosis, acute, present on admission. No evidence for focal infection. Likely stress response. - Continue to monitor clinically for any signs of infection. # Diabetes mellitus, insulin-dependent, uncontrolled. A1c from 11/01/2016 was 9.8. Inpatient glycemia is at target <180 with the dose every 6 hours correctional lispro, due to limited by mouth intake - Every 6 hour regular insulin while NPO. Stable or resolving problems: # Sinus bradycardia, chronic. AICD pacemaker is in place - resolved # Acute congestive heart failure, ischemic cardiomyopathy, present on admission. Initially received Lasix diuresis. - Carvedilol per OG-tube - ischemia treatment with PCI # Anemia, acute on chronic. Etiology uncertain. Received RBC transfusion 1 unit , due to concern about ischemic cardiac disease. - follow CBC # Hypertension - Continue carvedilol - Holding on HOWIE inhibitor at present due to a KCI # Hyperlipidemia -Continue statin # Nicotine dependence -Counseled on smoking cessation at time of admission -Offered nicotine patch # DVT prophylaxis - heparin VTE Prophylaxis: Sub-Q Heparin (Unfractionated) VTE Mechanical Devices: Intermittant Pneumatic CD Resuscitation Status: CPR: Attempt Resuscitation Time spent 35 minutes Sumanth Aviles MD January 05, 2017 14:24
[2017-01-05] MEDS ORDERED: 0.9% Sodium Chloride 250 ML IV PRN (15:00)
[2017-01-05 15:56] LABS: Mean Corpuscular Hemoglobin 29.9 pg (27.0-35.0); Mean Corpuscular Volume 92.9 fL (81-100)
--- NOTE | 2017-01-05 17:04 | NUR ---
spiritual care; family family members shared updates and report throughout day. hopeful tone
--- NOTE | 2017-01-05 18:28 | NUR ---
Coremaker Apprentice/Vent/Urine output: DC'd R radial art line as ordered by Dr Stephenson @ 10 AM without issues in preparation of heart cath w/ R radial approach. Accompanied patient off unit to lab aid from 1000 to 1230 to assist in managing sedation pumps. Upon arrival from lab aid patient had frequent high peak alarms to vent and appeared to have labored irregular breathing despite increasing sedation medication. MD and RT were notified. Additional medication orders were rec'd and vent changes were made by RT. Patient is now having regular breathing pattern and tolerating vent. Minimal ed urine with large amounts of sediment noted from 0730 to 1230. MD notified. Murillo catheter was flushed and balloon was deflated and reinflated and 550cc of urine was drained. Murillo catheter now appears to be patent. Total urine output for day shift = 800cc.
[2017-01-05] MEDS: Famotidine Inj 20 MG in IV Premix 1 EACH IV SCH (20:22)
[2017-01-06] VITALS (18 sets, daily range): BP systolic 102–175; BP diastolic 48–62; PULSE 60–62; RESP 18; O2SAT 93–99
[2017-01-06] MEDS: Chlorhexidine 0.12% 15 mL Oral Solution MT SCH ×6 (00:10→20:23)
[2017-01-06] MEDS: Heparin 5,000 Unit/mL Inj SUBQ SCH ×3 (00:11→16:43)
[2017-01-06] MEDS: Albuterol-Ipratropium 3 mL Inhalation Solution NEB SCH ×12 (00:47→22:37)
[2017-01-06] MEDS: Insulin Human REGular 300 Unit/3 mL Inj SUBQ SCH ×4 (02:10→20:43)
[2017-01-06] MEDS ORDERED: Furosemide 10 mg/mL 4 mL Inj IVPUSH ONE ×3 (02:15→16:30)
[2017-01-06] MEDS: Propofol Inj 1,000,000 MCG in IV Premix 1 EACH IV SCH ×5 (02:15→16:42)
[2017-01-06] MEDS: fentaNYL 2,500 mCg/250 mL 2,500 MCG in IV Premix 1 EACH IV SCH (02:59)
--- NOTE | 2017-01-06 04:39 | ABG ---
DateTimeAnalyzed 04:34:00 -_ pH ____7.208 - 7.350 7.450 pCO2 ___49.6__ -mmHg 35.0 45.0 pO2 166 -mmHg 69.0 116 HCO3- ___19.0__ -mmol/L 22.0 26.0 ABE ___-8.2__ -mmol/L -2.0 2.0 tHb ____9.7__ -g/dL O2Hb ___97.1__ -% COHb ____0.9__ -% MetHb ____1.2__ -% sO2 ___99.2__ -% 25.0 FIO2 ___55.0__ -% PRVC 15 - PEEP ____8.0__ -cmH2O Set_RR ___15.0__ -b/min Vt __550.0__ -L Drawn By MM - Date/Time Notified____ 04:39:00 -_ Spontaneous_RR ___18.0__ -b/min Oxygen Device 1 VENTILATOR - Notified By MM - Notified Whom PRINCE, H. RN - B 755 -mmHg tO2 ___13.5__ -Vol% Roshan test N/A -
[2017-01-06] MEDS ORDERED: Cisatracurium 200,000 mCg/100 mL NS IV SCH ×2 (04:55)
[2017-01-06 05:27] LABS: BASOPHILS % (AUTO) 0.1 % (0-3); EOSINOPHILS % (AUTO) 0 % (0-5); MONOCYTES % (AUTO) 0.8 % (4-12); Mean Corpuscular Hemoglobin 30.2 pg (27.0-35.0); Mean Corpuscular Volume 90.3 fL (81-100); Platelet Count 311 bil/L (150-400)
[2017-01-06 05:49] LABS: Magnesium 2.5 mg/dL (1.6-2.6); Phosphorus 6.9 mg/dL (2.5-4.9)
--- NOTE | 2017-01-06 06:36 | NUR ---
Respiratory Around 0200, pt has been breath stacking, and doing abdominal breathing, peak pressures climbing up in the high 40's, sp02>96% at current vent settings (fio2 0.55/peep 8, VT 550, RR 15), Titrated up sedation, lasix 40 mg IV x 1 given, lam drained 550 cc throughout the shift. abg this am resulted with pH 7.20, pc02 50, p02 166, hc03 19, Dr. Mcwilliams notified of respiratory status, started nimbex gtt per protocol.
[2017-01-06] MEDS: MethylprednisoLONE Sodium Succinate 40 mg/mL Inj IVPUSH SCH ×2 (08:23→20:23)
[2017-01-06] MEDS: DULoxetine 30 mg DR Capsule PO SCH (08:23)
[2017-01-06] MEDS: Sodium Chloride LOK Flush 10 mL Syringe IVFLUSH SCH ×2 (08:24→16:44)
[2017-01-06] MEDS: Famotidine Inj 20 MG in IV Premix 1 EACH IV SCH ×2 (08:24→20:23)
--- NOTE | 2017-01-06 10:07 | PCM.PNMED ---
Subjective Date of Service January 06, 2017 Subjective 61 yo morbidly obese diabetic with H/O CAD, s/p CABG admitted 01/02 after out-of -hospital VF arrest. Had early evidence of awakening and persistent bradycardia. Tolerated extubation but required reintubation during AICD/PPM placement and on 01/05 had LHC with findings of GAYATHRI>Cx graft occlusion and PCI to LAD. Following LHC, had severe vent dyssynchrony and was started on Nimbex gtt early in the morning of 01/06 in addition to sedation with propofol and fentanyl. Paralyzed, sedated on vent. at beside. She reports that Beto had increasing peripheral edema in the week prior to his arrest and that his PCP had doubled his usual Lasix dose. ET aspirate positive for K. pneumo, vital Exam Vital Signs Vital Sign - Last Date Time Temp Pulse Resp B/P Pulse Ox O2 Delivery O2 Flow Rate FiO2 01/06/17 09:06 60 118/51 01/06/17 08:52 95 45 01/06/17 07:40 37.1 18 Mechanical Ventilator 01/03/17 01:51 3.00 Intake and Output 01/05/17 01/05/17 01/06/17 Cumulative From/Thru 15:00 23:00 07:00 01/02/17 05:15 - 01/06/17 06:05 Intake Total 1760 ml 1345 ml 9990 ml Output Total 890 ml 550 ml 4340 ml Balance 870 ml 795 ml 5650 ml Intake Oral 0 ml 310 ml IV Total 1632 ml 776 ml 8045 ml Tube Feeding 88 ml 449 ml 915 ml Packed Cells 320 ml Tube Irrigant 40 ml 120 ml 400 ml Output Urine Total 800 ml 550 ml 3950 ml Gastric Drainage Total 90 ml 0 ml 390 ml # Voids 1 # Bowel Movements 0 0 0 Lab and Diagnostics Result Diagram: 01/06/17 0500 01/06/17 0500 X-Rays, CTs and MRIs PROCEDURE: X-RAY CHEST ONE VIEW, PORTABLE ([id number]) FINDINGS: Lungs and pleura: No pneumothorax. Trace right-sided pleural fluid collection noted. Cephalization of the pulmonary vasculature and perihilar opacities compatible with CHF. Mediastinum: Mediastinal contours appear normal. Heart size is normal. IMPRESSION: CHF. Dictated by: Bryanna Millan MD, PhD on 01/02/2017 at 9:13 . 12-lead ECG On admission 01/02/2017 Bradycardia rate 50, Lateral T-wave inversion, downsloping ST depression V3-V6 . Cardiac Echo Impressions Interpretation Summary Left ventricular wall thickness is mildly increased. Left ventricular systolic function is normal. The ejection fraction is estimated to be 60-65%. There is basal inferoseptal wall hypokinesis. There is basal inferior wall hypokinesis. The right ventricle grossly appears normal in size with probable normal systolic function. The right ventricular systolic pressure is estimated at 62 mmHg assuming a right atrial pressure of 15 mm Hg. The left atrium is moderately dilated. The right atrium is moderately dilated. There is mild mitral regurgitation. There is mild aortic regurgitation. There is moderate tricuspid regurgitation. The aortic root is normal size. The IVC is dilated (diameter is greater than 2.1 cm) and it collapses less than 50% with a sniff. This suggests a high right atrial pressure of 15 mm Hg. . Additional Diagnostics Coronary angiogram 01/02/17 RESULTS: 1. Selective angiogram: a. Left main coronary artery is short and has 20-30% stenosis at its origin. There is pressure damping with a guide catheter engagement. b. The left anterior descending artery is transapical and has focal 70% stenosis in the midportion. The diagonal branch has minor irregularity. c. The circumflex artery has 50% stenosis distal to the takeoff of the first obtuse marginal branch. The first obtuse marginal branch has 50% stenosis at its origin. d. The dominant right coronary artery is chronically occluded in the proximal portion. 2. The left internal mammary artery is normal. It supplied the chest wall. This is not used for bypass. 3. Left ventricular angiogram demonstrates mildly depressed left ventricular systolic function (visually estimated ejection fraction 40%). The inferior wall is moderately hypokinetic. The remaining segments contract normally. 4. There is no gradient across the aortic valve on catheter withdrawal. 5. Left ventricular pressure is 140/14 mmHg. Aortic pressure is 143/62 mmHg. 6. Left ventricular end-diastolic is 35 mmHg. 7. There is 5 mm pressure gradient across the proximal portion of the left subclavian artery. 8. Bilateral external iliac arteries are calcified. There is moderate to severe stenosis of the left common femoral artery. There are stents present in bilateral superficial femoral arteries. CONCLUSION: 1. A 70% mid left anterior descending artery stenosis. 2. Chronic occlusion of the right coronary artery. 3. LVEF 40%. 4. LVEDP is 35 mmHg. 5. Significant peripheral artery disease. Shirley Mcdaniel MD 01/02/17 3817 INTERVENTIONAL CARDIAC CATHETERIZATION PROCEDURE: 1. Arterial access from the right radial artery under ultrasound guidance. 2. Selective ipsilateral right axillary angiogram. 3. Nonselective right internal mammary angiogram. 4. Balloon angioplasty and stenting to the mid left anterior descending. 5. Vascular closure device. RESULTS: 1. Severe 95% stenosis of the right axillary artery. 2. This was successfully treated with drug coated balloon angioplasty. 3. 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 4. Successful balloon angioplasty and stenting to the severe mid left anterior descending artery lesion by deploying one occluding stent (3.0 x 23 mm) to achieve an excellent angiographic result with OLGA-3 flow distally. Shirley Mcdaniel MD 01/05/17 [id number] . Assessment & Plan Beto Manrique is a 61 year old man with past medical history significant for coronary artery disease status post CABG, peripheral artery disease, hyperlipidemia, diabetes mellitus insulin-dependent and presented to the [facility] ER due to a cardiac arrest in the field. Acute problems: # Cardiac arrest, acute prior to admission. Due to acute ischemic disease with inferior ID. Repeat cardiac arrest on 01/03/17 was brief. S/p AICD pacemaker placement 01/03 - Amiodarone d/c'd after AICD- CAD ischemia work up. # Acute NSTEMI, with chronic Coronary artery disease status post CABG. catheterization on 01/02. PCI with LAD graft stent on 01/05. - Continue aspirin, clopidogrel, statin - Further management per cardiology service # Acute respiratory failure with hypoxia, intubated during his second cardiac arrest. Remains intubated through perioperative period of pacemaker placement. Likely difficult to wean due to underlying undiagnosed JAGRUTI with chest wall trauma. Bronchoscopy on 01/04 confirms intrathoracic variable obstruction pattern. - Pulmonology service consult at, will perform b - ICU ventilator bundle ordered # Acute kidney injury, not present on admission. Initial Cr 1.63, bina to 2.13, now 1.72. Creatinine rising after episodes of arrhythmia, ventricular fibrillation and CPR. Possibly acute tubular necrosis related to cardiac arrest. Underlying Chronic kidney disease, likely secondary to poorly controlled diabetes. Currently seems oliguric after second coronary intervention procedure. - Monitor urine output - Avoid nephrotoxins - daily BMP # Pain control, acute, present on admission. Patient is moderately symptomatic from chest compressions. Likely to be complicating factor with breathing trials. - Fentanyl analgesia on ventilator # Leukocytosis, acute, present on admission. No evidence for focal infection. Likely stress response. - Continue to monitor clinically for any signs of infection. # Diabetes mellitus, insulin-dependent, uncontrolled. A1c from 11/01/2016 was 9.8. Inpatient glycemia is at target <180 with the dose every 6 hours correctional lispro, due to limited by mouth intake - Every 6 hour regular insulin while NPO. Stable or resolving problems: # Sinus bradycardia, chronic. AICD pacemaker is in place - resolved # Acute congestive heart failure, ischemic cardiomyopathy, present on admission. Initially received Lasix diuresis. - Carvedilol per OG-tube - ischemia treatment with PCI # Anemia, acute on chronic. Etiology uncertain. Received RBC transfusion 1 unit , due to concern about ischemic cardiac disease. - follow CBC # Hypertension - Continue carvedilol - Holding on HOWIE inhibitor at present due to a KCI # Hyperlipidemia -Continue statin # Nicotine dependence -Counseled on smoking cessation at time of admission -Offered nicotine patch # DVT prophylaxis - heparin VTE Prophylaxis: Sub-Q Heparin (Unfractionated) VTE Mechanical Devices: Intermittant Pneumatic CD Resuscitation Status: CPR: Attempt Resuscitation Bruce Hernandez MD January 06, 2017 10:07
--- NOTE | 2017-01-06 10:16 | PCM.PNMED ---
Subjective Date of Service January 06, 2017 Subjective 61 yo morbidly obese diabetic with H/O CAD,s/p CABG admitted 01/02 after out-of- hospital VF cardiac arrest. Was initially extubated and awakened but required reintubation during placement of an AICD/PPM for persistent bradycardia. On had LHC with occluded GAYATHRI>Cx graft and PCI to LAD. 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 Intubated, sedated, paralyzed. at bedside who reports that Beto had increasing peripheral edema one week before arrest and his PCP had doubled his usual Lasix dose. No BM for 5 days.. Micro reports ETaspirate positive for K. pneumo, pansensitive Exam Vital Signs Vital Sign - Last Date Time Temp Pulse Resp B/P Pulse Ox O2 Delivery O2 Flow Rate FiO2 01/06/17 09:06 60 118/51 01/06/17 08:52 95 45 01/06/17 07:40 37.1 18 Mechanical Ventilator 01/03/17 01:51 3.00 Intake and Output 01/05/17 01/05/17 01/06/17 Cumulative From/Thru 15:00 23:00 07:00 01/02/17 05:15 - 01/06/17 06:05 Intake Total 1760 ml 1345 ml 9990 ml Output Total 890 ml 550 ml 4340 ml Balance 870 ml 795 ml 5650 ml Intake Oral 0 ml 310 ml IV Total 1632 ml 776 ml 8045 ml Tube Feeding 88 ml 449 ml 915 ml Packed Cells 320 ml Tube Irrigant 40 ml 120 ml 400 ml Output Urine Total 800 ml 550 ml 3950 ml Gastric Drainage Total 90 ml 0 ml 390 ml # Voids 1 # Bowel Movements 0 0 0 Exam Obese pale bearded man on vent, orally intubated Lungs Coarse rhonchi on Lt. , decreased BS on Rt CV RRR, no m/g/r Abd Soft, no BTs Ext 3+ UE edema, 3+ LE edema,, All 4 warm, No cyanosis Neuro Paralyzed on Nimbex Lab and Diagnostics Result Diagram: 01/06/17 0500 01/06/17 0500 X-Rays, CTs and MRIs PROCEDURE: X-RAY CHEST ONE VIEW, PORTABLE ([id number]) FINDINGS: Lungs and pleura: No pneumothorax. Trace right-sided pleural fluid collection noted. Cephalization of the pulmonary vasculature and perihilar opacities compatible with CHF. Mediastinum: Mediastinal contours appear normal. Heart size is normal. IMPRESSION: CHF. Dictated by: Bryanna Millan MD, PhD on 01/02/2017 at 9:13 . 12-lead ECG On admission 01/02/2017 Bradycardia rate 50, Lateral T-wave inversion, downsloping ST depression V3-V6 . Cardiac Echo Impressions Interpretation Summary Left ventricular wall thickness is mildly increased. Left ventricular systolic function is normal. The ejection fraction is estimated to be 60-65%. There is basal inferoseptal wall hypokinesis. There is basal inferior wall hypokinesis. The right ventricle grossly appears normal in size with probable normal systolic function. The right ventricular systolic pressure is estimated at 62 mmHg assuming a right atrial pressure of 15 mm Hg. The left atrium is moderately dilated. The right atrium is moderately dilated. There is mild mitral regurgitation. There is mild aortic regurgitation. There is moderate tricuspid regurgitation. The aortic root is normal size. The IVC is dilated (diameter is greater than 2.1 cm) and it collapses less than 50% with a sniff. This suggests a high right atrial pressure of 15 mm Hg. . Additional Diagnostics Coronary angiogram 01/02/17 RESULTS: 1. Selective angiogram: a. Left main coronary artery is short and has 20-30% stenosis at its origin. There is pressure damping with a guide catheter engagement. b. The left anterior descending artery is transapical and has focal 70% stenosis in the midportion. The diagonal branch has minor irregularity. c. The circumflex artery has 50% stenosis distal to the takeoff of the first obtuse marginal branch. The first obtuse marginal branch has 50% stenosis at its origin. d. The dominant right coronary artery is chronically occluded in the proximal portion. 2. The left internal mammary artery is normal. It supplied the chest wall. This is not used for bypass. 3. Left ventricular angiogram demonstrates mildly depressed left ventricular systolic function (visually estimated ejection fraction 40%). The inferior wall is moderately hypokinetic. The remaining segments contract normally. 4. There is no gradient across the aortic valve on catheter withdrawal. 5. Left ventricular pressure is 140/14 mmHg. Aortic pressure is 143/62 mmHg. 6. Left ventricular end-diastolic is 35 mmHg. 7. There is 5 mm pressure gradient across the proximal portion of the left subclavian artery. 8. Bilateral external iliac arteries are calcified. There is moderate to severe stenosis of the left common femoral artery. There are stents present in bilateral superficial femoral arteries. CONCLUSION: 1. A 70% mid left anterior descending artery stenosis. 2. Chronic occlusion of the right coronary artery. 3. LVEF 40%. 4. LVEDP is 35 mmHg. 5. Significant peripheral artery disease. Shirley Mcdaniel MD 01/02/17 1966 INTERVENTIONAL CARDIAC CATHETERIZATION PROCEDURE: 1. Arterial access from the right radial artery under ultrasound guidance. 2. Selective ipsilateral right axillary angiogram. 3. Nonselective right internal mammary angiogram. 4. Balloon angioplasty and stenting to the mid left anterior descending. 5. Vascular closure device. RESULTS: 1. Severe 95% stenosis of the right axillary artery. 2. This was successfully treated with drug coated balloon angioplasty. 3. 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 4. Successful balloon angioplasty and stenting to the severe mid left anterior descending artery lesion by deploying one occluding stent (3.0 x 23 mm) to achieve an excellent angiographic result with OLGA-3 flow distally. Shirley Mcdaniel MD 01/05/17 1203 . Assessment & Plan IMP CAD S/P PCI to LAD 01/05, CABG 2002, Preserved EFon recent echo Bradycardia S/P PPM, fully paced now. VF arrest Probably has some chest wall injury from CPR which will add to difficulty weaning from vent Severe PAH PA systolic per echo > 60, probable group III based on suspicion for advanced lung disease but can't R/O PE or even group I PAH Acute respiratory failure Also suspect underlying chronic lung disease based on long smoking history. Now, in addition, may have HAP with K. Pneumo. Tracheobronchomalacia seen on bronch. DM II Admission A1c elevated ZACH, CKD Baseline function 1.5 creatinine which would be stage III. Probably diabetic but hasn't been investigated. Anemia Normal MCV here and his hgb was normal as recently as November according to records in [facility] Metabolic acidosis + AG, probably ZACH Morbid obesity Based on 's history, he may have undiagnosed JAGRUTI PLAN DC Nimbex Scheduled bowel meds, lactulose and senna/docusate Rocephin SBT later today if more awake Serial hgb and metabolics Diurese cautiously Insulin basal and SSI ICU prophylaxis Additional management per Cardiology and IM teams. VTE Prophylaxis: Sub-Q Heparin (Unfractionated) VTE Mechanical Devices: Intermittant Pneumatic CD Resuscitation Status: CPR: Attempt Resuscitation Bruce Hernandez MD January 06, 2017 10:16 # Acute congestive heart failure, ischemic cardiomyopathy, present on admission. Initially received Lasix diuresis. - Carvedilol per OG-tube - ischemia treatment with PCI # Anemia, acute on chronic. Etiology uncertain. Received RBC transfusion 1 unit , due to concern about ischemic cardiac disease. - follow CBC # Hypertension - Continue carvedilol - Holding on HOWIE inhibitor at present due to a KCI # Hyperlipidemia -Continue statin # Nicotine dependence -Counseled on smoking cessation at time of admission -Offered nicotine patch # DVT prophylaxis - heparin VTE Prophylaxis: Sub-Q Heparin (Unfractionated) VTE Mechanical Devices: Intermittant Pneumatic CD Resuscitation Status: CPR: Attempt Resuscitation Bruce Hernandez MD January 06, 2017 10:16
--- NOTE | 2017-01-06 10:20 | DRSVH ---
PROCEDURE: X-RAY CHEST ONE VIEW, PORTABLE ([id number]) INDICATIONS: intubated pt; monitor tubes and lines TECHNIQUE: One view of the chest was acquired. COMPARISON: [facility], CR, XR CHEST 1VW (PORTABLE), 01/05/2017, 13:25. FINDINGS: Surgical changes and devices: Stable positioning of ETT with tip projected by 0.3 cm above the kemi . Median sternotomy wires. Nasogastric tube traverses the GE junction. Right PICC with tip projecte d over the mid to lower SVC. Lungs and pleura: Diffuse, widespread bilateral pulmonary interstitial and air space opacities are p resent which have slightly decreased from prior examination. Small pleural effusions. Mediastinum: Mediastinal contours appear normal. Heart size is normal. Bones and chest wall: No suspicious bony lesions. Overlying soft tissues appear unremarkable. IMPRESSION: 1. Stable position of support lines and tubes. 2. Slight decrease in edema and/or bilateral pneumonia. Dictated by: Guillermo Finnegan RR Interpreted: Osmar Glover MD on 01/06/2017 at 10:19 Transcribed by: CHARLY on 01/06/2017 at 10:20 Approved by: Satnam Glover M.D. on 01/06/2017 at 11:17
--- NOTE | 2017-01-06 10:37 | PCM.PNMED ---
Subjective Date of Service January 06, 2017 Subjective PULMONOLOGY/CRITICAL CARE PROGRESS NOTE: 61-year-old man with coronary artery disease, type II diabetes mellitus, COPD presents after episode of sudden cardiac [facility] prior to admission, probable acute ischemic CAD, with recurrent inpatient cardiac arrest on 01/03, status post AICD defibrillator placement, requiring high level sedation to tolerate ventilator. Hospital day #5. Patient intubated and sedated in the ICU so no ROS obtained. Overnight, patient was noted to be breath stacking and had increased work of breathing including the use of abdominal muscles. Peak pressures on the ventilator were also climbing. Sedation was titrated up, Lasix dose given one time. Blood gas showed pH 7.2, pCO2 50, pO2 166 and HCO3 19. Patient continued to have increased work of breathing and Nimbex initiated around 0430. Exam Vital Signs Vital Sign - Last Date Time Temp Pulse Resp B/P Pulse Ox O2 Delivery O2 Flow Rate FiO2 01/06/17 09:06 60 118/51 01/06/17 08:52 95 45 01/06/17 07:40 37.1 18 Mechanical Ventilator 01/03/17 01:51 3.00 Intake and Output 01/05/17 01/05/17 01/06/17 Cumulative From/Thru 15:00 23:00 07:00 01/02/17 05:15 - 01/06/17 06:05 Intake Total 1760 ml 1345 ml 9990 ml Output Total 890 ml 550 ml 4340 ml Balance 870 ml 795 ml 5650 ml Intake Oral 0 ml 310 ml IV Total 1632 ml 776 ml 8045 ml Tube Feeding 88 ml 449 ml 915 ml Packed Cells 320 ml Tube Irrigant 40 ml 120 ml 400 ml Output Urine Total 800 ml 550 ml 3950 ml Gastric Drainage Total 90 ml 0 ml 390 ml # Voids 1 # Bowel Movements 0 0 0 Exam General: Intubated, paralyzed, and sedated in the ICU. Obese gentleman appearing older than stated age. Head: Normal, atraumatic Eyes: PERRLA, Scleral Anicteric Mouth: Mucous Membr Moist/[place] with no oral thrush appreciated around the ET and OG tubes Chest & Lungs: Coarse breath sounds heard throughout the lung harris, no wheeze appreciated; incision site noted in the left upper chest, dressing CDI Cardiovascular: RRR with 2/6 systolic murmur heard best at the RUSB Abdomen: Slow bowel tones, nondistended, obese, soft Extremities: Notable edema in both the upper and lower extremities; in the lower extremities edema continues up to the thigh and is moderately pitting; healing wound at the base of the right great toe; Right PICC line in place Radial pulse present and equivalent bilaterally, dorsalis pedis pulse present and equivalent bilaterally : Murillo catheter in place, notable scrotal edema Neurological: Intubated, sedated and paralyzed - could not evaluate IVs and Medications Medications Reviewed: Medications were reviewed in detail Lab and Diagnostics Result Diagram: 01/06/17 0500 01/06/17 0500 Assessment & Plan 1) S/P cardiac arrest prior to admission. - Likely secondary to acute NSTEMI. - Second cardiac arrest during admission on 01/03. - AICD placed on 01/03 (indication: symptomatic sinus bradycardia). - Cardiac cath with LAD stenting done on 01/05. - Defer to cardiology for medication management. Agree with continuation of aspirin, plavix and statin. 2) Acute on chronic hypoxic respiratory failure. - Ventilator settings: FiO2 .55, PEEP 8, rate 18, tidal volume 550. Peak pressure 27, plateau 24, measured PEEP (autoPEEP) 9. - Fentanyl for analgesia (likely to have increased chest pain secondary to CPR) . Propofol and ativan for sedation. Nimbex for paralyzation. - Discontinue Nimbex and Ativan. Will monitor respiratory status off these medications. - Will progress toward liberation from the ventilator if patient tolerates lowered sedation. Possible SBT later today. - Continue to utilize ABG or VBG each AM and as needed for ventilator management. - In an effort to better optimize the patient we will begin to increase diuresis. Lasix 40 mg IV x1. Re-evaluate this afternoon for additional dosing. - Continue DuoNeb Q2H. - Continue Solu-medrol IV 60 mg BID. 3) Anion gap metabolic acidosis. - Likely multifactorial. Patient has evidence of pneumonia, ZACH, and was not able to be appropriately ventilated due to dyssynchrony. - Ventilator changes made including increased respiratory rate. Will continue to monitor this closely. - Will order ABG or VBG as needed for further adjustments. 4) Klebsiella pneumonia. - Sputum sample obtained during bronchoscopy has grown out pansensitive Klebsiella. - Begin ceftriaxone 2g daily. - Continue to follow chest x-ray. 5) Acute kidney injury on chronic kidney disease (presume stage 3). - Baseline creatinine around 1.5. Likely secondary to poorly controlled diabetes. - Monitor urine output. Avoid nephrotoxic agents when possible. - Labs per the primary team. 6) Probable JAGRUTI. - Will need outpatient sleep study at the time of discharge. - The patient's apnea could present some difficulty when it comes to ventilator liberation. Will consider the use of BiPAP again after extubation. - Encourage cessation of smoking tobacco products when patient more able to participate in care. 7) Acute anemia. - Etiology uncertain. - Per outpatient records H&H was in November 2016. - Has received 2 units PRBCs during admission (01/04). - May need to consider additional evaluation of possible sources during this admission. - Labs per primary team. 8) Nutrition. - No bowel movement during this hospitalization. Scheduled bowel regimen in place. - Continue tube feeding as tolerated and move toward goal feeding. GI Prophylaxis: H2 lauri VTE Prophylaxis: Sub-Q Heparin (Unfractionated) VTE Mechanical Devices: Intermittant Pneumatic CD Resuscitation Status: CPR: Attempt Resuscitation Nolvia Peralta DO January 06, 2017 09:13
[2017-01-06] MEDS: Lactulose 20 Gm/30 mL 30 mL Syrup TUBE SCH ×2 (10:39→21:14)
[2017-01-06] MEDS: cefTRIAXone Inj 2,000 MG in Dextrose 5% Minibag Plus 50 ML IV SCH (10:39)
[2017-01-06] MEDS: 0.9% Sodium Chloride 250 ML IV SCH (10:40)
--- NOTE | 2017-01-06 11:39 | NUR ---
NUTRITION FOLLOW-UP: Assess: 61 YO M admitted to CCU with STEMI. Pt is s/p AICD placement. Currently vented after procedure. TF was running at goal rate. Per RN TF rate was decreased down to 20ml/hr due to nimbex being started. Nimbex has been turned off and TF to increase back to goal. Pt has not has a BM since admit. Pt is to receive scheduled bowel meds. PMHX: Type 2 DM, HTN, hypercholesterolemia, tobacco use, PAD, CAD, CABG. DIET:NPO LABS: CO2 17, Bun 32, [employer] 1.77, Glu 209, Ca 8.3, phos 6.9, alb 3.0 MEDICATIONS: Reviewed. Insulin, senna, lactulose, propofol currently running at 25ml/hr providing 660kcal/day GI: No BM noted. SKIN: No issues noted. NUTRITION SUPPRT: Glucerna 1.5@ 52ml/hr providing 1716kcal (2376kcal w/propofol) and 94g pro (100% kcal and 85% protein needs) ANTHROPOMETRICS: Wt: 112.1 kg, BMI 36.5 kg/m2, Admit wt: 105.6 kg, IBW: 72.7 kg. ESTIMATED NEEDS: BMI/ VENT Calories: 6648-4792 kcal/day (20-22 kcal/kg BW) Protein: 110-130 g/day (1.5-1.8 g/kg IBW) Fluids: ~2650ml/day (25ml/kg) NUTRITION DIAGNOSIS: 1) Inadequate oral intake related to decreased ability to consume sufficient energy as evidenced by current NPO status--PERSISTS INTERVENTION: 1) Continue current TF rate 2) Will add 1 packet prosource BID to better meet protein needs. 3) Adjust goal rate based on daily propofol MONITOR/EVALUATE: NPO/vent, BM, TF lewis, labs, GI/nutrition status. Follow per high nutrition risk guidelines.
--- NOTE | 2017-01-06 12:22 | NUR ---
spiritual care: follow continuing to follow for family support as needed. brief in room visit. pt sleeping.
--- NOTE | 2017-01-06 12:50 | PROG NOTE ---
[address] [address] PROGRESS NOTE PATIENT: NIKOLAY ROYAL : 1955 MR#: [id number] ADMIT: 01/02/2017 JOB ID: [id number] CRITICAL CARE PULMONARY PROGRESS NOTE: DATE: 01/05/2017 PROBLEM: Patient ventilator dyssynchrony. SUBJECTIVE: Called by RT item as they were having great difficulty ventilating the patient. Was fighting the ventilator. Numerous adjustments were made without effect. OBJECTIVE: Respiratory rate 24. Blood pressure 145/68. Pulse 60s, 100% paced. O2 sat on FiO2 55%, PEEP of 5, is 98%. General appearance: Sedated. Chest: Marked use of accessory muscles. Rapid inspiration with variable peak pressures sometimes quite low, sometimes rather high. Prolonged expiratory phase with marked use of the abdominal accessory muscles for exhalation. Decreased breath sounds. Diffuse mild to moderate expiratory wheezes. A few inspiratory crackles at both bases; maybe more so at the right. Heart: Regular rhythm. 100% paced. Abdomen is soft during inspiration; however significant contraction of the abdominal muscles throughout exhalation. The ventilator mechanics could not be evaluated as they were markedly variable with double clutching pressure limitation all playing a role. Flow volume loops shows marked curtailment of exhalation. At times where the airway would collapse with essentially no air flow, at times early in exhalation, at times later in exhalation but with prolonged slow expiratory flow. Vent changes were made. Inspiratory flow was increased to meet the patient's inspiratory flow demands. Airways were stented open with PEEP of 8 resulting in an almost normal-looking flow volume loop without any expiratory compromise. The patient's respiratory rate fell to about 15. Started to follow the ventilator. Good air exchange with the patient receiving the prescribed tidal volume. Markedly less to no use of the abdominal expiratory muscles. ASSESSMENT: Patient ventilator dyssynchrony. The difficulty the patient was having all resulted from narrowing and at times complete occlusion of the expiratory process due to dynamic compression, swelling and loss of muscle tone of the airways. A more moderate degree of the problem was ascertained on bronchoscopy yesterday. Stenting the airways open with PEEP resulted in resolution of the problem. PLAN: 1. Ventilator settings adjusted to increase inspiratory flow to TI of 0.75 and PEEP increased to 8. 2. Arterial blood gases on above settings. 3. IV steroids: Solu-Medrol slow IV push 60 mg b.i.d. 4. Increase nebulized DuoNeb to q.2 h. 5. Budesonide nebulized 0.5 mg b.i.d. TIME: Additional time spent in ICU, 45 minutes.
--- NOTE | 2017-01-06 13:03 | PCM.PNMED ---
Subjective Date of Service January 06, 2017 Subjective 61-year-old man with coronary artery disease, tobacco abuse, type II diabetes mellitus, COPD presents after episode of sudden cardiac at [facility] prior to admission, acute ischemic CAD, with recurrent inpatient cardiac arrest on , status post AICD defibrillator placement, requiring high level sedation and paralytics to tolerate ventilator. Continues sedated on ventilator and unable to give history. Exam Vital Signs Vital Sign - Last Date Time Temp Pulse Resp B/P Pulse Ox O2 Delivery O2 Flow Rate FiO2 01/06/17 11:49 60 01/06/17 11:44 Ventilator 01/06/17 11:44 37.3 18 115/48 96 45 01/03/17 01:51 3.00 Intake and Output 01/05/17 01/05/17 01/06/17 Cumulative From/Thru 15:00 23:00 07:00 01/02/17 05:15 - 01/06/17 06:05 Intake Total 1760 ml 1345 ml 9990 ml Output Total 890 ml 550 ml 4340 ml Balance 870 ml 795 ml 5650 ml Intake Oral 0 ml 310 ml IV Total 1632 ml 776 ml 8045 ml Tube Feeding 88 ml 449 ml 915 ml Packed Cells 320 ml Tube Irrigant 40 ml 120 ml 400 ml Output Urine Total 800 ml 550 ml 3950 ml Gastric Drainage Total 90 ml 0 ml 390 ml # Voids 1 # Bowel Movements 0 0 0 Exam General: Obese man sedated on ventilator HEENT: sclerae anicteric, Neck: Difficult to assess JVD Chest: Coarse BS, vent sounds, no rales, no wheeze; pacemaker site OK. Cardiac: Regular, S1S2, no murmur Abdomen: Protuberant, BS normal, non-tender; lam Extremities: 1+ edema; right first toe in bandage Neuro: Paralyzed and sedated IVs and Medications Medications Reviewed: Medications were reviewed in detail Medications Sedation: Propofol, fentanyl Neuromuscular blockade: Discontinued this a.m. Dynamic airway obstruction: Methylprednisolone Sputum culture: Ceftriaxone CHF: Clopidogrel Lab and Diagnostics Result Diagram: 01/06/17 0500 01/06/17 0500 X-Rays, CTs and MRIs PROCEDURE: X-RAY CHEST ONE VIEW, PORTABLE ([id number]) FINDINGS: Lungs and pleura: No pneumothorax. Trace right-sided pleural fluid collection noted. Cephalization of the pulmonary vasculature and perihilar opacities compatible with CHF. Mediastinum: Mediastinal contours appear normal. Heart size is normal. IMPRESSION: CHF. Dictated by: Bryanna Millan MD, PhD on 01/02/2017 at 9:13 . 12-lead ECG On admission 01/02/2017 Bradycardia rate 50, Lateral T-wave inversion, downsloping ST depression V3-V6 . Cardiac Echo Impressions Interpretation Summary Left ventricular wall thickness is mildly increased. Left ventricular systolic function is normal. The ejection fraction is estimated to be 60-65%. There is basal inferoseptal wall hypokinesis. There is basal inferior wall hypokinesis. The right ventricle grossly appears normal in size with probable normal systolic function. The right ventricular systolic pressure is estimated at 62 mmHg assuming a right atrial pressure of 15 mm Hg. The left atrium is moderately dilated. The right atrium is moderately dilated. There is mild mitral regurgitation. There is mild aortic regurgitation. There is moderate tricuspid regurgitation. The aortic root is normal size. The IVC is dilated (diameter is greater than 2.1 cm) and it collapses less than 50% with a sniff. This suggests a high right atrial pressure of 15 mm Hg. . Additional Diagnostics Coronary angiogram 01/02/17 RESULTS: 1. Selective angiogram: a. Left main coronary artery is short and has 20-30% stenosis at its origin. There is pressure damping with a guide catheter engagement. b. The left anterior descending artery is transapical and has focal 70% stenosis in the midportion. The diagonal branch has minor irregularity. c. The circumflex artery has 50% stenosis distal to the takeoff of the first obtuse marginal branch. The first obtuse marginal branch has 50% stenosis at its origin. d. The dominant right coronary artery is chronically occluded in the proximal portion. 2. The left internal mammary artery is normal. It supplied the chest wall. This is not used for bypass. 3. Left ventricular angiogram demonstrates mildly depressed left ventricular systolic function (visually estimated ejection fraction 40%). The inferior wall is moderately hypokinetic. The remaining segments contract normally. 4. There is no gradient across the aortic valve on catheter withdrawal. 5. Left ventricular pressure is 140/14 mmHg. Aortic pressure is 143/62 mmHg. 6. Left ventricular end-diastolic is 35 mmHg. 7. There is 5 mm pressure gradient across the proximal portion of the left subclavian artery. 8. Bilateral external iliac arteries are calcified. There is moderate to severe stenosis of the left common femoral artery. There are stents present in bilateral superficial femoral arteries. CONCLUSION: 1. A 70% mid left anterior descending artery stenosis. 2. Chronic occlusion of the right coronary artery. 3. LVEF 40%. 4. LVEDP is 35 mmHg. 5. Significant peripheral artery disease. Shirley Mcdaniel MD 01/02/17 [id number] INTERVENTIONAL CARDIAC CATHETERIZATION PROCEDURE: 1. Arterial access from the right radial artery under ultrasound guidance. 2. Selective ipsilateral right axillary angiogram. 3. Nonselective right internal mammary angiogram. 4. Balloon angioplasty and stenting to the mid left anterior descending. 5. Vascular closure device. RESULTS: 1. Severe 95% stenosis of the right axillary artery. 2. This was successfully treated with drug coated balloon angioplasty. 3. 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 4. Successful balloon angioplasty and stenting to the severe mid left anterior descending artery lesion by deploying one occluding stent (3.0 x 23 mm) to achieve an excellent angiographic result with OLGA-3 flow distally. Shirley Mcdaniel MD 01/05/17 1207 . Assessment & Plan Acute problems: # Cardiac arrest, acute prior to admission. Due to acute ischemic disease with inferior DE. Repeat cardiac arrest on 01/03/17 was brief. S/p AICD pacemaker placement 01/03 - Amiodarone d/c'd after AICD- CAD ischemia work up. # Acute NSTEMI, with chronic Coronary artery disease status post CABG. catheterization on 01/02. PCI with LAD graft stent on 01/05. - Continue aspirin, clopidogrel, statin - Further management per cardiology service # Acute respiratory failure with hypoxia, intubated during his second cardiac arrest. Remains intubated through perioperative period of pacemaker placement. Likely difficult to wean due to underlying undiagnosed JAGRUTI with chest wall trauma. Bronchoscopy on 01/04 confirms intrathoracic variable obstruction pattern. Currently well oxygenated on FiO2 0.55. Mild respiratory acidosis after neuromuscular blockade yesterday, now present rate increase 15 -to 18 - Pulmonology service consult - ICU ventilator bundle ordered - Attempt to wean blockade and sedation today # Acute kidney injury, not present on admission. Initial Cr 1.63, bina to 2.13, now 1.77. Creatinine generally stable in CKD stage IV range despite catheterization dye load, episodes of arrhythmia, ventricular fibrillation and CPR. Underlying Chronic kidney disease, likely secondary to poorly controlled diabetes. Urine output past 24 hours at 0.5 ML/KG/HR - Monitor urine output - Avoid nephrotoxins - daily BMP # Pain control, acute, present on admission. Patient is moderately symptomatic from chest compressions. Likely to be complicating factor with breathing trials. - Propofol sedation and Fentanyl analgesia on ventilator # VAP Infection, acute not present on admission. Leukocytosis, acute, present on admission. Initially with stress leukocytosis on presentation there was no evidence for focal infection. Mild recurrent leukocytosis on 01/06. Now with Klebsiella species in tracheal aspirate from 01/04. Bilateral basilar infiltrates. - Start ceftriaxone on 01/06. # Acute congestive heart failure, ischemic cardiomyopathy, present on admission. Initially received Lasix diuresis. - Carvedilol per OG-tube - ischemia treatment with PCI - Resume Lasix on 01/06 # Diabetes mellitus, insulin-dependent, uncontrolled. A1c from 11/01/2016 was 9.8. Inpatient glycemia has been at target <180 with the dose every 6 hours Regular Insulin. Blood glucose above target on 01/06 likely due to high-dose steroids. - Increased dosing Every 6 hour regular insulin while NPO. Stable or resolving problems: # Sinus bradycardia, chronic. AICD pacemaker is in place - resolved # Anemia, acute on chronic. Etiology uncertain. Received RBC transfusion 1 unit , due to concern about ischemic cardiac disease. - follow CBC # Hypertension - Continue carvedilol - Holding on HOWIE inhibitor at present # Hyperlipidemia -Continue statin # Nicotine dependence -Counseled on smoking cessation at time of admission -Offered nicotine patch # DVT prophylaxis - heparin GI Prophylaxis: H2 lauri VTE Prophylaxis: Sub-Q Heparin (Unfractionated) VTE Mechanical Devices: Intermittant Pneumatic CD Resuscitation Status: CPR: Attempt Resuscitation Time spent 35 minutes Sumanth Aviles MD January 06, 2017 13:03
[2017-01-06] MEDS ORDERED: Dextrose 10% 250 ML IV PRN (13:05)
--- NOTE | 2017-01-06 14:45 | ABG ---
DateTimeAnalyzed 14:40:00 -_ pH ____7.351 - 7.350 7.450 pCO2 ___36.5__ -mmHg 35.0 45.0 pO2 ___74.4__ -mmHg 69.0 116 HCO3- ___19.7__ -mmol/L 22.0 26.0 ABE ___-4.9__ -mmol/L -2.0 2.0 tHb ____8.8__ -g/dL O2Hb ___92.9__ -% COHb ____1.3__ -% MetHb ____1.2__ -% sO2 ___95.3__ -% 25.0 FIO2 ___45.0__ -% PRVC 550 - PEEP ____8.0__ -cmH2O Set_RR ___18.0__ -b/min Vt __550.0__ -L Drawn By NB - Date/Time Notified____ 14:44:00 -_ Spontaneous_RR ___18.0__ -b/min Oxygen Device 1 VENTILATOR - Notified By NB - B 754 -mmHg tO2 ___11.5__ -Vol% Roshan test N/A -
--- NOTE | 2017-01-06 19:20 | NUR ---
Sedation/ABG/gastric residual Nimbex drip was turned off this morning for sedation score of -5. Propofol and fentanyl drips were decreased gradually during the shift: propofol from 40mcg/kg/min to 10mcg/kg/min and fentanyl from 150mcg/h to 50mcg/h- patients RASS score -3 with patient withdrawing from pain/irritation and good cough reflex only- consulted with MD- continue to decrease sedation until RASS of -1/-2 achieved. Improvement in blood gas by this afternoon competing to earlier this morning drawn ABG with ph 7.351, pco2- 37, po2-74.4 and hco3 19.7- please compare to 0430 ABG. Patient had faint bowel tons this morning and was overnight on nimbex drip. Gastric residual at the time was 50ml- consulted with MD and tube feeding was decreased to 20ml/h from goal of 52ml/h. Goal rate of 52 was resumed per attending pulmonologists verbal order after nimbex drip was stopped this morning. At noon time gastric residual was 40ml and no improvement in bowel sounds. With evening assessment patient had 350ml of gastric residual- tube feeding was stopped and MD was made aware- OG was placed to suction. In a period of 1.5 h following patient had additional 500ml of gastric juices were suctioned out. Consulted with MD and OG to remain to LIS overnight until farther evaluation if necessary.
[2017-01-07] VITALS (17 sets, daily range): BP systolic 153–185; BP diastolic 52–89; PULSE 60–64; RESP 16–22; O2SAT 91–97
[2017-01-07] MEDS: Albuterol-Ipratropium 3 mL Inhalation Solution NEB SCH ×6 (00:24→12:19)
[2017-01-07] MEDS: Chlorhexidine 0.12% 15 mL Oral Solution MT SCH ×6 (01:06→19:52)
[2017-01-07] MEDS: Heparin 5,000 Unit/mL Inj SUBQ SCH ×3 (01:07→15:54)
[2017-01-07] MEDS: Sodium Chloride LOK Flush 10 mL Syringe IVFLUSH SCH ×4 (01:08→19:54)
[2017-01-07] MEDS ORDERED: Vancomycin Inj 1,000 MG in IV Premix 1 EACH IV SCH (02:30)
[2017-01-07] MEDS: Insulin Human REGular 300 Unit/3 mL Inj SUBQ SCH ×5 (02:56→19:59)
--- NOTE | 2017-01-07 04:24 | NUR ---
P: goal RASS -1 to -2 I: decreasing fentanyl and propofol drips E: Current RASS -2 to -3. Unable to make eye contact or follow cues. Moves BUEs some. Propofol and fentanyl drips both at 10mcg each. BIS 30-50. Increase bronchospastic coughing. Productive. Sats mid 90s on 45% fio2. Breathes above vent rate when care given. Tele A paced. SBP 170-180s as sedation decreasing. UOP 30-40ml/hr, ed brown. No stools. Rare BTs. Moderately soft abdomen. OGT to LCWS. Large amount of flores yellow OGT drainage. TF off yesterday r/t high residuals.
--- NOTE | 2017-01-07 05:05 | ABG ---
DateTimeAnalyzed 05:00:00 -_ pH ____7.387 - 7.350 7.450 pCO2 ___35.3__ -mmHg 35.0 45.0 pO2 ___78.8__ -mmHg 69.0 116 HCO3- ___20.8__ -mmol/L 22.0 26.0 ABE ___-3.2__ -mmol/L -2.0 2.0 tHb ____9.4__ -g/dL O2Hb ___93.5__ -% COHb ____1.3__ -% MetHb ____1.1__ -% sO2 ___95.8__ -% 25.0 FIO2 ___45.0__ -% PRVC 550 - PEEP ____8.0__ -cmH2O Set_RR ___18.0__ -b/min Vt __550.0__ -L Drawn By MD - Date/Time Notified____ 05:04:00 -_ Spontaneous_RR ___18.0__ -b/min Oxygen Device 1 VENTILATOR - Notified By MD - Notified Whom RN K.ML - B 755 -mmHg tO2 ___12.5__ -Vol% Roshan test N/A -
[2017-01-07 05:55] LABS: BASOPHILS % (AUTO) 0 % (0-3); EOSINOPHILS % (AUTO) 0 % (0-5); MONOCYTES % (AUTO) 5.4 % (4-12); Mean Corpuscular Hemoglobin 29.6 pg (27.0-35.0); Mean Corpuscular Volume 88.7 fL (81-100); NEUTROPHILS % (AUTO) 91.9 % (40-74); Platelet Count 352 bil/L (150-400)
[2017-01-07] MEDS: Propofol Inj 1,000,000 MCG in IV Premix 1 EACH IV SCH (05:57)
[2017-01-07 06:12] LABS: Magnesium 2.6 mg/dL (1.6-2.6); Phosphorus 4.7 mg/dL (2.5-4.9)
[2017-01-07] MEDS ORDERED: Labetalol 5 mg/mL 4 mL Inj IVPUSH PRN (07:45)
[2017-01-07] MEDS ORDERED: Furosemide 10 mg/mL 10 mL Inj IVPUSH ONE (08:10)
--- NOTE | 2017-01-07 08:16 | PCM.PNMED ---
Subjective Date of Service January 07, 2017 Subjective PULMONOLOGY/CRITICAL CARE PROGRESS NOTE: 61-year-old man with coronary artery disease, type II diabetes mellitus, COPD presents after episode of sudden cardiac at [facility] prior to admission, probable acute ischemic CAD, with recurrent inpatient cardiac arrest on 01/03, status post AICD defibrillator placement, requiring high level sedation to tolerate ventilator. Hospital day #6. Patient intubated and sedated in the ICU so no ROS obtained. Overnight, Fentanyl and propofol drips decreased with fentanyl being turned off around 0500 and propofol down to 10 at 0430. RASS score got to -2 to -3 with patient unable to make eye contact or follow cues. SBP trended up overnight. Still no bowel movement and tube feeding turned off altogether due to high residuals. Exam Vital Signs Vital Sign - Last Date Time Temp Pulse Resp B/P Pulse Ox O2 Delivery O2 Flow Rate FiO2 01/07/17 07:33 60 01/07/17 07:33 37.5 16 185/65 95 Mechanical Ventilator 40 01/03/17 01:51 3.00 Intake and Output 01/06/17 01/06/17 01/07/17 Cumulative From/Thru 15:00 23:00 07:00 01/02/17 05:15 - 01/07/17 05:10 Intake Total 1091 ml 344 ml 18519 ml Output Total 1600 ml 400 ml 6340 ml Balance -509 ml -56 ml 5085 ml Intake Oral 310 ml IV Total 586 ml 294 ml 8925 ml Tube Feeding 425 ml 1340 ml Packed Cells 320 ml Tube Irrigant 80 ml 50 ml 530 ml Output Urine Total 750 ml 4700 ml Gastric Drainage Total 850 ml 400 ml 1640 ml # Voids 1 # Bowel Movements 0 0 Exam General: Intubated and sedated in the ICU. Obese gentleman appearing older than stated age. Head: Normal, atraumatic Eyes: PERRLA, Scleral Anicteric Mouth: Mucous Membr Moist/Cumby with no oral thrush appreciated around the ET and OG tubes Chest & Lungs: Some expiratory wheezes with mild coarse breath sounds heard throughout the lung harris; incision site noted in the left upper chest, dressing CDI Cardiovascular: RRR with no murmur appreciated Abdomen: Slow bowel tones, distended, nontender, obese Extremities: Notable edema in both the upper and lower extremities; in the lower extremities edema continues up to the knee and is moderately pitting; healing wound at the base of the right great toe; Right PICC line in place Radial pulse present and equivalent bilaterally, dorsalis pedis pulse present and equivalent bilaterally : Murillo catheter in place, notable scrotal edema Neurological: Grimace to pain but no other meaningful movement IVs and Medications Medications Reviewed: Medications were reviewed in detail Lab and Diagnostics Result Diagram: 01/07/1752901/07/17529 Assessment & Plan 1) S/P cardiac arrest prior to admission. - Likely secondary to acute NSTEMI. - Second cardiac arrest during admission on 01/03. - AICD placed on 01/03 (indication: symptomatic sinus bradycardia). - Cardiac cath with LAD stenting done on 01/05. - Defer to cardiology for medication management. Agree with continuation of aspirin, plavix and statin. 2) Acute on chronic hypoxic respiratory failure. - Ventilator settings: FiO2 .40 on pressure support of 10/6. Volumes in the 600 -700s. - Fentanyl for analgesia turned off this AM. Propofol turned down to 10. Will keep sedation as light as the patient is able tolerate today in an effort to work toward ventilator liberation. - SBT today and if patient does well may consider extubation. - Continue to utilize ABG or VBG each AM and as needed for ventilator management. - Continue diuresis with Lasix 40 mg IV push this AM. Will evaluate for additional dosing this afternoon. - Continue DuoNeb Q2H. - Continue Solu-medrol IV 60 mg BID. 3) Anion gap metabolic acidosis, improved. - Likely multifactorial. Patient has evidence of pneumonia, ZACH, and was not able to be appropriately ventilated due to dyssynchrony. - Will order ABG or VBG as needed for further adjustments. 4) Klebsiella pneumonia. - Sputum sample obtained during bronchoscopy has grown out pansensitive Klebsiella. - Ceftriaxone started 01/06. Considering changing antibiotics today to also cover his foot infection (vancomycin and zosyn possibly). May discuss case with Dr. Watters who already knows the patient. - Continue to follow chest x-ray. 5) Acute kidney injury on chronic kidney disease (presume stage 3). - Baseline creatinine around 1.5. Likely secondary to poorly controlled diabetes. - Monitor urine output. Avoid nephrotoxic agents when possible. - Labs per the primary team. 6) Probable JAGRUTI. - Will need outpatient sleep study at the time of discharge. - The patient's apnea could present some difficulty when it comes to ventilator liberation. Will consider the use of BiPAP again after extubation. - Encourage cessation of smoking tobacco products when patient more able to participate in care. 7) Acute anemia. - Etiology uncertain. - Per outpatient records H&H was in November 2016. - Has received 2 units PRBCs during admission (01/04). - May need to consider additional evaluation of possible sources during this admission. - Labs per primary team. 8) Hypertension. - Acute on chronic. - Receiving Lasix IV push for diuresis. - Patient NPO so cannot re-start home medications at this time. - Will use IV hydralazine and PRN IV labetalol. 9) Nutrition. - No bowel movement during this hospitalization. Scheduled bowel regimen in place. - Tube feeding on hold due to high residuals. GI Prophylaxis: H2 lauri VTE Prophylaxis: Sub-Q Heparin (Unfractionated) VTE Mechanical Devices: Intermittant Pneumatic CD Resuscitation Status: CPR: Attempt Resuscitation Nolvia Peralta DO January 07, 2017 08:16
[2017-01-07] MEDS: Famotidine Inj 20 MG in IV Premix 1 EACH IV SCH (08:33)
[2017-01-07] MEDS: cefTRIAXone Inj 2,000 MG in Dextrose 5% Minibag Plus 50 ML IV SCH (08:33)
[2017-01-07] MEDS: DULoxetine 30 mg DR Capsule PO SCH (08:34)
[2017-01-07] MEDS: MethylprednisoLONE Sodium Succinate 40 mg/mL Inj IVPUSH SCH ×2 (08:34→19:53)
[2017-01-07] MEDS: Lactulose 20 Gm/30 mL 30 mL Syrup TUBE SCH ×2 (08:34→19:32)
[2017-01-07] MEDS: Furosemide 10 mg/mL 4 mL Inj IVPUSH SCH (08:46)
--- NOTE | 2017-01-07 09:30 | DRSVH ---
PROCEDURE: X-RAY CHEST ONE VIEW, PORTABLE ([id number]) INDICATIONS: intubated pt; monitor tubes and lines TECHNIQUE: One view of the chest was acquired. COMPARISON: [facility], CR, XR CHEST 1VW (PORTABLE), 01/06/2017, 4:52. FINDINGS: Surgical changes and devices: ETT tip projects 4.2 cm above the kemi. Nasogastric tube traverses t he GE junction. Stable position of right PICC with tip projected over the mid superior vena cava. S table positioning of left pacer. Sternotomy with mediastinal postoperative changes. Lungs and pleura: Pulmonary edema persist and there is been interval increase in retrocardiac airspac e opacity. Persistent right basilar airspace opacity. No pneumothorax. Mediastinum: Mediastinal contours appear normal. Heart size is enlarged. Bones and chest wall: No suspicious bony lesions. Overlying soft tissues appear unremarkable. IMPRESSION: 1. Stable support lines and tubes. 2. Persistent enlargement of the cardiac mediastinal silhouette and pulmonary edema with interval inc rease in retrocardiac airspace opacity consistent with worsening patchy pulmonary edema versus atelec tasis or pneumonia. Dictated by: Guillermo Finnegan [facility] Interpreted: Esdras Paris MD on 01/07/2017 at 9:27 Transcribed by: TOMAS on 01/07/2017 at 9:30 Approved by: Esdras Paris M.D. on 01/07/2017 at 11:02
[2017-01-07] MEDS: hydrALAZINE 20 mg/mL Inj IV SCH ×3 (09:36→19:53)
[2017-01-07] MEDS: 0.9% Sodium Chloride 250 ML IV SCH (10:18)
[2017-01-07] MEDS ORDERED: fentaNYL-PF 50 mCg/mL 2 mL Inj ONE (10:26)
--- NOTE | 2017-01-07 11:00 | NUR ---
NUTRITION FOLLOW-UP: Assess: 61 YO M admitted to CCU with STEMI. Pt is s/p AICD placement; reintubated after procedure. Enteral feeding initiated and discontinued related to initiation of paralytics and high residuals. Of note, pt has not has a BM since admit x 5 D. Relistor ordered today; paralytic has been discontinued. Enteral feeding remains on hold. Pressure support trials exhibiting some success; tentative plan is to extubate in the near future to BiPAP. Nutrition is a concern in this patient with acute on chronic foot ulceration. He only received enteral feeding for 3 days of his 5 day admission thus far. PMHX: Type 2 DM, HTN, hypercholesterolemia, tobacco use, COPD, severe JAGRUTI, stage III renal disease, PAD, CAD, CABG. DIET:NPO. LABS: BUN 43, Cr 1.73, Glu 219, A1c 7.6, Ca 8.4, Alb 2.9. MEDICATIONS: Reviewed. Insulin, bowel regimen, lasix, [id number]. Propofol currently discontinued. GI: No BM noted. SKIN: Right plantar great toe ulcer that is 0.5 cm L x 0.2 cm W x 1 cm D. In the web space between the great toe and second toe there is a 1.5 cm L x 0.3 cm W x 0.5 cm D ulcer. NUTRITION SUPPORT ON HOLD: Glucerna 1.5@ 52ml/hr providing 1716kcal (2376kcal w/propofol) and 94g pro (100% kcal and 85% protein needs), 1 packet ProSource liquid protein two times per day. ANTHROPOMETRICS: Wt: 111.7 kg, BMI 36.5 kg/m2, Admit wt: 105.6 kg, IBW: 72.7 kg. ESTIMATED NEEDS: BMI/ VENT Calories: 8690-8217 kcal/day (20-22 kcal/kg BW) Protein: 110-130 g/day (1.5-1.8 g/kg IBW) Fluids: ~2650ml/day (25ml/kg) NUTRITION DIAGNOSIS: 1) Inadequate oral intake related to decreased ability to consume sufficient energy as evidenced by current NPO status - PERSISTS. INTERVENTION: 1) Recommend restart enteral feeding at trophic rate until tolerance established and advance appropriately. MONITOR/EVALUATE: NPO/vent status, GI status, enteral feeding restart / advance, labs, GI/nutrition status. Follow per high nutrition risk guidelines.
--- NOTE | 2017-01-07 11:00 | NUR ---
Respiratory Pt extubated @ 1038 to 3LNC. NC was insufficient to keep Sat above 91, put on oxymask @ 6 lpm. Pt seems to have jaret (no study to confirm, nor is there any study for COPD) copious secretions and is only responsive to painful stimuli. Dr. Hernandez verbally ordered an NT sxn to stimulate cough, which was non productive. Pt is currently at Sat 93% HR 64, RR 20.
--- NOTE | 2017-01-07 12:37 | NUR ---
Mental status/ extubating Minimal sedation this miring with propofol at 10mcg/kg/min only. Patient hypertensive with SBP 18=70-200- MD was in the patients room at the time room and aware. Slow response /eye opening to verbal stimulation this morning but able to respond to sternal rub with increased pain as demonstrated by attending decorative engraver apprentice at the time. Sedation-propofol was stopped patient became progressively more agitated especially during coughing and with suctioning patient was able to open his eyes but was not following commands. MD proceeded to extubate the patient at 1038. Patient was placed initally on 6l NC but was breathing primarly through his mouth and was placed on 6L oxy mask with oxygen saturation 92-93%. Patient was treated for hypertension with scheduled dose of hydralazine 10mg IV q6h and responded well- MED-NEB treatments per T, encouraged to cough/deep breath and reposition at least Q2h, continue assessment.
[2017-01-07] MEDS ORDERED: Vancomycin Dose per Pharmacist XX SCH (13:15)
[2017-01-07] MEDS: HYDROmorphone 0.5 mg/0.5 mL iSecure Syringe IVPUSH PRN ×3 (13:45→21:52)
[2017-01-07] MEDS ORDERED: Albuterol-Ipratropium 3 mL Inhalation Solution NEB PRN (14:04)
--- NOTE | 2017-01-07 14:11 | PCM.PNMED ---
Subjective Date of Service January 07, 2017 Subjective 61-year-old man with coronary artery disease, tobacco abuse, type II diabetes mellitus, COPD presents after episode of sudden cardiac at [facility] prior to admission, acute ischemic CAD, with recurrent inpatient cardiac arrest on , status post AICD defibrillator placement, requiring sedation and subsequent prolonged mechanical ventilation. He was extubated today. He remains minimally conversant, generally somnolent with moderate delirium but orients to voice. Exam Vital Signs Vital Sign - Last Date Time Temp Pulse Resp B/P Pulse Ox O2 Delivery O2 Flow Rate FiO2 01/07/17 12:25 60 22 91 OxyMask 6.00 01/07/17 11:48 37.3 162/52 01/07/17 09:54 45 Intake and Output 01/06/17 01/06/17 01/07/17 Cumulative From/Thru 15:00 23:00 07:00 01/02/17 05:15 - 01/07/17 05:10 Intake Total 1091 ml 344 ml 61084 ml Output Total 1600 ml 400 ml 6340 ml Balance -509 ml -56 ml 5085 ml Intake Oral 310 ml IV Total 586 ml 294 ml 8925 ml Tube Feeding 425 ml 1340 ml Packed Cells 320 ml Tube Irrigant 80 ml 50 ml 530 ml Output Urine Total 750 ml 4700 ml Gastric Drainage Total 850 ml 400 ml 1640 ml # Voids 1 # Bowel Movements 0 0 Exam General: Obese man eyes open but nonverbal, does not follow commands HEENT: sclerae anicteric, mucosa moist, Neck: Difficult to assess JVD, soft tissues thick Chest: Coarse BS, no rales, no wheeze; pacemaker site OK. Cardiac: Regular, S1S2, no murmur audible Abdomen: Protuberant, BS normal, non-tender; lam Extremities: 2+ edema hands, trace in feet; right first toe surgical wound healing without erythema or induration or exudate Neuro: Reduced mental status, otherwise symmetric face, nonfocal spontaneous movements IVs and Medications Medications Reviewed: Medications were reviewed in detail Lab and Diagnostics Result Diagram: 01/07/1752901/07/17529 Assessment & Plan Acute problems: # Cardiovascular: Cardiac arrest, acute prior to admission. Due to acute ischemic disease with inferior OH. Repeat cardiac arrest on 01/03/17 was brief. S/p AICD pacemaker placement 01/03 - Amiodarone d/c'd after AICD- CAD ischemia work up. # Acute NSTEMI, with chronic Coronary artery disease status post CABG. catheterization on 01/02. PCI with LAD graft stent on 01/05. - Continue aspirin, clopidogrel, statin - Further management per cardiology service # Respiratory: Acute respiratory failure with hypoxia, intubated during his second cardiac arrest. Remained intubated following pacemaker placement. Difficult to wean due to agitation, underlying undiagnosed JAGRUTI with chest wall trauma. Bronchoscopy on 01/04 showed intrathoracic variable obstruction pattern. Currently well oxygenated on FiO2 0.6, facemask. - Pulmonology service following - Continues on methylprednisolone, nebulizers # Renal: Acute kidney injury, not present on admission. Initial Cr 1.63, bina to 2.13, now 1.73; stable. Creatinine generally stable in CKD stage IV range despite catheterization dye load, episodes of arrhythmia, ventricular fibrillation and CPR. Underlying Chronic kidney disease, likely secondary to hypertension, diabetes. Urine output past 24 hours at 0.5 ML/KG/HR - Monitor urine output - Avoid nephrotoxins - daily BMP # Infectious: VAP Infection, acute not present on admission. Leukocytosis, acute , present on admission. Initially with stress leukocytosis on presentation there was no evidence for focal infection. Mild recurrent leukocytosis on . Now with Klebsiella species in tracheal aspirate from 01/04. Bilateral basilar infiltrates. - Start ceftriaxone on 01/06. # Acute congestive heart failure, ischemic cardiomyopathy, present on admission. Initially received Lasix diuresis then stop for several days. Carvedilol continues, holding HOWIE inhibitor due to a cat. - Resume Lasix on 01/06 - Monitor BMP # Diabetes mellitus, insulin-dependent, uncontrolled. A1c from 11/01/2016 was 9.8, subsequently 5.6. Inpatient glycemia has been at target <180 with the dose every 6 hours Regular Insulin. Blood glucose above target on 01/06 likely due to high-dose steroids. He received tube feeds but stopped due to high volume residuals. - Increased dosing Every 6 hour regular insulin while NPO. - Switched to subcutaneous lispro with basal glargine when taking by mouth Stable or resolving problems: # Pain control, acute, present on admission. Patient is moderately symptomatic from chest compressions. - Oral analgesics as needed # Sinus bradycardia, chronic. Likely related to IW OH. AICD pacemaker is in place - resolved # Anemia, acute on chronic. Hemoglobin 8.2 admission. Etiology uncertain. Received RBC transfusion 1 unit, due to concern about ischemic cardiac disease. Hemoglobin stable and rising - follow CBC # Hypertension - Continue carvedilol - Holding on HOWIE inhibitor at present # Hyperlipidemia -Continue statin # Nicotine dependence -Counseled on smoking cessation at time of admission -Offered nicotine patch # DVT prophylaxis - heparin VTE Prophylaxis: Sub-Q Heparin (Unfractionated) VTE Mechanical Devices: Intermittant Pneumatic CD Resuscitation Status: CPR: Attempt Resuscitation Time spent 35 minutes Sumanth Aviles MD January 07, 2017 14:10
[2017-01-07] MEDS ORDERED: Dextrose 10% 250 ML IV PRN (14:15)
--- NOTE | 2017-01-07 14:15 | PCM.PHAPRO ---
Progress STEMI Vancomycin Dosing Indication: Foot Infection Other ABX Ceftriaxone (specific tx for Klebsiella PNA) p/ LD of 1500mg followed by 1000mg q12h for target Cpmin of ~15 mcg/mL Level at ss Marshall Cabrera S Pharm D January 07, 2017 14:15
[2017-01-07] MEDS ORDERED: Vancomycin Inj 1,500 MG in 0.9% Sodium Chloride 500 ML IV ONE (14:20)
[2017-01-07] MEDS ORDERED: HYDROmorphone 0.5 mg/0.5 mL iSecure Syringe IVPUSH ONE (14:25)
--- NOTE | 2017-01-07 15:01 | DRSVH ---
PROCEDURE: X-RAY CHEST ONE VIEW, PORTABLE ([id number]) INDICATIONS: increased pain TECHNIQUE: One view of the chest was acquired. COMPARISON: [facility], CR, XR CHEST 1VW (PORTABLE), 01/06/2017, 4:52. [facility], CR, XR CHEST 1VW (PORTABLE), 01/05/2017, 13:25. [facility], CR, XR CHEST 1VW (PORT ABLE), 01/07/2017, 4:51. FINDINGS: Surgical changes and devices: Stable positioning of left pacer. Median sternotomy wires redemonstrat ed. Lungs and pleura: Slight decrease in focal air space opacity involving the left lung base otherwise p ersistent interstitial and multifocal air space opacities redemonstrated. No pneumothorax. Mediastinum: Mediastinal contours appear normal. Heart size is enlarged. Bones and chest wall: No suspicious bony lesions. Overlying soft tissues appear unremarkable. IMPRESSION: Slight decrease in focal opacity involving the left lung base otherwise persistent pulmon howard edema and/or diffuse bilateral pneumonia. Dictated by: Guillermo Finnegan RRA Interpreted: Bryanna Millan MD on 01/07/2017 at 14:59 Transcribed by: GEORGE on 01/07/2017 at 15:00 Approved by: Bryanna Millan MD, PhD on 01/07/2017 at 15:39
[2017-01-07] MEDS ORDERED: Methylnaltrexone 12 mg/0.6 mL Inj SUBQ ONE (15:20)
--- NOTE | 2017-01-07 16:04 | PCM.PNMED ---
Subjective Date of Service January 07, 2017 Subjective More alert this AM on vent. opened eyes to voice and purposeful movements but not following commands. Extubated to NC O2 late morning and did well until 2P when developed sudden onset restlessness, grimacing, diaphoresis, and pulling at medical devices. Patient was unable to describe or localize his pain. EKG free of acute changes. CXR stable except for slight increase in congestion. Abdomen soft. Chest exam unchanged. Medicated with 1.0 mg hydromorphone and placed on high flow O2, Now resting comfortably and SpO2 96% on FiO2 0.9 Exam Vital Signs Vital Sign - Last Date Time Temp Pulse Resp B/P Pulse Ox O2 Delivery O2 Flow Rate FiO2 01/07/17 15:14 62 16 95 Nasal Cannula 60 90 01/07/17 11:48 37.3 162/52 Intake and Output 01/06/17 01/06/17 01/07/17 Cumulative From/Thru 15:00 23:00 07:00 01/02/17 05:15 - 01/07/17 05:10 Intake Total 1091 ml 344 ml 24931 ml Output Total 1600 ml 400 ml 6340 ml Balance -509 ml -56 ml 5085 ml Intake Oral 310 ml IV Total 586 ml 294 ml 8925 ml Tube Feeding 425 ml 1340 ml Packed Cells 320 ml Tube Irrigant 80 ml 50 ml 530 ml Output Urine Total 750 ml 4700 ml Gastric Drainage Total 850 ml 400 ml 1640 ml # Voids 1 # Bowel Movements 0 0 Exam Obese bearded man resting on high flow cannula\ Lungs Good air movement. No wheezes. scattered rales at bases CV RRR, no m/g/r Abd Soft, rare BTs,no HSM or tenderness Ext 3+ UE and 2+ LE edema, Warm, No cyanosis Eyes PER, gaze conjugate, conjunctiva clear and sclera anicteric Lab and Diagnostics Result Diagram: 01/07/1752901/07/1730 Assessment & Plan IMP I suspect that much of his apparent discomfort this afternoon is due to chest wall pain as a result of his multiple rounds of CPR. CAD S/P PCI to LAD 01/05, CABG 2002, Preserved EFon recent echo Bradycardia S/P PPM, fully paced now. VF arrest Probably has some chest wall injury from CPR which will complicate his care. Severe PAH PA systolic per echo > 60, probable group III based on suspicion for advanced lung disease but can't R/O PE or even group I PAH Acute respiratory failure Also suspect underlying chronic lung disease based on long smoking history. Now, in addition, may have HAP with K. Pneumo. Tracheobronchomalacia seen on bronch. DM II Admission A1c elevated. Diabetic foot infection with MRSA and Prevotella , on abx for several months per ID and Wound care. ZACH, CKD Baseline function 1.5 creatinine which would be stage III. Probably diabetic but hasn't been investigated. Anemia Normal MCV here and his hgb was normal as recently as November according to records in [facility] Metabolic acidosis Improving,probably d/t ZACH Morbid obesity Based on 's history, he may have undiagnosed JAGRUTI PLAN DC Nimbex Scheduled bowel meds, lactulose and senna/docusate Rocephin for K. pneumo, vanco IV for MRSA in foot ( had been on PO linezolid but not able to take PO safely ) Wean O2 on high flow as tolerates PRN dilaudid for pain, Single dose of Toradol Serial hgb and metabolics Diurese cautiously Insulin basal and SSI ICU prophylaxis Additional management per Cardiology and IM teams. VTE Prophylaxis: Sub-Q Heparin (Unfractionated) VTE Mechanical Devices: Intermittant Pneumatic CD Resuscitation Status: CPR: Attempt Resuscitation Bruce Hernandez MD January 07, 2017 16:04 Received RBC transfusion 1 unit, due to concern about ischemic cardiac disease. Hemoglobin stable and rising - follow CBC # Hypertension - Continue carvedilol - Holding on HOWIE inhibitor at present # Hyperlipidemia -Continue statin # Nicotine dependence -Counseled on smoking cessation at time of admission -Offered nicotine patch # DVT prophylaxis - heparin VTE Prophylaxis: Sub-Q Heparin (Unfractionated) VTE Mechanical Devices: Intermittant Pneumatic CD Resuscitation Status: CPR: Attempt Resuscitation Bruce Hernandez MD January 07, 2017 16:04
[2017-01-07] MEDS: Acetaminophen IV 1,000 MG in IV Premix 1 EACH IV PRN (16:15)
[2017-01-07] MEDS: Sodium Chloride LOK Flush 10 mL Syringe IVFLUSH PRN ×3 (16:37→19:54)
--- NOTE | 2017-01-07 18:15 | NUR ---
Pain/agitation Starting at around 1400 patient became suddenly anxious and agitated. He was also granting and grimacing at the time- patient appeared to be in pain. Patient was not able to verbalize his needs/problems. However progressively his behavior became extreme with elevated RR to mid-30s oxygen saturation dropping below 90% to 87-88% ranges. Oxygen was increased from 6l oxy-mask to 12 and full flow of O2 per oxy-mask with oxygen saturation only at 89-91%. Patient was given a dose of Dilaudid 0.5mg IV 1 and after few min he relaxed. After about 10 min and patient resumed prior behavior/symptoms- MD was made aware. Patient was given additional dose of Dilaudid 0.5mgIV x1per MD order. 12lead EKG and portable chest X-ray were completed attending facilities manager presenting the room at the time was able to read test results at the bedside. After the second dose of Dilaudid V patient began to relax and fell asleep. RT placed the patient on HFO2NC at 60L and 90%. With oxygen saturation at 97-985. Patient required NT-suctioning PRN completed by RT but oxygen saturation remained stable. RT decreased oxygen flow per HFO2NC to 60L and 60%. Subsequently patient was medicated with Toradol 30mg IV x1 and 1gm IV Tylenol. Patient remained relaxes but was able to respond to verbal stimulation. The source of his pain/agitation remained uncertain- continue assessment.
--- NOTE | 2017-01-07 20:57 | ABG ---
DateTimeAnalyzed 20:50:43 -_ pH ____7.417 - 7.350 7.450 pCO2 ___33.5__ -mmHg 35.0 45.0 pO2 ___69.7__ -mmHg 70.0 100 HCO3- ___21.5__ -mmol/L 22.0 26.0 ABE ___-2.7__ -mmol/L -2.0 2.0 tHb ___10.1__ -g/dL 12.0 18.0 O2Hb ___92.9__ -% 95.0 COHb ____1.9__ -% 1.5 MetHb ____0.0__ -% 0.4 1.5 sO2 ___94.8__ -% 25.0 FIO2 ___21.0__ -% Drawn By MD - Oxygen Device 2 __CANNULA - Date/Time Notified____ 20:56:00 -_ Spontaneous_RR 24 -b/min Liter_Flow ___60.00_ -L/min Oxygen Device 1 _HI FLOW - Notified By MD - Notified Whom RN R.PANIAGUA - K+ ____4.2__ -mmol/L tO2 ___13.2__ -Vol% Roshan test N/A -
[2017-01-07] MEDS ORDERED: HYDROmorphone 1 mg/mL Inj IVPUSH ONE (22:45)
[2017-01-07 23:10] LABS: Mean Corpuscular Hemoglobin 29.7 pg (27.0-35.0); Mean Corpuscular Volume 92.6 fL (81-100); NEUTROPHILS % (AUTO) 93.1 % (40-74); Platelet Count 417 bil/L (150-400)
[2017-01-07 23:11] LABS: BASOPHILS % (AUTO) 0.1 % (0-3); EOSINOPHILS % (AUTO) 0 % (0-5); MONOCYTES % (AUTO) 4.4 % (4-12)
[2017-01-07 23:43] LABS: TROPONIN T 0.354 ug/L (0.0-0.011)
[2017-01-08] VITALS (12 sets, daily range): BP systolic 122–184; BP diastolic 52–78; PULSE 65–67; RESP 16–28; O2SAT 89–99
[2017-01-08] MEDS: Chlorhexidine 0.12% 15 mL Oral Solution MT SCH ×6 (00:57→20:27)
[2017-01-08] MEDS: Heparin 5,000 Unit/mL Inj SUBQ SCH ×3 (01:35→16:19)
[2017-01-08] MEDS: HYDROmorphone 0.5 mg/0.5 mL iSecure Syringe IVPUSH PRN ×4 (01:36→10:53)
[2017-01-08] MEDS: hydrALAZINE 20 mg/mL Inj IV SCH ×4 (01:36→20:28)
[2017-01-08] MEDS: Insulin Human REGular 300 Unit/3 mL Inj SUBQ SCH ×4 (01:36→21:06)
[2017-01-08] MEDS: Vancomycin Inj 1,000 MG in IV Premix 1 EACH IV SCH ×2 (02:18→14:30)
--- NOTE | 2017-01-08 02:54 | NUR ---
Abd Pain/CT Pt experiencing severe acute abdominal pain. Dr. Fortune consulted regarding pain and order given for mineral oil enema. Pt has not had BM since the . No success with Enema. MD consulted again and asked to see patient in person. With MD at bedside, order received for Dilaudid 1-2mg IVP ONCE, lab work, CT Chest/Abd/Pelvis w/o contrast. Pain greatly subsided with Dilaudid 1mg IVP. Pt maintained O2 saturation on NRB during transport to CT for imaging. Pt returned 20minutes later without event. 24 Hour urine collection ended at 0500 this morning as per RN report. NS remains TKO, Tele unchanged paced with occasional SR w/ IVCD. Rhonchi lung sounds, improved with NT suctioning. at bedside throughout the night. [facility] imaging results relayed to Dr. Fortune over phone. Dilaudid given regularly as per schedule to prevent further exacerbations of pain. Pt remains hypertensive, given scheduled hydralazine and labetalol PRN IVP per parameters with fleeting success. Pt remains NPO at this time.
[2017-01-08] MEDS: Sodium Chloride LOK Flush 10 mL Syringe IVFLUSH PRN ×2 (03:45)
[2017-01-08] MEDS: Acetaminophen IV 1,000 MG in IV Premix 1 EACH IV PRN (03:46)
[2017-01-08] MEDS: Labetalol 5 mg/mL 20 mL Inj IVPUSH PRN (03:47)
[2017-01-08] MEDS: HYDROmorphone 1 mg/mL Inj IVPUSH PRN ×2 (04:42→06:50)
[2017-01-08 04:45] LABS: BASOPHILS % (AUTO) 0.1 % (0-3); EOSINOPHILS % (AUTO) 0 % (0-5); MONOCYTES % (AUTO) 4.4 % (4-12); Mean Corpuscular Hemoglobin 29.7 pg (27.0-35.0); Mean Corpuscular Volume 92.3 fL (81-100); NEUTROPHILS % (AUTO) 92.9 % (40-74); Platelet Count 423 bil/L (150-400)
[2017-01-08] MEDS ORDERED: Furosemide 10 mg/mL 4 mL Inj IVPUSH ONE ×2 (04:50→07:10)
--- NOTE | 2017-01-08 05:49 | ABG ---
DateTimeAnalyzed 05:44:08 -_ pH ____7.324 - 7.350 7.450 pCO2 ___39.2__ -mmHg 35.0 45.0 pO2 ___70.0__ -mmHg 70.0 100 HCO3- ___20.4__ -mmol/L 22.0 26.0 ABE ___-5.2__ -mmol/L -2.0 2.0 tHb ___10.4__ -g/dL 12.0 18.0 O2Hb ___91.1__ -% 95.0 COHb ____1.8__ -% 1.5 MetHb ____0.0__ -% 0.4 1.5 sO2 ___92.7__ -% 25.0 FIO2 ___21.0__ -% Drawn By MD - Oxygen Device 2 __CANNULA - Date/Time Notified____ 05:49:00 -_ Liter_Flow ___60.00_ -L/min Oxygen Device 1 _HI FLOW - Notified By MD - Notified Whom RN R.PANIAGUA - K+ ____4.6__ -mmol/L tO2 ___13.3__ -Vol% Roshan test N/A -
[2017-01-08] MEDS ORDERED: Haloperidol 5 mg/mL Inj IV ONE (06:40)
--- NOTE | 2017-01-08 07:30 | NUR ---
Restraints Pt restrained d/t unsafe behaviors. Dr. Fortune at bedside to evaluate patient and asked for restraints to be placed. Restraints started at 0445 this morning.
[2017-01-08] MEDS ORDERED: HYDROmorphone 0.5 mg/0.5 mL iSecure Syringe ONE (07:51)
[2017-01-08] MEDS ORDERED: Haloperidol 5 mg/mL Inj IV PRN (08:10)
--- NOTE | 2017-01-08 08:29 | DRSVH ---
PROCEDURE: CT CHEST, ABDOMEN AND PELVIS WITHOUT CONTRAST ([id number]) INDICATIONS: acute abdominal pain TECHNIQUE: After the administration of oral contrast, 5 mm thick sections acquired from the lung apices to the s ymphysis pubis. 5 mm thick coronal and sagittal reformats acquired, with additional 7 mm coronal MIP reformats through the lungs. For radiation dose reduction, the following was used: automated expos ure control, adjustment of mA and/or kV according to patient size. COMPARISON: None. FINDINGS: Image quality: Excellent. CHEST: Lungs and pleura: Moderate patchy bilateral airspace opacities. No pneumothorax. Small bilateral pleu ral effusions. Central and peripheral airways are patent are normal in caliber. Mediastinum: Heart size is normal. Calcification of the coronary vasculature. Left-sided pacer. Rig ht arm PICC. No pericardial effusion. No mediastinal adenopathy by CT size criteria. Thoracic aorta and central pulmonary arteries are normal in size. Esophagus is normal in caliber. No hiatal herni a. Chest wall: No axillary or supraclavicular adenopathy by size criteria. Thyroid gland grossly unrem arkable. Median sternotomy. ABDOMEN: Solid organs: Liver and spleen are normal in size. Gallbladder demonstrates calculi within its lume n. Pancreas is normal in contours. No adrenal nodules. Both kidneys are normal in size, without hy dronephrosis or nephrolithiasis. Peritoneum and bowel: Small and large bowel loops are normal in caliber and wall thickness. No free fluid or air. Normal appendix. Nodes and vessels: No retroperitoneal or mesenteric adenopathy by size criteria. IVC is within heather l limits. Mild ectasia of the infrarenal abdominal aorta measuring 26 mm. Miscellaneous: No ventral hernias. Diffuse body wall edema is present. PELVIS: Genitourinary: Murillo catheter is present, and urinary bladder is decompressed. Miscellaneous: No inguinal hernias or adenopathy. Bones: No suspicious bony lesions. No vertebral body compression fractures. IMPRESSION: 1. Moderate bilateral pneumonia, with small bilateral parapneumonic effusions. 2. Cholelithiasis. 3. Diffuse subcutaneous cellulitis versus subcutaneous edema. 4. Concordant with preliminary interpretation. Dictated by: Rosa Gustafson M.D. on 01/08/2017 at 8:24 Approved by: Rosa Gustafson M.D. on 01/08/2017 at 8:28
[2017-01-08] MEDS: DULoxetine 30 mg DR Capsule PO SCH ×2 (08:30→14:20)
[2017-01-08] MEDS: Furosemide 10 mg/mL 4 mL Inj IVPUSH SCH (08:30)
[2017-01-08] MEDS: Lactulose 20 Gm/30 mL 30 mL Syrup TUBE SCH ×2 (08:30→20:28)
[2017-01-08] MEDS: Albuterol-Ipratropium 3 mL Inhalation Solution NEB SCH ×4 (08:34→19:22)
--- NOTE | 2017-01-08 08:37 | PCM.PNMED ---
Subjective Date of Service January 08, 2017 Subjective Continues to be anxious, restless, impulsive at times with tachycardia, tachypnea, diaphoresis and moaning. Redirects for me and his . Over night, hospitalist gave Relistor and then obtained abd CT to investigate abd pain/urgency. No acute findings on CT Patient also received IV Lorazepam, at least 2 mg and was placed in 4 point restraints. I was notified of all this at 6 am and arrived at the hospital at 6:30 am. The patient was diaphoretic and moaning, He had coarse respirations and visible secretions in his mouth. I reviewed the events of the evening with patient's and his RN. He received 1 mg Dilaudid, 80 Lasix, 2 mg haloperidol and became more calm. His restraints were removed. He had oral and nasotracheal suctioning. His SpO2 bina to 98% and his FiO2 on high flow was decreased from 1.0 to 0.8. I discussed with both his RN and hospitalist my impression that severe chest wall / rib pain from his multiple rounds of CPR was complicating his agitated delirium/encephalopathy. I also expressed concern for some degree of anoxic encephalopathy as a contributor. At present, he is more calm with stable VS Exam Vital Signs Vital Sign - Last Date Time Temp Pulse Resp B/P Pulse Ox O2 Delivery O2 Flow Rate FiO2 01/08/17 07:22 60 20 96 Nasal Cannula 60 90 01/08/17 03:09 36.6 170/61 Intake and Output 01/07/17 01/07/17 01/08/17 Cumulative From/Thru 15:00 23:00 07:00 01/02/17 05:15 - 01/08/17 05:48 Intake Total 316 ml 910 ml 57210 ml Output Total 1500 ml 640 ml 8480 ml Balance -1184 ml 270 ml 4171 ml Intake Oral 0 ml 310 ml IV Total 316 ml 910 ml 93819 ml Tube Feeding 1340 ml Packed Cells 320 ml Tube Irrigant 530 ml Output Urine Total 1500 ml 640 ml 6840 ml Gastric Drainage Total 1640 ml # Voids 1 # Bowel Movements 0 0 Exam Obese, bearded man lying in bed with high flow cannula in place Lungs Coarse crackles, improved with NT suction, NO wheezes CV RRR, no m/g/r Chest No obvious flail segments but he does appear to have some rib separations at this sternum. diffusely tender to even light touch. Abd Soft, normal bowel tones, NO tenderness Neuro Brief eye opening to loud voice. Turns towards voice but doesn't track. Spontaneous purposeful movements of all 4. PER, Gaze conjugate. Lab and Diagnostics Result Diagram: 01/08/1743401/08/17434 Assessment & Plan IMP I suspect that much of his apparent discomfort this afternoon is due to chest wall pain as a result of his multiple rounds of CPR. CAD S/P PCI to LAD 01/05, CABG 2002, Preserved EF on recent echo. Will change BB to IV metoprolol and ASA to rectal suppository as he is NPO Bradycardia S/P PPM, fully paced now. Encephalopathy Probably ICU delirium but potentially also some component of anoxic brain injury. Will avoid benzos, treat pain, minimize restraints, restore normal day/night cycle, I've asked that he have a sitter assigned to him as reassurance/ redirection seems to work to keep him safe. VF arrest Probably has some chest wall injury from CPR which will complicate his care. Severe PAH PA systolic per echo > 60, probable group III based on suspicion for advanced lung disease but can't R/O PE or even group I PAH Acute respiratory failure Also suspect underlying chronic lung disease based on long smoking history. Now, in addition, has HAP with K. Pneumo. Tracheobronchomalacia seen on bronch has not seemed to be an issue since extubation. DM II Admission A1c elevated. Diabetic foot infection with MRSA and Prevotella , on abx for several months per ID and Wound care. ZACH, CKD Baseline function 1.5 creatinine which would be stage III. 24 hour urine pending. Anemia Normal MCV here and his hgb was normal as recently as November [facility] Metabolic acidosis Improving,probably d/t ZACH Morbid obesity Based on 's history, he may have undiagnosed JAGRUTI PLAN Scheduled bowel meds, lactulose and senna/docusate Rocephin for K. pneumo, vanco IV for MRSA in foot ( had been on PO linezolid but not able to take PO safely Steroids, bronchodilators IV metoprolol, hold carvedilol, ASA TX for now until taking PO Wean O2 on high flow as tolerates. NT suction as needed. Reintubate for hypoxemia PRN dilaudid for pain, Single dose of Toradol, may repeat today, 15 mg Serial hgb and metabolics Diurese Insulin basal and SSI ICU prophylaxis Additional management per Cardiology and IM teams. VTE Prophylaxis: Sub-Q Heparin (Unfractionated) VTE Mechanical Devices: Intermittant Pneumatic CD Resuscitation Status: CPR: Attempt Resuscitation Bruce Hernandez MD January 08, 2017 08:37
[2017-01-08] MEDS: Sodium Chloride LOK Flush 10 mL Syringe IVFLUSH SCH ×2 (08:49→16:21)
[2017-01-08] MEDS: cefTRIAXone Inj 2,000 MG in Dextrose 5% Minibag Plus 50 ML IV SCH (08:49)
[2017-01-08] MEDS: MethylprednisoLONE Sodium Succinate 40 mg/mL Inj IVPUSH SCH ×2 (08:50→20:28)
[2017-01-08] MEDS: 0.9% Sodium Chloride 250 ML IV SCH (09:02)
--- NOTE | 2017-01-08 09:04 | DRSVH ---
PROCEDURE: X-RAY CHEST ONE VIEW, PORTABLE ([id number]) INDICATIONS: pneumonia TECHNIQUE: One view of the chest was acquired. COMPARISON: [facility], CT, CT CHEST ABD PELVIS WO CON, 01/07/2017, 23:29. [facility], CR, XR CHEST 1VW (PORTABLE), 01/07/2017, 14:35. FINDINGS: Surgical changes and devices: Median sternotomy. Left-sided pacer. Lungs and pleura: No pleural effusions or pneumothorax. Severe patchy multifocal pulmonary opacities . Mediastinum: Mediastinal contours appear normal. Heart size is enlarged. Bones and chest wall: No suspicious bony lesions. Overlying soft tissues appear unremarkable. IMPRESSION: Multifocal pneumonia. Follow up plain films of the chest are recommended to ensure resolu tion, and to exclude underlying or central malignancy. Dictated by: Rosa Gustafson M.D. on 01/08/2017 at 9:02 Approved by: Rosa Gustafson M.D. on 01/08/2017 at 9:03
[2017-01-08] MEDS ORDERED: Ketorolac 15 mg/mL Inj IVPUSH ONE (09:40)
[2017-01-08 09:56] LABS: TOTAL VOLUME,URINE 2200 mL
--- NOTE | 2017-01-08 10:38 | DRSVH ---
PROCEDURE: X-RAY CHEST ONE VIEW, PORTABLE ([id number]) INDICATIONS: Confirm feeding tube placement TECHNIQUE: One view of the chest was acquired. COMPARISON: [facility], CR, XR CHEST 1VW (PORTABLE), 01/08/2017, 8:03. FINDINGS: Surgical changes and devices: Feeding tube extends into the gastric lumen. Left-sided pacer. Median s ternotomy. Lungs and pleura: No pleural effusions or pneumothorax. Increased bilateral airspace opacities. Mediastinum: Mediastinal contours appear normal. Heart size is normal. Bones and chest wall: No suspicious bony lesions. Overlying soft tissues appear unremarkable. IMPRESSION: 1. Feeding tube is in expected location. 2. Increased multifocal pneumonia versus ARDS. Dictated by: Rosa Gustafson M.D. on 01/08/2017 at 10:35 Approved by: Rosa Gustafson M.D. on 01/08/2017 at 10:36
[2017-01-08] MEDS ORDERED: Propofol 10,000 mCg/mL 100 mL Inj ONE (11:17)
[2017-01-08] MEDS ORDERED: fentaNYL 2,500 mCg/250 mL Premix IV ONE (11:19)
--- NOTE | 2017-01-08 11:58 | DRSVH ---
PROCEDURE: X-RAY CHEST ONE VIEW, PORTABLE ([id number]) INDICATIONS: etube placement TECHNIQUE: One view of the chest was acquired. COMPARISON: [facility], CR, XR CHEST 1VW (PORTABLE), 01/08/2017, 10:10. FINDINGS: Surgical changes and devices: Tip of ETT is roughly 34 mm above the kemi. Left-sided pacer. Median sternotomy. Lungs and pleura: No pleural effusions or pneumothorax. No significant change in severe multifocal a irspace opacities, right greater than left. Mediastinum: Mediastinal contours appear normal. Heart size is normal. Bones and chest wall: No suspicious bony lesions. Overlying soft tissues appear unremarkable. IMPRESSION: 1. No change in severe multifocal pneumonia. 2. ETT as described above. Dictated by: Rosa Gustafson M.D. on 01/08/2017 at 11:55 Approved by: Rosa Gustafson M.D. on 01/08/2017 at 11:57
--- NOTE | 2017-01-08 12:07 | PCM.PNMED ---
Subjective Date of Service January 08, 2017 Subjective Required reintubation for hypoxemia See procedure note Family notified before the procedure and plan reviewed with them afterwards. Now sedated and intubated with SpO2 99% Exam Vital Signs Vital Sign - Last Date Time Temp Pulse Resp B/P Pulse Ox O2 Delivery O2 Flow Rate FiO2 01/08/17 11:42 64 132/58 90 01/08/17 08:35 20 95 HFNC 01/08/17 08:00 36.6 01/08/17 07:22 60 Intake and Output 01/07/17 01/07/17 01/08/17 Cumulative From/Thru 15:00 23:00 07:00 01/02/17 05:15 - 01/08/17 05:48 Intake Total 316 ml 910 ml 68390 ml Output Total 1500 ml 640 ml 8480 ml Balance -1184 ml 270 ml 4171 ml Intake Oral 0 ml 310 ml IV Total 316 ml 910 ml 17258 ml Tube Feeding 1340 ml Packed Cells 320 ml Tube Irrigant 530 ml Output Urine Total 1500 ml 640 ml 6840 ml Gastric Drainage Total 1640 ml # Voids 1 # Bowel Movements 0 0 Exam Lungs Coarse breath sounds, NO wheezes Neck Full, no mass/CASSI CV RRR, no m/g/r Abd soft, distended Lab and Diagnostics Result Diagram: 01/08/17 0435 01/08/17 0435 Assessment & Plan IMP Hypoxemic resp failure, recurrent following admission 01/02 with STEMI presenting with out of hospital VF arrest Apears to have pulm edema on post intubation CXR despite 80 Lasix earlier this morning K. pneumo PNA, COPD, and delirium all contribute. PLAN AC vent Abx, bronchodilators, steroids OG tube, resume enteral meds Diurese Consider repeat Echo Propofol and Fentanyl for sedation now Scheduled Olanzapine, DC Haldol SSI ICU prophy VTE Prophylaxis: Sub-Q Heparin (Unfractionated) VTE Mechanical Devices: Intermittant Pneumatic CD Resuscitation Status: CPR: Attempt Resuscitation Bruce Hernandez MD January 08, 2017 12:07
--- NOTE | 2017-01-08 12:59 | ABG ---
DateTimeAnalyzed 12:55:00 -_ pH ____7.352 - 7.350 7.450 pCO2 ___38.4__ -mmHg 35.0 45.0 pO2 117 -mmHg 69.0 116 HCO3- ___20.7__ -mmol/L 22.0 26.0 ABE ___-3.9__ -mmol/L -2.0 2.0 tHb ____9.5__ -g/dL O2Hb ___95.7__ -% COHb ____1.3__ -% MetHb ____1.2__ -% sO2 ___98.2__ -% 25.0 FIO2 ___80.0__ -% Drawn By jmw - B 759 -mmHg tO2 ___13.0__ -Vol%
--- NOTE | 2017-01-08 13:03 | ABG ---
DateTimeAnalyzed 12:57:00 -_ pH ____7.351 - 7.350 7.450 pCO2 ___38.3__ -mmHg 35.0 45.0 pO2 118 -mmHg 69.0 116 HCO3- ___20.6__ -mmol/L 22.0 26.0 ABE ___-4.0__ -mmol/L -2.0 2.0 tHb ___10.2__ -g/dL O2Hb ___95.7__ -% COHb ____1.2__ -% MetHb ____1.2__ -% sO2 ___98.1__ -% 25.0 FIO2 ___80.0__ -% PEEP ___12.0__ -cmH2O Set_RR ___18.0__ -b/min Vt __600.0__ -L Drawn By jmw - Date/Time Notified____ 13:03:00 -_ Spontaneous_RR ___18.0__ -b/min Oxygen Device 1 VENTILATOR - Notified By jmw - Notified Whom DR MENDOZA - B 760 -mmHg tO2 ___13.9__ -Vol% Roshan test _Positive -
--- NOTE | 2017-01-08 13:25 | ABG ---
DateTimeAnalyzed 12:55:00 -_ pH ____7.352 - 7.350 7.450 pCO2 ___38.4__ -mmHg 35.0 45.0 pO2 117 -mmHg 69.0 116 HCO3- ___20.7__ -mmol/L 22.0 26.0 ABE ___-3.9__ -mmol/L -2.0 2.0 tHb ____9.5__ -g/dL O2Hb ___95.7__ -% COHb ____1.3__ -% MetHb ____1.2__ -% sO2 ___98.2__ -% 25.0 FIO2 ___80.0__ -% PEEP ___12.0__ -cmH2O Set_RR ___18.0__ -b/min Vt __600.0__ -L Drawn By jmw - Date/Time Notified____ 13:00:00 -_ Spontaneous_RR ___18.0__ -b/min Oxygen Device 1 VENTILATOR - Notified By jmw - Notified Whom DR MENDOZA - B 759 -mmHg tO2 ___13.0__ -Vol% Roshan test _Positive -
--- NOTE | 2017-01-08 14:11 | PCM.PNMED ---
Subjective Date of Service January 08, 2017 Subjective 61-year-old man with coronary artery disease, tobacco abuse, type II diabetes mellitus, COPD presents after episode of sudden cardiac at [facility] prior to admission, acute ischemic CAD, with recurrent inpatient cardiac arrest on , status post AICD defibrillator placement, requiring sedation and subsequent prolonged mechanical ventilation. He was extubated 01/06. He remained moderate delirium with intermittent acute pain of uncertain origin. Worsening pulmonary infiltrates and secretions. No stool output. Reintubated on 01/08 for airway management. Exam Vital Signs Vital Sign - Last Date Time Temp Pulse Resp B/P Pulse Ox O2 Delivery O2 Flow Rate FiO2 01/08/17 13:14 64 142/59 80 01/08/17 12:00 37.2 18 99 Mechanical Ventilator 01/08/17 07:22 60 Intake and Output 01/07/17 01/07/17 01/08/17 Cumulative From/Thru 15:00 23:00 07:00 01/02/17 05:15 - 01/08/17 05:48 Intake Total 316 ml 910 ml 89387 ml Output Total 1500 ml 640 ml 8480 ml Balance -1184 ml 270 ml 4171 ml Intake Oral 0 ml 310 ml IV Total 316 ml 910 ml 29087 ml Tube Feeding 1340 ml Packed Cells 320 ml Tube Irrigant 530 ml Output Urine Total 1500 ml 640 ml 6840 ml Gastric Drainage Total 1640 ml # Voids 1 # Bowel Movements 0 0 Exam General: Obese man eyes not oriented or verbal prior to intubation HEENT: sclerae anicteric, mucosa moist, Neck: Difficult to assess JVD, soft tissues thick Chest: Coarse BS, diffuse rhonchi all harris; pacemaker site OK. Cardiac: Regular, S1S2, no murmur audible Abdomen: Protuberant, BS normal, non-tender; lam Extremities: 2+ edema hands, trace in feet; right first toe surgical wound healing without erythema or induration or exudate Neuro: Reduced mental status, otherwise symmetric face, nonfocal spontaneous movements IVs and Medications Medications Reviewed: Medications were reviewed in detail Lab and Diagnostics Result Diagram: 01/08/17 0435 01/08/17 0435 Assessment & Plan Acute problems: # Cardiovascular: Rhythm: Cardiac arrest, acute prior to admission. Due to acute ischemic disease with inferior NJ. Repeat cardiac arrest on 01/03/17 was brief. S/p AICD pacemaker placement 01/03 - Amiodarone d/c'd after AICD- CAD ischemia work up. # Cardiovascular: Acute systolic congestive heart failure. Weight up 6 kg since admission. Lungs with bilateral pulmonary edema versus ARDS. Furosemide initiated 01/07. - Continue intravenous Lasix # Cardiovascular: Acute NSTEMI, with chronic Coronary artery disease status post CABG. catheterization on 01/02. PCI with LAD graft stent on 01/05. - Continue aspirin, clopidogrel, statin - Further management per cardiology service # Respiratory: Acute respiratory failure with hypoxia, intubated during his second cardiac arrest. Remained intubated following pacemaker placement. Difficult to wean due to agitation, underlying undiagnosed JAGRUTI with chest wall trauma. Bronchoscopy on 01/04 showed intrathoracic variable obstruction pattern. The patient seems to have obstructive apnea physiology, worsened with sedatives. Extubated from 01/06-01/08 then reintubated. - Pulmonology service following - Continues on methylprednisolone, nebulizers # Infectious: VAP Infection, acute not present on admission. Leukocytosis, acute , present on admission. Initially with stress leukocytosis on presentation there was no evidence for focal infection. Mild recurrent leukocytosis on . Now with Klebsiella species in tracheal aspirate from 01/04. Bilateral basilar infiltrates. - Start ceftriaxone on 01/06. Start vancomycin 01/08 # Neurological: Acute delirium, not present on admission. Likely ICU delirium, toxic encephalopathy related to pain medications, postcardiac arrest ischemic encephalopathy. - Maximize nonpharmacologic measures if patient has recurrent agitation - Avoid benzodiazepines - Antipsychotic medications as necessary - Lowest effective doses of opioids # Renal: Acute kidney injury, not present on admission. Initial Cr 1.63, bina to 2.13, now 1.59; improving. CKD stage IV range but improving after catheterization dye load, episodes of arrhythmia, ventricular fibrillation and CPR. Underlying Chronic kidney disease, likely secondary to hypertension, diabetes. Urine output past 24 hours > 0.5 ML/KG/HR - Monitor urine output with furosemide - Minimize nephrotoxins - daily BMP # Gastrointestinal: Clinically bowel sounds are present but no effective bowel function. Likely metabolic ileus. Less likely gut ischemia. - Follow clinically # Nutritional: Diabetes mellitus, insulin-dependent, uncontrolled. A1c from was 9.8, subsequently 5.6. Inpatient glycemia has been at target <180 with the dose every 6 hours Regular Insulin. Blood glucose above target on 5/ 25 likely due to high-dose steroids. He received tube feeds briefly but stopped due to high volume residuals. No enteral nutrition when he was extubated. Probable ileus - Continue to increase scale for dosing Every 6 hour regular insulin while NPO. - Resume tube feeds after resolution of ileus, then adjust insulin Stable or resolving problems: # Pain control, acute, present on admission. Patient is moderately symptomatic from chest compressions. - No effective parenteral analgesics as needed # Sinus bradycardia, chronic. Likely related to IW NJ. AICD pacemaker is in place - resolved # Anemia, acute on chronic. Hemoglobin 8.2 admission. Etiology uncertain. Received RBC transfusion 1 unit, due to concern about ischemic cardiac disease. Hemoglobin stable and rising - follow CBC # Hypertension - Continue carvedilol - Holding on HOWIE inhibitor at present # Hyperlipidemia -Continue statin # Nicotine dependence -Counseled on smoking cessation at time of admission -Offered nicotine patch # DVT prophylaxis - heparin VTE Prophylaxis: Sub-Q Heparin (Unfractionated) VTE Mechanical Devices: Intermittant Pneumatic CD Resuscitation Status: CPR: Attempt Resuscitation Time spent 45 minutes Sumanth Aviles MD January 08, 2017 14:11
[2017-01-08] MEDS ORDERED: MeTOProlol 1 mg/mL 5 mL Inj IVPUSH SCH (14:30)
--- NOTE | 2017-01-08 14:51 | OP ---
[address] [address] OPERATIVE REPORT PATIENT: NIKOLAY ROYAL : 1955 MR#: [id number] ADMIT: 01/02/2017 JOB ID: [id number] DATE OF SURGERY: 01/08/2017 PROCEDURE: Urgent oral tracheal intubation. SURGEON: Bruce Hernandez M.D. PREOPERATIVE DIAGNOSIS(ES): POSTOPERATIVE DIAGNOSIS(ES): DIAGNOSIS: Hypoxemic respiratory failure. POSTOPERATIVE DIAGNOSIS(ES): Hypoxemic respiratory failure. PROCEDURE SUMMARY: The patient was felt to require orotracheal intubation for mechanical ventilation given his refractory hypoxemia despite high-flow nasal cannula oxygen at an FiO2 of 1.0. Supplies were assembled. Family was notified of the need for intubation and they stepped out of the room. The patient was premedicated with 2 mg of midazolam. Bag-mask ventilation was initiated with 100% oxygen while cricoid pressure was maintained. He then received 20 mg of intravenous Etomidate. With adequate sedation and using a glide scope, his true vocal cords were visualized and suctioned free of a large amount of frothy white secretions. A #8 endotracheal tube on glide scope stylet was advanced with some difficulty, but under direct vision through the vocal cords. This was advanced to 26 cm at the teeth and secured in place. He had positive CO2 detector color change noted and bilateral breath sounds were auscultated. O2 saturation has slowly risen to 98%-99% while being ventilated through the endotracheal tube. SPECIMEN: Endotracheal aspirate for culture. Chest x-ray pending. PATIENT CONDITION FOLLOWING PROCEDURE: Critically ill and intubated. MARTIN
--- NOTE | 2017-01-08 14:57 | NUR ---
NUTRITION FOLLOW-UP: Assess: 61 YO M admitted to CCU after episode of sudden cardiac at [facility] prior to admission, acute ischemic CAD, with recurrent inpatient cardiac arrest on 01/03, status post AICD defibrillator placement, requiring sedation and subsequent prolonged mechanical ventilation. He was extubated 01/06. He remained moderately delirious with intermittent acute pain of uncertain origin, with worsening pulmonary infiltrates and secretions, no stool output x 6 D. He was reintubated this afternoon for airway management. Enteral feeding was initiated and discontinued related to initiation of paralytics and high residuals prior to first extubation; currently on hold due to likelihood of ileus. Nutrition is a concern in this patient with acute on chronic foot ulceration. He only received enteral feeding for 3 days of his 6 day admission thus far. PMHX: Type 2 DM, HTN, hypercholesterolemia, tobacco use, COPD, severe JAGRUTI, stage III renal disease, PAD, CAD, CABG. DIET:NPO. LABS: BUN 52, Cr 1.59, Glu 216, A1c 5.6, Lactic Acid 3.0, Alb 3.0. MEDICATIONS: Reviewed. Insulin, bowel regimen, lasix, solu-medrol, relistor, fentanyl, propofol. GI: No BM noted. SKIN: Right plantar great toe ulcer that is 0.5 cm L x 0.2 cm W x 1 cm D. In the web space between the great toe and second toe there is a 1.5 cm L x 0.3 cm W x 0.5 cm D ulcer. NUTRITION SUPPORT ON HOLD: Glucerna 1.5 @ 52ml/hr providing 1716kcal (2376kcal w/propofol) and 94g pro (100% kcal and 85% protein needs), 1 packet Pro[employer] liquid protein two times per day. ANTHROPOMETRICS: Wt: 111.7 kg, BMI 36.5 kg/m2, Admit wt: 105.6 kg, IBW: 72.7 kg. ESTIMATED NEEDS: BMI/ VENT Calories: 0375-1843 kcal/day (20-22 kcal/kg BW) Protein: 110-130 g/day (1.5-1.8 g/kg IBW) Fluids: ~2650ml/day (25ml/kg) NUTRITION DIAGNOSIS: 1) Inadequate oral intake related to decreased ability to consume sufficient energy as evidenced by current NPO / vent status - PERSISTS. INTERVENTION: 1) Recommend restart enteral feeding at trophic rate until tolerance established and advance appropriately. MONITOR/EVALUATE: NPO/vent status, GI status, enteral feeding restart / advance, labs, GI/nutrition status. Follow per high nutrition risk guidelines.
--- NOTE | 2017-01-08 15:33 | NUR ---
Agitation/Resp distres At beginning of shift, patient very agitated, restless, and impulsive. Moaning and not really coherent. Had been this way since engine wiper. Dr Estrada here, ordering haldol and lasix. Patient at this time on High Flow O2 at 100%/60L. Sats 92%. Haldol effective for some time, agitation and restlessness resumed. Gave IV Dilaudid for pain as well as more Haldol-- not effective for long. Also, respiratory status declined. MD ordered for patient to be re intubated. Patient was intubated at 1130. Currently on Propofol at 20 Mcgs and Fentanyl at 100 Mcgs. Titrated sedation/analgesic for comfort. Patient at at RASS of -2 now. He will squeeze hand upon prompting. Since engine wiper, suctioning copious white frothy secretions. Lungs are coarse. UOP since lasix approx 1400 mls. Family at bedside all shift and updated on status frequently. Turning patient q 2 hours since sedated and not independent/restless in bed. Continue with POC.
[2017-01-08] MEDS ORDERED: Furosemide 10 mg/mL 10 mL Inj IVPUSH ONE (15:45)
--- NOTE | 2017-01-08 16:06 | NUR ---
Intubation Meds Intubations meds were: Versed 2 mg at 1113, Etomidate 20 mg at 1116, and Versed 3mg at 1116.
--- NOTE | 2017-01-08 16:15 | NUR ---
Social Work Note: Continued D/C Planning Data& Assessment: EMR reviewed. 61 YO M admitted to CCU after episode of sudden cardiac at [facility] prior to admission, acute ischemic CAD, with recurrent inpatient cardiac arrest on 01/03, status post AICD defibrillator placement, requiring sedation and subsequent prolonged mechanical ventilation. He was extubated 01/06. He remained moderately delirious with intermittent acute pain of uncertain origin, with worsening pulmonary infiltrates and secretions, no stool output x 6 D. He was reintubated this afternoon 01/08 for airway management. SW to continue to follow for pt medical progression and MD orders. SW to continue to follow for needs. Plan: Pt currently intubated and sedated. SW to continue to follow for pt medical progression and MD orders. SW to continue to follow for needs. DIAMANTE Harmon
[2017-01-08] MEDS: fentaNYL 2,500 mCg/250 mL 2,500 MCG in IV Premix 1 EACH IV SCH (16:20)
--- NOTE | 2017-01-08 16:24 | NUR ---
Social Work- Initial Assessment Data: See Initial Assessment. Pt is a 84 year old male admitted 01/06/17 for AMS, UTI per H&P. Pt's insurance is [employer]. GUNNAR met with pt at bedside regarding discharge plan, GUNNAR role explained. Pt agreeable to speaking with GUNNAR, stated that GUNNAR could also call his Elida and she is the designated director of personnel for discharge planning. Pt resides at [facility] for rehab following a stroke. Pt is agreeable to returning there at discharge. GUNNAR placed call to Franca, admissions at [facility], who is agreeable to pt returning. Pt could not recall any history of HH. Pt states he has no LTC or VA benefits. GUNNAR attempted to call Elida to discuss discharge plan but there was no answer, GUNNAR left message requesting return call. Pt anticipated to return to [facility] at discharge to continue rehab. SW will continue to follow for discharge needs. Paperwork in folder. Assessment: Pt who was at [facility] for skilled rehab Plan: Pt anticipated to return to [facility] at discharge to continue rehab. SW will continue to follow for discharge needs. DIAMANTE Harmon Addendum: 01/08/17 at 1633 by GLENNA SINGLETON Amended: Links added. Addendum: 01/09/17 at 0905 by GLENNA ALVAREZ PLEASE DISREGARD ABOVE NOTE. ABOVE NOTE ENTERED ON INCORRECT PATIENT. Conchita Singleton, WARD SUPERVISOR
[2017-01-08] MEDS: Propofol Inj 1,000,000 MCG in IV Premix 1 EACH IV SCH ×2 (16:32→22:51)
[2017-01-09] VITALS (18 sets, daily range): BP systolic 133–167; BP diastolic 39–62; PULSE 60–78; RESP 15–23; O2SAT 97–100
[2017-01-09] MEDS: Albuterol-Ipratropium 3 mL Inhalation Solution NEB SCH ×6 (00:06→19:32)
[2017-01-09] MEDS: Chlorhexidine 0.12% 15 mL Oral Solution MT SCH ×7 (00:08→23:36)
[2017-01-09] MEDS: 0.9% Sodium Chloride 250 ML IV SCH (00:09)
[2017-01-09] MEDS: Heparin 5,000 Unit/mL Inj SUBQ SCH ×4 (00:09→23:36)
[2017-01-09] MEDS: Sodium Chloride LOK Flush 10 mL Syringe IVFLUSH SCH ×4 (00:09→23:36)
[2017-01-09] MEDS: Vancomycin Inj 1,000 MG in IV Premix 1 EACH IV SCH (02:27)
[2017-01-09] MEDS: hydrALAZINE 20 mg/mL Inj IV SCH ×4 (02:27→20:04)
--- NOTE | 2017-01-09 02:33 | ABG ---
DateTimeAnalyzed 02:28:28 -_ pH ____7.461 - 7.350 7.450 pCO2 ___31.1__ -mmHg 35.0 45.0 pO2 ___98.4__ -mmHg 70.0 100 HCO3- ___22.2__ -mmol/L 22.0 26.0 ABE ___-1.5__ -mmol/L -2.0 2.0 tHb ____9.2__ -g/dL 12.0 18.0 O2Hb ___97.3__ -% 95.0 COHb ____1.9__ -% 1.5 MetHb ____0.0__ -% 0.4 1.5 sO2 ___99.1__ -% 25.0 FIO2 ___21.0__ -% PEEP ___12.0__ -cmH2O Set_RR 18 -b/min Vt __600.0__ -L Drawn By MD - Date/Time Notified____ 02:33:00 -_ Spontaneous_RR 18 -b/min Oxygen Device 1 VENTILATOR - Notified By MD - Notified Whom RN K.HERLICKSON - K+ ____4.1__ -mmol/L tO2 ___12.8__ -Vol% Roshan test N/A -
[2017-01-09] MEDS: Insulin Human REGular 300 Unit/3 mL Inj SUBQ SCH ×4 (02:38→20:07)
[2017-01-09 03:48] LABS: BASOPHILS % (AUTO) 0 % (0-3); EOSINOPHILS % (AUTO) 0 % (0-5); MONOCYTES % (AUTO) 4.2 % (4-12); Mean Corpuscular Hemoglobin 29.8 pg (27.0-35.0); Mean Corpuscular Volume 92.6 fL (81-100); NEUTROPHILS % (AUTO) 91.7 % (40-74); Platelet Count 353 bil/L (150-400)
[2017-01-09] MEDS: Propofol Inj 1,000,000 MCG in IV Premix 1 EACH IV SCH ×4 (03:58→22:27)
--- NOTE | 2017-01-09 04:46 | NUR ---
resp status pt resting comfortably on .40 fio2 per vent, resp 18-, ls- sl course t/o, decreased little more on right, am cxr done, abg's done, resp rate decreased per rt to 15--see order, am abg's pending, sx sml amount of thin whitish /creamy sputum per ett, oral care done, pt sedated on fentanyl gtt at 100mcg/hr, propofol gtt at 20mcg/kg/min, pt slightly opens eyes to stimulation/strong cough on vent, gross motor arm movement seen, ogt placement wnl, lis, hob up, hypoactive bt's, abd round/soft, no bm, tele-paced, intrinsic beats, occ pvc's, fusion beats, bp stable, t-max= 37.3 ax, f/c, average about 50ml/hr uop, see ccu flow sheet, plan: resp support,
--- NOTE | 2017-01-09 06:28 | ABG ---
DateTimeAnalyzed 06:22:36 -_ pH ____7.398 - 7.350 7.450 pCO2 ___37.9__ -mmHg 35.0 45.0 pO2 117 -mmHg 70.0 100 HCO3- ___23.3__ -mmol/L 22.0 26.0 ABE ___-1.4__ -mmol/L -2.0 2.0 tHb ____9.1__ -g/dL 12.0 18.0 O2Hb ___99.7__ -% 95.0 COHb ____1.7__ -% 1.5 MetHb ____0.0__ -% 0.4 1.5 sO2 __100.0__ -% 25.0 FIO2 ___21.0__ -% PEEP ___12.0__ -cmH2O Set_RR 15 -b/min Vt __600.0__ -L Drawn By MD - Date/Time Notified____ 06:27:00 -_ Spontaneous_RR 15 -b/min Oxygen Device 1 VENTILATOR - Notified By MD - Notified Whom RN K.HERLICKSON - K+ ____4.0__ -mmol/L tO2 ___12.8__ -Vol% Roshan test N/A -
[2017-01-09] MEDS ORDERED: Furosemide 10 mg/mL 4 mL Inj IVPUSH ONE (07:30)
[2017-01-09] MEDS: fentaNYL 2,500 mCg/250 mL 2,500 MCG in IV Premix 1 EACH IV SCH (08:01)
[2017-01-09] MEDS: MethylprednisoLONE Sodium Succinate 40 mg/mL Inj IVPUSH SCH ×2 (08:02→20:05)
[2017-01-09] MEDS: DULoxetine 30 mg DR Capsule PO SCH (08:03)
[2017-01-09] MEDS: Lactulose 20 Gm/30 mL 30 mL Syrup TUBE SCH ×2 (08:04→20:06)
[2017-01-09] MEDS: cefTRIAXone Inj 2,000 MG in Dextrose 5% Minibag Plus 50 ML IV SCH (08:42)
--- NOTE | 2017-01-09 10:19 | PCM.PNMED ---
Subjective Date of Service January 09, 2017 Subjective Uneventful evening. No critical events Intubated, sedated. Occasional spontaneous eye opening. Tolerated decreased in FiO2 to 0.4 with SpO 98% and son at bedside updated as to improvement in CXR and plan for today Exam Vital Signs Vital Sign - Last Date Time Temp Pulse Resp B/P Pulse Ox O2 Delivery O2 Flow Rate FiO2 01/09/17 09:03 71 135/54 98 40 01/09/17 07:30 Ventilator 01/09/17 07:30 37.6 15 01/08/17 07:22 60 Intake and Output 01/08/17 01/08/17 01/09/17 Cumulative From/Thru 15:00 23:00 07:00 01/02/17 05:15 - 01/09/17 06:12 Intake Total 567 ml 598 ml 62778 ml Output Total 1900 ml 1150 ml 58633 ml Balance -1333 ml -552 ml 2286 ml Intake Oral 0 ml 310 ml IV Total 567 ml 598 ml 65104 ml Tube Feeding 1340 ml Packed Cells 320 ml Tube Irrigant 530 ml Output Urine Total 1700 ml 900 ml 9440 ml Gastric Drainage Total 200 ml 250 ml 2090 ml # Voids 1 # Bowel Movements 0 0 Exam Obese bearded man sedated on vent, orally intubated Lungs Slightly decreased BS, rare rales at bases. NO wheezes CV RRR with occasional extrasystoles, no m/g/r Abd Soft, nontender, normal BTs Ext 2 + UE and LE edema, RUE PICC Lab and Diagnostics Result Diagram: 01/09/17 03401/09/17 0340 Assessment & Plan 61 yo morbidly obese diabetic smoker with h/o CAD / CABG admitted to [facility] following out of hospital VF cardiac arrest in the setting of STEMI. Experienced additional arrest after admission. Had AICD/PPM placed and PCI to LAD. Extubated 01/07 but struggled to maintain oxygenation and control his agitated delirium, Probably has significant underlying COPD as well in addition to JAGRUTI. Reintubated 01/08 due to hypoxemic respiratory failure 2/2 pulmonary edema. IMP Overall stable and much improved oxygenation following reintubation for pulmonary edema. CAD S/P PCI to LAD 01/05, CABG 2002, Preserved EF on recent echo. Will increase carvedilol. Bradycardia S/P PPM, fully paced now. Encephalopathy Probably ICU delirium but potentially also some component of anoxic brain injury. Will avoid benzos, treat pain, minimize restraints, restore normal day/night cycle. VF arrest Now s/p AICD/PPM. Mostly NSR or atrial paced at 60 bpm. Undoubtedly has significant chest wall injury from CPR which will complicate his care. No obvious flail segments. Severe PAH PA systolic per echo > 60, probable group III based on suspicion for advanced lung disease but can't R/O PE or even group I PAH Acute respiratory failure Also suspect underlying chronic lung disease based on long smoking history. Now, in addition, has HAP with K. Pneumo. Tracheobronchomalacia seen on bronch has not seemed to be an issue since extubation. DM II Admission A1c elevated. Diabetic foot infection with MRSA and Prevotella , on abx for several months per ID and Wound care. ZACH, CKD Baseline function 1.5 creatinine which would be stage III. 24 hour urine results pending. Anemia Probably acute blood loss anemia. On routine ICU stress ulcer prophylaxis. Normal MCV here and his hgb was normal as recently as November according to records in [facility] Metabolic acidosis Improving,probably d/t ZACH Morbid obesity Based on 's history, he may have undiagnosed JAGRUTI PLAN Diurese Scheduled bowel meds, lactulose and senna/docusate Rocephin for K. pneumo, vanco IV for MRSA in foot ( had been on PO linezolid but not able to take PO safely Taper Steroids, continue bronchodilators Increase carvedilol to 12.5 BID ASA, Plavix per OG tube Slow PEEP wean Serial hgb and metabolics Insulin basal and SSI ICU prophylaxis Additional management per Cardiology and IM teams. Full Code VTE Prophylaxis: Sub-Q Heparin (Unfractionated) VTE Mechanical Devices: Intermittant Pneumatic CD Resuscitation Status: CPR: Attempt Resuscitation Bruce Hernandez MD January 09, 2017 10:19
--- NOTE | 2017-01-09 10:23 | DRSVH ---
PROCEDURE: X-RAY CHEST ONE VIEW, PORTABLE ([id number]) INDICATIONS: pneumonia TECHNIQUE: One view of the chest was acquired. COMPARISON: [facility], CR, XR CHEST 1VW (PORTABLE), 01/08/2017, 11:19. FINDINGS: Surgical changes and devices: ET tube with tip poorly seen. Enteric tube with tip at the GE junction. Sternotomy with mediastinal postoperative changes and left-sided cardiac pacer. Right PICC tip in th e upper SVC. Lungs and pleura: Improving bilateral pulmonary past is right greater than left. Mediastinum: Mediastinal contours appear normal. Heart size is normal. Bones and chest wall: No suspicious bony lesions. Overlying soft tissues appear unremarkable. IMPRESSION: 1. ET tube with tip poorly seen. Enteric tube with tip at the GE junction. 2. Improving bilateral pulmonary opacities. Dictated by: Esdras Paris M.D. on 01/09/2017 at 10:19 Approved by: Esdras Paris M.D. on 01/09/2017 at 10:21
[2017-01-09] MEDS ORDERED: fentaNYL-PF 50 mCg/mL 2 mL Inj IVPUSH ONE (11:30)
[2017-01-09] MEDS ORDERED: HYDROmorphone 0.5 mg/0.5 mL iSecure Syringe IVPUSH PRN (11:30)
[2017-01-09] MEDS ORDERED: Vancomycin Serum Trough XX ONE (14:00)
--- NOTE | 2017-01-09 15:10 | PCM.PHAPRO ---
Progress Date of Service: January 09, 2017 Vancomycin A/ Vancomycin trough came back at 22 and was drawn appropriately in relation to the last dose. This is supratherapeutic. P/ Reduce dosing to 1500mg q24h and pharmacy will continue to follow daily. Gibson Tyler January 09, 2017 15:10
[2017-01-09] MEDS ORDERED: Furosemide 10 mg/mL 10 mL Inj IVPUSH ONE (16:10)
--- NOTE | 2017-01-09 16:41 | PCM.PNMED ---
Subjective Date of Service January 09, 2017 Subjective 61-year-old man with coronary artery disease, tobacco abuse, type II diabetes mellitus, COPD presents after episode of sudden cardiac at [facility] prior to admission, acute ischemic CAD, with recurrent inpatient cardiac arrest on , status post AICD defibrillator placement, requiring sedation and subsequent prolonged mechanical ventilation. He was extubated 01/06. He remained moderate delirium with intermittent acute pain of uncertain origin. Worsening pulmonary infiltrates and secretions. No stool output. Reintubated on 01/08 for airway management and decompensation with pneumonia, pulmonary edema versus ARDS. Continues ventilated. 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 Exam Vital Signs Vital Sign - Last Date Time Temp Pulse Resp B/P Pulse Ox O2 Delivery O2 Flow Rate FiO2 01/09/17 14:51 60 148/55 98 40 01/09/17 11:33 37.0 23 Mechanical Ventilator 01/08/17 07:22 60 Intake and Output 01/08/17 01/08/17 01/09/17 Cumulative From/Thru 15:00 23:00 07:00 01/02/17 05:15 - 01/09/17 06:12 Intake Total 567 ml 598 ml 97036 ml Output Total 1900 ml 1150 ml 15007 ml Balance -1333 ml -552 ml 2286 ml Intake Oral 0 ml 310 ml IV Total 567 ml 598 ml 30249 ml Tube Feeding 1340 ml Packed Cells 320 ml Tube Irrigant 530 ml Output Urine Total 1700 ml 900 ml 9440 ml Gastric Drainage Total 200 ml 250 ml 2090 ml # Voids 1 # Bowel Movements 0 0 Exam General: Obese man, intubation HEENT: sclerae anicteric, mucosa moist, Neck: Difficult to assess JVD, soft tissues thick Chest: Coarse BS, generally clear auscultation; pacemaker site OK. Cardiac: Regular, S1S2, no murmur audible Abdomen: Protuberant, BS normal, lam Extremities: 2+ edema hands, only trace in feet; right first toe surgical wound healing without erythema or induration or exudate Neuro: Sedated with some spontaneous movement, otherwise symmetric face IVs and Medications Medications Reviewed: Medications were reviewed in detail Lab and Diagnostics Result Diagram: 01/09/17 03401/09/17 034 Assessment & Plan Acute problems: # Cardiovascular: Acute systolic congestive heart failure. Weight up 6 kg since admission. Lungs with bilateral pulmonary edema versus ARDS. Furosemide initiated 01/07. - Now holding intravenous Lasix after last dose on 01/08 16:00 - Increase carvedilol - Additional furosemide per pulmonology consult # Cardiovascular: Rhythm: Cardiac arrest, acute prior to admission. Due to acute ischemic disease with inferior VT. Repeat cardiac arrest on 01/03/17 was brief. S/p AICD pacemaker placement 01/03. - Amiodarone d/c'd after AICD # Cardiovascular: Acute NSTEMI, with chronic Coronary artery disease status post CABG. catheterization on 01/02. PCI with LAD graft stent on 01/05. - Continue aspirin, clopidogrel, statin - Further management per cardiology service # Hypertension -Increase carvedilol - Holding on HOWIE inhibitor at present # Respiratory: Acute respiratory failure with hypoxia, intubated during his second cardiac arrest. Remained intubated following pacemaker placement. Difficult to wean due to agitation, underlying undiagnosed JAGRUTI with chest wall trauma. Bronchoscopy on 01/04 showed intrathoracic variable obstruction pattern. The patient seems to have obstructive apnea physiology, worsened with sedatives. Extubated from 01/06-01/08 then reintubated. Was able to tolerate sedation reduction with pressure support trial on 01/09. PEEP has been reduced on 01/09. - Pulmonology service following -Tapering off methylprednisolone # Infectious: VAP Infection, acute not present on admission. Leukocytosis, acute , present on admission. Initially with stress leukocytosis on presentation there was no evidence for focal infection. Mild recurrent leukocytosis on . Now with Klebsiella species in tracheal aspirate from 01/04. Bilateral basilar infiltrates. - Start ceftriaxone on 01/06. - Vancomycin 01/08 - for continued therapy in place of linezolid for his right lower extremity diabetic foot ulcer # Neurological: Acute delirium, not present on admission. Likely ICU delirium, toxic encephalopathy related to pain medications, postcardiac arrest ischemic encephalopathy. - Maximize nonpharmacologic measures if patient has recurrent agitation - Avoid benzodiazepines - Antipsychotic medications as necessary - Lowest effective doses of opioids # Renal: Acute kidney injury, not present on admission. Initial Cr 1.63, bina to 2.13, now 1.62; improving. CKD stage IV range but improving after catheterization dye load, episodes of arrhythmia, ventricular fibrillation and CPR. Underlying Chronic kidney disease, likely secondary to hypertension, diabetes. Urine output past 24 hours > 0.5 ML/KG/HR - Monitor urine output - Minimize nephrotoxins - daily BMP # Gastrointestinal: Clinically bowel sounds are present but no effective bowel function. Likely metabolic ileus. Less likely gut ischemia. - Bowel regimen when able to take by mouth - Follow clinically # Nutritional: Diabetes mellitus, insulin-dependent, uncontrolled. A1c from was 9.8, subsequently 5.6. Inpatient glycemia has been at target <180 with the dose every 6 hours Regular Insulin. Blood glucose above target on likely due to high-dose steroids. He received tube feeds briefly but stopped due to high volume residuals. No enteral nutrition when he was extubated. Probable ileus - Continue to increase scale for dosing Every 6 hour regular insulin while NPO. - Resume tube feeds after resolution of ileus, then adjust insulin Stable or resolving problems: # Pain control, acute, present on admission. Patient is moderately symptomatic from chest compressions. - No effective parenteral analgesics as needed # Sinus bradycardia, chronic. Likely related to IW VT. AICD pacemaker is in place - resolved # Anemia, acute on chronic. Hemoglobin 8.2 admission. Etiology uncertain. Received RBC transfusion 1 unit, due to concern about ischemic cardiac disease. Hemoglobin stable and rising - follow CBC # Hyperlipidemia -Continue statin # Nicotine dependence -Counseled on smoking cessation at time of admission -Offered nicotine patch # DVT prophylaxis - heparin VTE Prophylaxis: Sub-Q Heparin (Unfractionated) VTE Mechanical Devices: Intermittant Pneumatic CD Resuscitation Status: CPR: Attempt Resuscitation Time spent 40 minutes Sumanth Aviles MD January 09, 2017 16:41
[2017-01-09] MEDS ORDERED: Alteplase (Cathflo) 1 mg/mL 2 mL Inj IVPUSH ONE (17:10)
[2017-01-09] MEDS: Sodium Chloride LOK Flush 10 mL Syringe IVFLUSH PRN ×2 (20:07→22:27)
--- NOTE | 2017-01-09 21:07 | PCM.PNMED ---
Subjective Date of Service January 09, 2017 Subjective Called by patient's RN who notes dark brown flecks in NG drainage consistent with blood AND bright red blood in Mur[place] tubing. I had noted the NG drainage earlier in the day and discussed with patient's but did not realize that he was not receiving routine ICU GI prophylaxis. Hemoglobin 10 > 10.4 > 9.3 today. IMP Stress related GI hemorrhage. Heparin unlikely to contribute as multiple studies show no increased transfusion requirement in this type of patient however his dual anti-platelet therapy, which is needed to protect his new stent , can elevate his bleeding risk. The blood in his Murillo probably represent some urethral or bladder mucosal injury with him so restless at times. PLAN Protonix 40 q 12 hours, first dose now Single loading dose of H2 lauri now Continue SQ heparin for VTE prophylaxis Serial hemoglobin, hematocrit, Call MD fo hemoglobin less jaclyn 9 Hold Plavix until discussed with Cardiology in AM Close observation of NG and Murillo output. Exam Vital Signs Vital Sign - Last Date Time Temp Pulse Resp B/P Pulse Ox O2 Delivery O2 Flow Rate FiO2 01/09/17 19:32 62 133/39 97 40 01/09/17 16:30 37.6 16 Mechanical Ventilator 01/08/17 07:22 60 Intake and Output 01/08/17 01/08/17 01/09/17 Cumulative From/Thru 15:00 23:00 07:00 01/02/17 05:15 - 01/09/17 06:12 Intake Total 567 ml 598 ml 16848 ml Output Total 1900 ml 1150 ml 40904 ml Balance -1333 ml -552 ml 2286 ml Intake Oral 0 ml 310 ml IV Total 567 ml 598 ml 54256 ml Tube Feeding 1340 ml Packed Cells 320 ml Tube Irrigant 530 ml Output Urine Total 1700 ml 900 ml 9440 ml Gastric Drainage Total 200 ml 250 ml 2090 ml # Voids 1 # Bowel Movements 0 0 Lab and Diagnostics Result Diagram: 01/09/17 0340 01/09/17 0340 Assessment & Plan See Subjective portion of this note VTE Prophylaxis: Sub-Q Heparin (Unfractionated) VTE Mechanical Devices: Intermittant Pneumatic CD Resuscitation Status: CPR: Attempt Resuscitation Bruce Hernandez MD January 09, 2017 21:07 - Increase carvedilol - Additional furosemide per pulmonology consult # Cardiovascular: Rhythm: Cardiac arrest, acute prior to admission. Due to acute ischemic disease with inferior VT. Repeat cardiac arrest on 01/03/17 was brief. S/p AICD pacemaker placement 01/03. - Amiodarone d/c'd after AICD # Cardiovascular: Acute NSTEMI, with chronic Coronary artery disease status post CABG. catheterization on 01/02. PCI with LAD graft stent on 01/05. - Continue aspirin, clopidogrel, statin - Further management per cardiology service # Hypertension -Increase carvedilol - Holding on HOWIE inhibitor at present # Respiratory: Acute respiratory failure with hypoxia, intubated during his second cardiac arrest. Remained intubated following pacemaker placement. Difficult to wean due to agitation, underlying undiagnosed JAGRUTI with chest wall trauma. Bronchoscopy on 01/04 showed intrathoracic variable obstruction pattern. The patient seems to have obstructive apnea physiology, worsened with sedatives. Extubated from 01/06-01/08 then reintubated. Was able to tolerate sedation reduction with pressure support trial on 01/09. PEEP has been reduced on 01/09. - Pulmonology service following -Tapering off methylprednisolone # Infectious: VAP Infection, acute not present on admission. Leukocytosis, acute , present on admission. Initially with stress leukocytosis on presentation there was no evidence for focal infection. Mild recurrent leukocytosis on . Now with Klebsiella species in tracheal aspirate from 01/04. Bilateral basilar infiltrates. - Start ceftriaxone on 01/06. - Vancomycin 01/08 - for continued therapy in place of linezolid for his right lower extremity diabetic foot ulcer # Neurological: Acute delirium, not present on admission. Likely ICU delirium, toxic encephalopathy related to pain medications, postcardiac arrest ischemic encephalopathy. - Maximize nonpharmacologic measures if patient has recurrent agitation - Avoid benzodiazepines - Antipsychotic medications as necessary - Lowest effective doses of opioids # Renal: Acute kidney injury, not present on admission. Initial Cr 1.63, bina to 2.13, now 1.62; improving. CKD stage IV range but improving after catheterization dye load, episodes of arrhythmia, ventricular fibrillation and CPR. Underlying Chronic kidney disease, likely secondary to hypertension, diabetes. Urine output past 24 hours > 0.5 ML/KG/HR - Monitor urine output - Minimize nephrotoxins - daily BMP # Gastrointestinal: Clinically bowel sounds are present but no effective bowel function. Likely metabolic ileus. Less likely gut ischemia. - Bowel regimen when able to take by mouth - Follow clinically # Nutritional: Diabetes mellitus, insulin-dependent, uncontrolled. A1c from was 9.8, subsequently 5.6. Inpatient glycemia has been at target <180 with the dose every 6 hours Regular Insulin. Blood glucose above target on likely due to high-dose steroids. He received tube feeds briefly but stopped due to high volume residuals. No enteral nutrition when he was extubated. Probable ileus - Continue to increase scale for dosing Every 6 hour regular insulin while NPO. - Resume tube feeds after resolution of ileus, then adjust insulin Stable or resolving problems: # Pain control, acute, present on admission. Patient is moderately symptomatic from chest compressions. - No effective parenteral analgesics as needed # Sinus bradycardia, chronic. Likely related to IW VT. AICD pacemaker is in place - resolved # Anemia, acute on chronic. Hemoglobin 8.2 admission. Etiology uncertain. Received RBC transfusion 1 unit, due to concern about ischemic cardiac disease. Hemoglobin stable and rising - follow CBC # Hyperlipidemia -Continue statin # Nicotine dependence -Counseled on smoking cessation at time of admission -Offered nicotine patch # DVT prophylaxis - heparin VTE Prophylaxis: Sub-Q Heparin (Unfractionated) VTE Mechanical Devices: Intermittant Pneumatic CD Resuscitation Status: CPR: Attempt Resuscitation Bruce Hernandez MD January 09, 2017 21:07
[2017-01-09] MEDS ORDERED: Famotidine 10 mg/mL 2 mL Inj IVPUSH ONE (21:10)
[2017-01-09] MEDS ORDERED: Famotidine Inj 20 MG in IV Premix 1 EACH IV ONE (21:30)
[2017-01-09] MEDS: Pantoprazole 4 mg/mL 10 mL Inj IVPUSH SCH (22:27)
[2017-01-10] VITALS (15 sets, daily range): BP systolic 142–202; BP diastolic 42–63; PULSE 60–81; RESP 15–16; O2SAT 96–98
[2017-01-10] MEDS: Albuterol-Ipratropium 3 mL Inhalation Solution NEB SCH ×6 (00:01→20:02)
[2017-01-10] MEDS: Propofol Inj 1,000,000 MCG in IV Premix 1 EACH IV SCH ×2 (01:39→05:09)
[2017-01-10] MEDS ORDERED: Vancomycin Inj 1,500 MG in 0.9% Sodium Chloride 500 ML IV SCH (02:30)
[2017-01-10] MEDS: hydrALAZINE 20 mg/mL Inj IV SCH ×4 (02:49→20:19)
[2017-01-10] MEDS: Insulin Human REGular 300 Unit/3 mL Inj SUBQ SCH ×4 (02:51→20:53)
[2017-01-10 02:53] LABS: BASOPHILS % (AUTO) 0.1 % (0-3); EOSINOPHILS % (AUTO) 0 % (0-5); MONOCYTES % (AUTO) 4.5 % (4-12); Mean Corpuscular Hemoglobin 29.7 pg (27.0-35.0); Mean Corpuscular Volume 94.2 fL (81-100); NEUTROPHILS % (AUTO) 91.1 % (40-74); Platelet Count 382 bil/L (150-400)
[2017-01-10] MEDS: Chlorhexidine 0.12% 15 mL Oral Solution MT SCH ×5 (04:09→20:18)
--- NOTE | 2017-01-10 05:34 | NUR ---
P) Fever/bleed/LOC/Respiratory Pt. febrile tonight, T-max 38c orally, has what appears to be old blood in fluid in OG from stomach, and blood in urine with fine clots settling out. Opened eyes spontaneously x1, does not appear to track, pulls against restraints towards ET tube but does not follow any commands or respond to questions. Has strong cough productive of thick, flores sputum, breath sounds equal and slightly coarse, no adventitious sounds noted. I) Passive cooling, contacted Dr. Hernandez, restarted famotidine and protonix, checking Hgb. and Hct. q6h, so far relatively stable. E) Currently resting quietly with eyes closed.
--- NOTE | 2017-01-10 05:40 | ABG ---
DateTimeAnalyzed 05:34:00 -_ pH ____7.422 - 7.350 7.450 pCO2 ___35.2__ -mmHg 35.0 45.0 pO2 ___98.6__ -mmHg 69.0 116 HCO3- ___22.5__ -mmol/L 22.0 26.0 ABE ___-1.1__ -mmol/L -2.0 2.0 tHb ____9.7__ -g/dL O2Hb ___95.5__ -% COHb ____1.3__ -% MetHb ____1.3__ -% sO2 ___98.0__ -% 25.0 FIO2 ___40.0__ -% PEEP ____5.0__ -cmH2O Vt __600.0__ -L Drawn By blf - Date/Time Notified____ 05:39:00 -_ Spontaneous_RR ___18.0__ -b/min A/C ___15.0__ - Oxygen Device 1 VENTILATOR - Notified By blf - Notified Whom Lydia Eda RN -__ B 759 -mmHg tO2 ___13.2__ -Vol% Roshan test _Positive -
--- NOTE | 2017-01-10 07:52 | DRSVH ---
PROCEDURE: X-RAY CHEST ONE VIEW, PORTABLE ([id number]) INDICATIONS: Pulmonary edema Pneumonia TECHNIQUE: One view of the chest was acquired. COMPARISON: [facility], CR, XR CHEST 1VW (PORTABLE), 01/09/2017, 4:08. FINDINGS: Surgical changes and devices: Median sternotomy. Tubes and catheters are in stable and expected posit ions. Lungs and pleura: No pleural effusions or pneumothorax. There is increased, severe basilar predomina nt groundglass and interstitial pulmonary opacity. Mediastinum: Mediastinal contours appear normal. Heart size is enlarged. Bones and chest wall: No suspicious bony lesions. Overlying soft tissues appear unremarkable. IMPRESSION: Increased, severe CHF. Dictated by: Rosa Gustafson M.D. on 01/10/2017 at 7:50 Approved by: Rosa Gustafson M.D. on 01/10/2017 at 7:50
[2017-01-10] MEDS: Pantoprazole 4 mg/mL 10 mL Inj IVPUSH SCH (08:08)
[2017-01-10] MEDS: MethylprednisoLONE Sodium Succinate 40 mg/mL Inj IVPUSH SCH (08:09)
[2017-01-10] MEDS: Sodium Chloride LOK Flush 10 mL Syringe IVFLUSH SCH ×2 (08:09→15:40)
[2017-01-10] MEDS: Heparin 5,000 Unit/mL Inj SUBQ SCH ×2 (08:10→16:45)
[2017-01-10] MEDS: Lactulose 20 Gm/30 mL 30 mL Syrup TUBE SCH ×2 (08:12→20:24)
[2017-01-10] MEDS: DULoxetine 30 mg DR Capsule PO SCH (08:30)
[2017-01-10] MEDS: cefTRIAXone Inj 2,000 MG in Dextrose 5% Minibag Plus 50 ML IV SCH (08:43)
--- NOTE | 2017-01-10 08:44 | PROG NOTE ---
[address] [address] PROGRESS NOTE PATIENT: NIKOLAY ROYAL : 1955 MR#: [id number] ADMIT: 01/02/2017 JOB ID: [id number] DATE: 01/10/2017 PROBLEM LIST: 1. Status post AICD placement for VFib arrest. 2. Sinus bradycardia. 3. History of coronary artery disease. 4. Obstructive sleep apnea. 5. Diabetes mellitus. 6. Hypertension. 7. Peripheral arterial disease. 8. Dynamic compression of the airways with significant bronchial edema. SUBJECTIVE: None. OBJECTIVE: Temperature 37.7 with T-max being 38, pulse 61, respiratory rate 15 with ventilator set at 15 on volume control mode. Blood pressure 164/51. O2 sat on FiO2 40% PEEP of 7 is 98%. I and O shows 0.8 L in, 2.8 L out. He is already 1.5 L negative over the past 8 hours. General appearance is sedated on the ventilator. Currently receiving propofol at 40 mcg per kg per hour. Eyes: Conjunctivae are pink. Pupils are about 2-3 mm in diameter and reactive. Chest fair breath sounds bilaterally. Significantly diminished at the right base laterally. Maybe a few crackles in the right mid lung field. Left lung is relatively clear. Heart regular rhythm. Monitor shows 100% paced. Abdomen soft, nondistended. Bowel tones present. Extremities no pretibial edema. A wound in the intertriginous areas between the right toe and the 2nd digit. Crusted. Will have to check with wound about whether we need to keep addressing this and treating it. LABORATORY DATA: Shows a stable white count of 13,100 with 91 polymorphonuclears, no bands, 3 lymphocytes, 4 monocytes. Hemoglobin stable at 9.2. Platelet count stable at 382,000. Sodium 148, potassium 4, chloride 110. CO2 is 21. BUN 55 and stable. Creatinine 1.49 and slightly improved. Calcium 8.5. ProBNP is 10,376. Chest x-ray this morning shows no particular changes, may be increased bibasilar ground-glass and interstitial opacities. Arterial blood gas on FiO2 of 40%, PEEP of 5, tidal volume is 600. Volume control mode shows pO2 98, pCO2 35, pH 7.42. Ventilatory loops do not show any compromise of the airway on exhalation. ASSESSMENT: 1. Ventilatory failure. Initially problem was related to likely aspiration subsequently to dynamic compression of the upper airways, which seems to have resolved and now from pulmonary edema. Has been diuresed in the last 36 hours and is doing well. Oxygenation is fine. It would be useful to wake him up a bit and do a pressure support trial. Will switch volume control to PRVC utilizing similar values. 2. Enteral feeding. Enteral feeding has been stopped. Presumably it was from the intubation extubation [id number] that we have been on. I think we can restart nutrition by enteral means and proceed. 3. Low-grade fever. Might be worthwhile to re-culture the patient. He has been off and on the antibiotics. Will see if the entire situation means anything in terms of an acute infectious bacterial process that needs to be treated. PLAN: 1. Start enteral feeding. 2. Decrease propofol, adding fentanyl if he gets agitated. Consider pressure support trial. Will see what he needs in terms of pressure support. Maybe more than the usual level of 5 to 10/5. 3. Blood, sputum, and urine cultures. TIME: Time spent so far in critical care 45 minutes.
[2017-01-10] MEDS: fentaNYL 2,500 mCg/250 mL 2,500 MCG in IV Premix 1 EACH IV SCH (09:09)
[2017-01-10] MEDS: 0.9% Sodium Chloride 250 ML IV SCH (10:10)
[2017-01-10] MEDS ORDERED: Dexmedetomidine 400 mCg/100 mL NS Premix IV ONE ×2 (12:36→19:04)
--- NOTE | 2017-01-10 14:35 | PCM.PNMED ---
Subjective Date of Service January 10, 2017 Subjective Patient is intubated and sedated. No overnight events. ROS subjective not obtainable. He is able to talk on a very limited basis 2 days ago prior to his reintubation. Exam Vital Signs Vital Sign - Last Date Time Temp Pulse Resp B/P Pulse Ox O2 Delivery O2 Flow Rate FiO2 01/10/17 11:41 63 174/54 97 40 01/10/17 07:27 37.7 15 Mechanical Ventilator 01/08/17 07:22 60 Intake and Output 01/09/17 01/09/17 01/10/17 Cumulative From/Thru 15:00 23:00 07:00 01/02/17 05:15 - 01/10/17 06:20 Intake Total 267 ml 1047 ml 93856 ml Output Total 1700 ml 2575 ml 78699 ml Balance -1433 ml -1528 ml -675 ml Intake Oral 310 ml IV Total 267 ml 1047 ml 45015 ml Tube Feeding 1340 ml Packed Cells 320 ml Tube Irrigant 530 ml Output Urine Total 1500 ml 2350 ml 88823 ml Gastric Drainage Total 200 ml 225 ml 2515 ml # Voids 1 # Bowel Movements 1 1 Exam Vision sedated, intubated. He also has an OG tube in place. Anicteric sclera. Lungs are clear with normal rate and effort Heart is regular without murmur gallop or rub Abdomen soft nontender, flat Extremities are free of edema. Skin is free of rash or lesions. IVs and Medications Medications Reviewed: Medications were reviewed in detail Lab and Diagnostics Result Diagram: 01/10/17 0245 01/10/17 0345 Assessment & Plan # Cardiovascular: Acute systolic congestive heart failure. Weight up 6 kg since admission. Lungs with bilateral pulmonary edema versus ARDS. Furosemide initiated 01/07. - Now holding intravenous Lasix after last dose on 01/08 16:00 - Increase carvedilol -We will hold furosemide today. It sounds as though the patient may have had flash pulmonary edema. # Cardiovascular: Rhythm: Cardiac arrest, acute prior to admission. Due to acute ischemic disease with inferior IL. Repeat cardiac arrest on 01/03/17 was brief. S/p AICD pacemaker placement 01/03. - Amiodarone d/c'd after AICD, this is stable. No change. # Cardiovascular: Acute NSTEMI, with chronic Coronary artery disease status post CABG. catheterization on 01/02. PCI with LAD graft stent on 01/05.. This is stable. Will continue current medical therapy. - Continue aspirin, clopidogrel, statin - Further management per cardiology service # Hypertension, POA and stable. -Increase carvedilol - Holding on HOWIE inhibitor at present # Respiratory: Acute respiratory failure with hypoxia, intubated during his second cardiac arrest. Remained intubated following pacemaker placement. Difficult to wean due to agitation, underlying undiagnosed JAGRUTI with chest wall trauma. Bronchoscopy on 01/04 showed intrathoracic variable obstruction pattern. The patient seems to have obstructive apnea physiology, worsened with sedatives. Extubated from 01/06-01/08 then reintubated. Was able to tolerate sedation reduction with pressure support trial on 01/09. PEEP has been reduced on 01/09. - Pulmonology service following -Tapering off methylprednisolone # Infectious: VAP Infection, acute not present on admission. Leukocytosis, acute , present on admission. Initially with stress leukocytosis on presentation there was no evidence for focal infection. Mild recurrent leukocytosis on . Now with Klebsiella species in tracheal aspirate from 01/04. Bilateral basilar infiltrates. The patient has intermittent low fevers now. Most recent tracheal aspirate was negative. He continues to be an ceftriaxone for possible Klebsiella pneumonia. Will add another set of blood cultures, urine culture and fungal cultures. - Start ceftriaxone on 01/06. - Vancomycin 01/08 - for continued therapy in place of linezolid for his right lower extremity diabetic foot ulcer # Neurological: Acute delirium, not present on admission. This is difficult to assess given his propofol sedation and intubation. We will follow. Likely ICU delirium, toxic encephalopathy related to pain medications, postcardiac arrest ischemic encephalopathy. - Maximize nonpharmacologic measures if patient has recurrent agitation - Avoid benzodiazepines - Antipsychotic medications as necessary - Lowest effective doses of opioids # Renal: Acute kidney injury, not present on admission, improving.. Initial Cr 1.63, bina to 2.13, now 1.62; improving. CKD stage IV range but improving after catheterization dye load, episodes of arrhythmia, ventricular fibrillation and CPR. Underlying Chronic kidney disease, likely secondary to hypertension, diabetes. Urine output past 24 hours > 0.5 ML/KG/HR - Monitor urine output - Minimize nephrotoxins - daily BMP to follow creatinine. # Gastrointestinal: Clinically bowel sounds are present but no effective bowel function. Likely metabolic ileus. Less likely gut ischemia. - Bowel regimen when able to take by mouth - Follow clinically # Nutritional: Diabetes mellitus, insulin-dependent, uncontrolled. A1c from was 9.8, subsequently 5.6. Inpatient glycemia has been at target <180 with the dose every 6 hours Regular Insulin. Blood glucose above target on likely due to high-dose steroids. He received tube feeds briefly but stopped due to high volume residuals. No enteral nutrition when he was extubated. Probable ileus - Continue to increase scale for dosing Every 6 hour regular insulin while NPO. - Resume tube feeds after resolution of ileus, then adjust insulin # Pain control, acute, present on admission. Patient is moderately symptomatic from chest compressions. - No effective parenteral analgesics as needed # Sinus bradycardia, chronic. Likely related to IW IL. AICD pacemaker is in place - resolved # Anemia, acute on chronic. Hemoglobin 8.2 admission. Etiology uncertain. Received RBC transfusion 1 unit, due to concern about ischemic cardiac disease. Hemoglobin stable and rising - follow CBC # Hyperlipidemia -Continue statin # Nicotine dependence -Counseled on smoking cessation at time of admission -Offered nicotine patch # DVT prophylaxis - heparin VTE Prophylaxis: Sub-Q Heparin (Unfractionated) VTE Mechanical Devices: Intermittant Pneumatic CD VTE Prophylaxis: Sub-Q Heparin (Unfractionated) VTE Mechanical Devices: Intermittant Pneumatic CD Resuscitation Status: CPR: Attempt Resuscitation Roshan Ferguson MD January 10, 2017 14:35
[2017-01-10 19:28] LABS: APPEARANCE,URINE HAZY (CLEAR,HAZY); COLOR,URINE AMBER (YELLOW); OCCULT BLOOD,URINE LARGE (NEGATIVE); PH,URINE 6.5 (5.0-8.0); UROBILINOGEN,URINE NORMAL (NORMAL)
[2017-01-10] MEDS ORDERED: DEXMEDETOMIDINE 400 MCG/100 ML IV PRN ×4 (19:30→19:40)
[2017-01-10] MEDS ORDERED: NS IV PRN ×4 (19:30→19:40)
--- NOTE | 2017-01-10 19:41 | NUR ---
P: Resp, Hemodnyamics,Neuro, Social, Nutrition, skin I,E: Pt continues on the vent, he did well with PST this am. Meds changed to precedex and fentanyl which work well for sedation and pain. UOP was 600cc, he does have some intermittent leaking of urine from around his lam. His urine is brown and has sediment. UA was sent this morning as well as sputum and blood cultures. T max today was 37.5. Pt is paced 100% atrial paced and occ V paced HR is in the 60's. BP remains high, 140's to 160's on average. Pt opened his eyes today and appeared to track and recognize his family. He did respond to simple commands. He was agitated at times though and wanted to pull the tube. Family are very supportive and his stays most of the time in the room with him. Tube feeds started this evening. He did have a small stool this evening. He has a small fissure in his gluteal cleft. His right foot wound is not dressed, will follow up with wound care tomorrow.
[2017-01-10 19:50] LABS: ICTOTEST,URINE NEGATIVE (Negative)
[2017-01-11] VITALS (16 sets, daily range): BP systolic 145–208; BP diastolic 58–73; PULSE 60–73; RESP 15; O2SAT 97–98
[2017-01-11] MEDS: Chlorhexidine 0.12% 15 mL Oral Solution MT SCH ×6 (00:09→20:23)
[2017-01-11] MEDS: Labetalol 5 mg/mL 20 mL Inj IVPUSH PRN ×8 (00:09→22:56)
[2017-01-11] MEDS: Sodium Chloride LOK Flush 10 mL Syringe IVFLUSH SCH ×4 (00:09→17:41)
[2017-01-11] MEDS: Heparin 5,000 Unit/mL Inj SUBQ SCH ×4 (00:30→20:41)
[2017-01-11] MEDS: Albuterol-Ipratropium 3 mL Inhalation Solution NEB SCH ×6 (00:30→19:55)
[2017-01-11] MEDS: Insulin Human REGular 300 Unit/3 mL Inj SUBQ SCH ×4 (02:30→20:57)
[2017-01-11] MEDS: hydrALAZINE 20 mg/mL Inj IV SCH ×4 (02:37→20:30)
--- NOTE | 2017-01-11 05:20 | ABG ---
DateTimeAnalyzed 05:14:00 -_ pH ____7.407 - pCO2 ___37.5__ -mmHg pO2 ___44.7__ -mmHg HCO3- ___23.1__ -mmol/L ABE ___-0.8__ -mmol/L tHb ___10.7__ -g/dL O2Hb ___75.6__ -% COHb ____1.3__ -% MetHb ____1.1__ -% sO2 ___77.5__ -% FIO2 ___40.0__ -% PRVC 15 - PEEP ____5.0__ -cmH2O Vt __600.0__ -L Drawn By RN - Date/Time Notified____ 05:19:00 -_ Spontaneous_RR ___15.0__ -b/min Oxygen Device 1 VENTILATOR - Notified By blf - Notified Whom Myriam Paxton RN -___ B 756 -mmHg tO2 ___11.4__ -Vol% OrderingPhysicianInitials bak - Roshan test N/A -
[2017-01-11 05:25] LABS: BASOPHILS % (AUTO) 0 % (0-3); EOSINOPHILS % (AUTO) 0 % (0-5); MONOCYTES % (AUTO) 8.6 % (4-12); Mean Corpuscular Volume 93.3 fL (81-100); Platelet Count 380 bil/L (150-400)
[2017-01-11 05:57] LABS: Magnesium 2.4 mg/dL (1.6-2.6); Phosphorus 4.4 mg/dL (2.5-4.9)
[2017-01-11] MEDS: fentaNYL 2,500 mCg/250 mL 2,500 MCG in IV Premix 1 EACH IV SCH (07:24)
--- NOTE | 2017-01-11 07:30 | NUR ---
P: hypertension I: scheduled hydralazine IVP, coreg PO, PRN labetolol IVP E: SBP 170-200s. No change w/ medications. Tele A paced, PVCs. Murillo leaking. Unable to irrigate. Replaced w/ singh colored urine return and small clots. MN heparin SQ held. Dr. Fortune aware of urine color and hypertension. Light sedation on 100mcg fentanyl and 0.5mcg precedex drips. Nods no to pain and N/V. Reorientation each encounter w/ pt. Less anxious. Sats in the mid to high 90s on 40% fio2. Intermittently over breathes vent rate.
[2017-01-11] MEDS: Pantoprazole 4 mg/mL 10 mL Inj IVPUSH SCH (07:49)
[2017-01-11] MEDS ORDERED: Furosemide 10 mg/mL 4 mL Inj IVPUSH ONE (07:50)
[2017-01-11] MEDS: MethylprednisoLONE Sodium Succinate 40 mg/mL Inj IVPUSH SCH (07:50)
[2017-01-11] MEDS ORDERED: Dextrose 5% 1,000 ML IV SCH (07:55)
--- NOTE | 2017-01-11 07:58 | DRSVH ---
PROCEDURE: X-RAY CHEST ONE VIEW, PORTABLE ([id number]) INDICATIONS: aspiration pneumonia, pulm edema TECHNIQUE: One view of the chest was acquired. COMPARISON: [facility], CR, XR CHEST 1VW (PORTABLE), 01/08/2017, 10:10. [facility], CR, XR CHEST 1VW (PORTABLE), 01/10/2017, 5:52. FINDINGS: Surgical changes and devices: Stable position of ETT, nasogastric tube and right PICC. Stable positi on of left cardiac pacer. Median sternotomy wires redemonstrated. Lungs and pleura: Diffuse, widespread bilateral pulmonary interstitial and air space opacities are p resent with no significant change from prior examination. Trace pleural effusions likely present. N o pneumothorax. Mediastinum: Mediastinal contours appear normal. Heart size is enlarged. Bones and chest wall: No suspicious bony lesions. Overlying soft tissues appear unremarkable. IMPRESSION: Pulmonary edema and/or diffuse bilateral pneumonia not significantly changed. Dictated by: Guillermo Finnegan [facility] Interpreted: Luis Miguel Ochoa MD on 01/11/2017 at 7:56 Transcribed by: LYNDA on 01/11/2017 at 7:57 Approved by: Luis Miguel Ochoa M.D. on 01/11/2017 at 10:28
[2017-01-11] MEDS: DULoxetine 30 mg DR Capsule PO SCH (08:23)
--- NOTE | 2017-01-11 08:23 | PCM.PNMED ---
Subjective Date of Service January 11, 2017 Subjective Patient is intubated and less sedated. Opens eyes spontaneously movements. ROS and subjective not obtainable Overnight events notable for dysfunctional catheter with replacement of a Murillo. Some blunting tinged urine. Good flow. Some moderately high blood sugar readings. Exam Vital Signs Vital Sign - Last Date Time Temp Pulse Resp B/P Pulse Ox O2 Delivery O2 Flow Rate FiO2 01/11/17 07:37 37.2 73 15 195/70 98 Mechanical Ventilator 40 01/08/17 07:22 60 Intake and Output 01/10/17 01/10/17 01/11/17 Cumulative From/Thru 15:00 23:00 07:00 01/02/17 05:15 - 01/11/17 05:36 Intake Total 426 ml 656 ml 76207 ml Output Total 700 ml 900 ml 45452 ml Balance -274 ml -244 ml -1193 ml Intake Oral 310 ml IV Total 366 ml 396 ml 47656 ml Tube Feeding 220 ml 1560 ml Packed Cells 320 ml Tube Irrigant 60 ml 40 ml 630 ml Output Urine Total 600 ml 900 ml 13209 ml Gastric Drainage Total 100 ml 2615 ml # Voids 1 # Bowel Movements 0 1 Exam Patient is intubated, sedated but opens eyes easily and looks around. Anicteric sclera. Lungs are clear with normal rate and effort Heart is regular without murmur gallop or rub Abdomen soft nontender, distended Extremities are free of edema. No obvious ulcers or cellulitis. Skin is free of rash or lesions. IVs and Medications Medications Reviewed: Medications were reviewed in detail Lab and Diagnostics Result Diagram: 01/11/1751401/11/1715 Assessment & Plan # Cardiovascular: Acute systolic congestive heart failure. Worse today with higher FiO2. - Lasix 40 IV now - Continue carvedilol -ECHO reveals normal LVEF. # Cardiac arrest, acute prior to admission. Due to acute ischemic disease with inferior MA. Repeat cardiac arrest on 01/03/17 was brief. S/p AICD pacemaker placement 01/03. - Amiodarone d/c'd after AICD, this remains stable. No change. # Acute NSTEMI, with chronic Coronary artery disease status post CABG. catheterization on 01/02. PCI with LAD graft stent on 01/05.. This is stable. Will continue current medical therapy. - Continue aspirin, clopidogrel, statin - Further management per cardiology service # Hypertension, uncontrolled , POA . -Increase carvedilol again, labetolol IV prn and lasix IV now. - Holding on HOWIE inhibitor at present #. Hematuria, new. Patient fully changed last night. We will follow this clinically. We will resume Lovenox for DVT prophylaxis. # Acute respiratory failure with hypoxia, intubated during his second cardiac arrest. Remained intubated following pacemaker placement. Difficult to wean due to agitation, underlying undiagnosed JAGRUTI with chest wall trauma. Bronchoscopy on 01/04 showed intrathoracic variable obstruction pattern. The patient seems to have obstructive apnea physiology, worsened with sedatives. Extubated from 01/06-01/08 then reintubated. Was able to tolerate sedation reduction with pressure support trial on 01/09. PEEP has been reduced on 01/09. - Pulmonology service following -Tapering off methylprednisolone The patient's FiO2 is 0.40. X-ray reveals pulmonary edema. We will diuresis Lasix today given O2 as well as hypertension. We will discuss the another weaning trial with pulmonary. The patient is more awake today. #Possible Klebsiella pneumonia, acute not present on admission. Leukocytosis, acute, present on admission. Initially with stress leukocytosis on presentation there was no evidence for focal infection. Mild recurrent leukocytosis on 01/06. Now with Klebsiella species in tracheal aspirate from . Bilateral basilar infiltrates. The patient has intermittent low fevers now. Most recent tracheal aspirate was negative. He continues to be an ceftriaxone for possible Klebsiella pneumonia. Will add another set of blood cultures, urine culture and fungal cultures. - Start ceftriaxone on 01/06. We will discuss duration with infectious disease today. No evidence of infiltrate on chest x-ray. - Vancomycin was discontinued. We will discuss the overall duration of MRSA coverage for previous foot infection with infectious disease. #Septic encephalopathy, not present on admission. This is difficult to assess given his propofol sedation and intubation. We will follow. Likely ICU delirium, toxic encephalopathy related to pain medications, postcardiac arrest ischemic encephalopathy. - Maximize nonpharmacologic measures if patient has recurrent agitation - Avoid benzodiazepines - Antipsychotic medications as necessary - Lowest effective doses of opioids # Acute kidney injury, not present on admission, improving.. Initial Cr 1.63, bina to 2.13, now 1.62; improving. CKD stage IV range but improving after catheterization dye load, episodes of arrhythmia, ventricular fibrillation and CPR. Underlying Chronic kidney disease, likely secondary to hypertension, diabetes. Urine output past 24 hours > 0.5 ML/KG/HR - Monitor urine output - Minimize nephrotoxins - daily BMP to follow creatinine. #. Hypernatremia, new. We will use D5W today to slowly correct her respiratory 4 hours. We will add free water to his tube feeds as well. He is only getting 20 every 4 of free water. # Diabetes mellitus, insulin-dependent, uncontrolled. A1c from 11/01/2016 was 9.8, subsequently 5.6. Inpatient glycemia has been at target <180 with the dose every 6 hours Regular Insulin. Blood glucose above target on 01/06 likely due to high-dose steroids. He received tube feeds briefly but stopped due to high volume residuals. No enteral nutrition when he was extubated. Probable ileus - Continue to increase scale for dosing Every 6 hour regular insulin while NPO. - Resume tube feeds after resolution of ileus, then adjust insulin. We will continue to titrate insulin as needed. #. Nutritional. The patient remains on tube feeds. # Pain control, acute, present on admission. Patient is moderately symptomatic from chest compressions. - No effective parenteral analgesics as needed # Sinus bradycardia, chronic. Likely related to IW MA. AICD pacemaker is in place - resolved # Anemia, acute on chronic. Hemoglobin 8.2 admission. Etiology uncertain. Received RBC transfusion 1 unit, due to concern about ischemic cardiac disease. Hemoglobin stable and rising - follow CBC # Hyperlipidemia, POA and stable -Continue statin # Nicotine dependence, POA and stable -Counseled on smoking cessation at time of admission -Offered nicotine patch # DVT prophylaxis - heparin VTE Prophylaxis: Sub-Q Heparin (Unfractionated) VTE Mechanical Devices: Intermittant Pneumatic CD VTE Prophylaxis: Sub-Q Heparin (Unfractionated) VTE Mechanical Devices: Intermittant Pneumatic CD Resuscitation Status: CPR: Attempt Resuscitation Roshan Ferguson MD January 11, 2017 08:23
[2017-01-11] MEDS: Lactulose 20 Gm/30 mL 30 mL Syrup TUBE SCH ×2 (08:37→20:42)
[2017-01-11] MEDS: cefTRIAXone Inj 2,000 MG in Dextrose 5% Minibag Plus 50 ML IV SCH (09:49)
[2017-01-11] MEDS: Insulin GLARgine 100 Unit/mL Syringe SUBQ SCH (10:11)
--- NOTE | 2017-01-11 10:16 | NUR ---
NUTRITION FOLLOW-UP: Assess: 61 YO M admitted to CCU after episode of sudden cardiac [facility] prior to admission, acute ischemic CAD, with recurrent inpatient cardiac arrest on 01/03, status post AICD defibrillator placement, requiring sedation and subsequent prolonged mechanical ventilation. He was extubated 01/06 but required re-intubation 01/08. TF of Jevity 1.5 was started over the weekend per labor gang supervisor. Will change TF back to carb controlled formula today and per am rounds will increase free fluid flushes to help with hypernatremia. PMHX: Type 2 DM, HTN, hypercholesterolemia, tobacco use, COPD, severe JAGRUTI, stage III renal disease, PAD, CAD, CABG. DIET: NPO. LABS: Na 149, Cl 111, Bun 48, glu 218 MEDICATIONS: Reviewed. Insulin, lactulose, senna, lasix, solu-medrol, fentanyl GI: BMx1 01/10 SKIN: wounds on toes NUTRITION SUPPORT: Jevity 1.5 @ 50ml/hr ANTHROPOMETRICS: Wt: 98.8 kg, BMI 32.2 kg/m2, Admit wt: 105.6 kg, IBW: 72.7 kg. ESTIMATED NEEDS: BMI/ VENT Calories: 0752-8512 kcal/day (20-22 kcal/kg BW) Protein: 110-130 g/day (1.5-1.8 g/kg IBW) Fluids: ~2470ml/day (25ml/kg) NUTRITION DIAGNOSIS: 1) Inadequate oral intake related to decreased ability to consume sufficient energy as evidenced by current NPO / vent status - PERSISTS. INTERVENTION: 1) Recommend switching TF to a carb controlled formula of Glucerna 1.5. Recommend start Glucerna 1.5 @ 25ml/hr. If tolerated, increase by 10ml q 4 hrs until reach goal rate of 65ml/hr to provide 2145kcal and 118g pro (100% estimated needs). Recommend fluid flush of 170ml q 3 hrs to provide an additional 1360ml H20. Total H20 provide 2445ml and total fluid provided 2790ml MONITOR/EVALUATE: NPO/vent status, GI status, enteral feeding restart / advance, labs, GI/nutrition status. Follow per high nutrition risk guidelines.
[2017-01-11] MEDS: 0.9% Sodium Chloride 250 ML IV SCH (10:48)
--- NOTE | 2017-01-11 10:56 | CONS ---
[address] [address] CONSULTATION REPORT PATIENT: NIKOLAY ROYAL : 1955 MR#: [id number] ADMIT: 01/02/2017 JOB ID: [id number] DATE OF SERVICE: 01/11/[address] Ramos for this timely consult. REASON FOR CONSULTATION: Pulmonary infiltrates in a ventilated patient with a history of severe right diabetic foot infection. HISTORY OF PRESENT ILLNESS: The patient is an extremely complex, 61-year-old gentleman, who is well known to me from a series of evaluations and discussions during the past couple of months. I recently saw this complex gentleman with underlying severe diabetes neuropathy and peripheral vascular disease back in October. At that time, he had a very significant right diabetic foot infection which was made worse by ongoing cigarette smoking, peripheral vascular disease and his severe diabetic neuropathy. The initial organism was cultured, was MRSA, and the patient was very desirous of avoiding a PICC line or prolonged oral antibiotics. He was discharged after receiving a dose of dalbavancin. There was evidence of severe infection between the first and second toe on the right, but there was no evidence of osteo. He improved for a few days, then worsened and was seen back by his dot etcher apprentice for additional extensive debridement on an outpatient basis. At that time, late cultures became available which showed that in addition to the MRSA that had been present, there was also some Haemophilus parainfluenza as well as Prevotella. At that time, he was placed on IV antibiotics which consisted of daptomycin and ertapenem, which were given for prolonged period of time. Eventually, these were transitioned to linezolid and Augmentin, which the patient tolerated rather poorly in terms of GI toxicity but he took until late in November. At that time, there was reasonably good healing of his lower extremity and, as far as I know, all antibiotics were discontinued at that time. The patient was subsequently admitted on January 01 with chest pain and, in fact, suffered a cardiac arrest. He was found to have an anterior wall MT and received CPR in the field. He had a cardiac cath on the and a stent was placed in a non-negative previously bypassed vessel. Subsequent to that, he had a 2nd cardiac arrest and required on January 03 placement of an AICD. He has been ventilated over the course of the past eight days or so. While on the ventilator, the patient underwent bronchoscopy because of pulmonary infiltrates and respiratory difficulty. The sputum obtained during the bronchoscopy had very few polys but did grow Klebsiella. Subsequently, the patient was started on ceftriaxone which has continued for the last six days. Two follow up sputum cultures have been essentially unremarkable. The patient has remained intubated but he has been progressing fairly rapidly towards extubation and today is on 40% FiO2 and 3 of PEEP. The patient is currently intubated and quite sedated. He opens his eyes and seems to recognize me. He will nod his head yes and no, but is very lethargic and I do not think anything that he can respond to today is reliable, and so there is no additional history from the patient. Of note, the case was discussed during ICU rounds. PAST MEDICAL HISTORY: 1. Diabetes with severe neuropathy. 2. Coronary artery disease, status post cardiac arrest and status post placement of an AICD. 3. Congestive heart failure. 4. Chronic renal insufficiency. 5. Severe right diabetic foot infection without osteo, October and November, treated with daptomycin and ertapenem, and subsequently linezolid and Augmentin, with resolution. SOCIAL HISTORY: Cannot be obtained from the patient at this time, but he is well known to me from prior visits and I am aware that he is a heavy smoker for more than 50 years. He has not consumed alcohol in many, many years. He is retired from the [employer] and works in [employer]. He lives in [place]. FAMILY HISTORY: Positive for diabetes and coronary disease but negative for TB in first degree relatives. REVIEW OF SYSTEMS: Cannot be done this morning as the patient is intubated and sedated. PHYSICAL EXAMINATION: Reveals an intubated, sedated gentleman, in no acute distress. Temp 37.2, pulse 60, respiratory 15, blood pressure 170/63. He is saturating 98% on 40% FiO2 and only 3 of PEEP. He is awake but groggy and basically just opens his eyes briefly when his name is called. No conjunctivitis or obvious scleral icterus. No temporal wasting or head trauma. NG tube is present. Oral endotracheal tube is present. No herpetic lesions on the lips. The neck is supple without notable adenopathy. Lungs relatively clear posteriorly today. Cardiac tones regular rate and rhythm without notable murmur. A new AICD is present in the left upper chest without evidence of infection. The abdomen is soft and nontender without organomegaly or ascites. A Murillo catheter is present. Penis and scrotum appear normal. He has a right upper extremity PICC which appears uninfected. His lower extremities were carefully examined. There is no cellulitis or evidence of synovitis. No significant peripheral edema. He has diminished blood flow in both lower extremities as evidenced by slow capillary refill but there is no evidence of cellulitis or ongoing infection. Between the 1st and 2nd toes on the right, there is a deep wound which is much improved over the last time I saw it about three weeks ago, and is without any evidence of purulence, inflammation or infection. Neurologic exam is not possible beyond the fact the patient is awake on the ventilator. LABORATORIES: Include white count 11,800, hematocrit 33, platelet count 380. Creatinine 1.18, which is much improved over the last few days. Procalcitonin is 0.12. Urinalysis without white cells. Streptozyme negative. Fungal antibody is pending. Multiple blood cultures done during this admission is negative. Urine culture negative. Nasal MRSA swab negative during this admission as well as the last sputum on the showed a few polys, mixed marie and grew Klebsiella, Klebsiella was sensitive to ceftriaxone. IMAGING: Was carefully reviewed on the monitor. Today's chest x-ray shows some bilateral infiltrates which more likely are heart failure than infection. Also note that we discussed his situation with respiratory therapist who reports minimal secretions most compatible with heart failure rather than pneumonia. IMPRESSION: At this point, I think the patient's very complex right diabetic foot and calf infection have essentially resolved. This was a polymicrobial infection which was very severe but it has been treated very aggressively with antibiotics, and there was never any evidence of osteomyelitis. His major problem now, of course, is his cardiac problems including his recent cardiac arrest x2 and worsening atherosclerotic cardiac disease. I see little or no evidence for ongoing pneumonia. The patient has already received six days of ceftriaxone for the Klebsiella which I think was more colonizing than infecting. RECOMMENDATIONS: 1. I would discontinue vancomycin at this time. 2. I would continue the ceftriaxone through tomorrow and then stop it tomorrow morning having completed a full week course. 3. No need for MRSA isolation. 4. This case discussed in detail with the ICU team during rounds.
--- NOTE | 2017-01-11 11:23 | PROG NOTE ---
[address] [address] PROGRESS NOTE PATIENT: NIKOLAY ROYAL : 1955 MR#: [id number] ADMIT: 01/02/2017 JOB ID: [id number] DATE: 01/11/2017 PROBLEM LIST: 1. Status post AICD placement for ventricular fibrillation arrest. 2. Sinus bradycardia. 3. History of coronary artery disease. 4. Obstructive sleep apnea. 5. Diabetes mellitus. 6. Hypertension. 7. Peripheral arterial disease. 8. Dynamic compression of the airways with significant bronchial edema. 9. Status post stenting of LAD. SUBJECTIVE: None. OBJECTIVE: Temperature 37.2. Pulse 60-74. Respiratory rate 15. Blood pressure 170/63. O2 sat on FiO2 40%, PEEP of 5, is 98%. I and O shows 1.4 L in, 3.2 L out. General appearance: Opens his eyes briefly to verbal stimulation. Cannot keep his eyes open, and opens and closes them somewhat frequently, though does not appear to be focusing on the examiner and no apparent cognitive response. Eyes: Conjunctivae are pink. Chest: Fair breath sounds bilaterally. No wheeze. There are decreased breath sounds at both bases, maybe more so at the right lower lung field. Heart: Regular rhythm. Heart tones normal. Most seemed to be paced. Occasional PVCs. Abdomen is soft. Nondistended. Some bowel tones present. Extremities: Trace pretibial edema. Web between right great toe and 2nd toe has dried wound. LABORATORY DATA: Shows a white count of 11,800, with 85 polymorphonuclears, 6 lymphs, 8 monocytes. Hemoglobin 10.7, and stable. Platelet count 380,000, and stable. Sodium 149, and climbing. Potassium 3.8, chloride 111, CO2 is 22, BUN 48, and slowly falling. Creatinine 1.18, and normalizing. Glucose 218, somewhat erratic with use of subcu regular insulin. Calcium 8.7. Phosphorus normal at 4.4. Magnesium normal at 2.4. Procalcitonin 0.12, minimally elevated. Fungal antibodies pending. Chest x-ray shows no change from previous films with widespread pulmonary interstitial and airspace opacities. Central venous gases on FiO2 of 40%, PRVC of 15, PEEP of 5, tidal volume 600, shows a pO2 of 44 with an O2 sat of 75%, pCO2 of 35, pH of 7.40, which would grossly correct to a pH of 7.45, pCO2 of 32. With mixed venous O2 sat of 75%, implies that O2 delivery to the tissues is adequate. The patient was placed on a pressure support trial of 5/5. After an hour, doing reasonably well. Flow volume loop shows no apparent expiratory obstruction. ASSESSMENT: 1. Upper airway obstruction. Seems to be better. Has done about an hour pressure support. That should be good for the ventilatory muscles. Will drop the PEEP to see if the airways stay patent and try to get another hour or so of ventilatory muscle work in. Probably want him breathing for 4-5 hours before calling it good and adequate ventilatory muscle function for possible extubation. Will continue to drop the PEEP to see if his airways remain patent without stenting open. 2. Electrolyte abnormalities. The patient has developed mild hypernatremia. Can increase free water orally with his tube feeding. Other electrolyte deficits being addressed with a mildly low potassium, would like it up around 4.5. 3. Renal insufficiency. Renal function improving. Currently, his creatinine has normalized. 4. Fevers. Yesterday, had fevers. Concern about a ventilator-acquired pneumonia. However, no fevers at the moment. Blood cultures: No growth. Sputum shows a few polys and no organisms. Growth of a gram-negative beth. ID and sensitivity to follow. Would suspect this represents his previously identified Klebsiella. Will see what eventuates. 5. Encephalopathy. Maybe a little bit better today. Currently receiving dexmedetomidine to see if that might help allay his anxieties, yet keep him from becoming so prolific. On a relatively high dose of fentanyl, but may require that due to his multiple rib fractures. Hopefully can slowly start to back off on that so we have control of his pain, yet the patient awake at the time of his extubation. 6. Stents and automatic implantable cardioverter defibrillator (AICD). Currently on Plavix and aspirin. Discussed at rounds and decision made to continue the subcu heparin, though decreasing the dose from q.8 h. to q.12 h., as there have been clots in the urine and, in fact, his Murillo catheter was plugged last evening with urine overflow due to plugging of the catheter with blood clots. Still having some small clots. Decision is made to decrease the heparin dose a bit and monitor closely. Weaning plan and findings discussed with the patient's . TIME: Time spent so far in critical care is 55 minutes.
--- NOTE | 2017-01-11 13:35 | NUR ---
Hypertensive Hypertensive, systolic blood pressure sustained > 180. Amlodipine administered per NG & IV hydralazine as scheduled. PRN labetolol given without effect. A-paced per quality assurance monitor. Murillo to DD with approximately 1100cc urine this shift. Pt resting quietly with eyes open. Nods "no" to pain. No restlessness or agitation noted. Continue on PRVC. Dr Ferguson notified, awaiting new orders.
[2017-01-11] MEDS: Propofol Inj 1,000,000 MCG in IV Premix 1 EACH IV SCH ×2 (14:41→18:30)
--- NOTE | 2017-01-11 15:05 | NUR ---
Hypertensive Blood pressure remains elevated, systolic sustained > 175. PRN labetalol administered. Propofol gtt initiated shortly after 14:00 this afternoon, currently infusing at 25mcg/kg/min. RASS -3. Fentanyl and precedex gtt continued for ventilator tolerance and pain control. Blood glucose > 200. Glucerna tube feeding per orders, residuals < [address] Ferguson contacted and updated on patient status. Plan to monitor blood pressure for next hour, if remains elevated will consider starting nitroprusside gtt.
[2017-01-11] MEDS ORDERED: Insulin GLARgine 100 Unit/mL Syringe SUBQ ONE (15:15)
--- NOTE | 2017-01-11 15:50 | NUR ---
spiritual care: follow up brief updates from in corridor. she reported on medical progress and her own coping as pt's condition slowly stabilizes.
[2017-01-11] MEDS: Dexmedetomidine 400 mCg/100 mL NS Premix IV SCH (16:11)
--- NOTE | 2017-01-11 17:11 | NUR ---
Wound Note Patient seen at bedside for reassessment of right great toe ulcer and web space ulcer. Right plantar great toe is 1 cm in diameter with a depth of 0.8 cms, edges are rolled, with probing I do not feel bone, cleaned with saline, redressed with hydrogel, aquacell ag and conform wrap. Webspace between great toe and 2nd toe wound is 4 cm x 2 cm x 0.3 cms, bed is granular, cleaned with saline and redressed with hydrogel, aquacell ag and conform wrap. Wounds are stable but were slightly dry will continue with hydrogel dressings. Wound care to follow up on this patient in 48 hrs for dressing change.
--- NOTE | 2017-01-11 17:55 | NUR ---
Hypertensive Systolic pressures trending in 160-170s. PRN labetolol administered. Propofol gtt continued at 25mcg/kg/min. RASS -3. Apaced per human resources recruiter. Dr Ferguson notified of elevated blood pressure, no new orders at this time. Will continue to monitor.
[2017-01-11] MEDS ORDERED: Insulin GLARgine 100 Unit/mL Syringe SUBQ SCH (21:00)
[2017-01-12] VITALS (16 sets, daily range): BP systolic 116–206; BP diastolic 48–69; PULSE 60–63; RESP 15–17; O2SAT 95–98
[2017-01-12] MEDS: Albuterol-Ipratropium 3 mL Inhalation Solution NEB SCH ×7 (00:05→23:40)
[2017-01-12] MEDS: Chlorhexidine 0.12% 15 mL Oral Solution MT SCH ×6 (00:46→21:23)
[2017-01-12] MEDS: Propofol Inj 1,000,000 MCG in IV Premix 1 EACH IV SCH ×2 (00:47→11:52)
[2017-01-12] MEDS: Dexmedetomidine 400 mCg/100 mL NS Premix IV SCH (00:47)
[2017-01-12] MEDS: Labetalol 5 mg/mL 20 mL Inj IVPUSH PRN (01:24)
[2017-01-12] MEDS: hydrALAZINE 20 mg/mL Inj IV SCH ×4 (02:30→21:24)
[2017-01-12] MEDS: Insulin Human REGular 300 Unit/3 mL Inj SUBQ SCH ×4 (02:39→21:31)
[2017-01-12] MEDS: fentaNYL 2,500 mCg/250 mL 2,500 MCG in IV Premix 1 EACH IV SCH (06:03)
--- NOTE | 2017-01-12 06:09 | NUR ---
P: hypertension I: hydralazine, labetolol x 2 , coreg, precedex off E: Precedex on hold at 0200 w/in half hour SBP decreasing to 120s. 0230 hydralazine held...Tele A paced, PVCs. Shortly after 0430 pt starting to stool full liquid med brown color stool, xxl. Total bed change w/ partial bath. Pt currently stooling again. Guaiac sent. RASS -2. Denies pain, N/V. Nods yes aware he is in the hospital. Propofol at 30mcg, fentanyl and 10mcg. Moves weakly. Sats in the high 90s on 40%. Intermittently overbreathes vent rate. TF at goal, 120 ml residual.
[2017-01-12] MEDS: Insulin GLARgine 100 Unit/mL Syringe SUBQ SCH ×2 (08:30→09:03)
[2017-01-12] MEDS: Lactulose 20 Gm/30 mL 30 mL Syrup TUBE SCH ×2 (08:30→21:24)
[2017-01-12] MEDS: MethylprednisoLONE Sodium Succinate 40 mg/mL Inj IVPUSH SCH (08:59)
[2017-01-12] MEDS: Sodium Chloride LOK Flush 10 mL Syringe IVFLUSH SCH ×2 (08:59→16:04)
[2017-01-12] MEDS: DULoxetine 30 mg DR Capsule PO SCH (09:00)
[2017-01-12] MEDS: Heparin 5,000 Unit/mL Inj SUBQ SCH ×2 (09:01→21:24)
--- NOTE | 2017-01-12 09:03 | PCM.PNMED ---
Subjective Date of Service January 12, 2017 Subjective Patient is much less sedated today even though he is on fentanyl, propofol at 30 and Precedex. He is able to open his eyes and follow commands. Objective ROS ROS is otherwise obtainable. Due to intubation. No overnight events. He is currently on a pressure trial at 5 over 0 pressure support and doing well. Exam Vital Signs Vital Sign - Last Date Time Temp Pulse Resp B/P Pulse Ox O2 Delivery O2 Flow Rate FiO2 01/12/17 08:30 62 129/55 98 40 01/12/17 05:00 Ventilator 01/12/17 05:00 37.2 17 01/08/17 07:22 60 Intake and Output 01/11/17 01/11/17 01/12/17 Cumulative From/Thru 15:00 23:00 07:00 01/02/17 05:15 - 01/12/17 05:58 Intake Total 1319 ml 2055 ml 64911 ml Output Total 1400 ml 550 ml 93302 ml Balance -81 ml 1505 ml 231 ml Intake Oral 310 ml IV Total 448 ml 553 ml 64325 ml Tube Feeding 459 ml 1201 ml 3220 ml Packed Cells 320 ml Tube Irrigant 412 ml 301 ml 1343 ml Output Urine Total 1400 ml 550 ml 89960 ml Gastric Drainage Total 2615 ml # Voids 1 # Bowel Movements 2 3 Exam Alert and able to follow commands. Intubated. OG tube in place. Anicteric sclera. Lungs are clear with normal rate and effort Heart is regular without murmur gallop or rub Abdomen soft nontender, flat Extremities are free of edema. Right foot is wrapped. Skin is free of rash or lesions. IVs and Medications Medications Reviewed: Medications were reviewed in detail Lab and Diagnostics Result Diagram: 01/11/1751401/11/1715 Assessment & Plan # Acute diastolic congestive heart failure. Improved today. The patient is doing well on pressure support. His FiO2 is 0.40. - Lasix 40 IV now - Continue carvedilol -ECHO reveals normal LVEF. Chest x-ray to see if pulmonary edema has improved by imaging. # Cardiac arrest, acute prior to admission. Resolved. Due to acute ischemic disease with inferior NJ. Repeat cardiac arrest on 01/03/17 was brief. S/p AICD pacemaker placement 01/03. - Amiodarone d/c'd after AICD, this remains stable. No change. No change to current therapy. # Acute NSTEMI, improved. With chronic Coronary artery disease status post CABG. catheterization on 01/02. PCI with LAD graft stent on 01/05.. This is stable. Will continue current medical therapy. - Continue aspirin, clopidogrel, statin - Further management per cardiology service # Hypertension, uncontrolled , POA . -Increase carvedilol again, labetolol IV prn and lasix IV now. - Holding on HOWIE inhibitor at present. Blood pressures improved overnight with the addition of amlodipine 10 mg daily and the up titration of Coreg to 25 mg twice a day. #. Hematuria, improved overnight.. Patient lam changed 2 nights ago. We will follow this clinically. We will resume heparin for DVT prophylaxis. At twice a day dosing instead of 3 times a day. # Acute respiratory failure with hypoxia, intubated during his second cardiac arrest. Improved. Difficult to wean due to agitation, underlying undiagnosed JAGRUTI with chest wall trauma. Bronchoscopy on 01/04 showed intrathoracic variable obstruction pattern. The patient seems to have obstructive apnea physiology, worsened with sedatives. Extubated from 01/06-01/08 then reintubated. Was able to tolerate sedation reduction with pressure support trial on 01/09. PEEP has been reduced on 01/09. - Pulmonology service following -Tapering off methylprednisolone The patient's FiO2 is 0.40. X-ray reveals pulmonary edema. We will diuresis Lasix today given The patient appears to be approaching extubation. He has had some issues with airway collapse on prior assessments. He is going to have a gradual pressure support trial of it over 5 in and 5 over 0 to rule out airway collapse. If he is extubated he will extubate to probable BiPAP support for the next 12-24 hours. #Possible Klebsiella pneumonia, acute not present on admission. Improving. Leukocytosis, acute, present on admission. Initially with stress leukocytosis on presentation there was no evidence for focal infection. Mild recurrent leukocytosis on 01/06. Now with Klebsiella species in tracheal aspirate from . Bilateral basilar infiltrates. The patient has intermittent low fevers now. Most recent tracheal aspirate was negative. He continues to be an ceftriaxone for possible Klebsiella pneumonia. Will add another set of blood cultures, urine culture and fungal cultures. - Continue ceftriaxone with duration as dictated by infectious disease.. We will discuss duration with infectious disease today. No evidence of infiltrate on chest x-ray. - Vancomycin was discontinued. We will discuss the overall duration of MRSA coverage for previous foot infection with infectious disease. #Septic encephalopathy, improving. This is difficult to assess given his propofol sedation and intubation. We will follow. Likely ICU delirium, toxic encephalopathy related to pain medications, postcardiac arrest ischemic encephalopathy. - Maximize nonpharmacologic measures if patient has recurrent agitation - Avoid benzodiazepines - Antipsychotic medications as necessary - Lowest effective doses of opioids We will reassess when patient is extubated but he seems much more mentally clear. # Acute kidney injury, not present on admission, improving.. Initial Cr 1.63, bina to 2.13, now 1.62; improving. CKD stage IV range but improving after catheterization dye load, episodes of arrhythmia, ventricular fibrillation and CPR. Underlying Chronic kidney disease, likely secondary to hypertension, diabetes. Urine output past 24 hours > 0.5 ML/KG/HR - Monitor urine output - Minimize nephrotoxins - daily BMP to follow creatinine. #. Hypernatremia, new. We will use D5W today to slowly correct her respiratory 4 hours. We will add free water to his tube feeds as well. He is only getting 20 every 4 of free water. # Diabetes mellitus, insulin-dependent, uncontrolled. A1c from 11/01/2016 was 9.8, subsequently 5.6. Inpatient glycemia has been at target <180 with the dose every 6 hours Regular Insulin. Blood glucose above target on 01/06 likely due to high-dose steroids. He received tube feeds briefly but stopped due to high volume residuals. No enteral nutrition when he was extubated. Probable ileus - Continue to increase scale for dosing Every 6 hour regular insulin while NPO. - Resume tube feeds after resolution of ileus, then adjust insulin. We will continue to titrate insulin as needed. The patient will have a lab to set up this morning and his at bedtime Lantus will be increased from 10-20 units. #. Nutritional. The patient remains on tube feeds. # Pain control, acute, present on admission. Patient is moderately symptomatic from chest compressions. - No effective parenteral analgesics as needed # Sinus bradycardia, chronic. Likely related to IW NJ. AICD pacemaker is in place - resolved # Anemia, acute on chronic. Hemoglobin 8.2 admission. Etiology uncertain. Received RBC transfusion 1 unit, due to concern about ischemic cardiac disease. Hemoglobin stable and rising - follow CBC # Hyperlipidemia, POA and stable -Continue statin # Nicotine dependence, POA and stable -Counseled on smoking cessation at time of admission -Offered nicotine patch # DVT prophylaxis - heparin VTE Prophylaxis: Sub-Q Heparin (Unfractionated) VTE Mechanical Devices: Intermittant Pneumatic CD VTE Prophylaxis: Sub-Q Heparin (Unfractionated) VTE Mechanical Devices: Intermittant Pneumatic CD Resuscitation Status: CPR: Attempt Resuscitation Roshan Ferguson MD January 12, 2017 09:03
[2017-01-12] MEDS ORDERED: Insulin GLARgine 100 Unit/mL Syringe SUBQ ONE (09:05)
[2017-01-12] MEDS: Pantoprazole 4 mg/mL 10 mL Inj IVPUSH SCH (09:17)
--- NOTE | 2017-01-12 09:23 | PROG NOTE ---
[address] [address] PROGRESS NOTE PATIENT: NIKOLAY ROYAL : 1955 MR#: [id number] ADMIT: 01/02/2017 JOB ID: [id number] DATE: 01/12/2017 INFECTIOUS DISEASE FOLLOW UP NOTE: REASON FOR FOLLOWUP: Complicated right diabetic foot infection. Patient now admitted with cardiac arrest x3 and ventilator dependence. INTERVAL HISTORY: The patient remains on the ventilator though he does awaken to voice or touch. No additional history is available from him though we did get a compelling account of his cardiac arrest at the [facility] the other night from the patient's . The patient's also notes that his right foot infection had basically healed prior to his cardiac arrest at the [facility] this past weekend. There was no history of fevers, chills or any other symptom of infection prior to the cardiac arrest. This case was discussed with the ICU team. PHYSICAL EXAMINATION: Reveals an intubated but sometimes awake gentleman. Temperature 37.2, and he has been consistently afebrile. Pulse 62, respiratory rate as per the ventilator but currently 40%, 3 of PEEP, saturating well. Blood pressure 129/55 with no vasopressor agents. His eyes without conjunctivitis. His lungs are relatively clear today. Cardiac tones without new murmur. The AICD pacer site in the left upper chest appears benign. Right upper extremity PICC line also appears benign. Abdomen soft, nontender. We re-examined the wound between the 1st and 2nd toes on the right foot and this is healing extremely well with no evidence of purulence or inflammation. LABORATORIES: Include a white count of 11,800 with minimal left shift. Creatinine 1.18, which was yesterday's value. I would not have values on chemistry or hematology from today. A Fungitell is pending but I am not sure why. Blood cultures are negative. A tracheal aspirate from January 04 had Klebsiella which was sensitive to ceftriaxone. A tracheal aspirate from the showed a few polys and no organisms, but grew a ceftriaxone resistant Enterobacter cloacae. IMPRESSION: This patient has evolved more resistant airway colonization during his ICU stay. He initially had a Klebsiella sensitive to ceftriaxone. We now have an Enterobacter which is quite resistant. Nonetheless, there is little evidence for pulmonary infection given his absence of fever, and absence of purulent respiratory secretions. I suspect he is colonized with the Enterobacter at this point, and would not specifically address that organism unless there was evidence of an ongoing infection. His foot wound appears almost entirely healed and free of infection. RECOMMENDATIONS: 1. I would go ahead and stop the ceftriaxone. 2. Will continue to closely follow the patient and see if he can be extubated today. I do not think we specifically need to treat the Enterobacter as they are very few white cells and no organisms on the Gram stain and the patient is clinically doing well on the ventilator suggesting this is colonization. One could consider giving him some inhaled tobramycin or Amikacin for a possible tracheobronchitis, but I am not sure that would be of great value. Should he become ill with this organism, ertapenem would be the likely drug of choice. 3. Will go ahead and stop the ceftriaxone today. 4. Will continue to closely watch this patient with you. 5. Hopefully can be extubated and we will not have to treat Enterobacter.
[2017-01-12] MEDS: cefTRIAXone Inj 2,000 MG in Dextrose 5% Minibag Plus 50 ML IV SCH (09:26)
[2017-01-12] MEDS: 0.9% Sodium Chloride 250 ML IV SCH (09:31)
--- NOTE | 2017-01-12 10:29 | DRSVH ---
PROCEDURE: X-RAY CHEST ONE VIEW, PORTABLE ([id number]) INDICATIONS: dyspnea TECHNIQUE: One view of the chest was acquired. COMPARISON: [facility], CR, XR CHEST 1VW (PORTABLE), 01/11/2017, 2:58. [facility], CR, XR CHEST 1VW (PORTABLE), 01/10/2017, 5:52. FINDINGS: Surgical changes and devices: Endotracheal and nasogastric tubes in normal position, declined from a right-sided approach extends into the middle third of the SVC. Cardiac pacemaking device and dual ch ed leads stable over time. Prior sternotomy, possible prior CABG.. Lungs and pleura: No pleural effusions or pneumothorax. Lungs are unchanged with mild alveolar infi ltration in each lung base greater on the left behind the heart than the right.. Mediastinum: Mediastinal contours appear normal. Heart size is normal. Bones and chest wall: No suspicious bony lesions. Overlying soft tissues appear unremarkable. IMPRESSION: Persistent bibasilar pneumonia, left greater than right, lines and tubes in normal positi on. Dictated by: Luis Miguel Ochoa M.D. on 01/12/2017 at 10:27 Approved by: Luis Miguel Ochoa M.D. on 01/12/2017 at 10:28
[2017-01-12 13:37] LABS: BASOPHILS % (AUTO) 0.1 % (0-3); EOSINOPHILS % (AUTO) 0.3 % (0-5); MONOCYTES % (AUTO) 4.8 % (4-12); Mean Corpuscular Hemoglobin 29.7 pg (27.0-35.0); Mean Corpuscular Volume 95.5 fL (81-100); NEUTROPHILS % (AUTO) 92.3 % (40-74); Platelet Count 371 bil/L (150-400)
--- NOTE | 2017-01-12 13:50 | NUR ---
spiritual care: continuing to follow pt and family dozing in room, e commerce director continues to be available as needed.
[2017-01-12] MEDS ORDERED: KCl 40 mEq/100 mL (CENTRAL) 40 MEQ in IV Premix 1 EACH IV ONE (15:20)
--- NOTE | 2017-01-12 16:33 | NUR ---
Social Work Note: Continued Discharge Planning Data& Assessment: Pt remains on the vent. SW met with pt at bedside to check in and assess for any unmet needs. Pt explained that she is just waiting for pt to medically improve. Pt states that she is concerned about pt beginning PT here at the hospital as soon as possible to avoid any further loss of strength. Pt explained that she will care for pt at home and plans to take him to any appointments after discharge in order to avoid SNF. Pt is also concerned about pt requiring a CPAP potentially after extubation. Pt denies any other needs. SW to continue to follow for medical progression, PT recommendations and MD orders. Plan: Anticipated discharge home via POV with family support when medically ready. SW to continue to follow for medical progression, PT recommendations and MD orders. SW to follow up post extubation. DIAMANTE Thomas
--- NOTE | 2017-01-12 17:33 | NUR ---
Sedation/PST/FMS/Activity MD wanted Precedex restarted and to slowly decrease Propofol. Currently Precedex is at 0.3 mcg, propofol is at 10 mcg, and Fentanyl is at 90 mcg/hr. Patient will open eyes, follow commands, and nods to questioning-- not anxious. On PST for 6.5 hours today. Placed back on PRVC, 40%, 5, 600, 15. Sats at 97%. Lungs coarse. Minimal secretions. Large amounts of liquid stool this morning, so FMS was placed. Stool output has decreased t/o day. Turning patient q 2 hours-- lewis well. Continuing with poc.
[2017-01-12] MEDS ORDERED: Insulin GLARgine 100 Unit/mL Syringe SUBQ SCH (21:00)
[2017-01-13] VITALS (14 sets, daily range): BP systolic 114–171; BP diastolic 43–95; PULSE 60–65; RESP 14–21; O2SAT 96–99
[2017-01-13] MEDS: Sodium Chloride LOK Flush 10 mL Syringe IVFLUSH SCH ×3 (00:30→16:30)
[2017-01-13] MEDS: Chlorhexidine 0.12% 15 mL Oral Solution MT SCH ×7 (03:18→23:55)
[2017-01-13] MEDS: hydrALAZINE 20 mg/mL Inj IV SCH ×4 (03:18→20:33)
[2017-01-13] MEDS: Insulin Human REGular 300 Unit/3 mL Inj SUBQ SCH ×4 (03:19→23:03)
[2017-01-13] MEDS: Albuterol-Ipratropium 3 mL Inhalation Solution NEB SCH ×5 (04:07→19:58)
[2017-01-13 05:12] LABS: Mean Corpuscular Hemoglobin 29.6 pg (27.0-35.0); Mean Corpuscular Volume 94.6 fL (81-100)
[2017-01-13] MEDS: Dexmedetomidine 400 mCg/100 mL NS Premix IV SCH ×3 (05:29→20:13)
--- NOTE | 2017-01-13 08:21 | PROG NOTE ---
[address] [address] PROGRESS NOTE PATIENT: NIKOLAY ROYAL : 1955 MR#: [id number] ADMIT: 01/02/2017 JOB ID: [id number] DATE: 01/13/2017 REASON FOR FOLLOWUP: Complicated right diabetic foot infection and ventilatory dependent respiratory failure. SUBJECTIVE: The patient is doing well on the ventilator this morning and sedation has been weaned off so that he may be eligible to be extubated later today. The patient is awake and alert, but is mildly anxious to be extubate and still requires restraints. He denies fever or chills, but otherwise is not able to answer any questions. The respiratory therapist and I examined the patient at the bedside. The patient has very little in the way of respiratory secretions and is oxygenating well on minimal ventilatory support. PHYSICAL EXAMINATION: Reveals an awake, alert slightly agitated man who wants to get off the ventilator. He is afebrile and has been really for a week today. Temperature is 37 degrees, pulse 60, respiratory rate 16, blood pressure 145/43, saturating well on 40%. His eyes are without conjunctivitis. Oral cavity has oroendotracheal tube and orogastric tube present. PICC line in the right upper extremity is benign. Lungs are clear. Cardiac tones are regular rate and rhythm. Abdomen benign. His diabetic foot wound seems almost essentially healed at this point and there is certainly no evidence of infection. DIAGNOSTIC STUDIES: Labs include a white count 14,000, platelets 352. Creatinine 1.34, procalcitonin consistently 0.1 or 0.12. Urinalysis negative. The last sputum had a few polys and no organisms but grew a moderate growth Enterobacter which I believe is a colonizing organism. Blood cultures are negative. Yesterday's chest x-ray shows bibasilar infiltrates. IMPRESSION: This patient has had a very complicated right diabetic foot infection, which now seems resolved. Unfortunately while at the [facility] about a week ago he suffered a cardiac arrest and has been ventilator dependent for essentially one week. Though he has been colonized with Klebsiella, and now Enterobacter, I do not think he has any significant respiratory tract infection as he is afebrile with minimal respiratory secretions and has been almost successfully weaned as of this point. His O2 requirements are minimal. RECOMMENDATIONS: 1. No antibiotics. 2. Hopefully the patient can be extubated later today. 3. ID will go ahead and sign off at this time as there is no active issues, but do not hesitate to call me back if there are any problems with this patient.
--- NOTE | 2017-01-13 09:07 | PROG NOTE ---
[address] [address] PROGRESS NOTE PATIENT: NIKLOAY ROYAL : 1955 MR#: [id number] ADMIT: 01/02/2017 JOB ID: [id number] DATE: 01/13/2017 PULMONARY CRITICAL CARE FOLLOW UP NOTE: PROBLEMS: 1. Status post AICD placement for ventricular fib arrest. 2. Sinus bradycardia. 3. Coronary artery disease status post stent of LAD. 4. Obstructive sleep apnea. 5. Diabetes mellitus. 6. Hypertension. 7. Peripheral arterial disease. 8. Dynamic compression of the airways with significant bronchial edema. SUBJECTIVE: Denies any chest or abdominal pain. No shortness of breath. Anxious to have the tube out. OBJECTIVE: Temperature 37. Pulse 60 with 100% paced rhythm. Respiratory rate 16 with ventilator set at 16. Blood pressure 140/50, O2 sat on FiO2 of 40%, PEEP of 5, is 97%. I and O shows 2.5 L in, 1 L out. General appearance: More awake. Responding appropriately to questions though a bit slow. Eyes: Conjunctivae are pink. Chest: Somewhat diminished breath sounds. Lung harris sound relatively clear. Maybe a few crackles at the right lower lung field laterally. Heart: Regular rhythm. Heart tones seem normal. Abdomen: Soft. Nondistended. Nontender. Bowel tones present. Extremities: Maybe trace pretibial edema. Bandage on right forefoot. LABORATORY: Shows a white count of 14,400 with no differential available. Hemoglobin stable at 10.5. Platelet count stable at 352,000. Sodium 149, potassium 4.1, chloride 114, carbon dioxide 23, BUN 50 and stable. Creatinine 1.34, relatively stable. Glucose 232 and has been running in the low 200s. Calcium 8.3. Sputum growing Enterobacter resistant to first, second and third generation cephalosporins, sensitive to fourth generation cephalosporins, aminoglycosides, carbapenems. ASSESSMENT: 1. Dynamic compression of upper airways. Has been doing quite well with weaning trials. Yesterday had a weaning trial 12/15, which he tolerated for about three hours without any evidence of upper airway narrowing. Will try weaning with T-piece or a T-piece equivalent at 0/0 if we use the ventilator. Will monitor the loops to see about expiratory collapse. 2. Encephalopathy. Seems quite appropriate. Though not totally awake, he is answering questions appropriately. Looking at examiners. 3. Hyperglycemia. Glargine with a p.r.n. Humulin R being used. Having problems with the subcu insulin, especially in the face of the steroids and maybe with infection. With upcoming extubation very likely we may lose the NG tube and, therefore, will hold the glargine this morning. Maybe use regular insulin to control his sugars afterwards. 4. Sputum with enterobacter. May only be a colonizer. Will discuss with ID regarding whether we should treat this or not. He is somewhat frail. Has some bad lung disease as well as heart disease and now on steroids. Probably would be the better part of valor to treated it, but will see what ID's thoughts might be. Chest x-rays have not shown much change in the mild bibasilar alveolar infiltration. Will obtain another chest x-ray today to see if this might influence our decision regarding antibiotics or no. Add a procalcitonin to our lab draw this morning. 5. Weakness. Able to raise his arms against gravity. Although rather weak, I must admit I think he is somewhat stronger than I thought he might be. Moving his legs somewhat. Still maybe 3+/5 muscle strength. PLAN: 1. Hold this morning's glargine. 2. Weaning with T-piece or equivalent. 3. Chest x-ray. 4. Add procalcitonin to this morning's blood work. 5. Needs a little bit of free water. Will deal with that after extubation giving it either IV or through feeding tube if we are able to keep this in place at extubation. 6. Check with Cardiology about continuing heparin. TIME: Time spent so far in critical care 43 minutes.
[2017-01-13] MEDS: MethylprednisoLONE Sodium Succinate 40 mg/mL Inj IVPUSH SCH (09:28)
[2017-01-13] MEDS: Pantoprazole 4 mg/mL 10 mL Inj IVPUSH SCH (09:28)
[2017-01-13] MEDS: Heparin 5,000 Unit/mL Inj SUBQ SCH ×2 (09:28→20:34)
[2017-01-13] MEDS: DULoxetine 30 mg DR Capsule PO SCH (09:29)
[2017-01-13] MEDS: Lactulose 20 Gm/30 mL 30 mL Syrup TUBE SCH ×2 (09:31→20:30)
[2017-01-13] MEDS: 0.9% Sodium Chloride 250 ML IV SCH (10:43)
--- NOTE | 2017-01-13 12:30 | NUR ---
Wound Note Patient seen at bedside for right foot/toe wound care. Wounds at right great toe and 1st met head are cleaned with saline and gauze then redressed with hydrogel, aguacell ag and kerlix wrapped. Wounds are unchanged fro 48 hrs ago, dressing to be changed again in am by WS.
--- NOTE | 2017-01-13 13:35 | NUR ---
Respiratory Pt extubated to 3 LNC at 1330. Extubation uneventful, Pt had cuff leak. Sat 97%, HR 60, RR 22, BS coarse bilaterally.
--- NOTE | 2017-01-13 14:03 | NUR ---
NUTRITION FOLLOW-UP: Assess: 61 YO M admitted to CCU after episode of sudden cardiac at [facility] prior to admission, acute ischemic CAD, with recurrent inpatient cardiac arrest on 01/03, status post AICD defibrillator placement, requiring sedation and subsequent prolonged mechanical ventilation. He was extubated 01/06 but required re-intubation 01/08. Pt was extubated 01/13. TF is currently off. Prior to extubation pt was tolerating TF well at goal rate. PMHX: Type 2 DM, HTN, hypercholesterolemia, tobacco use, COPD, severe JAGRUTI, stage III renal disease, PAD, CAD, CABG. DIET: NPO. LABS: Na 149, Cl 114, Bun 50, military police officer 1.34, Glu 232, Ca 8.3 MEDICATIONS: Reviewed. Insulin, solu-medrol GI: FMS in place SKIN: wounds on toes, wound care following NUTRITION SUPPORT: (OFF) Glucerna 1.5 @ 65ml/hr with 170ml q 3 hrs free water flush ANTHROPOMETRICS: Wt: 98.8 kg, BMI 32.2 kg/m2, Admit wt: 105.6 kg, IBW: 72.7 kg. ESTIMATED NEEDS: BMI Calories: 6552-7899 kcal/day (20-22 kcal/kg BW) Protein: 90-110g/day (1.2-1.5g/kg IBW) NUTRITION DIAGNOSIS: 1) Inadequate oral intake related to decreased ability to consume sufficient energy as evidenced by current NPO / vent status- IMPROVED w/TF INTERVENTION: 1) Recommend ST eval now that pt extubated MONITOR/EVALUATE: NPO, ST, GI status, labs, GI/nutrition status. Follow per high nutrition risk guidelines.
[2017-01-13] MEDS: fentaNYL 2,500 mCg/250 mL 2,500 MCG in IV Premix 1 EACH IV SCH (14:53)
--- NOTE | 2017-01-13 16:18 | PCM.PNMED ---
Subjective Date of Service Jan 13, 2017 Subjective Follow up for respiratory failure, s/p cardiac arrest, cad, and pneumonia Patient seen and examined at bedside . He is intubated, off sedation . He is aware of his surrounding and nodded no when asked about pain. \ No significant overnight development Exam Vital Signs Vital Sign - Last Date Time Temp Pulse Resp B/P Pulse Ox O2 Delivery O2 Flow Rate FiO2 01/13/17 12:11 60 145/43 98 40 01/13/17 12:00 Ventilator 01/13/17 12:00 37.2 14 01/08/17 07:22 60 Intake and Output 01/12/17 01/12/17 01/13/17 Cumulative From/Thru 15:00 23:00 07:00 01/02/17 05:15 - 01/13/17 06:29 Intake Total 515 ml 3025 ml 17035 ml Output Total 475 ml 550 ml 53973 ml Balance 40 ml 2475 ml 2746 ml Intake Oral 310 ml IV Total 515 ml 468 ml 28487 ml Tube Feeding 1366 ml 4586 ml Packed Cells 320 ml Tube Irrigant 1191 ml 2534 ml Output Urine Total 400 ml 550 ml 70262 ml Stool Total 75 ml 75 ml Gastric Drainage Total 2615 ml # Voids 1 # Bowel Movements 3 Exam General: Somnolent, easily arousable. NAD HEENT: sclerae anicteric, mucosa moist,orally intubated Neck: No cervical lymphadenopahty. No JVD, trachea is midline Chest: Coarse BS, no rales, no wheeze; pacemaker site OK. Cardiac: Regular, S1S2, no murmur audible. no gallop Abdomen: Protuberant, BS normal, non-tender; lam Extremities: 2+ edema bilaterally, no cyanosis Neuro: Patient moves all extremity IVs and Medications Medications Reviewed: Medications were reviewed in detail Lab and Diagnostics Result Diagram: 01/13/1744401/13/17444 X-Rays, CTs and MRIs : Persistent bibasilar pneumonia, left greater than right, lines and tubes in normal position. Assessment & Plan 1. Acute diastolic congestive heart failure Ef 40% by echo. 2. S/p Cardiac arres: Due to acute ischemic disease with inferior GA. S/p AICD pacemaker placement 01/03. . 3. Acute NSTEMI, improved. Cardiac cath shows : 1. A 70% mid left anterior descending artery stenosis. 2.Chronic occlusion of the right coronary artery.3. LVEF 40%. 4.LVEDP is 35 mmHg. - Continue aspirin, clopidogrel, statin - Further management per cardiology service 4. Acute respiratory failure with hypoxia: On mechanical ventilation. Possible extubation today. Case discussed with critical care - Pulmonology service following 5 Acute encephalopathy : Multifactorial . Improving . 6. Pulmonary Edema : Improving Diuretic on hold Repeat chest X-ray in AM 7. Klebsiella pneumonia, acute not present on admission. . Bilateral basilar infiltrates on previous chest X-ray - Continue ceftriaxone per ID 8. Acute kidney injury. Improving to baseline creatinine. bump in creatinine today noted Monitor renal function and electorates . 9 Hypernatremia: Na 149 today . Probably overt diuretic .Increase free water intake., Repeat BMP in am 10. Diabetes mellitus, insulin-dependent, uncontrolled. A1c from 11/01/2016 was 9.8, subsequently 5.6 Sliding scale insulin with coverage Basal insulin with lantus Overall making progress. Possible extubation today . Plan of care as above and per consultants. Chest X-ray, cmp , cbc in am VTE Prophylaxis: Sub-Q Heparin (Unfractionated) VTE Mechanical Devices: Intermittant Pneumatic CD Resuscitation Status: CPR: Attempt Resuscitation Time spent 35 minutes Beto Gold MD Jan 13, 2017 16:18 VTE Prophylaxis: Sub-Q Heparin (Unfractionated) VTE Mechanical Devices: Intermittant Pneumatic CD VTE Prophylaxis: Sub-Q Heparin (Unfractionated) VTE Mechanical Devices: Intermittant Pneumatic CD Resuscitation Status: CPR: Attempt Resuscitation Beto Gold MD Jan 13, 2017 16:18
--- NOTE | 2017-01-13 16:33 | NUR ---
Evaluation completed. Please go to "Notes" then click on "Assessments and Notes" (bottom left corner of screen). Then select appropriate discipline tab on top of screen.
--- NOTE | 2017-01-13 16:46 | NUR ---
Sedation/Extubation/swallow Fentanyl was weaned off and after a successful PST, patient was extubated at 1330. He is maintaining sats of 97% on 3L NC. Precedex continues at 0.5 mcg due to history of anxiety. Weaning precedex. Patient is coughing up thick creamy sputum intermittently and being suctioned orally as needed. He is weak, but can move arms. Failed swallow eval, so provided with frequent mouth swabs and mouth moisturizer due to dry mouth. Turning in bed q 2 hours. Continue with POC.
[2017-01-13] MEDS ORDERED: Insulin GLARgine 100 Unit/mL Syringe SUBQ ONE (22:30)
[2017-01-14] VITALS (19 sets, daily range): BP systolic 141–179; BP diastolic 58–91; PULSE 60–62; RESP 10–20; O2SAT 94–100
[2017-01-14] MEDS: Albuterol-Ipratropium 3 mL Inhalation Solution NEB SCH ×7 (00:15→23:50)
[2017-01-14] MEDS: Sodium Chloride LOK Flush 10 mL Syringe IVFLUSH SCH ×4 (00:30→21:35)
[2017-01-14] MEDS: hydrALAZINE 20 mg/mL Inj IV SCH ×4 (01:58→21:34)
[2017-01-14] MEDS: Insulin Human REGular 300 Unit/3 mL Inj SUBQ SCH ×4 (02:30→21:34)
[2017-01-14] MEDS: Labetalol 5 mg/mL 20 mL Inj IVPUSH PRN ×2 (02:59→05:33)
[2017-01-14] MEDS: Dexmedetomidine 400 mCg/100 mL NS Premix IV SCH ×4 (03:38→23:14)
[2017-01-14] MEDS ORDERED: Succinylcholine Chloride 20 mg/mL 5 mL Inj ONE (03:39)
[2017-01-14 05:24] LABS: BASOPHILS % (AUTO) 0 % (0-3); EOSINOPHILS % (AUTO) 0 % (0-5); Mean Corpuscular Hemoglobin 29.6 pg (27.0-35.0); Mean Corpuscular Volume 94.1 fL (81-100); NEUTROPHILS % (AUTO) 88.3 % (40-74); Platelet Count 351 bil/L (150-400)
--- NOTE | 2017-01-14 05:43 | NUR ---
BP Pt awake and mumbles but answers questions appropriately most of the times. He gets forgetful at times. He follows commands and cooperative with care. He denies any pain/discomfort. 02sat in mid 90s on 2L. Intermittent coughing and he is able to do use Yankeur to suction. SBP 140-180s. Pt gets restless/anxious at times and asking for water. Frequent oral care done. IV Hydralazine as scheduled given. Labetalol IV prn given x2. Pt is strict NPO at this time. Held meds including BP meds last night. Addendum: 01/14/17 at 0634 by LORA DEWITT RN Pt getting more restless and anxious this am. He was wanting to get up and sit at the edge of the bed. He keeps asking for water or coffee. Explained to pt about failing swallow evaluation yesterday. SBP in 180s. made aware. Addendum: 01/14/17 at 0723 by LORA DEWITT RN Pt getting anxious and restless. Increase Precedex 0.6 mcg/kg/min. SBP 180s. Md aware. Hydralazine 0830 dose given early as ordered by .
[2017-01-14] MEDS: Heparin 5,000 Unit/mL Inj SUBQ SCH ×2 (07:43→21:17)
[2017-01-14] MEDS: Pantoprazole 4 mg/mL 10 mL Inj IVPUSH SCH (07:43)
[2017-01-14] MEDS: MethylprednisoLONE Sodium Succinate 40 mg/mL Inj IVPUSH SCH (07:43)
[2017-01-14] MEDS: DULoxetine 30 mg DR Capsule PO SCH ×2 (07:44→08:30)
[2017-01-14] MEDS: Lactulose 20 Gm/30 mL 30 mL Syrup TUBE SCH ×2 (07:44→21:18)
[2017-01-14] MEDS ORDERED: Dextrose 5% 1,000 ML IV SCH (08:05)
--- NOTE | 2017-01-14 09:13 | PROG NOTE ---
[address] [address] PROGRESS NOTE PATIENT: NIKOLAY ROYAL : 1955 MR#: [id number] ADMIT: 01/02/2017 JOB ID: [id number] DATE: 01/14/2017 PULMONARY CRITICAL CARE FOLLOW UP NOTE: PROBLEMS: 1. Status post AICD placement for ventricular fib arrest. 2. Sinus bradycardia. 3. Coronary artery disease status post stenting of LAD. 4. Obstructive sleep apnea. 5. Diabetes mellitus. 6. Hypertension. 7. Peripheral arterial disease. SUBJECTIVE: No chest or abdominal pain. Breathing comfortably. Wants something to eat. OBJECTIVE: Temperature 36.5 with T-max being 37.3 twenty-four hours ago. Respiratory rate 16-18, blood pressure 160/75, O2 sat on FiO2 of O2 sat on 2 L of oxygen by nasal cannula is 96%. I and O shows 3.3 L in, 1.2 L out. General appearance: No acute distress. Moving rather slowly. Answers questions somewhat slowly. Extremely angry and abusive to the nursing staff. Eyes: Conjunctivae are pink. Chest: Decreased breath sounds bilaterally. Diminished at both bases. Coarse crackles at the left lower lung, especially laterally. Maybe a few crackles at the right lung laterally. No use of accessory muscles. Some chest wall tenderness along the left costochondral area. Heart: Regular rhythm. Monitor shows 100% paced rhythm. Abdomen: Soft. A few bowel tones. Extremities: No pretibial edema. Right foot wrapped in Kerlix. LABORATORY: Shows a white count of 17,100, up from 14,400 yesterday but with a significant neutrophilia. No left shift. Hemoglobin 11 and stable. Platelet count 351,000 and stable. Sodium 148, potassium 4, chloride 115, CO2 is 23. BUN 42 and improved. Creatinine 1.04 and improved. Calcium 8.3 with an albumin of 2.2. Total protein 5.1. Bilirubin, alkaline phos and transaminases are all quite normal. Follow antibodies, undetectable. Chest x-ray has been done but I am unable to view the image. ASSESSMENT: 1. Status post AFib arrest. Pacemaker working well. At the moment, he is 100% paced beats with a rate of 60. Hemodynamics are normal. Is somewhat hypertensive and receiving antihypertensive medications. Dynamic compression of the airway with marked mucosal edema. Doing reasonably well. No stridor. No tracheal tug. Heart: Regular rhythm. Heart tones normal. Abdomen is soft. A few bowel tones. 2. Hypernatremia. Free water deficit is about a 1-1/4 liters or so to get his sodium to about 140. Will give about a liter of D5 W which should drop his sodium to about 142. Calculations suggest that a sodium of 144 would require 760 mL of free water. 3. Anger issues. Raising the dexmedetomidine. Also get speech in here to try to ameliorate his anger. Right now, it is directed as not having anything to eat or drink. Gave him some ice chips that he swallowed relatively well. Upon leaving the room, he grabbed the cup of ice chips and is feeding himself, not particularly having any problems with coughing. I had previously warned him to go carefully with the ice chips but patient is not particularly cooperative. Not sure whether this represents his underlying personality or whether he is still recovering from the current siege. 4. Weakness. Physical therapy to work with the patient regarding strengthening starting with standing, sitting in a chair, hopefully working on to ambulation. 5. Mildly elevated white count. No real good evidence for infection at this time. Does have Enterobacter in his sputum. Will continue to hold antibiotics for the moment. PLAN: 1. Reengage speech pathology in his swallowing difficulty. 2. D5 W 100 mL an hour for 10 hours. 3. Physical therapy. 4. Increase dexmedetomidine to 0.8 mcg/kg/hour. TIME SPENT: Thirty minutes.
--- NOTE | 2017-01-14 09:46 | DRSVH ---
PROCEDURE: X-RAY CHEST ONE VIEW, PORTABLE ([id number]) INDICATIONS: Pneumonia , Resp failure TECHNIQUE: One view of the chest was acquired. COMPARISON: [facility], CR, XR CHEST 1VW (PORTABLE), 01/11/2017, 2:58. [facility], CR, XR CHEST 1VW (PORTABLE), 01/10/2017, 5:52. [facility], CR, XR CHEST 1VW (RHEA BLE), 01/09/2017, 4:08. [facility], CR, XR CHEST 1VW (PORTABLE), 01/08/2017, 11:19. [facility], CR, XR CHEST 1VW (PORTABLE), 01/08/2017, 10:10. [facility], CR, XR ANNE ST 1VW (PORTABLE), 01/12/2017, 9:41. FINDINGS: Surgical changes and devices: Post median sternotomy. Stable position of left chest AICD. Stable positioning of right PICC tip projected over the mid upper SVC. Lungs and pleura: No pleural effusions or pneumothorax. Near complete resolution of bibasilar infil trates with minimal residual involving the medial left lung base.. Mediastinum: Mediastinal contours appear normal. Heart size is normal. Bones and chest wall: No suspicious bony lesions. Overlying soft tissues appear unremarkable. IMPRESSION: Nearly resolved bibasilar pneumonia with minimal residual involving the left lung base. Dictated by: Guillermo CUELLAR Interpreted: Luis Miguel Ochoa MD on 01/14/2017 at 9:44 Transcribed by: LYNDA on 01/14/2017 at 9:45 Approved by: Luis Miguel Ochoa M.D. on 01/14/2017 at 11:37
[2017-01-14] MEDS: 0.9% Sodium Chloride 250 ML IV SCH (09:59)
--- NOTE | 2017-01-14 10:31 | PROG NOTE ---
[address] [address] PROGRESS NOTE PATIENT: NIKOLAY ROYAL : 1955 MR#: [id number] ADMIT: 01/02/2017 JOB ID: [id number] DATE: 01/12/2017 PROBLEM LIST: 1. Status post automatic implantable cardiovascular defibrillator placement for ventricular fibrillation arrest. 2. Sinus bradycardia. 3. Coronary artery disease, status post stenting of left anterior descending with prior stenting of right coronary artery in remote past. 4. Obstructive sleep apnea. 5. Diabetes mellitus. 6. Hypertension. 7. Peripheral arterial disease. 8. Dynamic compression of the airways with significant bronchial edema. SUBJECTIVE: None. OBJECTIVE: Temperature 37.2. Pulse of 60 to 63. Respiratory rate 15 with ventilator set at 15. Blood pressure 142/60. O2 sat on FiO2 of 40%, PEEP of 5 is 95%. I and O shows 1.9 L in, 2.3 L out. General appearance: Sedated on the ventilator. Appears to wake up a little more when stimulated. states he actually interacts with her at times. Eyes: Conjunctivae pink. Chest: Fair breath sounds bilaterally. Maybe a few crackles at the lower lateral bases. Heart tones normal. Abdomen is soft. Nondistended. Nontender. Bowel tones present. Extremities: No real pretibial edema. LABORATORY DATA: Shows sodium 148, potassium 3.6, chloride 114, CO2 is 23, BUN 49, creatinine 1.27, calcium 8.5. Procalcitonin stable at 0.11. Chest x-ray shows bibasilar alveolar infiltrations, more so on the left. IMPRESSION: 1. The patient started this morning on pressure support. Initially started pressure support of 5/3 and had him do that for about 3 hours. Subsequently changed to 5/0 which he again tolerated for additional 3 hours. Has done quite well on six hours of pressure support. Will allow him to rest and then tomorrow start the pressure support, essentially T-piece trial. 2. Sedation. Slowly awakening. We are weaning his propofol and adding dexmedetomidine. May be some element of propofol and fentanyl withdrawal. Will proceed slowly in order to avoid severe agitation. 3. Status post placement of automatic implantable cardiovascular defibrillator. The patient currently appears to be doing well with no significant arrhythmias noted. 4. Discussed the current findings and plan with the patient's . TIME: Time spent in critical care 40 minutes. ADDITIONAL INFORMATION: Extensive discussions with RT about the plan of weaning hopefully to extubate tomorrow.
--- NOTE | 2017-01-14 10:51 | NUR ---
Wound Care Patient seen at bedside for wound care at right foot. Great toe plantar ulcer is 0.5 cm in diameter and 0.6 cm in depth, web space wound between right great toe and 2nd toe is 2.5 cm L x 0.6 cm W x 0.1 cm D. Webspace wound does not drain but plantar wound at great toe continues to drain thin tannish fluid. Neither wound presents with any erythema or fluctuance. Both wounds are cleaned with saline and gauze then were redressed with hydrogel, Aquacell ag and kerlix wrap. Would like these dressings changed daily over the weekend by nursing and wound care will recheck on this patient on Tuesday. If discharged over the weekend will want patient to follow up with Dr Jerry at the wound center next week if possible.
--- NOTE | 2017-01-14 13:07 | NUR ---
NUTRITION FOLLOW-UP: Assess: 61 YO M admitted to CCU after episode of sudden cardiac at [facility] prior to admission, acute ischemic CAD, with recurrent inpatient cardiac arrest on 01/03, status post AICD defibrillator placement, requiring sedation and subsequent prolonged mechanical ventilation. He was extubated 01/06 but required re-intubation 01/08. Pt was extubated 01/13, with enteral feeding discontinued at that time. Prior to extubation pt was tolerating enteral feeding well at goal rate. He failed his first swallow evaluation yesterday; today diet advanced to stimulation, no liquids. PMHX: Type 2 DM, HTN, hypercholesterolemia, tobacco use, COPD, severe JAGRUTI, stage III renal disease, PAD, CAD, CABG. DIET: Stimulation, no liquids. PO intake not yet recorded. LABS: Na 148, Chloride 115, BUN 42, Glu 195, Ca 8.3, Alb 2.2. MEDICATIONS: Reviewed. Insulin, precedex. GI: FMS in place. Output decreased significantly. SKIN:Per [employer] Sales Consultant, great toe plantar ulcer is 0.5 cm in diameter and 0.6 cm in depth, web space wound between right great toe and 2nd toe is 2.5 cm L x 0.6 cm W x 0.1 cm D. Webspace wound does not drain, but plantar wound at great toe continues to drain thin tannish fluid. Neither wound presents with any erythema or fluctuance. NUTRITION SUPPORT DISCONTINUED: Glucerna 1.5 @ 65ml/hr with 170ml q 3 hrs free water flush ANTHROPOMETRICS: Wt: 98.7 kg, BMI 32.2 kg/m2, Admit wt: 105.6 kg, IBW: 72.7 kg. ESTIMATED NEEDS: BMI Calories: 6930-8859 kcal/day (20-22 kcal/kg BW) Protein: 90-110g/day (1.2-1.5g/kg IBW) NUTRITION DIAGNOSIS: 1) Inadequate oral intake related to decreased ability to consume sufficient energy as evidenced by current NPO status - SLIGHTLY IMPROVED WITH DIET ADVANCE TO STIMULATION. INTERVENTION: 1) Diet advance per ST order. 2) Will add supplements once diet advanced beyond stimulation. 3) In the event diet unable to be advanced over weekend, recommend restart enteral feeding per previous recommendations. MONITOR/EVALUATE: Diet advance / tolerance, PO intake, GI status, labs, GI/nutrition status. Follow per high nutrition risk guidelines. Addendum: 01/15/17 at [address] Per discussion during Case Management rounds, "Diet Against Medical Advice" placed in chart for provider authorization.
[2017-01-14] MEDS: fentaNYL 2,500 mCg/250 mL 2,500 MCG in IV Premix 1 EACH IV SCH (15:22)
--- NOTE | 2017-01-14 15:39 | NUR ---
Social Work: Continued Discharge Planning D: Pt discussed in am rounds. Pt is not yet medically stable for discharge at this time. PT recommendation for the pt at this time is SNF as pt with "significant generalized decondition possibly related to prolonged bedrest and intubation. Patient currently requiring mod A/Max a for supine to sit and sit to stand." UPHOLSTERER APPRENTICE met with patient and at bedside to discuss discharge planning and possibility for MD to recommend pt for skilled rehab at discharge. SNF CHOICE LIST PROVIDED. Pt and both express understanding that pt is very weak but state "he just needs another day or so to get stronger, he was laying in bed for almost two weeks." They have limited insight to pt's possible discharge needs and significant deconditioned status. states that she can provide all care for patient and that she is not worried about his level of care. They are willing to review the SNF LIST and provide two preferences if on Tuesday the pt does not progress with his ambulatory status. A: Pt who is from home with his spouse. P: Evolving; At this time, pt and family declining referral for SNF. UPHOLSTERER APPRENTICE to continue to follow pt's ambulatory status and possible discharge needs. DIAMANTE Peng
--- NOTE | 2017-01-14 16:17 | PCM.PNMED ---
Subjective Date of Service Jan 14, 2017 Subjective Patient seen and examined. He is quite anxious today and wants to eat . He wonders about going home . She is s/p post extubation yesterday and improving from respiratory standpoint . No chest pain . No fever , no chills. WBC up today Exam Vital Signs Vital Sign - Last Date Time Temp Pulse Resp B/P Pulse Ox O2 Delivery O2 Flow Rate FiO2 01/14/17 12:06 60 20 97 Nasal Cannula 2.00 01/14/17 12:00 36.8 141/91 01/13/17 12:11 40 Intake and Output 01/13/17 01/13/17 01/14/17 Cumulative From/Thru 15:00 23:00 07:00 01/02/17 05:15 - 01/14/17 05:46 Intake Total 278 ml 279 ml 06518 ml Output Total 675 ml 750 ml 71405 ml Balance -397 ml -471 ml 1878 ml Intake Oral 0 ml 310 ml IV Total 278 ml 279 ml 90184 ml Tube Feeding 4586 ml Packed Cells 320 ml Tube Irrigant 2534 ml Output Urine Total 550 ml 750 ml 31681 ml Stool Total 125 ml 0 ml 200 ml Gastric Drainage Total 2615 ml # Voids 1 # Bowel Movements 3 Exam General: Sitting in bed comfortably. Anxious but NAD HEENT: sclerae anicteric, mucosa moist. On oxygen via nasal canula Neck: Supple No JVD, trachea is midline Chest: Overall good air entry bilaterally. Mild scattered crackles Cardiac: Regular, S1S2, no murmur audible. no gallop Abdomen: Soft, non tender, BS WNL all quadrants Extremities: 2+ edema bilaterally, no cyanosis , no calf tenderness Neuro: Patient moves all extremity. AAO x 3. Anxious IVs and Medications Medications Reviewed: Medications were reviewed in detail Lab and Diagnostics Result Diagram: 01/14/17 0510 01/14/17 0510 X-Rays, CTs and MRIs : Persistent bibasilar pneumonia, left greater than right, lines and tubes in normal position. Assessment & Plan 1. Acute diastolic congestive heart failure Ef 40% by echo. 2. S/p Cardiac arrest: Due to acute ischemic disease with inferior ME. S/p AICD pacemaker placement 01/03. . 3. Acute NSTEMI, improved. Cardiac cath shows : 1. A 70% mid left anterior descending artery stenosis. 2.Chronic occlusion of the right coronary artery.3. LVEF 40%. 4.LVEDP is 35 mmHg. - Continue aspirin, clopidogrel, statin - Further management per cardiology service 4. Acute respiratory failure with hypoxia Extubated and doing fairly well on nasal canula - Pulmonology service following. 5 Acute encephalopathy : Multifactorial . Improving . 6. Pulmonary Edema : Improving Repeat chest X-ray shows : Nearly resolved bibasilar pneumonia with minimal residual involving the left lung base 7. Klebsiella pneumonia, acute not present on admission. . Bilateral basilar infiltrates on previous chest X-ray - Continue ceftriaxone per ID 8. Acute kidney injury. Improving to baseline creatinine. Monitor renal function and electorates . 9 Hypernatremia: Na 148 today . Increase free water intake.,on D5w Repeat BMP in am 10. Diabetes mellitus, insulin-dependent, uncontrolled. A1c from 11/01/2016 was 9.8, subsequently 5.6 Sliding scale insulin with coverage Basal insulin with lantus 11. Hypertension Uncontrolled . Systolic fluctuating around 170- 140 . Improvement expecting once PO antihypertensive medications are resumed. He is quite anxious and agitated as well , which might be responsible for his elevated BP Overall making significant progress. Physical therapy evaluation. Out of bed to chair Elevated WBC is due to steroid . Patient is afebrile and there is no clinical sign of sepsis or recurrent infection Plan of care as above and per consultants. BMP in am to follow sodium and renal functions Discharge planning and discussed with health and social care teacher . VTE Prophylaxis: Sub-Q Heparin (Unfractionated) VTE Mechanical Devices: Intermittant Pneumatic CD Resuscitation Status: CPR: Attempt Resuscitation Time spent 35 minutes Beto Gold MD Jan 14, 2017 16:17
--- NOTE | 2017-01-14 18:47 | NUR ---
Activity/BP Pt up to chair with PT for lunch after speech eval. Kept nodding off after about an hour in chair, so got back in bed. Pt tolerated well, able to eat supervised, however he was impulsive and tried to take large bites of food. Pt's BP high when agitated this AM. Titrated precedex per Dr Dunbar, and once speech eval was done, gave PO meds crushed in applesauce. Frequent rounding and turning continues. Pts family at bedside intermittently throughout shift. Using the call light appropriately.
[2017-01-14] MEDS: Insulin GLARgine 100 Unit/mL Syringe SUBQ SCH (21:35)
[2017-01-15] VITALS (16 sets, daily range): BP systolic 132–187; BP diastolic 55–82; PULSE 60–62; RESP 12–22; O2SAT 94–98
[2017-01-15] MEDS: hydrALAZINE 20 mg/mL Inj IV SCH ×5 (02:30→21:00)
[2017-01-15] MEDS: Insulin Human REGular 300 Unit/3 mL Inj SUBQ SCH ×4 (02:37→20:59)
[2017-01-15] MEDS: Dexmedetomidine 400 mCg/100 mL NS Premix IV SCH ×2 (03:41→12:31)
[2017-01-15] MEDS: Albuterol-Ipratropium 3 mL Inhalation Solution NEB SCH ×5 (03:50→22:32)
[2017-01-15 05:29] LABS: BASOPHILS % (AUTO) 0.1 % (0-3); EOSINOPHILS % (AUTO) 0.1 % (0-5); MONOCYTES % (AUTO) 7.6 % (4-12); Mean Corpuscular Hemoglobin 29.6 pg (27.0-35.0); Mean Corpuscular Volume 93.1 fL (81-100); NEUTROPHILS % (AUTO) 83.9 % (40-74); Platelet Count 337 bil/L (150-400)
--- NOTE | 2017-01-15 06:37 | NUR ---
Respiratory/BP/R arm swelling Pt oriented to self and place. Forgetful of date and times. He gets restless at times but cooperative most of the times and follows instructions. He was noted to be more conversant and appropriate tonight. 02sat in mid 90s on Ra. 02sat in low 90s while asleep. 02 at 1L with 02sat in mid 90s. BP as high as 180-190s. Pt took PO BP meds crush with applesauce without any problems. Hydralazine IV x1 dose scheduled given last night. SBP decrease as low as 130-140s at times tonight. Pt tolerating ice chips/stimulation diet fairly well. Noted increased in R forearm/hand swelling noted. Pt denies any pain/discomfort. Intact sensation.
[2017-01-15] MEDS: DULoxetine 30 mg DR Capsule PO SCH (07:31)
[2017-01-15] MEDS: Pantoprazole 4 mg/mL 10 mL Inj IVPUSH SCH (08:33)
[2017-01-15] MEDS: Heparin 5,000 Unit/mL Inj SUBQ SCH ×2 (08:33→20:55)
[2017-01-15] MEDS: MethylprednisoLONE Sodium Succinate 40 mg/mL Inj IVPUSH SCH (08:33)
[2017-01-15] MEDS: Sodium Chloride LOK Flush 10 mL Syringe IVFLUSH SCH ×3 (08:34→21:19)
[2017-01-15] MEDS: 0.9% Sodium Chloride 250 ML IV SCH (12:31)
--- NOTE | 2017-01-15 15:55 | PCM.PNMED ---
Subjective Date of Service Jan 15, 2017 Subjective Patient seen and examined at bedside . No significant interval overnight events. Patient is quite anxious and upset about going home though . BP still elevated and remained on oxygen via nasal canula at 2 liter/minutes No chest pain. Afebrile Exam Vital Signs Vital Sign - Last Date Time Temp Pulse Resp B/P Pulse Ox O2 Delivery O2 Flow Rate FiO2 01/15/17 14:53 Room Air 01/15/17 13:30 61 20 95 01/15/17 08:30 36.6 170/76 01/15/17 05:00 1.00 01/13/17 12:11 40 Intake and Output 01/14/17 01/14/17 01/15/17 Cumulative From/Thru 15:00 23:00 07:00 01/02/17 05:15 - 01/15/17 06:31 Intake Total 1710 ml 670 ml 23340 ml Output Total 825 ml 740 ml 89776 ml Balance 885 ml -70 ml 2693 ml Intake Oral 650 ml 293 ml 1253 ml IV Total 1060 ml 377 ml 67466 ml Tube Feeding 4586 ml Packed Cells 320 ml Tube Irrigant 2534 ml Output Urine Total 800 ml 700 ml 13704 ml Stool Total 25 ml 40 ml 265 ml Gastric Drainage Total 2615 ml # Voids 1 # Bowel Movements 3 Exam General: Obese male , in bed comfortably. NAD HEENT: sclerae anicteric, Mouth : Moist oral mucosea Neck: No cervical lymphadenopahty. No JVD, trachea is midline Chest: No deformity. no tenderness. Normal respiratory effort Lung : Good air entry bilaterally. No wheezing , scattered crackles b/l Cardiac: Regular, S1S2, no murmur audible. no gallop Abdomen: , BS normal, non-tender, no balp mass Extremities: No calf tenderness, no edema, no cyanosis Neuro: non focal. Anxious . AAO x 3 IVs and Medications Medications Reviewed: Medications were reviewed in detail Lab and Diagnostics Result Diagram: 01/15/17 0505 01/15/17 0505 X-Rays, CTs and MRIs : Persistent bibasilar pneumonia, left greater than right, lines and tubes in normal position. Assessment & Plan 1. Acute diastolic congestive heart failure Ef 40% by echo. 2. S/p Cardiac arrest: Due to acute ischemic disease with inferior NM. S/p AICD pacemaker placement 01/03. . 3. Acute NSTEMI, improved. Cardiac cath shows : 1. A 70% mid left anterior descending artery stenosis. 2.Chronic occlusion of the right coronary artery.3. LVEF 40%. 4.LVEDP is 35 mmHg. - Continue aspirin, clopidogrel, statin - Further management per cardiology service 4. Acute respiratory failure with hypoxia Extubated day #2 , and doing fairly well on nasal canula . 5 Acute encephalopathy : Multifactorial . Improved 6. Pulmonary Edema : Improving Repeat chest X-ray shows : Nearly resolved bibasilar pneumonia with minimal residual involving the left lung base 7. Klebsiella pneumonia, acute not present on admission. . Bilateral basilar infiltrates on previous chest X-ray - Continue ceftriaxone per ID 8. Acute kidney injury. Improving to baseline creatinine. Monitor renal function and electorates . 9 Hypernatremia: Na 149 today . Increase free water intake.,on D5w Repeat BMP in am 10. Diabetes mellitus, insulin-dependent, uncontrolled. A1c from 11/01/2016 was 9.8, subsequently 5.6 Changed insulin coverage to a low scale algorithm in veiw of hypoglycemia x 1 episode with blood sugar of 80 11. Hypertension Uncontrolled . Systolic fluctuating around 170- 140 . Improvement expecting once PO antihypertensive medications are resumed. He is quite anxious and agitated as well , which might be responsible for his elevated BP Improving. Wean off Precedex . Change Physical therapy evaluation and recommendation noted for SNF but patient refused that option insulin coverage to a low scale algorithm in view of hypoglycemia x 1 episode with blood sugar of 80 Continue IV PRN antihypertensive until PO intake can be resumed. Speech and swallow follow up May be downgrade once precedex is weaned off Discharge planning VTE Prophylaxis: Sub-Q Heparin (Unfractionated) VTE Mechanical Devices: Intermittant Pneumatic CD Resuscitation Status: CPR: Attempt Resuscitation Time spent 35 minutes Beto Gold MD Jan 15, 2017 15:55
[2017-01-15] MEDS: fentaNYL 2,500 mCg/250 mL 2,500 MCG in IV Premix 1 EACH IV SCH (16:15)
[2017-01-15] MEDS ORDERED: Albuterol-Ipratropium 3 mL Inhalation Solution NEB PRN (16:25)
--- NOTE | 2017-01-15 18:14 | PROG NOTE ---
[address] [address] PROGRESS NOTE PATIENT: NIKOLAY ROYAL : 1955 MR#: [id number] ADMIT: 01/02/2017 JOB ID: [id number] DATE: 01/15/2017 PULMONARY FOLLOWUP NOTE: PROBLEM: 1. Status post implantable cardiovascular defibrillator placement for VFib arrest. 2. Sinus bradycardia, 100% paced rhythm. 3. Coronary artery disease, status post stenting, left anterior descending with prior stenting right coronary artery in remote past. 4. Obstructive sleep apnea. 5. Diabetes mellitus. 6. Hypertension. 7. Peripheral arterial disease. 8. Dynamic compression of the airways with significant bronchial edema, resolved. SUBJECTIVE: Breathing comfortably. Getting stronger though remains a bit weak. Feeling much better since oral liquids and foods have been, to some extent, reinstituted. States he stood at the edge of the bed yesterday and is planning on working hard to avoid transfer to half-way with rehab as he thinks he will be able to do it at home. No chest or abdominal pain. OBJECTIVE: Afebrile. Pulse 60, 100% paced. Respiratory rate 16-20. Blood pressure 170/76, O2 sat on room air is 95%. I and O shows 1.9 L in, 1.5 L out. General appearance: Patient dozing in bed. Head of the bed elevated only about 30 degrees and he appeared quite comfortable. Woke up easily to voice. Awake, alert, rather engaging fellow. Chest: Fairly good breath sounds bilaterally. Clear anteriorly. No use of accessory muscles. No tracheal tug. Heart: Regular rhythm. Heart tones seem normal. Rhythm is 100% paced. Abdomen soft. Nondistended. Bowel tones present. Extremities: 1+ pretibial edema. LABORATORY DATA: Shows a white count of 13,900, down from 17,100, with 83 polymorphonuclears, 7 lymphs, 7monos. Hemoglobin 11.5. Platelet count 337,000, relatively stable. Sodium 149 and stable. Potassium 3.8, chloride 113. CO2 is 23, BUN 39, creatinine 1.03. Calcium 8.5 with an albumin of 2.3. Total bilirubin 0.3. AST 18, ALT 15, alkaline phosphatase 103. ASSESSMENT: 1. Marked bronchial edema. Doing much better. Does say that the nebulized medications do help and we will start doing them during the day on a regular basis but only using them at night on a p.r.n. basis in order to get him some quality sleep. No evidence of airway obstruction at this point. Lungs sound relatively clear. Suspect he does have underlying chronic obstructive pulmonary disease, given his smoking history, but that remains to be seen. For the moment will use the and nebulized DuoNeb q.4 during the day and p.r.n. at night. 2. Nutrition. Taking orals fairly well. On a somewhat restricted diet but it is enough to satisfy his needs. Hopefully, will be able to advance to an ad damián diet. 3. Coronary artery disease. Seemingly doing well. 4. Bradycardia. 100% paced. The pacer seems to be working well at this point with 100% capture. PLAN: 1. Change nebulizer to q.4 h. while awake and q.2 h. p.r.n. dyspnea at night. 2. Continue other pulmonary medications. 3. Will probably need a workup as an outpatient, not only for COPD but also for sleep apnea. Likely needs CPAP or possibly BPAP in the near future. Will stop following the patient at this juncture. If any questions or problems arise, please feel free to contact us. Thank you for allowing us to participate in his care.
--- NOTE | 2017-01-15 18:37 | NUR ---
BG/Dexmed Pt hypoglycemic this am, BG 66, pt difficult to arouse but able to awaken. D10 IV bolus given, BG increased to 150. MD notified, decreased sliding scale to low-dose algorithm. No subsequent hypoglycemic episodes this shift. 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 Pt tolerating diet well. Pt alert, intermittently forgetful, not impulsive. Dexmed gtt titrated off by this afternoon. Pt calm and cooperative. Family visiting with pt at this time. Denies pain. ABHISHEK chest incision ROD AND TUBE STRAIGHTENER, well approximated. PCC status with tele, no longer CCU.
[2017-01-15] MEDS ORDERED: Insulin Human REGular 300 Unit/3 mL Inj SUBQ SCH (20:30)
[2017-01-15] MEDS: Insulin GLARgine 100 Unit/mL Syringe SUBQ SCH (20:57)
[2017-01-15] MEDS: Ondansetron 2 mg/mL 2 mL Inj IVPUSH PRN (23:12)
[2017-01-16] VITALS (10 sets, daily range): BP systolic 114–173; BP diastolic 54–77; PULSE 60–64; RESP 13–20; O2SAT 60–98
[2017-01-16] MEDS: MetoCLOpramide 5 mg/mL 2 mL Inj IVPUSH PRN ×2 (00:41→08:49)
[2017-01-16] MEDS: hydrALAZINE 20 mg/mL Inj IV SCH ×4 (02:30→20:59)
[2017-01-16] MEDS: Ondansetron 2 mg/mL 2 mL Inj IVPUSH PRN (05:12)
--- NOTE | 2017-01-16 05:48 | NUR ---
Nausea/Vomiting/Hiccups Pt c/o hiccups which preceded projectile vomiting episode, pt states this came out of nowhere. Pt cleaned up and medicated with zofran. Pt still c/o nausea. Phoenix Garcia given as well. Pt nausea somewhat improved after this. A repeat of this episode: hiccups and projectile vomiting occurred again at 0200. Pt given partial bed bath, linens changed and given ice chips. Pt medicated with zofran again as well. VSS, afebrile overnight. Pt advised to continue with small ice chips, but no juices or large drinks. Pt agreeable to this. continuing to monitor.
[2017-01-16 06:05] LABS: Magnesium 2.3 mg/dL (1.6-2.6)
--- NOTE | 2017-01-16 06:34 | NUR ---
FMS No output to FMS overnight, DC'd this am at 0630 without complication.
[2017-01-16] MEDS: Insulin Human REGular 300 Unit/3 mL Inj SUBQ SCH ×4 (07:30→21:03)
[2017-01-16] MEDS: Albuterol-Ipratropium 3 mL Inhalation Solution NEB SCH ×4 (07:59→20:14)
[2017-01-16] MEDS: Pantoprazole 4 mg/mL 10 mL Inj IVPUSH SCH (08:33)
[2017-01-16] MEDS: Sodium Chloride LOK Flush 10 mL Syringe IVFLUSH SCH ×2 (08:35→15:04)
[2017-01-16] MEDS: MethylprednisoLONE Sodium Succinate 40 mg/mL Inj IVPUSH SCH (08:40)
[2017-01-16] MEDS: Heparin 5,000 Unit/mL Inj SUBQ SCH ×2 (08:42→19:21)
[2017-01-16] MEDS: DULoxetine 30 mg DR Capsule PO SCH (08:46)
--- NOTE | 2017-01-16 09:05 | PCM.PNMED ---
Subjective Date of Service Jan 16, 2017 Subjective Patient seen and examined bedside . He is feeling nauseous this morning and had 2 episodes of vomiting last night due to hiccups. No change in bowel habit , no abdominal pain and vomiting is of stomach content , no blood , no mucus Afebrile. He denies chest pain, no shortness of breath Exam Vital Signs Vital Sign - Last Date Time Temp Pulse Resp B/P Pulse Ox O2 Delivery O2 Flow Rate FiO2 01/16/17 07:59 60 20 95 Room Air 01/16/17 03:17 36.7 146/77 01/15/17 05:00 1.00 01/13/17 12:11 40 Intake and Output 01/15/17 01/15/17 01/16/17 Cumulative From/Thru 15:00 23:00 07:00 01/02/17 05:15 - 01/16/17 06:17 Intake Total 517 ml 950 ml 46540 ml Output Total 400 ml 00975 ml Balance 517 ml 550 ml 3760 ml Intake Oral 836 ml 2089 ml IV Total 517 ml 114 ml 94539 ml Tube Feeding 4586 ml Packed Cells 320 ml Tube Irrigant 2534 ml Output Urine Total 400 ml 08391 ml Stool Total 265 ml Gastric Drainage Total 2615 ml # Voids 1 # Bowel Movements 3 Exam General: NAD , obese male, in bed comfortably HEENT: KISHAN.Sclerae is anicteric Neck: No cervical lymphadenopahty. No JVD, trachea is midline Chest: Coarse BS, no rales, no wheeze; pacemaker site OK. Cardiac: Regular, S1S2, no murmur audible. no gallop Abdomen: Protuberant, BS normal, non-tender; lam Extremities: 2+ edema bilaterally, no cyanosis , no calf tenderness Neuro: AAOx 3. non focal IVs and Medications Medications Reviewed: Medications were reviewed in detail Lab and Diagnostics Result Diagram: 01/15/17 0505 01/16/17 0525 X-Rays, CTs and MRIs : Persistent bibasilar pneumonia, left greater than right, lines and tubes in normal position. Assessment & Plan 1. Acute diastolic congestive heart failure Ef 40% by echo. 2. S/p Cardiac arrest: Due to acute ischemic disease with inferior CO. S/p AICD pacemaker placement 01/03. . 3. Acute NSTEMI, improved. Cardiac cath shows : 1. A 70% mid left anterior descending artery stenosis. 2.Chronic occlusion of the right coronary artery.3. LVEF 40%. 4.LVEDP is 35 mmHg. - Continue aspirin, clopidogrel, statin - Further management per cardiology service 4. Acute respiratory failure with hypoxia Extubated day #2 , and doing fairly well on nasal canula . 5 Acute encephalopathy : Multifactorial . Improved significantly . Patient now at baseline 6. Pulmonary Edema : Improved Repeat chest X-ray shows : Nearly resolved bibasilar pneumonia with minimal residual involving the left lung base 7. Klebsiella pneumonia, acute not present on admission. . Bilateral basilar infiltrates on previous chest X-ray - Continue ceftriaxone per ID 8. Acute kidney injury. Improving to baseline creatinine. Monitor renal function and electorates . 9 Hypernatremia: Resolved . Na 141 today . 10. Diabetes mellitus, insulin-dependent, uncontrolled. A1c from 11/01/2016 was 9.8, subsequently 5.6 Changed insulin coverage to a low scale algorithm in view of hypoglycemia x 1 episode with blood sugar of 80 11. Hypertension : Uncontrolled Improved with systolic fluctuating around 140 today . Patient is clinically and hemodynamially improved. Diarrhea subsided and was Likely secondary to lactulose . He has 2 episode of emesis last night , which seems to be provoked by episode of hicups Discontinue Lam catheter. Out of bed encouraged. Patient may be moved to [facility] He refused SNF option stating his work in [place] for 30 years and knows how to take care of him Discharge anticipated within 48 hours VTE Prophylaxis: Sub-Q Heparin (Unfractionated) VTE Mechanical Devices: Intermittant Pneumatic CD Resuscitation Status: CPR: Attempt Resuscitation Time spent 35 minutes Beto Gold MD Jan 16, 2017 09:05
[2017-01-16] MEDS: 0.9% Sodium Chloride 250 ML IV SCH (10:10)
--- NOTE | 2017-01-16 15:49 | NUR ---
Social Work: Continued Discharge Planning D: Pt discussed in am rounds; pt not yet medically stable for discharge at this time. MD anticipates another 1-2 days of hospitalization. PT recommendation remains for skilled rehab. GRADUATE NURSE met with pt and at bedside to discuss discharge planning. They continue to decline the possibility of SNF but are receptive to home health. HH CHOICE LIST PROVIDED. Pt has been open with [facility] in the past. This is their preference if MD feels it is medically necessary. MD has placed order for GRADUATE NURSE to arrange for Home Health. Pt confirms homebound status. Pt understands risks of going home and potential to readmit once discharge. t/c to [facility] to provide referral; left message for Myriam Campbell providing referral. A: Pt who lives at home with his . P: Anticipate pt to discharge home with [facility] pending acceptance; GRADUATE NURSE to continue to follow to assist with safe discharge planning. DIAMANTE Peng
--- NOTE | 2017-01-16 16:00 | NUR ---
Activity/Diet.. Pt has been up in the chair for several hours and is lewis this well. Transfers from bed to chair are slow and require repeated directions. Pt admits to his weakness. Has had no further nausea or emesis after receiving Reglan this am. Has not eaten any of his dysphagia mechanical diet but now that he has been advanced to general diet, he feels his appetite will improve.
[2017-01-16] MEDS: fentaNYL 2,500 mCg/250 mL 2,500 MCG in IV Premix 1 EACH IV SCH (16:20)
--- NOTE | 2017-01-16 19:16 | NUR ---
Dinner blood glucose.. unable to obtain accurate OT prior to meal for insulin coverage as pt had eaten 50% of his tray before sugar could be checked.
[2017-01-16] MEDS: Insulin GLARgine 100 Unit/mL Syringe SUBQ SCH (21:03)
[2017-01-17 00:05] VITALS: BP 140/51; PULSE 60; RESP 24; O2SAT 95
[2017-01-17] MEDS: Sodium Chloride LOK Flush 10 mL Syringe IVFLUSH SCH ×2 (00:45→07:53)
[2017-01-17] MEDS: hydrALAZINE 20 mg/mL Inj IV SCH ×2 (03:52→07:52)
[2017-01-17 03:58] VITALS: BP 151/44; PULSE 61; RESP 14; O2SAT 95
[2017-01-17 04:06] LABS: BASOPHILS % (AUTO) 0 % (0-3); EOSINOPHILS % (AUTO) 0.1 % (0-5); MONOCYTES % (AUTO) 10.3 % (4-12); Mean Corpuscular Volume 91.5 fL (81-100); NEUTROPHILS % (AUTO) 74.3 % (40-74); Platelet Count 335 bil/L (150-400)
[2017-01-17] MEDS: Insulin Human REGular 300 Unit/3 mL Inj SUBQ SCH (07:30)
[2017-01-17 07:45] VITALS: BP 151/44; PULSE 63; RESP 22; O2SAT 95
[2017-01-17] MEDS: DULoxetine 30 mg DR Capsule PO SCH (07:52)
[2017-01-17] MEDS: Pantoprazole 4 mg/mL 10 mL Inj IVPUSH SCH (07:52)
[2017-01-17] MEDS: MethylprednisoLONE Sodium Succinate 40 mg/mL Inj IVPUSH SCH (07:52)
[2017-01-17] MEDS: Heparin 5,000 Unit/mL Inj SUBQ SCH (08:05)
[2017-01-17 08:28] VITALS: PULSE 60; RESP 16; O2SAT 96
[2017-01-17] MEDS: Albuterol-Ipratropium 3 mL Inhalation Solution NEB SCH (08:28)
[2017-01-17] MEDS: 0.9% Sodium Chloride 250 ML IV SCH (09:21)
[2017-01-17 09:33] VITALS: PULSE 60
[2017-01-17] MEDS ORDERED: Potassium Chloride Inj 20 MEQ in Dextrose 5% 250 ML IV ONE (10:40)
--- NOTE | 2017-01-17 10:47 | PCM.DIMED ---
Discharge Instructions Date of Service Jan 17, 2017 Dates of Hospitalization January 02, 2017 at 02:43 Discharge Diagnosis Discharge Diagnosis 1. Acute diastolic congestive heart failure Ef 40% by echo. 2. S/p Cardiac arrest 3. Acute NSTEMI, improved. 4. Acute respiratory failure with hypoxia 5 Acute encephalopathy 6. Pulmonary Edema 7. Klebsiella pneumonia, acute not present on admission. 8. Acute kidney injury. 9 Hypernatremia 10. Diabetes mellitus, insulin-dependent 11. Hypertension Diet Discharge Diet: Heart Healthy, Diabetic Activity Discharge Activity: No restrictions (Home physical therapy ) Call your provider Call your provider for: Shortness of breath, Chest pain Patient Instructions Patient Instructions BMP with primary care doctor in 3 days to follow renal function and potassium level Follow-up with PCP in: 1 week (Primary care doctor and cardiology ) Beto Gold MD Jan 17, 2017 10:47
[2017-01-17] MEDS ORDERED: ASPI81TA3 PO (10:49)
[2017-01-17] MEDS ORDERED: CARV6.252 PO (10:49)
--- NOTE | 2017-01-17 10:55 | PCM.DC.MED ---
Discharge Summary Date of Service Jan 17, 2017 Dates of Hospitalization Date of Hospital Admission January 02, 2017 at 02:43 Date of Discharge: Jan 17, 2017 Providers: Admitting Physician: Shirley Mcdaniel MD Primary Care Physician: Haley Swift PA-C Attending Physician: Shirley Mcdaniel MD Diagnosis at Time of Discharge Diagnosis at Time of Discharge 1. Acute diastolic congestive heart failure Ef 40% by echo. 2. S/p Cardiac arrest 3. Acute NSTEMI, improved. 4. Acute respiratory failure with hypoxia 5 Acute encephalopathy 6. Pulmonary Edema 7. Klebsiella pneumonia, acute not present on admission. 8. Acute kidney injury. 9 Hypernatremia 10. Diabetes mellitus, insulin-dependent 11. Hypertension Consultations Cardiology. Physical therapy. Infectious Disease Pulmonary Procedures XRay, CTs & MRIs : Persistent bibasilar pneumonia, left greater than right, lines and tubes in normal position. Brief History Nikolay Manrique is a 61 year old man with past medical history significant for coronary artery disease status post CABG, peripheral artery disease, hyperlipidemia, diabetes mellitus insulin-dependent and presented to the [facility] ER due to a cardiac arrest in the field. The hospitalist service is consulted for management of his noncardiac issues. [place] and EMS was contacted. Chest compressions were initiated and he had return of spontaneous circulation. The patient was somewhat awake at this time and was mumbling words. EKG showed a sinus rhythm with ST depressions but this was called a STEMI and so he was subsequently taken to the [facility] for emergent angiography. Angiography report shows a chronically occluded nondominant RCA, 70% stenosis of mid LAD, 50% stenosis of proximal circumflex, 50% stenosis of obtuse marginal artery. Patient was coherent and alert so hypothermia protocol was not initiated. The patient was noted to have sinus bradycardia which apparently is chronic for him. The patient is now status post cardiac catheterization and feeling tired but well. He complains of chest pain where CPR was performed. Hospital Course 1. Acute diastolic congestive heart failure Ef 40% by echo. 2. S/p Cardiac arrest: Due to acute ischemic disease with inferior CO. S/p AICD pacemaker placement 01/03. . 3. Acute NSTEMI, improved. Cardiac cath shows : 1. A 70% mid left anterior descending artery stenosis. 2.Chronic occlusion of the right coronary artery.3. LVEF 40%. 4.LVEDP is 35 mmHg. - Continue aspirin, clopidogrel, statin Follow up with cardiology as outpatient 4. Acute respiratory failure with hypoxia Extubated day #2 , and doing fairly well on nasal canula . 5 Acute encephalopathy : Multifactorial . Improved significantly . Patient now at baseline 6. Pulmonary Edema : Improved Repeat chest X-ray shows : Nearly resolved bibasilar pneumonia with minimal residual involving the left lung base 7. Klebsiella pneumonia, acute not present on admission . Treated wit Ceftriaxone 8. Acute kidney injury. Improving to baseline creatinine. . 9 Hypernatremia: Resolved . Na 141 today . 10. Diabetes mellitus, insulin-dependent, uncontrolled. A1c from 11/01/2016 was 9.8, subsequently 5.6 Changed insulin coverage to a low scale algorithm in view of hypoglycemia x 1 episode with blood sugar of 80 11. Hypertension : Uncontrolled Improved with systolic fluctuating around 140 today . Patient is clinically and hemodynamially improved. Diarrhea subsided and was Likely secondary to lactulose . Physical therapy recommended SNF but patient and his refused . He is discharged home with home PT Exam Vital Signs (Last) Date Time Temp Pulse Resp B/P Pulse Ox O2 Delivery O2 Flow Rate FiO2 01/17/17 09:33 60 01/17/17 08:28 16 96 Room Air 01/17/17 07:45 36.9 151/44 01/15/17 05:00 1.00 01/13/17 12:11 40 Exam General: NAD , in bed comnfortably. HEENT: sclerae anicteric, mucosa moist,orally intubated Neck: No cervical lymphadenopahty. No JVD, trachea is midline Chest: Clear bilaterally Cardiac: Regular, S1S2, no murmur audible. no gallop Abdomen: benign Extremities: No calf tenderness, no cyanosis Neuro:AAOx 3, non focal Test 01/02/17 02:40 01/02/17 05:30 01/02/17 16:44 01/03/17 02:45 Metamyelocytes % 3% (0-0) Thyroid Stimulating Hormone (TSH) 3.910uIU/mL (0.450-4.500) Total Creatine Kinase 471U/L (21-232) Creatine Kinase MB 24.8ng/mL (0.0-10.4) Creatine Kinase MB % 5.3% (0.0-5.0) Triglycerides Level 173mg/dL (0-149) Cholesterol Level 200mg/dL (100-199) LDL Cholesterol, Calculated 128.400mg/dL (0-99) VLDL Cholesterol 34.600mg/dL HDL Cholesterol 37mg/dL (>39) Cholesterol/HDL Ratio 5.41 (0.0-4.4) Hold Briceno Top Tube Received (Received) Test 01/04/17 05:00 01/04/17 23:19 01/07/17 22:45 01/08/17 05:00 Hemoglobin A1c 7.6% (4.8-5.6) Prealbumin 16mg/dL (20-40) Band Neutrophils % 0% (1-5) Troponin T 0.354ug/L (0.0-0.011) Urine Random Total Protein 316mg/dL (0-15) Urine Total Volume 2200mL Urine Protein 24 Hr Calculated 6952mg/24H (30-150) Test 01/09/17 03:40 01/09/17 13:54 01/10/17 03:45 01/10/17 08:30 Lactic Acid Level 1.1mmol/L (0.4-2.0) Vancomycin Level Trough 22.6mcg/mL Pro-B-Type Natriuretic Peptide 66473nv/mL (0-210) Urine Color Ayleen (YELLOW) Urine Appearance Hazy (CLEAR,HAZY) Urine pH 6.5 (5.0-8.0) Urine Specific [place] 1.025 (1.003-1.035) Urine Protein 300mg/dL (NEG,TRACE) Urine Glucose (UA) Negativemg/dL (NEGATIVE) Urine Ketones Negativemg/dL (NEGATIVE) Urine Occult Blood Large (NEGATIVE) Urine Nitrite Positive (NEGATIVE) Urine Bilirubin Negative (NEGATIVE) Urine Ictotest Negative (Negative) Urine Urobilinogen Normalmg/dL (NORMAL) Urine Leukocyte Esterase Negative (NEGATIVE) Urine RBC 3-10/hpf (0-2) Urine WBC 0-5/hpf (0-5) Urine Epithelial Cells Few/hpf (NONE-MOD) Urine Crystals Uric acid crystals (NONE Urine Bacteria Few/hpf (NONE-FEW) Urine Hyaline Casts None/lpf (NONE) Urine Granular Casts None seen (NONE SEEN) Urine Waxy Casts None seen (NONE SEEN) Urine Red Blood Cell Casts None seen (NONE SEEN) Urine White Blood Cell Casts None seen (NONE SEEN) Urine Mucus None seen (None Seen) Urine Trichomonas None seen (NONE SEEN) Urine Yeast None (NONE SEEN) Urinalysis Comment None Urine Culture Reflexed Indicated Test 01/10/17 08:38 01/10/17 20:45 01/11/17 05:15 01/12/17 09:00 Hold Urine Received (Received) Fungal Antibodies <31pg/mL (<80) Phosphorus Level 4.4mg/dL (2.5-4.9) Procalcitonin 0.11ng/mL (0.00-0.08) Test 01/16/17 05:25 01/17/17 04:00 Magnesium Level 2.3mg/dL (1.6-2.6) Ammonia 48ug/dL (18-53) White Blood Count 15.7th/mm3 (3.8-10.1) Red Blood Count 3.40mil/mm3 (4.40-5.80) Hemoglobin 10.2g/dL (13.8-17.2) Hematocrit 31.1% (41.0-50.0) Mean Corpuscular Volume 91.5fL (81-100) Mean Corpuscular Hemoglobin 30.0pg (27.0-35.0) Mean Corpuscular Hemoglobin Concent 32.8% (32.0-37.0) Red Cell Distribution Width 16.3% (12.3-15.4) Platelet Count 335bil/L (150-400) Neutrophils (%) (Auto) 74.3% (40-74) Lymphocytes (%) (Auto) 14.9% (14-46) Monocytes (%) (Auto) 10.3% (4-12) Eosinophils (%) (Auto) 0.1% (0-5) Basophils (%) (Auto) 0% (0-3) Sodium Level 140mEq/L (134-144) Potassium Level 3.4mEq/L (3.5-5.2) Chloride Level 108mEq/L (97-108) Carbon Dioxide Level 22mmol/L (18-29) Blood Urea Nitrogen 39mg/dL (8-27) Creatinine 1.32mg/dL (0.76-1.27) Estimat Glomerular Filtration Rate 59mL/min (>59) Glucose Level 167mg/dL (60-99) Calcium Level 7.5mg/dL (8.5-10.1) Total Bilirubin 0.4mg/dL (0.0-1.2) Aspartate Amino Transf (AST/SGOT) 17U/L (0-50) Alanine Aminotransferase (ALT/SGPT) 16U/L (0-44) Alkaline Phosphatase 102U/L (25-160) Total Protein 4.5g/dL (6.4-8.4) Albumin 2.2g/dL (3.4-5.0) Discharge Medications Discharge Medications Amlodipine (Amlodipine) 10 Mg Tablet 10 MG PO QAM (Reported) Aspirin Chew (Aspirin Chew) 81 Mg Chew 81 MG PO DAILY Prescribed by: NIKOLAY GOLD MD Carvedilol (Carvedilol) 6.25 Mg Tablet 25 MG PO Q12 Prescribed by: NIKOLAY GOLD MD Clopidogrel (Clopidogrel) 75 Mg Tablet 75 MG PO QAM (Reported) Duloxetine (Duloxetine) 30 Mg Capsule.dr 30 MG PO QAM (Reported) Furosemide (Furosemide) 20 Mg Tab 40 MG PO DAILY (Reported) Gabapentin (Gabapentin) 300 Mg Capsule 600 MG PO HS (Reported) Insulin Glargine (Lantus U100 Solostar Insulin Pen) 100 Unit/1 Ml Insuln.pen 60 UNITS SUBQ HS Prescribed by: MARTHA AMBROCIO DO Insulin Human Lispro (HumaLOG U100 Insulin Vial) 100 Unit/Ml Unit 0 UNIT SUBQ WMHS Check blood sugars before meals and at bedtime. Use correction factor only before meals. Blood Sugar Lispro Correction: <151, 0 units; 151-175, 1 unit; 176-200, 2 units; 201-225, 3 units; 226-250, 4 units; 251-275, 5 units; 276-300 , 6 units; 301-325, 7 units; 326-350, 8 units; 351-375, 9 units; 376-400, 10 units; >400, 12 units. Prescribed by: MARTHA AMBROCIO DO Polyethylene Glycol 3350 (Miralax) 17 Gm Powd.pack 17 GM PO DAILY Prescribed by: MARTHA AMBROCIO DO Pravastatin (Pravastatin) 20 Mg Tablet 20 MG PO QAM (Reported) As needed oxyCODONE-Acetaminophen 5-325 mg (oxyCODONE-Acetaminophen 5-325 mg) 1 Each Tablet 1 TAB PO Q6H PRN PRN For Pain Prescribed by: MARTHA AMBROCIO DO Miscellaneous Medications Losartan Potassium (Losartan Potassium) 100 Mg Tablet (Reported) Followup Plan Disposition: Home with Home health Discharge Diet: Heart Healthy, Diabetic Discharge Activity: No restrictions (Home physical therapy ) Patient Instructions BMP with primary care doctor in 3 days to follow renal function and potassium level Follow-up with PCP in: 1 week (Primary care doctor and cardiology ) Time spent 35 minutes. Patient seen and examined on discharge date Nikolay Gold MD Jan 17, 2017 10:55
[2017-01-17] MEDS ORDERED: Potassium Chloride 20 mEq SR Tablet PO ONE (11:20)
--- NOTE | 2017-01-17 12:00 | NUR ---
Social Work Note: Discharge Data& Assessment: Per pt is medically ready to discharge home via POV with [facility] and RN to follow. Beto Manrique is a 61 year old male admitted on 01/02/2017 for STEMI. Per pt is medically improved. SW met with pt and pt at bedside to discuss discharge planning and assess for any unmet needs. Pt confirmed plan to discharge home today with her to transport. SW notified Myriam from [facility] of pt discharge. Myriam from [facility] confirmed they will be able to accept pt and contract with pt insurance [employer]. Pt and pt deny any other needs. No other discharge needs identified. All updated and agreeable to plan. Plan: Per pt is ready to discharge home via POV with [facility] and RN to follow. Pt and pt deny any other needs. Myriam from [facility] notified of pt discharge and accepted pt. All updated and agreeable to plan. No other discharge needs identified. DIAMANTE Thomas
--- NOTE | 2017-01-17 12:00 | NUR ---
Discharge The pt left the unit at 1200 via wheelchair to a private vehicle where he is being transported home by his . The pt left with all his belongings, and his packet of discharge information including all scripts and follow up appointment info. The pt and his verbalized understanding of all discharge teaching presented. The pt left the unit with VSS and A&Ox3.
== END 2017-01-17 12:00 | disposition home health service (06) | DRG 222 ==
LOC: EDBD 02:11 → SED 02:20 → CCU 02:43 → PCC 15:00 → CCU 20:46 → PCC 01-15 16:30
PROVIDERS: ADMIT Internal Medicine Interventional Cardiology; ATTEND Internal Medicine Interventional Cardiology
PROC: 4A023N7 Measurement of Cardiac Sampling and Pressure, Left Heart, Percutaneous Approach (ICD-10-PCS; 2017-01-02)
PROC: B2111ZZ Fluoroscopy of Multiple Coronary Arteries using Low Osmolar Contrast (ICD-10-PCS; 2017-01-02)
PROC: B2151ZZ Fluoroscopy of Left Heart using Low Osmolar Contrast (ICD-10-PCS; 2017-01-02)
PROC: 0JH608Z Insertion of Defibrillator Generator into Chest Subcutaneous Tissue and Fascia, Open Approach (ICD-10-PCS; principal; 2017-01-03)
PROC: 02HK3KZ Insertion of Defibrillator Lead into Right Ventricle, Percutaneous Approach (ICD-10-PCS; 2017-01-03)
PROC: 02H63KZ Insertion of Defibrillator Lead into Right Atrium, Percutaneous Approach (ICD-10-PCS; 2017-01-03)
PROC: 4A033R1 Measurement of Arterial Saturation, Peripheral, Percutaneous Approach (ICD-10-PCS; 2017-01-03)
PROC: 5A1945Z Respiratory Ventilation, 24-96 Consecutive Hours (ICD-10-PCS; 2017-01-03)
PROC: 0BJ08ZZ Inspection of Tracheobronchial Tree, Via Natural or Artificial Opening Endoscopic (ICD-10-PCS; 2017-01-04)
PROC: 30233N1 Transfusion of Nonautologous Red Blood Cells into Peripheral Vein, Percutaneous Approach (ICD-10-PCS; 2017-01-04)
PROC: 027034Z Dilation of Coronary Artery, One Artery with Drug-eluting Intraluminal Device, Percutaneous Approach (ICD-10-PCS; 2017-01-05)
PROC: 02703ZZ Dilation of Coronary Artery, One Artery, Percutaneous Approach (ICD-10-PCS; 2017-01-05)
PROC: 5A1955Z Respiratory Ventilation, Greater than 96 Consecutive Hours (ICD-10-PCS; 2017-01-08)
PROC: 0BH17EZ Insertion of Endotracheal Airway into Trachea, Via Natural or Artificial Opening (ICD-10-PCS; 2017-01-08)
DX: I21.4 Non-ST elevation (NSTEMI) myocardial infarction (principal); I50.31 Acute diastolic (congestive) heart failure; J96.01 Acute respiratory failure with hypoxia; G93.40 Encephalopathy, unspecified; I49.01 Ventricular fibrillation; I46.2 Cardiac arrest due to underlying cardiac condition; N17.9 Acute kidney failure, unspecified; E87.0 Hyperosmolality and hypernatremia; J95.851 Ventilator associated pneumonia; E11.621 Type 2 diabetes mellitus with foot ulcer; Z79.4 Long term (current) use of insulin; E78.5 Hyperlipidemia, unspecified; I25.10 Atherosclerotic heart disease of native coronary artery without angina pectoris; F17.210 Nicotine dependence, cigarettes, uncomplicated; L97.519 Non-pressure chronic ulcer of other part of right foot with unspecified severity; I73.9 Peripheral vascular disease, unspecified; E11.65 Type 2 diabetes mellitus with hyperglycemia; E11.22 Type 2 diabetes mellitus with diabetic chronic kidney disease; I12.9 Hypertensive chronic kidney disease with stage 1 through stage 4 chronic kidney disease, or unspecified chronic kidney disease; I49.5 Sick sinus syndrome; I25.5 Ischemic cardiomyopathy; D64.9 Anemia, unspecified; N18.3 Chronic kidney disease, stage 3 (moderate); E66.01 Morbid (severe) obesity due to excess calories; B96.1 Klebsiella pneumoniae [K. pneumoniae] as the cause of diseases classified elsewhere; R31.9 Hematuria, unspecified; Z68.33 Body mass index [BMI] 33.0-33.9, adult